=== PATIENT | female | born 1970 | race Caucasian/White ===

== ENCOUNTER 2018-08-20 13:10 | Observation (INO) | payer BC, SELFPAY ==
[2018-08-13 13:22] VITALS: BMI 30.1
[2018-08-20] VITALS (13 sets, daily range): BP systolic 126–161; BP diastolic 79–104; PULSE 58–80; RESP 13–18; TEMP 36.4–36.7; O2SAT 94–100; BMI 30.3; BMI 30.4
--- NOTE | 2018-08-20 13:39 | EKG12_ITS ---
Test Reason : CP Blood Pressure : / mmHG Vent. Rate : 065 BPM Atrial Rate : 065 BPM P-R Int : 172 ms QRS Dur : 088 ms QT Int : 408 ms P-R-T Axes : 017 -43 047 degrees QTc Int : 424 ms Normal sinus rhythm Left axis deviation Moderate voltage criteria for LVH, may be normal variant Abnormal ECG Confirmed by LAVONNE PERSAUD, CLAUDIA ([id number]), supervising editor trailer JENNIFER VALENZUELA ([id number]) on 08/24/2018 9:00:58 AM Referred By: [facility] Confirmed By:CLAUDIA BANERJEE MD
--- NOTE | 2018-08-20 13:39 | RAD_ITS ---
STUDY: X-RAY CHEST REASON FOR EXAM: Female, 48 years old. Chest pain. TECHNIQUE: Single AP portable view of the chest. COMPARISON: Comparison is made with prior study dated November 22, 2014. FINDINGS: EKG electrodes are seen. Stable mild elevation of the right hemidiaphragm. There is no demonstrated pleural abnormality. Normal size heart. Normal mediastinum and valente. Normal visualized pulmonary arteries. Normal visualized aortic arch and descending thoracic aorta. Normal visualized thoracic spine. Normal visualized ribs, clavicles, and shoulders. There is no demonstrated abnormality of the visualized soft tissue structures of the upper abdomen. RAD/Chest 1 View (Portable) IMPRESSION: No acute abnormality is present. Electronically Signed: Da Guzman MD at 14:15 EST , Service support ,
[2018-08-20 13:50] LABS: Absolute Lymphocyte Count 1.79 X10^3/ul (0.83-4.51); Absolute Neutrophil Count 2.1 X10^3/uL (2.0-7.7); Basophil# 0.02 X10^3/uL; Basophil% 0.5 % (0-1); Eosinophil# 0.05 X10^3/uL; Eosinophils% 1.1 % (0-5); Hematocrit 45.7 % (37-47); Hemoglobin 15.3 g/dl (12.0-15.0); Lymphocyte # 1.79 X10^3/ul (4.0); Lymphocyte % 40.7 % (19-41); Mean Corp Hgb Conc 33.5 g/gl (32-36); Mean Corpuscular Volume 86.6 fL (81-99); Mean Platelet Vol. 11.8 fl (6.2-12.0); Monocyte# 0.47 X10^3/uL; Monocyte% 10.7 % (0-10); Neutrophil # 2.07 X10^3/uL (2.7-7.7); Platelet Count 127 K/mm3 (150-450); RBC Distribution Width CV 13.1 % (11.6-14.6); RBC Distribution Width SD 40.9 fl (35.1-43.9); Red Blood Count 5.28 M/mm3 (4.2-5.4); White Blood Count 4.4 K/mm3 (4.4-11.0)
[2018-08-20 13:51] LABS: POSITIVE COUNT NO; POSITIVE DIFFERENTIAL NO; POSITIVE MORPHOLOGY NO
[2018-08-20 14:02] LABS: Anion Gap 11 (5-15); BUN 9 mg/dL (7-18); BUN/Creat Ratio 11.7 RATIO (10-20); Calcium,Total 9.2 mg/dL (8.5-10.1); Chloride 106 mmol/L (98-107); Creatinine, Serum 0.77 mg/dL (0.55-1.02); EST Glomerular Filtration Rate 85 mL/min (>60); Est Glom Filt Rate - Afr Amer 103 mL/min (>60); Estimated Creatinine Clearance 84.55 ml/min; Glucose 83 mg/dL (74-106); Potassium 3.6 mmol/L (3.5-5.1); Sodium Level 143 mmol/L (136-145)
[2018-08-20] MEDS: Aspirin 81 MG TAB.CHEW 324 MG PO (14:35)
--- NOTE | 2018-08-20 15:10 | ED.VISSUMM ---
- ER Visit Summary Date of Service: 08/20/18 Chief Complaint: Chest pain History of Present Illness: The patient is a 48 F who presents with chest pain that has been getting worse over the past several days. Patient describes her pain as a tightness and squeezing. Patient states it is over the upper substernal area. Patient states nothing makes it better or worse. Patient admits to some diaphoresis and shortness of breath with the pain. Patient also admits to some palpitations over the past few days. Patient has a history of hypertension. Patient denies any other cardiac or PE risk factors. Physical Examination: Vital signs are stable. Patient is afebrile. Patient is in no acute distress. Oral mucosa is pink and moist. Neck is supple. Trachea is midline. There is no JVD noted. Heart was regular rate and rhythm. Lungs are clear and equal bilateral. Abdomen is soft. Bowel sounds are normal. There is no tenderness. There is no guarding noted. Skin is warm dry. Cranial nerves II through XII are intact. There are no focal motor or sensory deficits noted. The remaining physical exam is within normal limits. Test Results: EKG showed a normal sinus rhythm with a rate of [address] acute [address] or T wave changes. This was unchanged compared to previous EKG dated 02/09/2013. Chest x-ray does not show any acute cardiopulmonary process. CBC was normal with the exception of a mild thrombocytopenia of 127. Basic metabolic profile was normal. Troponin was indeterminate at 0.07. Emergency Department Course and Treatment: She was given aspirin and sublingual nitroglycerin. Nitroglycerin did not change her pain. Case was discussed with the hospitalist. He will admit the patient to the PCU for observation. Patient understood and was agreeable with the plan. All questions were answered. Disposition: Admit for observation Impression: Chest pain This note was generated with [employer] dictation software. It may contain incorrect words, spelling, and punctuation that were not noted in review of the chart prior to signing ED Disposition - Plan for ED Patient: Disposition: Acute Care [facility] Diagnosis: Chest pain Referrals: Tomasa Khan DO [Primary Care Provider] -
--- NOTE | 2018-08-20 15:15 | ED.DCSUM_ITS ---
- ER Visit Summary Date of Service: 08/20/18 Chief Complaint: Chest pain History of Present Illness: The patient is a 48 F who presents with chest pain that has been getting worse over the past several days. Patient describes her pain as a tightness and squeezing. Patient states it is over the upper subst ernal area. Patient states nothing makes it better or worse. Patient admits to some diaphoresis and shortness of breath with the pain. Patient also admits to some palpitations over the past few days. Patient has a history of hypertension. Patient denies any other cardiac or PE risk factors. Physical Examination: Vital signs are stable. Patient is afebrile. Patient is in no acute distress. Oral mucosa is pink and moist. Neck is supple. Trachea is midline. There is no JVD noted. Heart was regular rate and rhythm. Lungs are clear and equal bilateral. Abdomen is soft. Bowel sounds are normal. There is no tenderness. There is no guarding noted. Skin is warm dry. Cranial nerves II through XII are intact. There are no focal motor or sensory deficits noted. The remaining physical exam is within normal limits. Test Results: EKG showed a normal sinus rhythm with a rate of [address] acute [address] or T wave changes. This was unchanged compared to previous EKG dated 02/09/2013. Chest x-ray does not show any acute cardiopulmonary process. CBC was normal with the exception of a mild thrombocytopenia of 127. Basic metabolic profile was normal. Troponin was indeterminate at 0.07. Emergency Department Course and Treatment: She was given aspirin and sublingual nitroglycerin. Nitroglycerin did not change her pain. Case was discussed with the hospitalist. He will admit the patient to the PCU for observation. Patient understood and was agreeable with the plan. All questions were answered. Disposition: Admit for observation Impression: Chest pain This note was generated with [employer] dictation software. It may contain incorrect words, spelling, and punctuation that were not noted in review of the chart prior to signing ED Disposition - Plan for ED Patient: Disposition: Acute Care [facility] Diagnosis: Chest pain Referrals: Toamsa Khan DO [Primary Care Provider] -
--- NOTE | 2018-08-20 15:32 | PCM.HP.STD ---
Problem List (1) Hypertension Status: Chronic (2) Chest pain Status: Acute History of Present Illness Date of Admission: 08/20/18 Chief Complaint: Chest pain. The patient is a 48 year old F with past medical history as mentioned above presented to the emergency room because of chest pain. Her symptoms started around mid June with intermittent mid central chest pain, pressure type pain, 5 out of 10 in severity, not radiating, associated with mild shortness of breath and without aggravating or relieving factors. This pain has been intermittent for the last couple of months, comes on without any specific triggering factors and over the last several days, it has been more constant and prolonged and started to radiate to her left arm from her left shoulder down to the left hand. She denied dizziness, lightheadedness, sweating, nausea or vomiting. She denied epigastric pain, heartburn. She is supposed to get stress test scheduled by PCP on September 10, 2018 but because of the pain got worse today, she decided to come to the emergency room. In the emergency department, initial blood pressure was slightly elevated and then improved, other vital signs were stable. Her routine blood work was unremarkable. Chest x-ray showed no acute findings. EKG revealed normal sinus rhythm, normal [place] interval, normal QRS, no acute ischemic changes. Troponin is 0.07, indeterminate. She is being admitted for chest pain for evaluation. 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 Hypertension I10 Allergies ibuprofen [From Motrin] Adverse Reaction (Verified 08/20/18 15:29) stomach pain Home Medications: Ambulatory Orders Medication Instructions Recorded Lisinopril [Zestril] 40 mg PO DAILY 11/22/14 Atenolol [Tenormin (beta ángel)] 25 mg PO DAILY 08/20/18 [facility] Basil [place] 1 cap PO DAILY 08/20/18 Lorazepam [Ativan] 0.25 mg PO BID PRN 08/20/18 Angelita [Angelita Root] 5 gm MC DAILY 08/20/18 Magnesium Oxide [Mag-Oxide] 200 mg PO DAILY 08/20/18 Shape Reclaimed 1 drop PO TID 08/20/18 Surgical History: Surgical History (Last Reviewed 08/13/18 @ 13:19 by Arlen Gamino) History of tonsillectomy Z90.89 Surgical History: tonsillectomy, - - Arthroscopic knee surgery. 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 Review of Systems Constitutional: Denies: Anorexia, Chills, Fever, Weakness Eyes: Denies: Blurred vision, Double vision, Drainage, Vision Change HEENT: Denies: Difficulty Hearing, Ear Pain, Eye Pain, Nasal Congestion, Sore Throat Cardiovascular: Reports: Chest Pain, Chest Pressure. Denies: Edema, Heaviness, Light Headedness, Orthopnea, Palpitations, Paroxysmal Noc. Dyspnea, Syncope Respiratory: Reports: Shortness of Breath. Denies: Cough, Hemoptysis, Pleuritic Pain, Sputum production, Wheezing Gastrointestinal: Denies: Abdominal Pain, Constipation, Diarrhea, Nausea, Vomiting Genitourinary: Denies: Dysuria, Frequency, Hematuria Musculoskeletal: Denies: Arm Pain, Back Pain, Foot Pain Skin: Denies: Dryness, Rash Neurological: Denies: Balance problems, Double vision, Change in Speech, Slurred speech, Confusion, Headaches, Incoordination, Numbness Psychiatric: Denies: Anxiety, Depression Endocrine: Denies: Change in Body Habitus, Polydipsia VTE Information - Inpt Only VTE Present on Admission: No VTE Mechan Device Prophylaxis: None VTE Pharm Prophylaxis ordered?: No Patient Problems: Active and Suspected Problems (Last Reviewed 08/13/18 @ 13:19 by Arlen Gamino) Chest pain (Acute) - Physical Exam General: Alert, Oriented x3, Cooperative, No apparent distress HEENT: Atraumatic, PERRLA, EOMI, Normocephalic Oral: Moist Mucosa, No Gingival or Mucosal Lesions/ Ulcerations Neck: Supple, No JVD, Negative Carotid Bruits, Trachea Midline, Thyroid Normal Size and Texture Lungs: Clear to auscultation, Normal air movement, No rhonchi, No wheeze, No rales Cardiovascular: Regular rate, Regular Rhythm, Normal S1, Normal S2, No murmurs Abdomen: Bowel Sounds Present, Soft, Non Tender, Non-Distended, No Hepato-splenomegaly Extremities: No clubbing, No cyanosis, No edema Skin: No rashes, No breakdown Lymphatic: No Cervical, Supraclavicular, or Inguinal Adenopathy Neurological: Cranial nerves II-XII grossly intact, Motor Exam 5/5 strength throughout Psych/Mental Status: Normal Affect, Appropriate, Alert and oriented to time, place, person, mood and affect Vital Signs Temp Pulse Resp BP Pulse Ox 97.5 F L 68 18 131/93 H 97 08/20/18 13:11 08/20/18 15:00 08/20/18 15:00 08/20/18 15:00 08/20/18 15:00 Oxygen Flow Rate (L/min) 2 Oxygen Delivery Method Nasal Cannula Weight: 188 lb Body Mass Index (BMI) 30.3 Laboratory Tests Past 24 Hrs 08/20/18 08/20/18 13:20 13:20 WBC 4.4 RBC 5.28 Hgb 15.3 H Hct 45.7 MCV 86.6 MCH 29.0 MCHC 33.5 RDW 13.1 RDW Differential 40.9 Plt Count 127 L MPV 11.8 Immature Gran % (Auto) 0.000 Neut % (Auto) 47.0 Lymph % (Auto) 40.7 Collier % (Auto) 10.7 H Eos % (Auto) 1.1 Baso % (Auto) 0.5 Absolute Neuts (auto) 2.1 Absolute Lymphs (auto) 1.79 Total Counted Not Reportable Sodium 143 Potassium 3.6 Chloride 106 Carbon Dioxide 26.0 Anion Gap 11 BUN 9 Creatinine 0.77 Estim Creat Clear Calc 84.55 Est GFR (MDRD) Af Amer 103 Est GFR (MDRD) Non-Af 85 BUN/Creatinine Ratio 11.7 Glucose 83 Calcium 9.2 Troponin I 0.070 H Clinical Impression(s) from Imaging Studies Chest X-Ray 08/20/18 13:39 IMPRESSION: No acute abnormality is present. Electronically Signed: Da Guzman MD at 14:15 EST , Service support , Assessment/Plan All Active Problems (Last Reviewed 08/13/18 @ 13:19 by Arlen Gamino) Chest pain (Acute) This is a 48 years old female patient presented to the emergency room because of chest pain, found to have indeterminate troponin and she is being admitted for evaluation. #1 chest pain/indeterminate troponin: Risk factors are hypertension. No family history of premature CAD. Patient is non-smoker. EKG revealed normal sinus rhythm without evidence of acute ischemic changes. Troponin is 0.07. Patient's description of her pain is typical for ACS. Chest x-ray showed no acute findings. Vital signs are stable. Plan: Admit to PCU, cardiac monitoring, serial cardiac enzymes, repeat EKG tomorrow morning, IV morphine as needed for pain, 90% as needed, IV fluids, Tylenol as needed, nuclear stress test tomorrow morning if cardiac enzymes are negative, fasting lipid profile, start baby aspirin. #2 hypertension: Initially, blood pressure was elevated but improved. Plan to continue lisinopril, hold atenolol because she is going for stress test tomorrow morning. #3 DVT prophylaxis: Low-risk patient, no prophylaxis indicated. This note was generated with [employer] dictation software. It may contain incorrect words, spelling, and punctuation that were not noted in checking the note before signing. Code Visit OBSV E&M: 31363 Initial observation care L3
--- NOTE | 2018-08-20 15:36 | HP.PCM_ITS ---
Problem List (1) Hypertension Status: Chronic (2) Chest pain Status: Acute History of Present Illness Date of Admission: 08/20/18 Chief Complaint: Chest pain. The patient is a 48 year old F with past medical history as mentioned above presented to the emergency room because of chest pain. Her symptoms started around mid June with intermittent mid central chest pain, pressure type pain, 5 out of 10 in severity, not radiating, associated with mild shortness of breath and without aggravating or relieving factors. This pain has been intermittent for the last couple of months, comes on without any specific triggering factors and over the last several days, it has been more constant and prolonged and started to radiate to her left arm from her left shoulder down to the left hand. She denied dizziness, lightheadedness, sweating, nausea or vomiting. She denied epigastric pain, heartburn. She is supposed to get stress test scheduled by PCP on September 10, 2018 but because of the pain got worse today, she decided to come to the emergency room. In the emergency department, initial blood pressure was slightly elevated and then improved, other vital signs were stable. Her routine blood work was unremarkable. Chest x-ray showed no acute findings. EKG revealed normal sinus rhythm, normal CT interval, normal QRS, no acute ischemic changes. Troponin is 0.07, indeterminate. She is being admitted for chest pain for evaluation. 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 Hypertension I10 Allergies ibuprofen [From Motrin] Adverse Reaction (Verified 08/20/18 15:29) stomach pain Home Medications: Ambulatory Orders Medication Instructions Recorded Lisinopril [Zestril] 40 mg PO DAILY 11/22/14 Atenolol [Tenormin (beta ángel)] 25 mg PO DAILY 08/20/18 [facility] [place] 1 cap PO DAILY 08/20/18 Lorazepam [Ativan] 0.25 mg PO BID PRN 08/20/18 Angelita [Angelita Root] 5 gm MC DAILY 08/20/18 Magnesium Oxide [Mag-Oxide] 200 mg PO DAILY 08/20/18 Shape Reclaimed 1 drop PO TID 08/20/18 Surgical History: Surgical History (Last Reviewed 08/13/18 @ 13:19 by Arlen Gamino) History of tonsillectomy Z90.89 Surgical History: tonsillectomy, - - Arthroscopic knee surgery. 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 Review of Systems Constitutional: Denies: Anorexia, Chills, Fever, Weakness Eyes: Denies: Blurred vision, Double vision, Drainage, Vision Change HEENT: Denies: Difficulty Hearing, Ear Pain, Eye Pain, Nasal Congestion, Sore Throat Cardiovascular: Reports: Chest Pain, Chest Pressure. Denies: Edema, Heaviness, Light Headedness, Orthopnea, Palpitations, Paroxysmal Noc. Dyspnea, Syncope Respiratory: Reports: Shortness of Breath. Denies: Cough, Hemoptysis, Pleuritic Pain, Sputum production, Wheezing Gastrointestinal: Denies: Abdominal Pain, Constipation, Diarrhea, Nausea, Vomiting Genitourinary: Denies: Dysuria, Frequency, Hematuria Musculoskeletal: Denies: Arm Pain, Back Pain, Foot Pain Skin: Denies: Dryness, Rash Neurological: Denies: Balance problems, Double vision, Change in Speech, Slurred speech, Confusion, Headaches, Incoordination, Numbness Psychiatric: Denies: Anxiety, Depression Endocrine: Denies: Change in Body Habitus, Polydipsia VTE Information - Inpt Only VTE Present on Admission: No VTE Mechan Device Prophylaxis: None VTE Pharm Prophylaxis ordered?: No Patient Problems: Active and Suspected Problems (Last Reviewed 08/13/18 @ 13:19 by Arlen Gamino) Chest pain (Acute) - Physical Exam General: Alert, Oriented x3, Cooperative, No apparent distress HEENT: Atraumatic, PERRLA, EOMI, Normocephalic Oral: Moist Mucosa, No Gingival or Mucosal Lesions/ Ulcerations Neck: Supple, No JVD, Negative Carotid Bruits, Trachea Midline, Thyroid Normal Size and Texture Lungs: Clear to auscultation, Normal air movement, No rhonchi, No wheeze, No rales Cardiovascular: Regular rate, Regular Rhythm, Normal S1, Normal S2, No murmurs Abdomen: Bowel Sounds Present, Soft, Non Tender, Non-Distended, No Hepato- splenomegaly Extremities: No clubbing, No cyanosis, No edema Skin: No rashes, No breakdown Lymphatic: No Cervical, Supraclavicular, or Inguinal Adenopathy Neurological: Cranial nerves II-XII grossly intact, Motor Exam 5/5 strength throughout Psych/Mental Status: Normal Affect, Appropriate, Alert and oriented to time, place, person, mood and affect Vital Signs Temp Pulse Resp BP Pulse Ox 97.5 F L 68 18 131/93 H 97 08/20/18 13:11 08/20/18 15:00 08/20/18 15:00 08/20/18 15:00 08/20/18 15:00 Oxygen Flow Rate (L/min) 2 Oxygen Delivery Method Nasal Cannula Weight: 188 lb Body Mass Index (BMI) 30.3 Laboratory Tests Past 24 Hrs 08/20/18 08/20/18 13:20 13:20 WBC 4.4 RBC 5.28 Hgb 15.3 H Hct 45.7 MCV 86.6 MCH 29.0 MCHC 33.5 RDW 13.1 RDW Differential 40.9 Plt Count 127 L MPV 11.8 Immature Gran % (Auto) 0.000 Neut % (Auto) 47.0 Lymph % (Auto) 40.7 [place]cdowell % (Auto) 10.7 H Eos % (Auto) 1.1 Baso % (Auto) 0.5 Absolute Neuts (auto) 2.1 Absolute Lymphs (auto) 1.79 Total Counted Not Reportable Sodium 143 Potassium 3.6 Chloride 106 Carbon Dioxide 26.0 Anion Gap 11 BUN 9 Creatinine 0.77 Estim Creat Clear Calc 84.55 Est GFR (MDRD) Af Amer 103 Est GFR (MDRD) Non-Af 85 BUN/Creatinine Ratio 11.7 Glucose 83 Calcium 9.2 Troponin I 0.070 H Clinical Impression(s) from Imaging Studies Chest X-Ray 08/20/18 13:39 IMPRESSION: No acute abnormality is present. Electronically Signed: Da Guzman MD at 14:15 EST , Service support , Assessment/Plan All Active Problems (Last Reviewed 08/13/18 @ 13:19 by Arlen Gamino) Chest pain (Acute) This is a 48 years old female patient presented to the emergency room because of chest pain, found to have indeterminate troponin and she is being admitted for evaluation. #1 chest pain/indeterminate troponin: Risk factors are hypertension. No family history of premature CAD. Patient is non-smoker. EKG revealed normal sinus rhythm without evidence of acute ischemic changes. Troponin is 0.07. Patient's description of her pain is typical for ACS. Chest x-ray showed no acute findings. Vital signs are stable. Plan: Admit to PCU, cardiac monitoring, serial cardiac enzymes, repeat EKG tomorrow morning, IV morphine as needed for pain, 90% as needed, IV fluids, Tylenol as needed, nuclear stress test tomorrow morning if cardiac enzymes are negative, fasting lipid profile, start baby aspirin. #2 hypertension: Initially, blood pressure was elevated but improved. Plan to continue lisinopril, hold atenolol because she is going for stress test tomorrow morning. #3 DVT prophylaxis: Low-risk patient, no prophylaxis indicated. This note was generated with [employer] dictation software. It may contain incorrect words, spelling, and punctuation that were not noted in checking the note before signing. Code Visit OBSV E&M: 80556 Initial observation care L3
--- NOTE | 2018-08-20 15:54 | EKG12_ITS ---
Test Reason : CP Blood Pressure : / mmHG Vent. Rate : 054 BPM Atrial Rate : 054 BPM P-R Int : 204 ms QRS Dur : 094 ms QT Int : 446 ms P-R-T Axes : 027 -41 064 degrees QTc Int : 422 ms Sinus bradycardia Left axis deviation Minimal voltage criteria for LVH, may be normal variant Abnormal ECG When compared with ECG of 09-FEB-2013 05:45, No significant change was found Confirmed by LAVONNE PERSAUD, CLAUDIA ([id number]), international editorial producer JENNIFER VALENZUELA ([id number]) on 08/24/2018 9:27:19 AM Referred By: [facility] Confirmed By:CLAUDIA BANERJEE MD
--- NOTE | 2018-08-20 21:33 | NURSING ---
Nursing rounds late due to RN being in code blue.
[2018-08-21] VITALS (15 sets, daily range): BP systolic 113–145; BP diastolic 69–93; PULSE 38–75; RESP 16–18; TEMP 36.6–36.9; O2SAT 96–100
[2018-08-21] MEDS: 0.9% NaCl Peripheral Flush Adult/Peds IV ×2 (03:12→09:31)
[2018-08-21 05:05] LABS: Absolute Lymphocyte Count 1.88 X10^3/ul (0.83-4.51); Basophil# 0.02 X10^3/uL; Basophil% 0.4 % (0-1); Eosinophil# 0.11 X10^3/uL; Eosinophils% 2.5 % (0-5); Hematocrit 44.3 % (37-47); Hemoglobin 14.8 g/dl (12.0-15.0); Lymphocyte # 1.88 X10^3/ul (4.0); Mean Corp Hgb Conc 33.4 g/gl (32-36); Mean Corpuscular Hgb 29.4 pg (27.0-32.0); Mean Corpuscular Volume 87.9 fL (81-99); Monocyte# 0.44 X10^3/uL; Monocyte% 9.8 % (0-10); Neutrophil # 2.03 X10^3/uL (2.7-7.7); Neutrophil % 45.3 % (47-70); POSITIVE COUNT NO; POSITIVE DIFFERENTIAL NO; POSITIVE MORPHOLOGY NO; Platelet Count 131 K/mm3 (150-450); RBC Distribution Width CV 13.3 % (11.6-14.6); RBC Distribution Width SD 42.1 fl (35.1-43.9); Red Blood Count 5.04 M/mm3 (4.2-5.4); White Blood Count 4.5 K/mm3 (4.4-11.0)
[2018-08-21 05:12] LABS: Partial Thromboplast Time 33.7 Seconds (24.1-36.2); Prothrombin Time (Protime)PT. 13.3 SECONDS (11.7-14.9)
[2018-08-21 05:20] LABS: Anion Gap 9 (5-15); BUN 14 mg/dL (7-18); BUN/Creat Ratio 20.1 RATIO (10-20); Calcium,Total 8.9 mg/dL (8.5-10.1); Chloride 110 mmol/L (98-107); Cholesterol 128 mg/dL (200); EST Glomerular Filtration Rate 95 mL/min (>60); Est Glom Filt Rate - Afr Amer 115 mL/min (>60); Estimated Creatinine Clearance 93.01 ml/min; Glucose 84 mg/dL (74-106); High Density Lipoprotein 31 mg/dL; Potassium 3.8 mmol/L (3.5-5.1); Sodium Level 145 mmol/L (136-145); Triglycerides 97 mg/dL; Very Low Density Lipoprotein 19 mg/dL (5-40)
--- NOTE | 2018-08-21 05:55 | EKG12_ITS ---
Test Reason : AM EKG Blood Pressure : / mmHG Vent. Rate : 054 BPM Atrial Rate : 054 BPM P-R Int : 200 ms QRS Dur : 084 ms QT Int : 474 ms P-R-T Axes : 025 -37 046 degrees QTc Int : 449 ms Sinus bradycardia Left axis deviation Abnormal ECG When compared with ECG of 20-AUG-2018 15:53, MANUAL COMPARISON REQUIRED, DATA IS UNCONFIRMED Confirmed by LAVONNE PERSAUD, CLAUDIA ([id number]), editor in chief newspaper JENNIFER VALENZUELA ([id number]) on 08/24/2018 9:23:56 AM Referred By: [facility] Confirmed By:CLAUDIA BANERJEE MD
[2018-08-21] MEDS: Aspirin 81 MG TAB.CHEW PO (06:06)
[2018-08-21] MEDS: Lisinopril 40 MG Tablet PO (06:06)
--- NOTE | 2018-08-21 07:44 | NURSING ---
Called report to Ronnie LINDQUIST in cardiovascular lab director
[2018-08-21 07:54] LABS: Pregnancy, Serum, hCG Quali. NEGATIVE Negative (0-9 Nonpreg)
--- NOTE | 2018-08-21 08:25 | PCM.CONS.C ---
Reason for Consult Date of Consultation: 08/21/18 Reason for Consultation: Chest pain History of Present Illness: The patient is a 48 year old F with past medical history significant for hypertension who presented to the emergency room because of chest pain. Her symptoms started around mid June with intermittent mid central chest pain, pressure type pain, 5 out of 10 in severity, not radiating, associated with mild shortness of breath and without aggravating or relieving factors. This pain has been intermittent for the last couple of months, comes on without any specific triggering factors and over the last several days, it has been more constant and prolonged and started to radiate to her left arm from her left shoulder down to the left hand. She denied dizziness, lightheadedness, sweating, nausea or vomiting. She denied epigastric pain, heartburn. She is supposed to get stress test scheduled by PCP on September 10, 2018 but because of the pain got worse today, she decided to come to the emergency room. In the emergency department, initial blood pressure was slightly elevated and then improved, other vital signs were stable. Her routine blood work was unremarkable. Chest x-ray showed no acute findings. EKG revealed normal sinus rhythm, normal AL interval, normal QRS, no acute ischemic changes. Troponin is 0.07, indeterminate. She is being admitted for chest pain for evaluation. The hospitalist discussed this with me in the morning yesterday and we decided to proceed with stress testing. However, she has continued to have chest discomfort. She had the resting portion of the stress test which was mildly abnormal and she continued to have chest discomfort and therefore it was decided to abort the exercise portion of the stress test and proceed directly to a cardiac catheterization. This was discussed with the patient was agreeable. Past Medical History Allergies/Adverse Reactions: Allergies ibuprofen [From Motrin] Adverse Reaction (Verified 08/20/18 15:29) stomach pain Home Medications: Ambulatory Orders Medication Instructions Recorded Lisinopril [Zestril] 40 mg PO DAILY 11/22/14 Atenolol [Tenormin (beta ángel)] 25 mg PO DAILY 08/20/18 [facility] [place] 1 cap PO DAILY 08/20/18 Lorazepam [Ativan] 0.25 mg PO BID PRN 08/20/18 Angelita [Angelita Root] 5 gm MC DAILY 08/20/18 Magnesium Oxide [Mag-Oxide] 200 mg PO DAILY 08/20/18 Shape Reclaimed 1 drop PO TID 08/20/18 Past Medical History (Chronic Problems): Chronic Problems (Last Reviewed 08/13/18 @ 13:19 by Arlen Gamino) Hypertension (Chronic) Surgical History: tonsillectomy, - - Arthroscopic knee surgery. Psychiatric History: No pertinent psych hx TOP ICER History: No pertinent TOP ICER history - *Family History Maternal Family History: Family History (Last Reviewed 08/13/18 @ 13:19 by Arlen Gamino) Other Arthritis Cancer Hypertension History Items: Hypertension Paternal Family History: Family History (Last Reviewed 08/13/18 @ 13:19 by Arlen Gamino) Other Arthritis Cancer Hypertension History Items: No pertinent history, - - No family history of premature CAD. Lives: Spouse/ Significant Other Smoking Status: Never smoker Alcohol: Rare Drugs: None Review of Systems - Review of Systems General: Denies: Fever, Night Sweats, Fatigue Cardiovascular: Reports: Chest Discomfort, Chest Discomfort at Rest. Denies: Shortness of Breath, Orthopnea, PND, Peripheral Edema, Palpitations, Lightheadedness, Dizziness, Near Syncope, Syncope Respiratory: Denies: Cough, Sputum Production, Hemoptysis Gastrointestinal: Denies: Hematemesis, Hematochezia, Melena Genitourinary: Denies: Dysuria, Hematuria Muscoloskeletal: Denies: Myalgias Skin: Denies: Rash Neurological: Denies: Dizziness Psychiatric: Denies: Anxiety Endocrine: Denies: Unexplained Weight Loss Hematologic/ Lymphatic: Denies: Anemia Subjectve: Pleasant lady in no distress Objective: Vital Signs Temp Pulse Resp BP Pulse Ox 98.2 F 71 18 131/86 H 96 08/21/18 06:02 08/21/18 06:28 08/21/18 06:02 08/21/18 06:02 08/21/18 06:02 Oxygen Flow Rate (L/min) 2 Oxygen Delivery Method Room Air Weight: 188 lb 11.451 oz Body Mass Index (BMI) 30.4 Intake and Output for Last 24 Hours 08/19/18 08/20/18 08/21/18 23:59 23:59 23:59 Intake Total 240 / 240 600 / 600 Balance 240 / 240 600 / 600 General: Awake, Alert, Oriented x 3 HEENT: PERRL, EOMI, Sclera Non Icteric Neck: Supple, Good ROM, No Lymph Node Enlargement Lungs: Clear to auscultation Cardiovascular: Regular Rhythm, Normal S1, Normal S2, No Murmurs, No Rubs, No Gallops Vascular: No Carotid Bruits, Normal Femoral Pulses, Normal Radial Pulses, Normal Dorsalis Pedal Pulse, Normal Posterior Tibial Pulses Abdomen: Bowel Sounds Present, Soft, Non Tender, No HSM, No Organomegaly Extremities: No Cyanosis, No Clubbing, No edema Neurological: No Focal Motor or Sensory Deficit Psych/Mental Status: Appropriate 08/20/18 13:20: WBC 4.4, RBC 5.28, Hgb 15.3 H, Hct 45.7, MCV 86.6, MCH 29.0, MCHC 33.5, RDW 13.1, RDW Differential 40.9, Plt Count 127 L, MPV 11.8, Immature Gran % (Auto) 0.000, Neut % (Auto) 47.0, Lymph % (Auto) 40.7, [place] % (Auto) 10.7 H, Eos % (Auto) 1.1, Baso % (Auto) 0.5, Absolute Neuts (auto) 2.1, Total Counted Not Reportable 08/20/18 13:20: Sodium 143, Potassium 3.6, Chloride 106, Carbon Dioxide 26.0, Anion Gap 11, BUN 9, Creatinine 0.77, Est GFR (MDRD) Af Amer 103, Est GFR (MDRD) Non-Af 85, BUN/Creatinine Ratio 11.7, Glucose 83, Calcium 9.2, Troponin I 0.070 H 08/20/18 16:15: Troponin I 0.066 H 08/20/18 19:26: Troponin I 0.057 H 08/21/18 04:48: WBC 4.5, RBC 5.04, Hgb 14.8, Hct 44.3, MCV 87.9, MCH 29.4, MCHC 33.4, RDW 13.3, RDW Differential 42.1, Plt Count 131 L, MPV 12.0, Immature Gran % (Auto) 0.000, Neut % (Auto) 45.3 L, Lymph % (Auto) 42.0 H, [place] % (Auto) 9.8, Eos % (Auto) 2.5, Baso % (Auto) 0.4, Absolute Neuts (auto) 2.0, Total Counted Not Reportable 08/21/18 04:48: PT 13.3, INR 1.0, APTT 33.7 08/21/18 04:48: Sodium 145, Potassium 3.8, Chloride 110 H, Carbon Dioxide 26.0, Anion Gap 9, BUN 14, Creatinine 0.70, Est GFR (MDRD) Af Amer 115, Est GFR (MDRD) Non-Af 95, BUN/Creatinine Ratio 20.1 H, Glucose 84, Calcium 8.9, Triglycerides 97, Cholesterol 128, LDL Cholesterol 78, VLDL Cholesterol 19, HDL Cholesterol 31 L Rhythm: EKG: Normal sinus rhythm with no acute changes Assessment/Plan 1. Chest pain There are some features of her chest pain which are atypical. However due to the minimally abnormal cardiac enzymes as well as the resting stress testing images we will proceed with a cardiac catheterization. Depending on the results further recommendations will be made. Patient underwent cardiac catheterization which demonstrated the following: Normal left main coronary artery. Left anterior descending artery with no significant disease Left circumflex artery with no high-grade stenosis. Ramus intermedius with no high-grade stenosis. Right coronary artery with no high-grade stenosis. Mild left ventricular systolic dysfunction estimated EF 40-45%. Based on the above angiographic findings it does not appear that obstructive coronary disease is responsible for any of her symptomatology. 2. Hypertension Patient is noted to be markedly hypertensive which may be responsible for her symptomatology. Recommendation will be to continue with the ELO inhibitor Add amlodipine 10 mg a day Patient can be discharged for outpatient follow-up.
--- NOTE | 2018-08-21 08:28 | CON.PCM_ITS ---
Reason for Consult Date of Consultation: 08/21/18 Reason for Consultation: Chest pain History of Present Illness: The patient is a 48 year old F with past medical history significant for hypertension who presented to the emergency room because of chest pain. Her symptoms started around mid June with intermittent mid central chest pain, pressure type pain, 5 out of 10 in severity, not radiating, associated with mild shortness of breath and without aggravating or relieving factors. This pain has been intermittent for the last couple of months, comes on without any specific triggering factors and over the last several days, it has been more constant and prolonged and started to radiate to her left arm from her left shoulder down to the left hand. She denied dizziness, lightheadedness, sweating, nausea or vomiting. She denied epigastric pain, heartburn. She is supposed to get stress test scheduled by PCP on September 10, 2018 but because of the pain got worse today, she decided to come to the emergency room. In the emergency department, initial blood pressure was slightly elevated and then improved, other vital signs were stable. Her routine blood work was unremarkable. Chest x-ray showed no acute findings. EKG revealed normal sinus rhythm, normal OK interval, normal QRS, no acute ischemic changes. Troponin is 0.07, indeterminate. She is being admitted for chest pain for evaluation. The hospitalist discussed this with me in the morning yesterday and we decided to proceed with stress testing. However, she has continued to have chest discomfort. She had the resting portion of the stress test which was mildly abnormal and she continued to have chest discomfort and therefore it was decided to abort the exercise portion of the stress test and proceed directly to a cardiac catheterization. This was discussed with the patient was agreeable. Past Medical History Allergies/Adverse Reactions: Allergies ibuprofen [From Motrin] Adverse Reaction (Verified 08/20/18 15:29) stomach pain Home Medications: Ambulatory Orders Medication Instructions Recorded Lisinopril [Zestril] 40 mg PO DAILY 11/22/14 Atenolol [Tenormin (beta ángel)] 25 mg PO DAILY 08/20/18 [facility] [place] 1 cap PO DAILY 08/20/18 Lorazepam [Ativan] 0.25 mg PO BID PRN 08/20/18 Angelita [Angelita Root] 5 gm MC DAILY 08/20/18 Magnesium Oxide [Mag-Oxide] 200 mg PO DAILY 08/20/18 Shape Reclaimed 1 drop PO TID 08/20/18 Past Medical History (Chronic Problems): Chronic Problems (Last Reviewed 08/13/18 @ 13:19 by Arlen Gamino) Hypertension (Chronic) Surgical History: tonsillectomy, - - Arthroscopic knee surgery. Psychiatric History: No pertinent psych hx DIGITAL EDITOR History: No pertinent DIGITAL EDITOR history - *Family History Maternal Family History: Family History (Last Reviewed 08/13/18 @ 13:19 by Arlen Gamino) Other Arthritis Cancer Hypertension History Items: Hypertension Paternal Family History: Family History (Last Reviewed 08/13/18 @ 13:19 by Arlen Gamino) Other Arthritis Cancer Hypertension History Items: No pertinent history, - - No family history of premature CAD. Lives: Spouse/ Significant Other Smoking Status: Never smoker Alcohol: Rare Drugs: None Review of Systems - Review of Systems General: Denies: Fever, Night Sweats, Fatigue Cardiovascular: Reports: Chest Discomfort, Chest Discomfort at Rest. Denies: Shortness of Breath, Orthopnea, PND, Peripheral Edema, Palpitations, Lightheadedness, Dizziness, Near Syncope, Syncope Respiratory: Denies: Cough, Sputum Production, Hemoptysis Gastrointestinal: Denies: Hematemesis, Hematochezia, Melena Genitourinary: Denies: Dysuria, Hematuria Muscoloskeletal: Denies: Myalgias Skin: Denies: Rash Neurological: Denies: Dizziness Psychiatric: Denies: Anxiety Endocrine: Denies: Unexplained Weight Loss Hematologic/ Lymphatic: Denies: Anemia Subjectve: Pleasant lady in no distress Objective: Vital Signs Temp Pulse Resp BP Pulse Ox 98.2 F 71 18 131/86 H 96 08/21/18 06:02 08/21/18 06:28 08/21/18 06:02 08/21/18 06:02 08/21/18 06:02 Oxygen Flow Rate (L/min) 2 Oxygen Delivery Method Room Air Weight: 188 lb 11.451 oz Body Mass Index (BMI) 30.4 Intake and Output for Last 24 Hours 08/19/18 08/20/18 08/21/18 23:59 23:59 23:59 Intake Total 240 / 240 600 / 600 Balance 240 / 240 600 / 600 General: Awake, Alert, Oriented x 3 HEENT: PERRL, EOMI, Sclera Non Icteric Neck: Supple, Good ROM, No Lymph Node Enlargement Lungs: Clear to auscultation Cardiovascular: Regular Rhythm, Normal S1, Normal S2, No Murmurs, No Rubs, No Gallops Vascular: No Carotid Bruits, Normal Femoral Pulses, Normal Radial Pulses, Normal Dorsalis Pedal Pulse, Normal Posterior Tibial Pulses Abdomen: Bowel Sounds Present, Soft, Non Tender, No HSM, No Organomegaly Extremities: No Cyanosis, No Clubbing, No edema Neurological: No Focal Motor or Sensory Deficit Psych/Mental Status: Appropriate 08/20/18 13:20: WBC 4.4, RBC 5.28, Hgb 15.3 H, Hct 45.7, MCV 86.6, MCH 29.0, MCHC 33.5, RDW 13.1, RDW Differential 40.9, Plt Count 127 L, MPV 11.8, Immature Gran % (Auto) 0.000, Neut % (Auto) 47.0, Lymph % (Auto) 40.7, [place] % (Auto) 10.7 H, Eos % (Auto) 1.1, Baso % (Auto) 0.5, Absolute Neuts (auto) 2.1, Total Counted Not Reportable 08/20/18 13:20: Sodium 143, Potassium 3.6, Chloride 106, Carbon Dioxide 26.0, Anion Gap 11, BUN 9, Creatinine 0.77, Est GFR (MDRD) Af Amer 103, Est GFR (MDRD) Non-Af 85, BUN/Creatinine Ratio 11.7, Glucose 83, Calcium 9.2, Troponin I 0.070 H 08/20/18 16:15: Troponin I 0.066 H 08/20/18 19:26: Troponin I 0.057 H 08/21/18 04:48: WBC 4.5, RBC 5.04, Hgb 14.8, Hct 44.3, MCV 87.9, MCH 29.4, MCHC 33.4, RDW 13.3, RDW Differential 42.1, Plt Count 131 L, MPV 12.0, Immature Gran % (Auto) 0.000, Neut % (Auto) 45.3 L, Lymph % (Auto) 42.0 H, [place] % (Auto) 9.8, Eos % (Auto) 2.5, Baso % (Auto) 0.4, Absolute Neuts (auto) 2.0, Total Counted Not Reportable 08/21/18 04:48: PT 13.3, INR 1.0, APTT 33.7 08/21/18 04:48: Sodium 145, Potassium 3.8, Chloride 110 H, Carbon Dioxide 26.0, Anion Gap 9, BUN 14, Creatinine 0.70, Est GFR (MDRD) Af Amer 115, Est GFR (MDRD) Non-Af 95, BUN/Creatinine Ratio 20.1 H, Glucose 84, Calcium 8.9, Triglycerides 97, Cholesterol 128, LDL Cholesterol 78, VLDL Cholesterol 19, HDL Cholesterol 31 L Rhythm: EKG: Normal sinus rhythm with no acute changes Assessment/Plan 1. Chest pain * There are some features of her chest pain which are atypical. However due to the minimally abnormal cardiac enzymes as well as the resting stress testing images we will proceed with a cardiac catheterization. Depending on the results further recommendations will be made. Patient underwent cardiac catheterization which demonstrated the following: Normal left main coronary artery. Left anterior descending artery with no significant disease Left circumflex artery with no high-grade stenosis. Ramus intermedius with no high-grade stenosis. Right coronary artery with no high-grade stenosis. Mild left ventricular systolic dysfunction estimated EF 40-45%. Based on the above angiographic findings it does not appear that obstructive coronary disease is responsible for any of her symptomatology. 2. Hypertension * Patient is noted to be markedly hypertensive which may be responsible for her symptomatology. * Recommendation will be to continue with the ELO inhibitor * Add amlodipine 10 mg a day * * Patient can be discharged for outpatient follow-up.
--- NOTE | 2018-08-21 09:04 | CL.D_ITS ---
Patient Name: JANET ORTIZ Study Date: 08/21/2018 Performing: Elier Hernandez MD Ht: 66 inches 168 cm : 1970 Wt: 189.8 lbs 86 kg Age: 48 Gender: female BSA: 1.96 PROCEDURE(S) PERFORMED SF83-STU/COR/LV CLINICAL PROFILE AND INDICATIONS Indications: Suspected CAD Heart Failure: None Stress/Imaging Stress/Image Study Performed: No CAD Presentations: Unstable angina. CONCLUSIONS Normal coronary arteries Global LV systolic dysfunction- Mild RECOMMENDATIONS Medical therapy DESCRIPTION OF PROCEDURE The patient arrived to the procedure lab. The risks and benefits of the procedure as well as a full d escription of our services here and current unavailability of surgical backup were fully explained to the patient and/or their significant other prior to the catheterization. The Timeout was completed, verifying the correct patient and procedure. The patient's procedural site was prepped and draped in the usual fashion. Local anesthetic was given subcutaneously to right groin region with Lidocaine 2%. Using a modified Seldinger technique, arterial access was obtained via the right femoral artery, a 5 Fr sheath was inserted. Left Coronary Artery selective angiography was performed in multiple views u sing a 5 Fr. JL4 catheter. Right Coronary Artery selective angiography was then performed in multiple views using a 5 Fr. 3DRC (Jefry) catheter. Left Ventriculography was performed in CURIEL projection using a 5 Fr. Pigtail catheter. LV to AO pullback pressures were then recorded.Contrast was injected through the sheath and the Right Iliac and Femoral artery were assessed for possible riddhi sure device.The arterial sheath was pulled and a Mynx closure device was deployed for hemostasis CORONARY ANGIOGRAPHY DOMINANCE: Right Dominant LEFT HEART ASSESSMENT Left Ventricular Ejection Fraction: by LV Gram 40 % Global Hypokinesis - Mild Depressed Left Ventricular systolic function LEFT MAIN: Angiographically normal LEFT ANTERIOR DECENDING ARTERY: Angiographically normal CIRCUMFLEX ARTERY: Angiographically normal RAMUS: Non-obstructive RIGHT CORONARY ARTERY: Angiographically normal COMPLICATIONS No Complications PROCEDURE MEDICATIONS Versed 1 mg IV Versed 1 mg IV Oxygen: 2 L/min via nasal cannula Brilinta 180 mg PO @ 08/21/2018 08:25:26 SUMMARY OF HEMODYNAMIC DATA Time AIR REST ECG 07:56:17 AO 158/89 (116) SA 08:33:14 LV 161/5, 7 08:40:38 LV 163/2, 4 08:40:44 LV 160/-7, 9 08:41:31 LV 161/-8, 9 08:41:38 LVp 160/-11, 9 08:41:41 AOp 164/74 (115) 08:41:46 Signed By Elier Hernandez MD On 08/21/2018 09:03:11 Elier Hernandez MD
[2018-08-21] MEDS: amLODIPine 10 MG Tablet PO (09:31)
[2018-08-21] MEDS: Morphine 2 MG/ML Syringe 1 MG IV (09:31)
--- NOTE | 2018-08-21 09:36 | PCM.DC ---
- Discharge Diagnoses Current Active Problems: Current Active and Chronic Problems (Last Reviewed 08/13/18 @ 13:19 by Arlen Gamino) Hypertension (Chronic) Chest pain (Acute) You will use the following diet at home:: Cardiac - <2 grams of sodium daily Your food should be the consistency of: Regular Your liquids should be the consistency of: Regular/Thin Discharge Activity: Return to Normal Activity Allergies/Adverse Reactions: Allergies ibuprofen [From Motrin] Adverse Reaction (Verified 08/20/18 15:29) stomach pain Medications to take at Discharge Lisinopril [Zestril] 40 mg PO DAILY 11/22/14 [facility] [place] 1 cap PO DAILY 08/20/18 Lorazepam [Ativan] 0.25 mg PO BID PRN 08/20/18 Angelita [Angelita Root] 5 gm MC DAILY 08/20/18 Magnesium Oxide [Mag-Oxide] 200 mg PO DAILY 08/20/18 Shape Reclaimed 1 drop PO TID 08/20/18 Amlodipine [Norvasc] 10 mg PO DAILY #30 tab 08/21/18 Atenolol [Tenormin (beta ángel)] 12.5 mg PO DAILY #0 08/21/18 The following prescriptions were given: Amlodipine [Norvasc] 10 mg PO DAILY #30 tab Primary Care Physician: Tomasa Khan DO [Primary Care Provider] - Please follow up with your Primary Care Physician in: 1-2 weeks Test Results: Test results from this visit will be discussed in further detail at your follow-up appointment, if applicable. Please Follow Up With: Elier Hernandez MD When: As directed Proposed Discharge Date: 08/21/18
--- NOTE | 2018-08-21 10:45 | STRESSREP ---
Stress Test Report Pharmacologic myocardial perfusion stress test. 48-year-old lady with a history of recurrent chest discomfort. 11.7 mCi of technetium 99m sestamibi was injected at rest. Resting images were obtained. Prior to the patient getting ready for the stress testing she started complaining of chest discomfort. The stress test was therefore canceled. The patient was transferred to undergo a cardiac catheterization. The resting images on the stress test demonstrate uniform uptake of tracer noted in all areas of myocardium except for small portion of the distal anterior apical wall with reduced perfusion. No resting images were noted to compare the above to. Conclusion: Mildly abnormal resting stress images.
--- NOTE | 2018-08-21 12:15 | NURSING ---
Bedrest complete, walked patient in hallway, tolerated well, dressing c/d/i, heart cath teaching completed
--- NOTE | 2018-08-21 15:07 | PCM.DC.SUM ---
Discharge Date and Diagnosis Date of Admission: 08/20/18 Date of Discharge: 08/21/18 - Primary Discharge Diagnosis Chest pain - musculoskeletal HTN - Secondary Discharge Diagnosis Chronic Problems (Last Updated 08/21/18 @ 11:33 by Cielo London) Essential (primary) hypertension (Chronic) Hospital Course and Treatment Imaging Results: RAD/Chest 1 View (Portable) IMPRESSION: No acute abnormality is present. Stress test: Conclusion: Mildly abnormal resting stress images. Heart cath: Angiographically normal. EF 40% Consults: Mary - cardiology Operations: None Procedures: Cardiac catheterization, Stress test Summary of Care Provided: Hospital course: The patient is a 48 year old F with pmhx of HTN who presented to the ER with c/o chest pain described as 5/10 intermittent, central, pressure that has been going on for months. Troponin was indeterminate at presentation. EKG was negative. CXR was negative. She was admitted for chest pain workup on tele to the PCU. The following morning she had a stress test which was mildly abnormal. She then underwent a heart cath that had normal angiographically. She was started on amlodipine for her blood presure. Atenolol was halved for nocturnal bradycardia into the 30s. She was discharged home in stable condition. She will need to follow up with her PCP in 1-2 weeks and with cardiology as directed. This patient was seen by Bharathi Leung PA-C under the supervision of Doctor Grossman. [] - Physical Exam General: Alert, Oriented x3, Cooperative HEENT: Atraumatic, PERRLA, EOMI, Normocephalic Neck: Supple, No JVD, Negative Carotid Bruits Lungs: Clear to auscultation, Normal air movement Cardiovascular: Regular rate, No murmurs Abdomen: Bowel Sounds Present, Soft, Non Tender Extremities: No edema, Capillary Refill Less than 3 Seconds Skin: No rashes, No breakdown Musculoskeletal: No Tenderness to Palpation of Joints or Extremities Neurological: Cranial nerves II-XII grossly intact Psych/Mental Status: Normal Affect, Appropriate Vital Signs Temp Pulse Resp BP Pulse Ox 98.4 F 75 16 113/69 98 08/21/18 10:10 08/21/18 12:10 08/21/18 12:10 08/21/18 12:10 08/21/18 12:10 Oxygen Flow Rate (L/min) 2 Oxygen Delivery Method Room Air Weight: 188 lb 11.451 oz Body Mass Index (BMI) 30.4 Intake and Output for Last 24 Hours 08/19/18 08/20/18 08/21/18 23:59 23:59 23:59 Intake Total 240 / 240 1220 / 1220 Balance 240 / 240 1220 / 1220 Laboratory Tests Past 24 Hrs 08/20/18 08/20/18 08/21/18 16:15 19:26 04:48 WBC 4.5 RBC 5.04 Hgb 14.8 Hct 44.3 MCV 87.9 MCH 29.4 MCHC 33.4 RDW 13.3 RDW Differential 42.1 Plt Count 131 L MPV 12.0 Immature Gran % (Auto) 0.000 Neut % (Auto) 45.3 L Lymph % (Auto) 42.0 H Cedar % (Auto) 9.8 Eos % (Auto) 2.5 Baso % (Auto) 0.4 Absolute Neuts (auto) 2.0 Absolute Lymphs (auto) 1.88 Total Counted Not Reportable PT INR APTT Sodium Potassium Chloride Carbon Dioxide Anion Gap BUN Creatinine Estim Creat Clear Calc Est GFR (MDRD) Af Amer Est GFR (MDRD) Non-Af BUN/Creatinine Ratio Glucose Calcium Troponin I 0.066 H 0.057 H Triglycerides Cholesterol LDL Cholesterol VLDL Cholesterol HDL Cholesterol Serum , Qual 08/21/18 08/21/18 08/21/18 04:48 04:48 04:48 WBC RBC Hgb Hct MCV MCH MCHC RDW RDW Differential Plt Count MPV Immature Gran % (Auto) Neut % (Auto) Lymph % (Auto) Cedar % (Auto) Eos % (Auto) Baso % (Auto) Absolute Neuts (auto) Absolute Lymphs (auto) Total Counted PT 13.3 INR 1.0 APTT 33.7 Sodium 145 Potassium 3.8 Chloride 110 H Carbon Dioxide 26.0 Anion Gap 9 BUN 14 Creatinine 0.70 Estim Creat Clear Calc 93.01 Est GFR (MDRD) Af Amer 115 Est GFR (MDRD) Non-Af 95 BUN/Creatinine Ratio 20.1 H Glucose 84 Calcium 8.9 Troponin I Triglycerides 97 Cholesterol 128 LDL Cholesterol 78 VLDL Cholesterol 19 HDL Cholesterol 31 L Serum , Qual NEGATIVE Discharge Diet: Low fat/ Low Cholesterol, 2000 mg Sodium Diet Discharge Activity: Return to Normal Activity Home Medications: Medications to take at Discharge Lisinopril [Zestril] 40 mg PO DAILY 11/22/14 [facility] [place] 1 cap PO DAILY 08/20/18 Lorazepam [Ativan] 0.25 mg PO BID PRN 08/20/18 Angelita [Angelita Root] 5 gm MC DAILY 08/20/18 Magnesium Oxide [Mag-Oxide] 200 mg PO DAILY 08/20/18 Shape Reclaimed 1 drop PO TID 08/20/18 Amlodipine [Norvasc] 10 mg PO DAILY #30 tab 08/21/18 Atenolol [Tenormin (beta ángel)] 12.5 mg PO DAILY #0 08/21/18 Following Prescrptions Were Given to Patient: Amlodipine [Norvasc] 10 mg PO DAILY #30 tab Primary Care Physician: Tomasa Khan DO [Primary Care Provider] - Please follow up with your Primary Care Physician in: 1-2 weeks Please Follow Up With: Elier Hernandez MD When: As directed Disposition: Home Minutes spent on discharge:: 35 Patient Condition:: Stable Medical Necessity - Tobacco Use Smoking Status: Never smoker Meaningful Use Info Meaningful Use Diagnoses (Choose all that apply): None applicable
== END 2018-08-21 12:30 | disposition home or self-care (01) ==
LOC: ED 15:12 → PCU 15:27
PROVIDERS: Internal Medicine Cardiovascular Disease; Admitting Provider Hospitalist; Emergency Provider Emergency Medicine; Family Provider Family Medicine; PCP Family Medicine; Referring Provider Hospitalist; Visit Provider Internal Medicine
DX: R07.89 Other chest pain (principal); R06.02 Shortness of breath; I10 Essential (primary) hypertension; D69.6 Thrombocytopenia, unspecified; Z79.899 Other long term (current) drug therapy; M19.90 Unspecified osteoarthritis, unspecified site; R00.1 Bradycardia, unspecified
CPT/HCPCS: 36415; 71045; 78452; 80048; 80061; 84484; 84703; 85025; 85610; 85730; 93005; 93017; 93458; 96374; 99152; 99153; 99218; 99283; A9500; C1760; J7040; Q9967; A4216; C1769; G0378

== ENCOUNTER → 2018-09-13 14:45 | Outpatient (CLI) | payer BC, SELFPAY ==
[2018-08-20 15:55] VITALS: BMI 30.4
== END ==
LOC: SL 14:45
PROVIDERS: Family Provider Family Medicine; PCP Family Medicine; Referring Provider Family Medicine; Visit Provider Family Medicine
DX: G47.33 Obstructive sleep apnea (adult) (pediatric) (principal)
CPT/HCPCS: 98960; G0463

== ENCOUNTER → 2018-10-09 13:00 | Outpatient (CLI) | payer BC, SELFPAY ==
[2018-08-20 15:55] VITALS: BMI 30.4
== END ==
PROVIDERS: Family Provider Family Medicine; PCP Family Medicine; Referring Provider Family Medicine; Visit Provider Family Medicine
DX: Z46.89 Encounter for fitting and adjustment of other specified devices (principal)

== ENCOUNTER → 2018-10-15 | Outpatient (CLI) | payer BC, SELFPAY ==
[2018-08-20 15:55] VITALS: BMI 30.4
== END | disposition home or self-care (01) ==
LOC: SL 12:33
PROVIDERS: Family Provider Family Medicine; PCP Family Medicine; Referring Provider Family Medicine; Visit Provider Family Medicine
DX: Z09 Encounter for follow-up examination after completed treatment for conditions other than malignant neoplasm (principal)

== ENCOUNTER 2018-12-01 20:26 | Emergency (ER) | payer BC, SELFPAY ==
[2018-08-20 15:55] VITALS: BMI 30.4
[2018-12-01 20:26] VITALS: BP 137/85; PULSE 75; RESP 15; TEMP 36.6; BMI 32.3
--- NOTE | 2018-12-01 20:30 | RAD_ITS ---
STUDY: X-RAY - RIGHT ANKLE REASON FOR EXAM: Female, 48 years old. Right ankle pain after fall. TECHNIQUE: 3 view(s) of the ankle. COMPARISON: None. FINDINGS: Normal visualized distal tibia and fibula. Normal medial and lateral malleoli. Normal tibiotalar articulation and ankle mortise. Normal visualized talus and calcaneus. The visualized subtalar, talonavicular, calcaneocuboid and tarsal articulations are normal. There is soft tissue swelling over the lateral malleolus. RAD/Ankle min 3 Views IMPRESSION: Lateral malleolar soft tissue swelling with no acute osseous abnormality. Electronically Signed: Everett Whyte MD at 20:47 EDT , Service support ,
--- NOTE | 2018-12-01 20:58 | ED.DCSUM_ITS ---
History of Present Illness Chief Complaint: Lower Extremity Injury Informant: Patient Occurred: Today Mechanism/Context: Injury Current Severity: Mild Maximum Severity: Severe Worsened by: Movement and weightbearing Relieved by: Better with rest Associated Symptoms: Loss of Funtion. Negative for: Parasthesia, Weakness Narrative: Patient is a 48-year-old woman who had a plantar inversion mechanism injury to the right ankle. She complains of pain laterally. She denies knee pain or hip pain. She denies pain in her toes. She denies paresthesia, anesthesia or motor weakness. Prior similar symptoms: No Recent Illness/Hospitalization: No - Past Medical History (1) Nonischemic cardiomyopathy Status: Acute (2) Essential (primary) hypertension Status: Chronic Past Medical History - Allergies and Home Meds Allergies/Adverse Reactions: Allergies hydrocodone Adverse Reaction (Mild, Verified 12/01/18 21:08) Itching can take w/benedryl ibuprofen [From Motrin] Adverse Reaction (Verified 12/01/18 20:29) stomach pain Primary Care Physician: Tomasa Khan DO [Primary Care Provider] - Prior records reviewed: Yes Surgical History: tonsillectomy, - - Arthroscopic knee surgery. Smoking Status: Never smoker - Family History Maternal Family History: Family History (Last Reviewed 08/13/18 @ 13:19 by Arlen Gamino) Other Arthritis Cancer Hypertension Family History: Reports: Hypertension Paternal Family History: Family History (Last Reviewed 08/13/18 @ 13:19 by Arlen Gamino) Other Arthritis Cancer Hypertension Family History: Reports: No pertinent history, - - No family history of premature CAD. Review of Systems Musculoskeletal: Reports: Back pain, Swelling, Extremity Pain - Lateral aspect of right ankle. Denies: Myalgias, Arthralgias, Neck pain Neurological: Denies: Weakness, Parasthesia, Numbness Hematologic: Denies: Easy bruising, Easy bleeding Allergy: Denies: Uticaria Physical Exam Vital Signs/Narrative: Vital Signs Temp Pulse Resp BP 12/01/18 20:26 97.8 F 75 15 137/85 H - Extremity Exam Right Knee: Negative for: Abrasion, Contusion, Deformity, Edema, Hematoma, Limited ROM, - Right Tib fib: Negative for: Abrasion, Contusion, Deformity, Edema, Hematoma, Limited ROM, - Right Ankle: Hematoma, Limited ROM, - - Pain to palpation distal 4 to 3 cm of the lateral malleolus posteriorly. There is no pain the patient over the medial malleolus. There is no laxity with drawer testing.. Negative for: Abrasion, Contusion, Deformity, Edema Right Foot: Hematoma - Hematoma in the proximity of the insertion site anterior talofibular ligament. There is no pain to palpation the base of the fifth metatarsal. Negative for: Abrasion, Contusion, Deformity, Edema, Limited ROM Right Toe: Negative for: Abrasion, Contusion, Deformity, Edema, Hematoma, Limited ROM, - General: Well nourished, Well developed Head: Normocephalic Eyes: Perrl, EOMI. Negative for: Pale conjunctiva, Scleral icterus, - ENT: No Trauma, Moist Mucous Membranes Cardiovascular: Regular rate, Regular rhythm, No murmurs Respiratory: No distress Skin: Normal color, No rash, Trauma. Negative for: Cyanosis, Jaundice Neurological: Alert, Oriented x3, Cranial nerves II-XII grossly intact, Normal Strength, Normal Sensation. Negative for: Normal Gait Psychological: Normal affect Diagnostic/Tx/Re-eval Chest X-Ray - ED: Read by ED Physician, - - 2 view x-ray of the right ankle was obtained. There is no fracture, subluxation or dislocation. There is swelling noted over the lateral malleolus consistent with sprain. - Medical Decision Making Based on the auto ankle rules imaging is indicated. Three-view x-ray of the ankle was obtained to evaluate for fracture versus sprain. Patient also received 1 500 mg tablet of Naprosyn and one [place] tablet. Treatment Aircast, oral analgesia and follow-up with PCP as needed. ED Disposition - Plan for ED Patient: Disposition: Home or Assisted Living Diagnosis: Sprain of anterior talofibular ligament of right ankle Instructions: ED Sprain Ankle W X Ray Prescriptions: Hydrocodone Bitart/Apap 5-325 [[place] 5MG-325MG] 1 tab PO Q6H PRN PRN 3 Days #10 tab PRN Reason: Pain Naproxen [Naprosyn] 500 mg PO BID #14 tab Referrals: Tomasa Khan DO [Primary Care Provider] - 1 Week if not improving Additional Instructions: Remove Aircast 6-8 times a day to draw the alphabet with your right ankle. Elevate your right ankle for the next 2 to 3 days. Apply ice 20 to 30 minutes per application 6-8 times a day.
[2018-12-01] MEDS: HYDROcodone Bitartrate/Apap 5/325 Tablet PO (21:10)
[2018-12-01] MEDS: DiphenhydrAMINE 25 MG Capsule PO (21:10)
[2018-12-01] MEDS: Naproxen 500 MG Tablet PO (21:10)
--- NOTE | 2018-12-01 21:11 | ED.RN ---
DR CARTER AWARE PT NEEDS BENADRYL W/NORCO. VERBAL ORDER GIVEN.
[2018-12-01 21:45] VITALS: RESP 18
== END 2018-12-01 21:46 | disposition home or self-care (01) ==
PROVIDERS: Emergency Provider Emergency Medicine; Family Provider Family Medicine; PCP Family Medicine
DX: S93.491A Sprain of other ligament of right ankle, initial encounter (principal); X50.1XXA Overexertion from prolonged static or awkward postures, initial encounter; Y93.89 Activity, other specified; Y92.89 Other specified places as the place of occurrence of the external cause; Y99.9 Unspecified external cause status; I10 Essential (primary) hypertension; Z88.6 Allergy status to analgesic agent; Z88.5 Allergy status to narcotic agent
CPT/HCPCS: 73610; 99284

== ENCOUNTER 2019-04-04 21:17 | Emergency (ER) | payer BC, SELFPAY ==
[2019-02-26 11:33] VITALS: BMI 32.3
[2019-04-04 21:19] VITALS: BP 142/91; PULSE 90; RESP 18; TEMP 36.7; O2SAT 99; BMI 32.3
[2019-04-04] MEDS: DiphenhydrAMINE 25 MG Capsule PO (22:01)
[2019-04-04] MEDS: Famotidine 20 MG Tablet 40 MG PO (22:01)
[2019-04-04] MEDS: predniSONE 20 MG Tablet 60 MG PO (22:01)
--- NOTE | 2019-04-04 23:04 | ED.VISSUMM ---
- ER Visit Summary Date of Service: 04/04/19 Chief Complaint: [Allergic reaction] History of Present Illness: The patient is a 49 F [presents to the emergency department with an allergic reaction to pistachios.] Patient states that she had a lot of pistachios today and around 7 PM she started feeling itchy and developed hives. Patient feels like she has a lot of secretions in her throat. Denies any shortness of breath. Has any chest pain or lightheadedness. Denies any new soaps or detergents or other allergens. She denies any new medications. No recent illness. Physical Examination: [HEENT-PERRLA, EOMI. Cranial nerves II through XII grossly intact. TMs clear. Mucous membranes moist. No adenopathy. No angioedema noted of the lips, tongue, or oropharynx. No stridor on exam. Cardiovascular-regular rate and rhythm without murmur or ectopy Lungs-clear to auscultation, chest wall stable without crepitus or subcu emphysema Abdomen-normoactive bowel sounds, soft, nontender, no rebound or rigidity, no peritoneal signs. Skin exam-patient has urticarial-like rash on both flanks as well as her back and extremities. Extremities-intact ?4, normal range of motion, normal pulses, atraumatic] Test Results: [None indicated] Emergency Department Course and Treatment: [Patient was medicated with prednisone 60 mg p.o. as well as Benadryl 25 mg p.o. and Pepcid 40 mg p.o. Patient was observed in the emergency department for 2 hours and she had no worsening of her symptoms.] Treatment Plan: [Will be given a prescription for prednisone for 3 days. Patient advised to avoid pistachios in the future.] Disposition: [Discharged in stable condition. Impression: [Allergic reaction to pistachios.] This note was generated with [employer] dictation software. It may contain incorrect words, spelling, and punctuation that were not noted in review of the chart prior to signing ED Disposition - Plan for ED Patient: Referrals: Tomasa Khan DO [Primary Care Provider] -
--- NOTE | 2019-04-04 23:08 | ED.DEP ---
ED Disposition - Plan for ED Patient: Instructions: ALLERGIC REACTION, Other (General) Prescriptions: Prednisone [Deltasone] 20 mg PO BID #6 tab Prescription Printed Referrals: Tomasa Khan DO [Primary Care Provider] - As Needed
[2019-04-04 23:26] VITALS: BP 136/80; PULSE 84; RESP 18; O2SAT 99
[2019-04-04 23:28] VITALS: BP 136/80; PULSE 84; RESP 18; O2SAT 97
== END 2019-04-04 23:29 | disposition home or self-care (01) ==
LOC: ED 21:58
PROVIDERS: Emergency Provider Emergency Medicine; Family Provider Family Medicine; PCP Family Medicine
DX: T78.1XXA Other adverse food reactions, not elsewhere classified, initial encounter (principal); X58.XXXA Exposure to other specified factors, initial encounter; I10 Essential (primary) hypertension
CPT/HCPCS: 96372; 99284; A4216

== ENCOUNTER 2019-04-07 17:17 | Emergency (ER) | payer BC, SELFPAY ==
[2019-04-07 17:18] VITALS: BP 173/102; PULSE 71; RESP 16; TEMP 36.6; O2SAT 98; BMI 33.8
--- NOTE | 2019-04-07 17:46 | EKG12_ITS ---
Test Reason : Blood Pressure : / mmHG Vent. Rate : 065 BPM Atrial Rate : 065 BPM P-R Int : 166 ms QRS Dur : 086 ms QT Int : 402 ms P-R-T Axes : 012 -37 028 degrees QTc Int : 418 ms Normal sinus rhythm Left axis deviation Moderate voltage criteria for LVH, may be normal variant Poor R-wave Progression Abnormal ECG Confirmed by MÓNICA PERSAUD, DAYNA ([id number]), editor managing newspaper SUDHEER ANGUIANO ([id number]) on 04/10/2019 12:18:47 PM Referred By: Confirmed By:DAYNA SALES MD
--- NOTE | 2019-04-07 17:49 | ED.DCSUM_ITS ---
- ER Visit Summary Date of Service: 04/07/19 Chief Complaint: Eyes and chest fullness History of Present Illness: The patient is a 49 F post right ankle surgery by Dr. Washburn at [facility] orth[facility]ics in [place] just around 2 weeks ago. Patient states she is developed allergic reaction to something she stopped taking her pain medication and she has had highs. She also feels bloated in her epigastric region and has epigastric lower chest discomfort. She denies fever or chills. She is never had a DVT or PE. She denies any calf pain. No hemoptysis. No cardiac history. Physical Examination: Middle-aged female no acute distress vital signs stable afebrile pulse ox 90% on room air no signs of hypoxia. HEENT exam unremarkable lungs clear to auscultation bilaterally. Heart regular rhythm no murmur. Left leg pain chest were nontender. Abdomen soft nontender nondistended no jugular masses. Normal bowel sounds no peritoneal signs. Reviewed extremities moves all 4.. Right ankle. There is a well-healed surgical incision which is dry and clean. Josemanuel in place. Right foot neurovascular intact. Able to move her toes. Normal DP pulse. Achilles tendon intact. Calf nontender no edema without cords. Neurologically she is awake alert with no focal motor deficits. Skin she has had hives on her legs with Zaroxolyn. Test Results: Patient's CBC is unremarkable with a white count of 17. Chemistries normal potassium 3.3 normal creatinine gap troponin normal. EKG sinus rhythm rate of 65 no acute signs of ID or ischemia. D-dimer was elevated 1.09. Chest x-ray portable one view showed no acute abnormality read by myself the radiologist. Due to elevated d-dimer a CTA of the chest was obtained which shows no PE or dissection as read by the radiologist. Emergency Department Course and Treatment: Her chest pain is very atypical. I do not think it is cardiac pain is extremely unlikely that the PE. She will undergo cardiac work-up. She will receive IV Solu-Medrol for the hives in the allergic reaction. Multiple repeat exams patient is doing well. At 2024 she is doing well and comfortable being discharged home. We went over all test results. Treatment Plan: Prescription for prednisone for hives if they continue. Follow- up with your doctor. Return if worse. Disposition: Discharge Impression: Acute atypical chest pain uncertain etiology Secondary to allergic reaction Status post right ankle surgery This note was generated with [employer] dictation software. It may contain incorrect words, spelling, and punctuation that were not noted in review of the chart prior to signing ED Disposition - Plan for ED Patient: Referrals: Tomasa Khan DO [Primary Care Provider] -
[2019-04-07] MEDS: MethylPREDNISolone 125 MG/2 ML Vial IV (17:52)
--- NOTE | 2019-04-07 18:00 | RAD_ITS ---
STUDY: X-RAY CHEST REASON FOR EXAM: Female, 49 years old. Follow-up appointment for foot tendon surgery. Rash all over. TECHNIQUE: Single frontal view of the chest. COMPARISON: August 20, 2018 FINDINGS: There is no new focal consolidation. Normal size heart. Normal mediastinum and valente. Normal visualized pulmonary arteries. Normal visualized aortic arch and descending thoracic aorta. Normal visualized thoracic spine. Normal visualized ribs, clavicles, and shoulders. There is no demonstrated abnormality of the visualized soft tissue structures of the upper abdomen. RAD/Chest 1 View (Portable) IMPRESSION: No acute cardiopulmonary process. Electronically Signed: Cindy Hamilton MD at 18:28 EDT Tel , Service support ,
[2019-04-07 18:05] LABS: Absolute Lymphocyte Count 4.43 X10^3/uL (0.83-4.51); Absolute Neutrophil Count 12.2 X10^3/uL (2.0-7.7); Basophil% 0.6 % (0-1); Eosinophil# 0.06 X10^3/uL; Eosinophils% 0.3 % (0-5); Hematocrit 47.5 % (37-47); Hemoglobin 15.7 g/dL (12.0-15.0); Lymphocyte # 4.43 X10^3/ul (4.0); Lymphocyte % 24.7 % (19-41); Mean Corp Hgb Conc 33.1 g/dL (32-36); Mean Corpuscular Hgb 29.1 pg (27.0-32.0); Mean Platelet Vol. 10.9 fl (6.2-12.0); Monocyte# 0.98 X10^3/uL; Monocyte% 5.5 % (0-10); NRBC Flagged by Analyzer 0 % (0-5); Neutrophil # 12.16 X10^3/uL (2.7-7.7); Neutrophil % 67.8 % (47-70); Platelet Count 223 K/mm3 (150-450); RBC Distribution Width CV 13.2 % (11.6-14.6); RBC Distribution Width SD 42.3 fl (35.1-43.9); White Blood Count 17.9 K/mm3 (4.4-11.0)
[2019-04-07 18:18] LABS: Anion Gap 5 (5-15); BUN 12 mg/dL (7-18); BUN/Creat Ratio 15.1 RATIO (10-20); Calcium,Total 9.2 mg/dL (8.5-10.1); Chloride 103 mmol/L (98-107); EST Glomerular Filtration Rate 82 mL/min (>60); Est Glom Filt Rate - Afr Amer 99 mL/min (>60); Estimated Creatinine Clearance 80.51 ml/min; Glucose 114 mg/dL (74-106); Potassium 3.3 mmol/L (3.5-5.1); Sodium Level 137 mmol/L (136-145)
[2019-04-07 18:41] LABS: D-Dimer Quantitative (DVT/PE) 1.09 FEU/ug/m (0.27-0.49)
--- NOTE | 2019-04-07 18:43 | CT_ITS ---
STUDY: CTA CHEST REASON FOR EXAM: Female, 49 years old. Elevated d-dimer. Midsternal chest pain. RADIATION DOSAGE (If Supplied By Facility): CTDIvol = ( 9.97 ) mGy, DLP = ( 499.07 ) mGycm TECHNIQUE: The examination was performed with the intravenous administration of IV 100mL Isovue-370 100ML. Post-processing of the angiographic images was performed, with multiplanar reformation and 3D reconstruction. Individualized dose optimization techniques were used for this CT. COMPARISON: None. FINDINGS: Normal enhancement of the main pulmonary artery and right and left pulmonary arteries. Normal enhancement of the bilateral peripheral pulmonary arteries. There is no demonstrated pulmonary embolism. Normal thoracic aorta and visualized great vessels. There is no demonstrated aortic dissection. Normal heart and pericardium. Normal mediastinum. Normal hilar regions. Normal visualized trachea and bronchi. The lungs are well expanded. Normal pulmonary parenchyma. Normal pleura. Normal chest wall structures. Normal osseous structures. Normal visualized upper abdomen. CT/CTA Chest W/WO Contrast IMPRESSION: Within normal limits CTA chest examination, without a demonstrated pulmonary embolism or arterial dissection. Electronically Signed: Cindy Hamilton MD at 19:45 EDT Tel , Service support ,
[2019-04-07 19:18] VITALS: BP 154/83; PULSE 56; RESP 16; O2SAT 98
--- NOTE | 2019-04-07 20:30 | ED.DEP ---
ED Disposition - Plan for ED Patient: Disposition: Home or Assisted Living Instructions: Hives Prescriptions: Prednisone [Deltasone] 40 mg PO DAILY 5 Days tab Prescription Printed Referrals: Tomasa Khan DO [Primary Care Provider] - As Needed Additional Instructions: Fill prednisone prescription for 40 mg a day for 5 more days if the rash continues. Follow-up with your doctor if not improving.
[2019-04-07 20:33] VITALS: BP 135/93; PULSE 61; RESP 16; O2SAT 96
== END 2019-04-07 20:41 | disposition home or self-care (01) ==
PROVIDERS: Emergency Provider Emergency Medicine; Family Provider Family Medicine; PCP Family Medicine
DX: T78.40XA Allergy, unspecified, initial encounter (principal); I10 Essential (primary) hypertension
CPT/HCPCS: 71045; 71275; 80048; 84484; 85025; 85379; 93005; 96374; 99285; Q9967; A4216

== ENCOUNTER → 2019-05-17 20:00 | Outpatient (CLI) | payer BC, SELFPAY | PROVIDERS: Family Provider Family Medicine; PCP Family Medicine; Referring Provider Family Medicine; Visit Provider Family Medicine | DX: G47.33 Obstructive sleep apnea (adult) (pediatric) (principal) | CPT/HCPCS: 95811 ==

== ENCOUNTER → 2019-06-18 14:45 | Outpatient (CLI) | payer BC, SELFPAY | PROVIDERS: Family Provider Family Medicine; PCP Family Medicine; Referring Provider Family Medicine; Visit Provider Family Medicine | DX: Z46.9 Encounter for fitting and adjustment of unspecified device (principal) ==

== ENCOUNTER → 2019-06-24 12:24 | Outpatient (CLI) | payer BC, SELFPAY ==
[2019-06-11 14:48] VITALS: BMI 33.8
== END ==
PROVIDERS: Family Provider Family Medicine; PCP Family Medicine; Referring Provider Family Medicine; Visit Provider Family Medicine
DX: D75.1 Secondary polycythemia (principal); R79.89 Other specified abnormal findings of blood chemistry; Z83.49 Family history of other endocrine, nutritional and metabolic diseases
CPT/HCPCS: 36415

== ENCOUNTER → 2019-11-05 12:21 | Outpatient (CLI) | payer BC, SELFPAY ==
[2019-06-11 14:48] VITALS: BMI 33.8
[2019-11-05 15:25] LABS: AST(SGOT) 380 U/L (15-37); Alanine Aminotransfer ALT/SGPT 554 U/L (13-56); Albumin, Serum 3.9 g/dL (3.2-5.0); Alkaline Phosphatase 107 U/L (45-117); Bilirubin, Direct 0.27 mg/dL (0.00-0.30); Globulin 4.1 g/dL (2.2-4.2); Glucose 264 mg/dL (74-106)
[2019-11-05 15:32] LABS: Hemoglobin A1c 11.8 % (4.2-6.3)
== END ==
PROVIDERS: PCP Family Medicine; Referring Provider Family Medicine; Visit Provider Family Medicine
DX: R73.9 Hyperglycemia, unspecified (principal); R74.8 Abnormal levels of other serum enzymes
CPT/HCPCS: 36415; 80076; 82947; 83036

== ENCOUNTER 2021-08-02 17:30 | Outpatient (CLI) | payer BC, SELFPAY ==
[2021-08-02 17:42] VITALS: BP 145/98; PULSE 105; RESP 20; TEMP 36.8; O2SAT 99; BMI 31.4
[2021-08-02] MEDS: 0.9% Saline Lock 10 ML Syringe IV (17:46)
[2021-08-02 18:44] VITALS: BP 122/83; PULSE 85; RESP 16; TEMP 37.1; O2SAT 97
[2021-08-02 19:40] VITALS: BP 126/90; PULSE 88; RESP 16; TEMP 37.2; O2SAT 99
== END 2021-08-02 23:59 | disposition home or self-care (01) ==
LOC: MS3OUT 17:31 → MS3 17:31
PROVIDERS: PCP Family Medicine; Referring Provider Nurse Practitioner Adult Health; Visit Provider Nurse Practitioner Adult Health
DX: Z23 Encounter for immunization (principal); U07.1 COVID-19
CPT/HCPCS: J7050; M0245; Q0245; A4216

== ENCOUNTER 2022-02-08 11:08 | Emergency (ER) | payer BC, SELFPAY ==
[2022-02-08 11:09] VITALS: BP 146/107; PULSE 74; RESP 16; TEMP 35.9; O2SAT 100; BMI 32.3
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
[2022-02-08] MEDS: Ondansetron ODT 4 MG Tablet 8 MG PO (11:50)
[2022-02-08] MEDS: Ketorolac 30 MG/ML Syringe IM (11:52)
[2022-02-08] MEDS: Morphine 4 MG/ML Syringe IM (11:53)
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
[2022-02-08] MEDS: Orphenadrine 60 MG/2 ML Ampul IM (13:07)
[2022-02-08] MEDS: oxyCODONE 5 MG Tablet PO (13:07)
== END 2022-02-08 13:33 | disposition home or self-care (01) ==
PROVIDERS: Emergency Provider Emergency Medicine; PCP Family Medicine; Visit Provider Emergency Medicine
DX: M54.50 Low back pain, unspecified (principal); S29.019A Strain of muscle and tendon of unspecified wall of thorax, initial encounter; M54.12 Radiculopathy, cervical region; S16.1XXA Strain of muscle, fascia and tendon at neck level, initial encounter; G89.29 Other chronic pain; V89.2XXA Person injured in unspecified motor-vehicle accident, traffic, initial encounter
CPT/HCPCS: 72040; 72072; 96372; 99283

== ENCOUNTER 2022-04-13 09:41 | Emergency (ER) | payer BC, SELFPAY ==
[2022-04-13 09:44] VITALS: BP 148/95; PULSE 82; RESP 17; TEMP 37; O2SAT 97; BMI 32.2
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
[2022-04-13 11:22] VITALS: O2SAT 97
== END 2022-04-13 11:25 | disposition home or self-care (01) ==
PROVIDERS: Emergency Provider Student in an Organized Health Care Education/Training Program; PCP Family Medicine; Visit Provider Student in an Organized Health Care Education/Training Program
DX: S09.90XA Unspecified injury of head, initial encounter (principal); I42.8 Other cardiomyopathies; S60.312A Abrasion of left thumb, initial encounter; G89.29 Other chronic pain; S16.1XXA Strain of muscle, fascia and tendon at neck level, initial encounter; I10 Essential (primary) hypertension; V49.49XA Driver injured in collision with other motor vehicles in traffic accident, initial encounter
CPT/HCPCS: 70450; 72125; 99284

== ENCOUNTER → 2022-07-20 | Outpatient (CLI) | payer BC, SELFPAY ==
[2022-07-25 13:07] LABS: Clam <0.10 kU/L (Class 0); Codfish <0.10 kU/L (Class 0); Corn <0.10 kU/L (Class 0); Egg, White <0.10 kU/L (Class 0); Gluten <0.10 kU/L (Class 0); Milk (Cow) <0.10 kU/L (Class 0); Peanut <0.10 kU/L (Class 0); SCALLOP <0.10 kU/L (Class 0); SESAME SEED <0.10 kU/L (Class 0); Shrimp <0.10 kU/L (Class 0); Soybean <0.10 kU/L (Class 0); Walnut, (Food) <0.10 kU/L (Class 0); Wheat <0.10 kU/L (Class 0)
[2022-07-25 22:11] LABS: Apple <0.10 kU/L (Class 0)
== END | disposition home or self-care (01) ==
PROVIDERS: PCP Family Medicine; Visit Provider Otolaryngology
DX: T28.4 Burns of other and unspecified internal organs (principal)
CPT/HCPCS: 36415; 86003

== ENCOUNTER → 2023-05-09 | Outpatient (CLI) | payer BC, SELFPAY ==
--- NOTE | 2023-05-09 11:10 | RAD_ITS ---
STUDY: X-RAY - LUMBAR SPINE REASON FOR EXAM: Female, 53 years old. LUMBAR PAIN TECHNIQUE: 5 view(s) of the lumbar spine were obtained. COMPARISON: None FINDINGS: Normal lumbar lordosis. There is no substantial scoliosis. There is a normal alignment of the vertebrae. Normal vertebral bodies and endplates. Focal disc space narrowing at L5/S1 consistent with degenerative disc disease. Facet hypertrophy in the lower lumbar spine. The soft tissue structures are unremarkable. RAD/L/S Spine Min 4 Views IMPRESSION: Degenerative changes of the spine, as detailed above. MRI may be useful. Electronically Signed: Froilan Ireland MD at 21:03 EDT ,
== END | disposition home or self-care (01) ==
PROVIDERS: PCP Family Medicine
DX: M51.36 Other intervertebral disc degeneration, lumbar region (principal)
CPT/HCPCS: 72110

== ENCOUNTER 2023-05-30 10:26 | Emergency (ER) | payer BC, SELFPAY ==
[2023-05-30 10:27] VITALS: BP 117/84; PULSE 134; RESP 22; TEMP 35.7; O2SAT 99; BMI 32.5
--- NOTE | 2023-05-30 10:37 | EDS_ITS ---
HPI HPI - GI History of Present Illness Chief Complaint: Abd Pain Detail of Chief Complaint: Abdominal pain with nausea, vomiting and diarrhea and bitemporal headache Informant: patient Abdominal Pain/Flank Pain Onset: Yesterday Context: Sudden Onset Timing: Continuous and Waxes and wanes Quality: Cramping Location: Diffuse Current Severity: Mild Maximum Severity: Moderate Worsened by: - (Vomiting and diarrhea); Not Worsened By Car ride, Food or Movement Relieved by: Nothing; Not Relieved By Antacids, Food or Remaining Still Nausea/Vomiting/Emesis GI Symptom: Positive for Nausea and Vomiting (Approximately 8 times since onset) Diarrhea/Melena/Hematochezia GI Symptom: Positive for Diarrhea (Approximately 10 times); Negative for Melena or Hematochezia Onset: Yesterday Stool Quality: Positive for Loose and Watery Associated Symptoms Associated Symptoms: Positive for - (Decreased urine output); Negative for Dysuria, Frequency, Hematuria or Urgency Narrative Narrative: Patient is a 53-year-old woman with history of hypertension, type 2 diabetes, nonischemic cardiomyopathy, segmental and somatic disc function of the lumbar region with lower extremity exam numbness who is scheduled for injection June 16 presents because of abdominal pain with nausea, vomit diarrhea that started last evening. She has vomited 8 times and had 10 loose stools. She was on cephalexin after breast reduction surgery approximate 2 months ago. She did get an infection. She was on the antibiotic for approximate 1 week. She presents now with fever chills prior to the onset of the nausea, vomiting diarrhea. She had no ill contacts. She complained of subjective fever. She does report bitemporal head pain. She denies rhinorrhea, congestion and sore throat. She denies auditory symptoms. She denies neck pain or stiffness. She denies cardiac or respiratory symptoms. She does endorse thirst, dry mouth and orthostatic symptoms. She states her heart feels like it is pounding fast. Patient did not look at her stool because she states she had the lights out and unable to tell me what color it was if there was blood or mucus. Prior similar symptoms: Yes Recent Illness/Hospitalization: No [facility] Medical History (Updated 05/30/23 @ 14:[address] Manjinder Cleary MD) Arthritis Bilateral headaches Essential (primary) hypertension History of uterine anomaly Nonischemic cardiomyopathy Sjogren's disease Home Medications lisinopril 40 mg tablet 40 mg PO DAILY blood pressure 11/22/14 [History Last Taken 05/29/23] dillon (bulk) 5 gm MC DAILY 08/20/18 [History Last Taken 08/19/18] magnesium oxide 200 mg PO DAILY 08/20/18 [History Last Taken 05/29/23] metoprolol succinate 50 mg capsule sprinkle, ext. release 24 hr 50 mg PO DAILY 04/04/19 [History Last Taken 05/29/23] hydroxychloroquine 200 mg tablet 200 mg PO BID 04/13/22 [History Last Taken 05/29/23] dicyclomine 10 mg capsule 20 mg (2 x 10 mg) PO TIDAC #20 CAPSULES 05/30/23 [Rx Last Taken Unknown] estradiol 0.05 mg/24 hr semiweekly transdermal patch 1 patch transdermal .TWICE A WEEK 05/30/23 [History Last Taken 05/28/23] ondansetron 4 mg disintegrating tablet 4 mg PO Q8H PRN PRN Nausea #10 tabs 05/30/23 [Rx Last Taken Unknown] progesterone micronized 100 mg capsule 100 mg PO QHS 05/30/23 [History Last Taken 05/29/23] tirzepatide 2.5 mg/0.5 mL subcutaneous pen injector (Mounjaro) 2.5 mg subcut .WEEKLY 05/30/23 [History Last Taken 05/24/23] Allergy/AdvReac Type Severity Reaction Status Date / Time pistachio nut Allergy Hives Verified 05/30/23 10:27 hydrocodone AdvReac Mild Itching Verified 05/30/23 10:27 ibuprofen [From Motrin] AdvReac stomach Verified 05/30/23 10:27 pain Family History Other Arthritis Cancer Hypertension Surgical History (Updated 05/30/23 @ 10:56 by Nancie Castillo) History of left heart catheterization (08/21/18) History of tonsillectomy Hx of breast reduction, elective Social History Smoking Status: Never smoker alcohol intake: current alcohol intake frequency: a few times a month Alcohol type: wine substance use type: does not use what type of physical activity do you participate in: walking frequency: 1-2 times per week ROS ROS ED Constitutional Constitutional ED: Reports chills, fever(s), subjective and sweats; Denies weight loss ENT ENT ED: Denies ear pain or rhinorrhea Cardiovascular Cardiovascular: Reports palpitations and racing heartbeat; Denies chest pain Respiratory/Chest Respiratory/Chest: Denies cough, dyspnea or dyspnea on exertion Gastrointestinal Gastrointestinal: Reports abdominal pain, diarrhea, nausea and vomiting; Denies constipation or melena Genitourinary Genitourinary ED: Reports other Details: She reports decreased urine output. ; Denies dysuria, hematuria or urinary frequency Musculoskeletal Musculoskeletal: Denies arthralgias or myalgias Integumentary Denies rash Neurologic Neurologic: Reports headache(s) and weakness; Denies paresthesias Psychiatric Psychiatric: Denies anxiety Endocrine Endocrinology: Denies polydipsia or polyuria Hematologic/Lymphatic Hematologic/Lymphatic: Denies easy bleeding, easy bruising or lymphadenopathy EXAM Physical Exam Const Vital Signs: 05/30/23 10:27 05/30/23 11:28 Temperature 96.3 F L 100.5 F H Temperature Source Temporal Oral Pulse Rate 134 H 116 H Respiratory Rate 22 H 18 Blood Pressure 117/84 H 105/63 Blood Pressure Mean 95 77 Pulse Ox 99 97 Oxygen Delivery Method Room Air Room Air Positive well nourished, well developed and obese Constitutional Narrative: Appears ill. Vital signs remarkable for tachycardia and tachypnea. She is not febrile or hypoxic. General Appearance ED: well developed and pallor; Negative for NAD Nutritional Appearance: obese HEENT Reports TM's clear and dry mucous membranes normocephalic and atraumatic Tympanic Membrane ED: Yes TM's clear Mouth ED: Yes dry mucous membranes Mouth: dry mucous membranes Eyes PERRL and EOMs intact bilaterally General Eye ED: Negative for pale conjunctiva or scleral icterus Neck no lymphadenopathy, supple and no JVD Resp normal respiratory effort and clear to auscultation bilaterally Cardio regular rate, regular rhythm, S1 normal heart sound, S2 normal heart sound and no murmurs Rate: tachycardic GI non-distended and no masses; Negative for non-tender Inspection: Negative for abdominal distention Palpation: soft and tender other (Diffuse); Negative for guarding or rigid Back/Spine no CVA tenderness Thoracic Spine / Upper Back: Negative for thoracic spinal tenderness Lumbar Spine / Lower Back: Negative for lumbar spinal tenderness Extremity full ROM General Extremety ED: Negative for edema or tenderness General Extremity: Negative for edema Neuro CN's II-XII intact bilaterally and moves all extremities Sensorium / Orientation: alert Psych mental status grossly normal and thought process normal Skin no wounds General Skin Exam: pallor; Negative for jaundice Lesions: no lesions Rashes: no rashes MDM MDM MDM Narrative Medical decision making narrative: Frontal diagnosis would include viral gastroenteritis, pseudomembranous enterocolitis, bacterial infection. Suspect the former. Patient was treated dicyclomine for cramping pain and Zofran for nausea and vomiting. Clinically she is dehydrated. Will administer 1 L of normal saline to start with. BMP was obtained to assess glucose since she has not checked it recently as well as anion gap and electrolytes and specifically to evaluate for hypokalemia. Also to evaluate renal function i.e. BUN and creatinine. CBC to assess white count differential and if there is significant eosinophilia need to consider parasitic infection. History & Record Review Additional record(s) reviewed:: Prior outpatient record (To begin for COVID evaluation and chiropractors for cervical issues.), Prior ED visit and Prior labs Lab Data Attestation: I reviewed the patient's lab results. Lab results narrative: Count is normal with slight shift. There is no bandemia. H&H is slightly elevated from baseline at 16.1 and 48.4. Basic metabolic panel reveals slight elevation of creatinine from baseline of 0.8-1.07 with an estimated GFR of 57 compared to prior 95. BUN to creatinine ratio is normal. Glucose is elevated 183 with a normal CO2 anion gap. Lactate is elevated 3.3. Labs: Laboratory Results - last 24 hr 05/30/23 10:50 WBC 8.2 RBC 5.60 H Hgb 16.1 H Hct 48.4 H MCV 86.4 MCH 28.8 MCHC 33.3 RDW Std Deviation 41.1 RDW Coeff of Raudel 13.1 Plt Count 157 MPV 11.1 Immature Gran % (Auto) 0.100 Neut % (Auto) 86.2 H Lymph % (Auto) 6.8 L [place] % (Auto) 6.7 Eos % (Auto) 0.0 Baso % (Auto) 0.2 Absolute Neuts (auto) 7.1 Absolute Lymphs (auto) 0.56 L Nucleated RBC % 0 Differential Comment COMMENT Sodium 140 Potassium 3.5 Chloride 108 H Carbon Dioxide 25.0 Anion Gap 7 BUN 18 Creatinine 1.07 H Estim Creat Clear Calc 57.58 Est GFR (MDRD) Af Amer 69 Est GFR (MDRD) Non-Af 57 L BUN/Creatinine Ratio 16.8 Glucose 183 H Lactic Acid 3.3 H* Calcium 8.6 Treatment and Re-Evaluation :: Patient has improved with IV fluids. Patient is now noted to have a fever of 100.5. Reassessed at 1440. She has had no nausea, vomit or diarrhea since arrival. Plan is to discharge with prescription for Zofran and Imodium. Patient was given opportunity ask questions and none were asked. Since patient's had no diarrhea here there is presently no concern for CDF. Discharge Plan Triage Chief Complaint: Abd Pain ED Provider: Manjinder Cleary Dx/Rx/DC Orders Clinical Impression: Nausea vomiting and diarrhea, Nonischemic cardiomyopathy, Essential (primary) hypertension, Diabetes, Acute generalized abdominal pain, Moderate dehydration, Fever in adult, Sinus tachycardia seen on bus driver/monitor Instructions: ED Fever Control (Adult), ED Vomiting and Diarrhea ... Prescriptions: New ondansetron [ondansetron] 4 mg tablet,disintegrating 4 mg PO Q8H PRN PRN (Reason: Nausea) Qty: 10 0RF dicyclomine 10 mg capsule 20 mg PO TIDAC Qty: 20 0RF No Action lisinopril 40 MG tablet 40 mg PO DAILY dillon (bulk) 5 GM powder 5 gm MC DAILY Hold Instructions: Pt is ill magnesium oxide 200 MG tablet 200 mg PO DAILY metoprolol succinate 50 MG capsule,sprinkle,ER 24hr 50 mg PO DAILY hydroxychloroquine 200 mg tablet 200 mg PO BID Patient Comments: TAKE 1 TABLET BY MOUTH TWICE A DAY Mounjaro 2.5 mg/0.5 mL pen injector 2.5 mg SUBCUT .WEEKLY Patient Comments: INJECT 2.5 MG UNDER THE SKIN ONCE A WEEK ON MONDAY ON MONDAY DOSE CHANGES TO 5 MG ONCE A WEEK estradiol 0.05 mg/24 hr patch semiweekly 1 patch transdermal .TWICE A WEEK Patient Comments: APPLY 1 PATCH TO SKIN 2 TIMES EVERY WEEK DIRECTED PT TAKES ON SUNDAYS AND MONDAY progesterone micronized 100 mg capsule 100 mg PO QHS Patient Comments: TAKE 1 CAPSULE BY MOUTH EVERYDAY AT BEDTIME Primary Care Provider: Tomasa Khan Referrals: Tomasa Khan, [Primary Care Provider] - 1-2 Days if not improving Activity Restrictions/Additional Instructions: 1. Increase fluid intake 2. Take Imodium for diarrhea as instructed on box or viral. Disposition Disposition: Home, Self Care
[2023-05-30 10:59] LABS: Absolute Lymphocyte Count 0.56 X10^3/uL (0.83-4.51); Absolute Neutrophil Count 7.1 X10^3/uL (2.0-7.7); Basophil# 0.02 X10^3/uL; Basophil% 0.2 % (0-1); Hematocrit 48.4 % (37-47); Hemoglobin 16.1 g/dL (12.0-15.0); Lymphocyte # 0.56 X10^3/ul (0.83-4.51); Lymphocyte % 6.8 % (19-41); Mean Corp Hgb Conc 33.3 g/dL (32-36); Mean Corpuscular Hgb 28.8 pg (27.0-32.0); Mean Corpuscular Volume 86.4 fL (81-99); Mean Platelet Vol. 11.1 fl (6.2-12.0); Monocyte# 0.55 X10^3/uL; Monocyte% 6.7 % (0-10); NRBC Flagged by Analyzer 0 % (0-5); Neutrophil # 7.07 X10^3/uL (2.7-7.7); Neutrophil % 86.2 % (47-70); POSITIVE DIFFERENTIAL YES; Platelet Count 157 K/mm3 (150-450); RBC Distribution Width CV 13.1 % (11.6-14.6); RBC Distribution Width SD 41.1 fl (35.1-43.9); White Blood Count 8.2 K/mm3 (4.4-11.0)
[2023-05-30 11:00] LABS: Differential Indicated SCAN CRITERIA MET
[2023-05-30] MEDS: Dicyclomine 10 MG Capsule 20 MG PO (11:10)
[2023-05-30] MEDS: 0.9% Normal Saline (1000mL) 1,000 ML 1000 ML IV ×2 (11:10→12:20)
[2023-05-30] MEDS: Ondansetron 4 MG/2 ML Vial IV (11:10)
[2023-05-30 11:14] LABS: Anion Gap 7 (5-15); BUN 18 mg/dL (7-18); BUN/Creat Ratio 16.8 RATIO (10-20); Calcium,Total 8.6 mg/dL (8.5-10.1); Chloride 108 mmol/L (98-107); Creatinine, Serum 1.07 mg/dL (0.55-1.02); EST Glomerular Filtration Rate 57 mL/min (>60); Est Glom Filt Rate - Afr Amer 69 mL/min (>60); Estimated Creatinine Clearance 57.58 ml/min; Glucose 183 mg/dL (74-106); Potassium 3.5 mmol/L (3.5-5.1); Sodium Level 140 mmol/L (136-145)
[2023-05-30 11:27] LABS: Lactic Acid 3.3 mmol/L (0.4-1.9)
[2023-05-30 11:28] VITALS: BP 105/63; PULSE 116; RESP 18; TEMP 38.1; O2SAT 97
[2023-05-30 14:55] LABS: Reflex Lactate? Y
== END 2023-05-30 15:33 | disposition home or self-care (01) ==
PROVIDERS: Emergency Provider Emergency Medicine; PCP Family Medicine; Visit Provider Emergency Medicine
DX: R10.84 Generalized abdominal pain (principal); I42.8 Other cardiomyopathies; E11.9 Type 2 diabetes mellitus without complications; E86.0 Dehydration; R11.2 Nausea with vomiting, unspecified; I10 Essential (primary) hypertension; R19.7 Diarrhea, unspecified; R50.9 Fever, unspecified; R00.0 Tachycardia, unspecified; Z79.899 Other long term (current) drug therapy; Z79.85 Long-term (current) use of injectable non-insulin antidiabetic drugs
CPT/HCPCS: 80048; 83605; 85025; 96361; 96374; 99283; J2405

== ENCOUNTER → 2023-10-16 | Outpatient (CLI) | payer BC, SELFPAY ==
[2023-10-16 17:35] LABS: Absolute Lymphocyte Count 2.41 X10^3/uL (0.83-4.51); Absolute Neutrophil Count 5.5 X10^3/uL (2.0-7.7); Basophil# 0.08 X10^3/uL; Basophil% 0.9 % (0-1); Eosinophil# 0.22 X10^3/uL; Eosinophils% 2.5 % (0-5); Hematocrit 46.2 % (37-47); Hemoglobin 14.8 g/dL (12.0-15.0); Lymphocyte # 2.41 X10^3/ul (0.83-4.51); Mean Corpuscular Hgb 28.2 pg (27.0-32.0); Monocyte# 0.67 X10^3/uL; Monocyte% 7.5 % (0-10); NRBC Flagged by Analyzer 0 % (0-5); Neutrophil # 5.51 X10^3/uL (2.7-7.7); Neutrophil % 61.5 % (47-70); Platelet Count 186 K/mm3 (150-450); RBC Distribution Width CV 13.4 % (11.6-14.6); RBC Distribution Width SD 43.4 fl (35.1-43.9); Red Blood Count 5.25 M/mm3 (4.2-5.4); White Blood Count 8.9 K/mm3 (4.4-11.0)
[2023-10-16 17:51] LABS: Progesterone Level 6.61 ng/mL (See Comment)
[2023-10-16 17:52] LABS: Erythrocyte Sedimentation Rate 2 mm/hr (0-30)
[2023-10-16 19:31] LABS: AST(SGOT) 27 U/L (15-37); Alanine Aminotransfer ALT/SGPT 28 U/L (13-56); Albumin, Serum 3.9 g/dL (3.2-5.0); Alkaline Phosphatase 47 U/L (45-117); Anion Gap 5 (5-15); BUN 12 mg/dL (7-18); BUN/Creat Ratio 13.7 RATIO (10-20); CRP < 2.90 mg/L (0.0-3.0); Calcium,Total 9.6 mg/dL (8.5-10.1); Chloride 106 mmol/L (98-107); Creatinine, Serum 0.88 mg/dL (0.55-1.02); EST Glomerular Filtration Rate 72 mL/min (>60); Est Glom Filt Rate - Afr Amer 87 mL/min (>60); Estradiol 36.1 pg/mL; Free T3 2.6 pg/mL (2.18-3.98); Globulin 3.8 g/dL (2.2-4.2); Glucose 80 mg/dL (74-106); Potassium 3.8 mmol/L (3.5-5.1); Prolactin 4.9 ng/mL; Protein, Total 7.7 g/dL (6.4-8.2); Sodium Level 140 mmol/L (136-145); T4 Free Direct 1.13 ng/dL (0.76-1.46); Thyroid Stim Hormone (TSH) 0.91 uIU/mL (0.358-3.74)
[2023-10-21 15:07] LABS: DHEA Sulfate 20.8 ug/dL (41.2-243.7); Testosterone, Free 0.15 ng/dL (0.10-0.85); Testosterone, Total 7 ng/dL (4-50); Thyroglobulin Antibody < 1.0 IU/mL (0.0-0.9); Thyroid Peroxidase AB < 9 IU/mL (0-34)
== END | disposition home or self-care (01) ==
LOC: BFHLAB 15:55
PROVIDERS: PCP Family Medicine; Visit Provider Family Medicine
DX: E03.9 Hypothyroidism, unspecified (principal); Z51.81 Encounter for therapeutic drug level monitoring; N93.8 Other specified abnormal uterine and vaginal bleeding; R53.83 Other fatigue; M79.10 Myalgia, unspecified site; M25.50 Pain in unspecified joint; R42 Dizziness and giddiness
CPT/HCPCS: 36415; 80053; 82627; 82670; 84144; 84146; 84402; 84403; 84439; 84443; 84481; 85025; 85652; 86140; 86376; 86800; 82626

== ENCOUNTER 2023-12-06 23:17 | Emergency (ER) | payer BC, SELFPAY ==
[2023-12-06 23:18] VITALS: BP 149/91; PULSE 59; RESP 14; TEMP 36.4; O2SAT 98; BMI 14.1
--- NOTE | 2023-12-06 23:24 | EKG12_ITS ---
Test Reason : CP Blood Pressure : / mmHG Vent. Rate : 056 BPM Atrial Rate : 056 BPM P-R Int : 186 ms QRS Dur : 092 ms QT Int : 454 ms P-R-T Axes : 012 -39 046 degrees QTc Int : 438 ms Sinus bradycardia Left axis deviation Minimal voltage criteria for LVH, may be normal variant ( R in aVL ) Abnormal ECG Confirmed by Yaakov Lee ([id number]), photo editor BERKLEY KUO ([id number]) on 12/11/2023 1:28:37 PM Referred By: NAVEED Confirmed By:Yaakov Lee
--- NOTE | 2023-12-07 00:02 | RAD_ITS ---
INDICATION: chest pain EXAMINATION/TECHNIQUE: X-RAY - XR Chest 2 Views COMPARISON: None. FINDINGS: LINES/DEVICES: None. LUNGS: No consolidation. No pneumothorax. MEDIASTINUM: Unremarkable. CARDIAC SILHOUETTE: Not enlarged. BONES AND SOFT TISSUES: No acute abnormalities. RAD/Chest PA and Lateral IMPRESSION: No evidence of active intrathoracic disease. Electronically Signed: Tati Chin MD at 0:38 EDT ,
[2023-12-07 00:11] LABS: Absolute Lymphocyte Count 2.16 X10^3/uL (0.83-4.51); Absolute Neutrophil Count 3.9 X10^3/uL (2.0-7.7); Basophil# 0.03 X10^3/uL; Basophil% 0.4 % (0-1); Eosinophil# 0.16 X10^3/uL; Eosinophils% 2.4 % (0-5); Hematocrit 46.8 % (37-47); Hemoglobin 15.2 g/dL (12.0-15.0); Lymphocyte # 2.16 X10^3/ul (0.83-4.51); Lymphocyte % 31.9 % (19-41); Mean Corp Hgb Conc 32.5 g/dL (32-36); Mean Corpuscular Hgb 28.6 pg (27.0-32.0); Mean Platelet Vol. 11.8 fl (6.2-12.0); Monocyte# 0.55 X10^3/uL; Monocyte% 8.1 % (0-10); NRBC Flagged by Analyzer 0 % (0-5); Neutrophil # 3.87 X10^3/uL (2.7-7.7); Neutrophil % 57.1 % (47-70); Platelet Count 152 K/mm3 (150-450); RBC Distribution Width CV 12.7 % (11.6-14.6); RBC Distribution Width SD 41.1 fl (35.1-43.9); Red Blood Count 5.32 M/mm3 (4.2-5.4); White Blood Count 6.8 K/mm3 (4.4-11.0)
[2023-12-07 00:18] VITALS: BP 122/84; PULSE 75; RESP 16; O2SAT 95
[2023-12-07 00:38] LABS: AST(SGOT) 27 U/L (15-37); Alanine Aminotransfer ALT/SGPT 34 U/L (13-56); Alkaline Phosphatase 55 U/L (45-117); Anion Gap 6 (5-15); BUN 14 mg/dL (7-18); BUN/Creat Ratio 15.7 RATIO (10-20); Bilirubin, Direct 0.15 mg/dL (0.00-0.30); Calcium,Total 9.4 mg/dL (8.5-10.1); Chloride 108 mmol/L (98-107); Creatinine, Serum 0.89 mg/dL (0.55-1.02); EST Glomerular Filtration Rate 71 mL/min (>60); Est Glom Filt Rate - Afr Amer 85 mL/min (>60); Estimated Creatinine Clearance 46.43 ml/min; Globulin 3.9 g/dL (2.2-4.2); Glucose 94 mg/dL (74-106); Magnesium 2.1 mg/dL (1.6-2.6); Potassium 3.3 mmol/L (3.5-5.1); Protein, Total 7.9 g/dL (6.4-8.2); Sodium Level 139 mmol/L (136-145); Thyroid Stim Hormone (TSH) 2.05 uIU/mL (0.358-3.74); Troponin-I HS 64 pg/mL (3.0-54.0)
[2023-12-07 02:00] VITALS: BP 120/90; PULSE 73; RESP 16; O2SAT 96
[2023-12-07 02:38] LABS: Troponin-I HS 63 pg/mL (3.0-54.0)
--- NOTE | 2023-12-07 03:00 | EX.ED.DYSGE1 ---
HPI History of Present Illness Chief Complaint: Chest Pain Informant: patient and spouse/S.O. Narrative Narrative: Patient is a 53-year-old female with past medical history of hypertension diabetes and nonischemic cardiomyopathy. She states that she has been having vague intermittent chest pain for the past 1 to 2 weeks which only last a few seconds and resolves. Secondary to the short nature of the pain and the fact she had a normal heart catheterization in 2018 and 2020 she has not been concerned. She states however this morning she had extreme fatigue and then this evening developed some midsternal chest discomfort described as a pressure. She states that the symptoms were not resolving at home as they have in the past and therefore she presents for evaluation. Of note patient states upon arrival to the ER that the symptoms of chest discomfort have spontaneously resolved. She denies any recent surgery travel or history of DVT/PE [facility] Medical History (Updated 12/07/23 @ 04:[address] Pelon Patterson, DO) Sjogren's disease Essential (primary) hypertension Nonischemic cardiomyopathy History of uterine anomaly Bilateral headaches Arthritis Home Medications ?Medication ?Instructions ?Recorded ?Last Taken ?Type lisinopril 40 mg tablet 40 mg PO DAILY blood pressure 11/22/14 05/29/23 History magnesium oxide 200 mg PO DAILY 08/20/18 05/29/23 History metoprolol succinate 50 mg capsule 50 mg PO DAILY 04/04/19 05/29/23 History sprinkle, ext. release 24 hr hydroxychloroquine 200 mg tablet 200 mg PO BID 04/13/22 05/29/23 History estradiol 0.05 mg/24 hr semiweekly 1 patch transdermal .TWICE A WEEK 05/30/23 05/28/23 History transdermal patch ondansetron 4 mg disintegrating 4 mg PO Q8H PRN PRN Nausea #10 tabs 05/30/23 Unknown Rx tablet progesterone micronized 100 mg 100 mg PO QHS 05/30/23 05/29/23 History capsule tirzepatide 2.5 mg/0.5 mL 2.5 mg subcut .WEEKLY 05/30/23 05/24/23 History subcutaneous pen injector (Mounjaro) Allergy/AdvReac Type Severity Reaction Status Date / Time pistachio nut Allergy Hives Verified 12/06/23 23:21 hydrocodone AdvReac Mild Itching Verified 12/06/23 23:21 ibuprofen (From Motrin) AdvReac stomach Verified 12/06/23 23:21 pain Family History Other Arthritis Cancer Hypertension Surgical History Hx of breast reduction, elective History of left heart catheterization (08/21/18) History of tonsillectomy Social History (Updated 12/06/23 @ 23:23 by Yaneth Cobb) housing: house Smoking Status: Never smoker alcohol intake: current alcohol intake frequency: a few times a month Alcohol type: wine substance use type: does not use what type of physical activity do you participate in: walking frequency: 1-2 times per week ROS ROS ED Constitutional Constitutional ED: Denies chills or fever(s) Eyes Eyes: Denies change in vision ENT ENT ED: Denies sore throat Cardiovascular Cardiovascular: Reports chest pain; Denies palpitations or racing heartbeat Respiratory/Chest Respiratory/Chest: Denies cough or dyspnea Gastrointestinal Gastrointestinal: Reports nausea; Denies abdominal pain, diarrhea or vomiting Genitourinary Genitourinary ED: Denies dysuria Musculoskeletal Musculoskeletal: Reports neck pain; Denies myalgias Integumentary Denies rash Neurologic Neurologic: Denies headache(s) Hematologic/Lymphatic Hematologic/Lymphatic: Denies easy bleeding or easy bruising EXAM Physical Exam Const Vital Signs: 12/06/23 23:18 12/07/23 00:18 12/07/23 02:00 Temperature 97.6 F L Temperature Source Oral Pulse Rate 59 L 75 73 Respiratory Rate 14 16 16 Blood Pressure 149/91 H 122/84 H 120/90 H Blood Pressure Mean 110 96 100 Pulse Ox 98 95 96 Oxygen Delivery Method Room Air Room Air Room Air 12/07/23 03:17 Temperature 98.1 F Temperature Source Pulse Rate 83 Respiratory Rate 18 Blood Pressure 123/86 H Blood Pressure Mean 98 Pulse Ox 95 Oxygen Delivery Method Positive well nourished, well developed and obese General Appearance ED: well developed; Negative for pallor Nutritional Appearance: obese HEENT HEENT Narrative: Normocephalic atraumatic Eyes PERRL and EOMs intact bilaterally General Eye ED: Negative for pale conjunctiva or scleral icterus Neck supple and no JVD Neck Narrative: No nuchal rigidity or meningeal signs noted No carotid bruit present Chest Wall palpation of chest normal Chest Narrative: No bony deformity or crepitance Resp normal respiratory effort and clear to auscultation bilaterally Resp Narrative: No nasal flaring retractions tachypnea or accessory muscle use Cardio regular rate and regular rhythm Rate: other Other Details: Radial and carotid pulses are equal and symmetric GI normal to inspection, nondistended, normoactive bowel sounds, non-tender and non-distended GI Narrative: No pulsatile mass or fluid wave Auscultation: normoactive bowel sounds Palpation: soft Extremity normal to inspection Extremity Narrative: No asymmetric edema no pitting edema negative Homans' sign bilaterally Neuro oriented x3, CN's II-XII intact bilaterally and no sensory deficits noted Sensorium / Orientation: alert Motor Exam: strength 5/5 throughout Psych mental status grossly normal Skin no rashes or lesions noted General Skin Exam: Negative for jaundice or pallor MDM MDM MDM Narrative Medical decision making narrative: Patient arrived to the ER hypertensive but otherwise with stable vitals. She has a history of diabetes hypertension and nonischemic cardiomyopathy and therefore with concern this could be potentially acute coronary syndrome patient blood work was obtained. As differential also includes pneumonia versus pneumothorax or pleural effusion a chest x-ray was ordered as well. Chest x-ray reviewed no acute lung pathology. Blood work revealed an initial troponin of 64 and the 2-hour delta remained flat at a value of 63. I discussed the patient the potential for observation admission for further cardiac workup. However the patient states she had similar symptoms when she had a normal heart catheterization in 2018 and 2020. Also she is pain-free without any type of treatment in the ER and her EKG shows no signs of ischemia. She states that as her presentation this evening is similar nature to her presentation in 2019 and 2020 that did not reveal any signs of damage on her heart cath and the recommendation has been purely medical management she would prefer to follow-up with cardiology on an outpatient basis. At this time as vitals are stable EKG is normal as well not showing ischemic changes and the patient's symptoms have spontaneously resolved and her troponin is not elevating I will comply with this request and patient will be discharged at this time. She understands to return to the hospital for repeat evaluation if symptoms worsen or she has any further concerns but as she is pain-free with normal EKG and a flat troponin level she will be discharged and can follow-up on an outpatient basis History & Record Review Discussion w/independent historian: Patient and Family Lab Data Attestation: I reviewed the patient's lab results. Labs: Laboratory Results - last 24 hr 12/06/23 12/07/23 23:30 01:57 WBC 6.8 RBC 5.32 Hgb 15.2 H Hct 46.8 MCV 88.0 MCH 28.6 MCHC 32.5 RDW Std Deviation 41.1 RDW Coeff of Raudel 12.7 Plt Count 152 MPV 11.8 Immature Gran % (Auto) 0.100 Neut % (Auto) 57.1 Lymph % (Auto) 31.9 [place] % (Auto) 8.1 Eos % (Auto) 2.4 Baso % (Auto) 0.4 Absolute Neuts (auto) 3.9 Absolute Lymphs (auto) 2.16 Nucleated RBC % 0 Sodium 139 Potassium 3.3 L Chloride 108 H Carbon Dioxide 25.0 Anion Gap 6 BUN 14 Creatinine 0.89 Estim Creat Clear Calc 46.43 Est GFR (MDRD) Af Amer 85 Est GFR (MDRD) Non-Af 71 BUN/Creatinine Ratio 15.7 Glucose 94 Calcium 9.4 Magnesium 2.1 Total Bilirubin 0.60 Direct Bilirubin 0.15 AST 27 ALT 34 Alkaline Phosphatase 55 Troponin I High Sens 64 H 63 H Total Protein 7.9 Albumin 4.0 Globulin 3.9 TSH 2.05 Radiography Diagnostic Testing: Clinical Impression(s) from Imaging Studies Chest X-Ray 12/07/23 00:02 IMPRESSION: No evidence of active intrathoracic disease. Electronically Signed: Tati Chin MD at 0:38 EDT , Chest x-ray as interpreted by the emergency medicine physician reveals no acute infiltrate pneumothorax or pleural effusion or widening of the mediastinum Discharge Plan Triage Chief Complaint: Chest Pain ED Provider: Pelon Patterson Dx/Rx/DC Orders Clinical Impression: Nonischemic cardiomyopathy, Diabetes, Hypertension, Segmental and somatic dysfunction of cervical region Instructions: Cardiomyopathy Dc, ED Chest Pain, Uncertain Cause Prescriptions: No Action lisinopril 40 MG tablet 40 mg PO DAILY magnesium oxide 200 MG tablet 200 mg PO DAILY metoprolol succinate 50 MG capsule,sprinkle,ER 24hr 50 mg PO DAILY hydroxychloroquine 200 mg tablet 200 mg PO BID Patient Comments: TAKE 1 TABLET BY MOUTH TWICE A DAY Mounjaro 2.5 mg/0.5 mL pen injector 2.5 mg SUBCUT .WEEKLY Patient Comments: INJECT 2.5 MG UNDER THE SKIN ONCE A WEEK ON MONDAY ON MONDAY DOSE CHANGES TO 5 MG ONCE A WEEK estradiol 0.05 mg/24 hr patch semiweekly 1 patch transdermal .TWICE A WEEK Patient Comments: APPLY 1 PATCH TO SKIN 2 TIMES EVERY WEEK DIRECTED PT TAKES ON SUNDAYS AND MONDAY progesterone micronized 100 mg capsule 100 mg PO QHS Patient Comments: TAKE 1 CAPSULE BY MOUTH EVERYDAY AT BEDTIME ondansetron [ondansetron] 4 mg tablet,disintegrating 4 mg PO Q8H PRN PRN (Reason: Nausea) Qty: 10 0RF Primary Care Provider: Tomasa Khan Referrals: Tomasa Khan DO [Primary Care Provider] - Yaakov Lee MD [Med Staff - Active Staff] - Activity Restrictions/Additional Instructions: Please continue your home medications as directed by your doctor. Follow-up with cardiology for repeat evaluation and to discuss outpatient testing such as stress test or echo. At this time as you have had normal heart catheterizations in 2019 and 2020 with similar symptoms and your troponins have remained flat today I do feel you are safe to follow-up as an outpatient. If you have worsening symptoms or any further concerns please return to the ER for repeat evaluation Print Language: Croatian Disposition Disposition: Home, Self Care Discharge Date/Time: 12/07/23 03:18
[2023-12-07 03:17] VITALS: BP 123/86; PULSE 83; RESP 18; TEMP 36.7; O2SAT 95
== END 2023-12-07 03:18 | disposition home or self-care (01) ==
PROVIDERS: Emergency Provider Emergency Medicine; PCP Family Medicine; Visit Provider Emergency Medicine
DX: I42.8 Other cardiomyopathies (principal); E11.9 Type 2 diabetes mellitus without complications; I10 Essential (primary) hypertension; M99.01 Segmental and somatic dysfunction of cervical region; Z79.899 Other long term (current) drug therapy
CPT/HCPCS: 36415; 71046; 80048; 80076; 83735; 84443; 84484; 85025; 93005; 99283; A4216

== ENCOUNTER → 2024-01-19 | Outpatient (CLI) | payer BC, SELFPAY ==
--- NOTE | 2024-01-19 13:04 | CT_ITS ---
STUDY: CT CHEST WITH CONTRAST REASON FOR EXAM: Female, 54 years old. PALPITATIONS RADIATION DOSAGE (If Supplied By Facility): CTDIvol = ( 25.12 ) mGy, DLP = ( 1213.88 ) mGycm TECHNIQUE: Transaxial imaging was performed following intravenous administration of 57 ML ISOVUE 370. Individualized dose optimization techniques were used for this CT. COMPARISON: No relevant priors. FINDINGS: CHEST The lungs are normal. There is no demonstrated pleural abnormality. Minimal coronary artery calcification. Small mediastinal lymph nodes. Normal hilar regions. Normal unenhanced pulmonary arteries. Normal aorta arch and descending thoracic aorta. Normal osseous structures. There is no demonstrated abnormality of the visualized upper abdomen. IMPRESSION: Minimal degree of coronary artery calcification. Electronically Signed: Da Guzman MD at 14:47 EDT , STUDY: CT CHEST WITHOUT CONTRAST REASON FOR EXAM: Female, 54 years old. PALPITATIONS RADIATION DOSAGE (If Supplied By Facility): CTDIvol = ( 25.12 ) mGy, DLP = ( 1213.88 ) mGycm TECHNIQUE: Transaxial imaging was performed without the administration of intravenous contrast material. Individualized dose optimization techniques were used for this CT. COMPARISON: No relevant priors. FINDINGS: CHEST The lungs are normal. There is no demonstrated pleural abnormality. Minimal degree of coronary artery calcification. Normal mediastinum. Normal hilar regions. Normal unenhanced pulmonary arteries. Normal aorta arch and descending thoracic aorta. Normal osseous structures. Small hiatal hernia. CT/Limited Chest CT Cardiac Only IMPRESSION: Minimal degree of coronary artery calcification. Electronically Signed: Da Guzman MD at 14:48 EDT ,
[2024-01-19 13:24] VITALS: BP 137/88; PULSE 68; RESP 16; O2SAT 97; BMI 29.8
[2024-01-19 13:41] VITALS: PULSE 60
[2024-01-19] MEDS: Nitroglycerin SL (ED/IMG/CATH) 0.4 MG TABLET SL (13:41)
[2024-01-19 13:46] VITALS: BP 134/90; PULSE 74; RESP 14; O2SAT 95
[2024-01-19 13:52] LABS: CREATININE FINGERSTICK 1.1 mg/dL (0.55-1.02)
--- NOTE | 2024-01-23 16:58 | CCTA.WCONT ---
CCTA w/Cont Coronary Arteries Date of Study:: 01/19/24 Coronary Calcium Scoring: High-resolution Computed Tomographic imaging of the chest was performed on [01/19/2024], with particular attention paid to the coronary arteries. Intravenous contrast agent was administered per protocol and images reconstructed and displayed. LEFT MAIN CORONARY ARTERY: Arises from the left coronary cusp with no significant stenosis noted. Bifurcates to left anterior descending artery and circumflex artery. Coronary calcium score 0 [] LEFT ANTERIOR DESCENDING CORONARY ARTERY: This arises from the left main coronary artery with the proximal portion being much bigger than the mid to distal portion. No significant stenosis noted in this vessel. Mild eccentric calcification is noted focally with a coronary calcium score 35.4. [] LEFT CIRCUMFLEX CORONARY ARTERY: Nondominant vessel with the first obtuse marginal branch. Vessel continues with no significant atherosclerotic plaquing or luminal stenosis noted [] RIGHT CORONARY ARTERY: Dominant vessel arising from the right coronary cusp with no high-grade stenosis noted. Luminal irregularities are noted with focal calcific hide area with a coronary calcium score 5.9. [] THORACIC AORTA: Normal size [] PULMONARY ARTERY: [] LEFT ATRIUM/APPENDAGE: [] MITRAL VALVE: [] AORTIC VALVE: [] LEFT VENTRICLE: Normal [] CORONARY CALCIUM SCORE: 41.3 placing her in the 75th to the 90th percentile. Coronary CT angio with no obstructive luminal plaques noted []
== END | disposition home or self-care (01) ==
LOC: CT 13:01
PROVIDERS: PCP Family Medicine; Referring Provider Internal Medicine Cardiovascular Disease; Visit Provider Internal Medicine Cardiovascular Disease
DX: Z01.812 Encounter for preprocedural laboratory examination (principal); I50.22 Chronic systolic (congestive) heart failure; I11.0 Hypertensive heart disease with heart failure; I42.8 Other cardiomyopathies; R00.2 Palpitations; R53.83 Other fatigue; R07.9 Chest pain, unspecified
CPT/HCPCS: 75571; 75574; 76380; Q9967

== ENCOUNTER → 2024-01-23 | Outpatient (CLI) | payer BC, SELFPAY ==
--- NOTE | 2024-01-23 12:59 | ECHOD_ITS ---
Reason For Study: Chronic CHF Procedure This was a 2D Doppler, Color Flow transthoracic echocardiogram. Myocardial strain analysis was performed in this exam to aid in the assessment of cardiac function. Exam performed in department. Left Ventricle Normal LV size. Mild concentric left ventricular hypertrophy. The global longitudinal strain = -17.1 % (normal). Estimated LVEF 40%. Severe posterior, lateral and anterior septal hypokinesis. Normal diastology for age. Right Ventricle Normal right ventricle. Atria The left and right atria are normal. Mitral Valve Trivial mitral valve insufficiency. Tricuspid Valve Trivial tricuspid valve insufficiency. Normal pulmonary artery pressure. Aortic Valve Trisinus/trileaflet aortic valve. Pulmonic Valve The pulmonic valve is not well visualized. Great Vessels Moderately dilated aortic root. Pericardium/Pleural No pericardial effusion. MMode/2D Measurements & Calculations LVIDd: 4.3 cm IVSd: 1.2 cm Ao root diam: 4.2 cm LVIDs: 3.1 cm LVPWd: 0.99 cm LA dimension: 3.8 cm RVDd: 3.2 cm FS: 28.0 % LAV(MOD-bp): 36.2 ml LVAd ap4: 24.6 cm2 SV(MOD-sp4): 35.0 ml LAV(MOD-bp) Indexed: 18.7 ml/m2 LVLd ap4: 7.9 cm LAV(MOD-sp2): 49.3 ml EDV(MOD-sp4): 64.1 ml LAV(MOD-sp4): 24.0 ml EDV(sp4-el): 64.9 ml LVAs ap4: 15.3 cm2 LVLs ap4: 7.1 cm ESV(MOD-sp4): 29.1 ml ESV(sp4-el): 28.1 ml EF(MOD-sp4): 54.6 % EF(sp4-el): 56.7 % SV(sp4-el): 36.8 ml LA A4 area: 11.7 cm2 RA A4 area: 10.2 cm2 TAPSE: 1.9 cm Time Measurements MV dec time: 0.21 sec Doppler Measurements & Calculations MV E max dre: 62.3 cm/sec Lat Peak E' Dre: 10.7 cm/sec Med Peak E' Dre: 6.0 cm/sec MV A max dre: 82.1 cm/sec E/E' lat: 5.8 E/E' med: 10.3 MV E/A: 0.76 MV V2 max: 87.2 cm/sec MV P1/2t max dre: 60.4 cm/sec Ao V2 max: 120.4 cm/sec MV max P.0 mmHg MV P1/2t: 67.0 msec Ao max P.8 mmHg MV V2 mean: 45.5 cm/sec MV dec slope: 264.2 cm/sec2 Ao V2 mean: 85.4 cm/sec MV mean P.99 mmHg Ao mean P.3 mmHg MV V2 VTI: 22.1 cm MVA(P1/2t): 3.3 cm2 Ao V2 VTI: 26.0 cm AV (velocity ratio): 0.69 LV V1 max: 79.3 cm/sec PA V2 max: 77.9 cm/sec TR max dre: 225.5 cm/sec LV V1 max P.5 mmHg PA max PG (full): 1.2 mmHg TR max P.3 mmHg LV V1 mean P.3 mmHg PA V2 mean: 54.9 cm/sec LV V1 mean: 52.2 cm/sec PA mean PG (full): 0.74 mmHg LV V1 VTI: 17.9 cm ECHO/Echo Complete Interpretation Summary Mild concentric left ventricular hypertrophy. Estimated LVEF 40%. Consider MUGA scan for further evaluation of LVEF. Moderately dilated aortic root. Ordering Physician: Vonda Paulson Referring Physician: Tomasa Khan Performed By: Jose Kirk MD
== END | disposition home or self-care (01) ==
LOC: CVS 12:58
PROVIDERS: PCP Family Medicine; Referring Provider Internal Medicine Cardiovascular Disease; Visit Provider Internal Medicine Cardiovascular Disease
DX: I11.0 Hypertensive heart disease with heart failure (principal); I50.22 Chronic systolic (congestive) heart failure; I42.8 Other cardiomyopathies; R53.83 Other fatigue; R07.9 Chest pain, unspecified
CPT/HCPCS: 93306

== ENCOUNTER → 2025-01-29 | Outpatient (CLI) | payer BC, SELFPAY ==
[2025-01-31 11:08] LABS: H. PYLORI STOOL AG Negative (Negative)
[2025-02-04 15:08] LABS: Calprotectin, Stool 7 ug/g (0-120)
== END | disposition home or self-care (01) ==
LOC: LABSPEC 16:18
PROVIDERS: PCP Family Medicine; Referring Provider Nurse Practitioner Acute Care; Visit Provider Nurse Practitioner Acute Care
DX: R19.7 Diarrhea, unspecified (principal); Z83.79 Family history of other diseases of the digestive system; R10.13 Epigastric pain; R11.0 Nausea
CPT/HCPCS: 83993; 87338

== ENCOUNTER → 2025-02-22 | Outpatient (CLI) | payer BC, SELFPAY ==
--- NOTE | 2025-02-22 08:02 | ECHOD_ITS ---
Reason For Study Reason For Study: CHEST PAIN Procedure This was a 2D Doppler, Color Flow transthoracic echocardiogram. Myocardial strain analysis was performed in this exam to aid in the assessment of cardiac function. Exam performed in department. Left Ventricle Normal LV size. The left ventricular ejection fraction is 50 %. Stage 1 diastolic dysfunction. No regional wall motion abnormalities noted. Right Ventricle Normal RV size. Normal systolic function. Atria Normal left atrium. Normal right atrium. Mitral Valve Normal mitral valve. Tricuspid Valve Normal tricuspid valve. Aortic Valve Trisinus/trileaflet aortic valve. Great Vessels Normal aortic root. Pericardium/Pleural No pericardial effusion. MMode/2D Measurements & Calculations LVIDd: 4.4 cm IVSd: 0.85 cm Ao root diam: 4.0 cm LVIDs: 3.3 cm LVPWd: 0.85 cm RVDd: 2.3 cm FS: 25.7 % LAV(MOD-sp2): 48.0 ml LVAd ap4: 24.3 cm2 LVAd ap2: 21.2 cm2 LVLd ap4: 7.9 cm LVLd ap2: 7.6 cm EDV(MOD-sp4): 62.3 ml EDV(MOD-sp2): 48.4 ml EDV(sp4-el): 63.8 ml EDV(sp2-el): 49.8 ml LVAs ap4: 15.0 cm2 LVAs ap2: 12.3 cm2 LVLs ap4: 6.6 cm LVLs ap2: 6.2 cm ESV(MOD-sp4): 30.2 ml ESV(MOD-sp2): 22.3 ml ESV(sp4-el): 28.9 ml ESV(sp2-el): 20.6 ml EF(MOD-sp4): 51.6 % EF(MOD-sp2): 54.0 % EF(sp4-el): 54.6 % SV(MOD-sp4): 32.1 ml SV(MOD-sp2): 26.1 ml SV(sp4-el): 34.8 ml SI(MOD-sp4): 16.9 ml/m2 SI(MOD-sp2): 13.8 ml/m2 LA dimension(2D): 3.2 cm TAPSE: 1.7 cm Time Measurements MV dec time: 0.20 sec Doppler Measurements & Calculations MV E max dre: 63.8 cm/sec Lat Peak E' Dre: 10.6 cm/sec Med Peak E' Dre: 6.3 cm/sec MV A max dre: 78.2 cm/sec E/E' lat: 6.0 E/E' med: 10.1 MV E/A: 0.82 MV V2 max: 76.0 cm/sec MV P1/2t max dre: 54.4 cm/sec Ao V2 max: 98.1 cm/sec MV max P.3 mmHg MV P1/2t: 76.3 msec Ao max P.8 mmHg MV V2 mean: 44.9 cm/sec MV dec slope: 208.7 cm/sec2 Ao V2 mean: 66.2 cm/sec MV mean P.90 mmHg Ao mean P.0 mmHg MV V2 VTI: 22.1 cm MVA(P1/2t): 2.9 cm2 Ao V2 VTI: 21.5 cm AV (velocity ratio): 0.84 LV V1 max: 80.2 cm/sec PA V2 max: 77.1 cm/sec TR max dre: 219.4 cm/sec LV V1 max P.6 mmHg PA V2 mean: 53.6 cm/sec TR max P.3 mmHg LV V1 mean P.4 mmHg LV V1 mean: 55.0 cm/sec LV V1 VTI: 18.0 cm ECHO/Echo Complete Interpretation Summary The left ventricular ejection fraction is 50 %. Stage 1 diastolic dysfunction. Normal LV size. Ordering Physician: Vonda Paulson Referring Physician: Tomasa Khan Performed By: Nissa Bahena, NAIN, RVT
--- OUTSIDE RECORDS SUMMARY | 2025-02-22 08:03 | XMS RPT_ITS | CCD ---
Author Organization [facility] Care Team Providers Care [employer] Developer Name Role Phone Kavitha PERSAUD, Becca Aguila Unavailable Miladys CRANE, Clarissa Patel Unavailable Becca Plummer MD Unavailable DR TOMASA KHAN DO Primary Care Physician Tino Emery E Unavailable Unavailable Malys DO, Tomasa A Primary Care Provider Malys DO, Tomasa A Unavailable Tino Emery E Unavailable Unavailable Gentryys DO, Tomasa A Primary Care Provider [phone] Gentryys DO, Tomasa A Unavailable Yuly Tino E Unavailable Unavailable Malys DO Tomasa A Primary Care Provider Malys DO, Tomasa A Unavailable UNKNOWN, PCP Primary Care Unavailable Andrew, Ms. Matthew Hooker Referring Ms. Matthew Coleman Attending Alcira bonilla Unknown, Referring Provider Unavailable Unav ailable Unavailable Unavailable Unavailable Unavailable Unavailable Primary Care Provider Unavailabl e Tomasa Khan DO A Primary Care Provider Malys DO, Tomasa A Unavailable Erin DO Tomasa A Primary Care Provider [phone] MATTHEW MORALES Attending Unavailable MALYS, TOMASA A Primary Care Unavailable KUPIEC, JAMES Referring Unavailable MALYS, TOMASA A Primary Care Unavailable KUPIEC, JAMES Attending Unavailable MALYS, TOMASA A Primary Care Unavailable KUPIEC, JAMES Referring Unavailable KUPIEC, JAMES Attending Unavailable MALYS, TOMASA A Primary Care Unavailable MALYS, TOMASA A Primary Care Unavailable KUPIEC, JAMES Referring Unavailable MALYS, TOMASA A Primary Care Unavailable KUPIEC, JAMES Referring Unavailable Malys , Dr. Randolph Primary Care Provider [phone] Tomasa ROSE Referring Provider Stephon DRAWER IN [place] Attending Provider Khurram PERSAUD, Dr. Ferrari Attending Provider [phone] Stephon DRAWER [place] Referring Provider Malys, Tomasa Primary Care Unavailable Khurram, Vonda Attending Unavailable Khurram, Vonda Referring Unavailable StephonStefanieTamika Referring Unavailable Malys, Tomasa Primary Care Unavailable StephonTamika Attending Unavailable Malys, Tomasa Primary Care Unavailable Friend, Raji Attending Unavailable Malys, Tomasa Primary Care Unavailable Malys, Tomasa Referring Unavailable Khurram, Vonda Attending Unavailable Malys, Tomasa Primary Care Unavailable Malys, Tomasa Referring Unavailable Stephon Tamika Attending Unavailable Allergies Allergy Classification Reported Allergen(s) Allergy Type Date of Onset Reaction(s) Facility Calcium Channel Blockers (2 sources) dilTIAZem Drug Allergy 4 Other: See Comments [facility] Work Phone: NSAIDs (2 sources) Ibuprofen Drug Allergy 1 GI Upset [facility] Work Phone: Opioid Agonists (2 sources) HYDROcodone Drug Allergy 9 Itching [facility] Work Phone: pistachio nut allergenic extract (2 sources) pistachio nut allergenic extract Drug Allergy 0 Hives [facility] (4 sources) ibuprofen drug allergy 7 Upset [facility] (20 sources) Ibuprofen; Translations: [ibuprofen] Drug Allergy 1 GI Upset [facility] (20 sources) dilTIAZem; Translations: [DILTIAZEM] Drug Allergy 4 Other: See Comments [facility] Work Phone: (20 sources) HYDROcodone; Translations: [HYDROCODONE] Drug Allergy 9 Itching [facility] Work Phone: Comment on above: can take w/benedryl (20 sources) pistachio nut allergenic extract; Translations: [PISTACHIO NUT] Drug Allergy 0 Hives [facility] (1 source) HYDROcodone Drug Allergy 5 [facility] (1 source) Ibuprofen Drug Allergy 5 [facility] (1 source) pistachio nut allergenic extract Drug Allergy 5 [facility] Medications Current Medications Medication Drug Class(es) Dates Sig (Normalized) Sig (Original) acetaminophen 325 mg / oxyCODONE hydrochloride 5 mg oral tablet (1 source) Opioid Agonist Start: 02-08-2022 take 1 tablet by mouth every six hours as needed Oxycodone-Acetami nophen Active 1 TABLET PO EVERY 6 HOURS NEEDED 12 February 08, 2022 Start: 02-08-2022 take 1 tablet by jaciel th every six hours as needed Oxycodone-Acetaminophen Active 1 TABLET PO EVERY 6 HOURS NEEDED 12 February 08, 2022 aspirin 81 mg delayed release oral tablet (1 source) Platelet Aggregation Inhibitor, Nonsteroidal Anti-inflammatory Drug Start: 01-28-2025 Aspirin (Adult Lo w Dose Aspirin) 81 mg tablet,delayed release (DR/EC) Active 81 mg PO daily 90 January 28, 2025 12:00am clobetasol propionate 0.0005 mg/mg topical ointment (20 sources) Corticosteroid Start: 03-30-2021 clobetasol (TE MOVATE) 0.05 % ointment Indications: Lichen sclerosus et atrophicus APPLY 1 APPLICATION TO AFFECTED AREA TWO TIMES A WEEK. TO AFFECTED AREA. 45 g 2 11/03/2021 Active Start: 02-09-2017 CLOBETASOL PRO PIONATE 0.05 % OINT use nightly x 6-12 weeks then 1-3x weekly for maintenance CLOBETASOL PROPIONATE [id number] Becca Plummer MD Start: 02-09-2017 CLOBETASOL PRO PIONATE 0.05 % OINT use nightly x 6-12 weeks then 1-3x weekly for maintenance CLOBETASOL PROPIONATE [id number] Becca Plummer MD Comment on above: Apply 1 application to affected area two times a week. TO AFFECTED AREA. cyclobenzaprine hydrochloride 10 mg oral tablet (1 source) Muscle Relaxant Start: 02-09-20 take 10 mg by mouth three times daily Cyclobenzaprine Active 10 MG PO THREE TIMES A DAY February 08, 2022 12:00am 84 hr estradiol 0.94755 mg/hr transdermal system (15 sources) Estrogen Start: 01-29-20 Estradiol 0.05 mg/24 hr patch semiweekly Active 1 NMA TD .once weekly January 28, 2025 10:36am Start: 05-30-2023 End: 01-28-2025 Estradiol 0.05 mg/24 hr patc h semiweekly Discontinued 1 NMA TD .TWICE A WEEK May 30, 2023 1:00am January 28, 2025 10:37am Start: 05-30-2023 apply 1 dose transde rmal route two times weekly Estradiol Active 1 PATCH TD .TWICE A WEEK May 30, 2023 1:00am Start: 02-17-2023 apply 1 dose transde rmal route two times weekly Estradiol 0.05 MG/24HR Transdermal Patch Twice Weekly APPLY 1 PATCH TO SKIN 2 TIMES EVERY WEEK DIRECTED Quantity: 24 Refills: 4 Ordered: 17-Feb-2023 Matthew Novak Start : 17-Feb-2023 Active Start: 02-03-2023 Estradiol 0.1 MG/GM Vaginal Cream Do not use the applicator, instead apply a pea sized amount with your fingertip around the vaginal opening and just inside the vagina every night for 2 weeks, then 3 times/week Quantity: 1 Refills: 1 Ordered: 03-Feb-2023 Matthew Novak Start : 03-Feb-2023 Active Start: 01-27-2023 apply 1 dose transde rmal route two times weekly Estradiol 0.05 MG/24HR Transdermal Patch Twice Weekly APPLY 1 PATCH TWICE WEEKLY DIRECTED Quantity: 1 Refills: 11 Ordered: 27-Jan-2023 Andrew OLIVARESMEGMatthew Start : 27-Jan-2023 Active estradiol (Clima ra) 0.05 mg/[address] 1 patch on the skin 2 times a week. 0 Active End: 05-08-2023 estradiol (Estrace) 0.01 % ( 0.1 mg/gram) vaginal cream Insert 0.5 Applicatorfuls (2 g) into the vagina once daily. USE A PEA SIZED AMOUNT ON FINGERTIP, APPLY AROUND VAGINAL OPENING AND JUST INSIDE THE VAGINA EVERY NIGHT FOR 2 WEEKS THEN 3 TIMES A WEEK 0 05/08/2023 Discontinued (Therapy completed) Famotidine (20 sources) Histamine-2 Receptor Antagonist take 1 tablet by mouth once daily famotidine (PEPCID ORAL) Take 1 tablet by mouth once daily. Active take 1 tablet by mouth once [place] famotidine (PEPCID ORAL) Take 1 tablet by mouth once daily. 0 Active Comment on above: Take 1 tablet by jaciel th once daily. hydroxychloroquine sulfate 200 mg oral tablet (20 sources) Antimalarial, Antirheumatic Agent Start: 01-28-20 Hydroxychloroquine Sulfate 100 MG Oral Tablet Quantity: 0 Refills: 0 Ordered: 27-Jan-2023 DO Start : 27-Jan-2023 Active Start: 11-02-2021 End: 12-01-2024 take 1 tablet by mouth twice daily Hydroxychloroquine 200 mg tablet Active 200 mg PO TWICE A DAY April 13, 2022 12:00am hydrOXYchloroQUI NE 100 mg tablet Comment on above: Take 1 tablet by jaciel th twice daily. TAKE 1 TABLET BY JACIEL TH TWICE A DAY Take 1 tablet by jaciel th two times a day. Lactobacillus acidophilus (20 sources) End: take 1 tablet by mouth once daily Lactobacillus acidophilus (PROBIOTIC ORAL) Take 1 tablet by mouth once daily. 03/15/2024 Discontinued take 1 tablet by mouth once [place] Lactobacillus acidophilus (PROBIOTIC ORAL) Take 1 tablet by mouth once daily. Active Lactobacillus ac idophilus (PROBIOTIC ORAL) take 1 tablet by mouth once [place] Lactobacillus acidophilus (PROBIOTIC ORAL) Take 1 tablet by mouth once daily. 0 Active Comment on above: Take 1 tablet by jaciel th once daily. LORazepam 0.5 mg oral tablet (1 source) Benzodiazepine Start: 08-20-2018 take 0.25 mg by mouth twice daily Lorazepam Active 0.25 MG PO TWICE A DAY August 20, 2018 1:00am Dillon (Bulk) (6 sources) Start: 08-20-2018 Dillon (Bulk) Active 5 GM MC DAILY August 20, 2018 12:00am Start: 08-20-2018 Dillon (Bulk) Ac tive 5 GM MC DAILY August 20, 2018 1:00am magnesium oxide 200 mg oral tablet (20 sources) Start: 08-20-2018 take 1 tablet by mouth once daily Magnesium Oxide 200 MG tablet Active 200 mg PO DAILY August 20, 2018 1:00am magnesium oxide (Mag-Ox) 400 mg tablet Comment on above: Take 1 tablet by jaciel th once daily. Sodium,Potassium,Mag Sulfates (2 sources) Start: 2024 Sodium,Potassium,Mag Sulfates (Suprep Bowel Prep Kit) 17.5-3.13-1.6 gram recon soln Active 0 PO .COMPLEX 354 0 January 22, 2025 12:00am DILUTE; take as directed for split dose bowel prep meloxicam 15 mg oral tablet (1 source) Nonsteroidal Anti-inflammatory Drug Start: 2021 take 15 mg by mouth once daily Meloxicam Active 15 MG PO DAILY February 08, 2022 12:00am methylPREDNISolone (1 source) Corticosteroid Start: 2023 End: 2023 methylPREDNISolone (MEDROL, NYASIA,) 4 mg Dose-Pack Indications: Rash Follow dosing instructions, take with food. 21 tablet 0 10/10/2023 10/16/2023 Active Comment on above: Follow dosing instru ctions, take with food. 24 hr metoprolol succinate 100 mg extended release oral tablet (20 sources) beta-Adrenergic Brenda Start: 2024 take 1 tablet by mouth once daily Metoprolol Succinate 100 mg tablet extended release 24 hr Active 100 mg PO daily 90 January 28, 2025 12:00am Start: 01-26-2024 End: 01-28-2025 take 2 tablets by mouth once daily Metoprolol Succinate 50 mg tablet extended release 24 hr Discontinued 25 mg PO DAILY January 26, 2024 3:02pm January 28, 2025 10:59am Start: 01-27-2023 Metoprolol Tar trate 25 MG Oral Tablet Quantity: 0 Refills: 0 Ordered: 27-Jan-2023 DO Start : 27-Jan-2023 Active Start: 05-05-2022 End: 01-26-2024 take 1 tablet by mouth once daily Metoprolol Succinate 50 mg tablet extended release 24 hr Discontinued 50 mg PO DAILY December 18, 2023 12:00am January 26, 2024 3:03pm Start: 04-21-2021 metoprolol suc cinate 25 mg oral TABLET extended release Dose : 25 mg = 1 tab(s), Oral, qDay, Do not crush or chew (controlled release), # 30 tab(s), 0 Refill(s) Start Date: 04/21/21 Status: Ordered Start: 11-12-2020 End: 07-27-2022 take 1 tablet by mouth once daily metoprolol succinate ER (TOPROL XL) 25 mg 24 hr tablet Take 1 tablet by mouth once daily. 0 11/12/2020 07/27/2022 Discontinued (Course of therapy completed) Start: 04-04-2019 End: 12-18-2023 take 1 capsule by mouth once daily Metoprolol Succinate 50 MG capsule,sprinkle,ER 24hr Discontinued 50 mg PO DAILY April 04, 2019 12:00am December 18, 2023 1:59pm Start: 02-09-2017 take 1 tablet by jaciel th once daily METOPROLOL TARTRATE 50 MG TABS One tablet by mouth daily METOPROLOL TARTRATE [id number] Becca Plummer MD Comment on above: Take 1 tablet by jaciel th once daily. Take 50 mg by mouth once daily. pantoprazole 40 mg delayed release oral tablet (3 sources) Proton Pump Inhibitor Start: 01-15-20 take 1 tablet by mouth once daily 30 minutes before breakfast Pantoprazole 40 mg tablet,delayed release (DR/EC) Active 40 mg PO daily January 14, 2025 12:00am take once daily 30 minutes before breakfast progesterone 100 mg oral capsule (9 sources) Progesterone Start: 05-30-20 take 1 capsule by mouth at bedtime Progesterone Micronized 100 mg capsule Active 100 mg PO AT BEDTIME May 30, 2023 1:00am Start: 01-27-2023 take 1 capsule by mo uth once daily at bedtime Progesterone 100 MG Oral Capsule TAKE 1 CAPSULE BY MOUTH EVERYDAY AT BEDTIME Quantity: 30 Refills: 11 Ordered: 20-Feb-2023 Matthew Novak Start : 27-Jan-2023 Active tirzepatide (MOUNJARO) 10 mg/0.5 mL pen injector (1 source) Start: 12-05-2024 inject 10 mg by subcutaneous injection every week tirzepatide (MOUNJARO) 10 mg/0.5 mL pen injector Indications: Type 2 diabetes mellitus without complication, without long-term current use of insulin (HCC) Inject 10 mg subcutaneously one time a week. 2 mL 11 12/05/2024 Active Tirzepatide (Mounjaro) 7.5 mg/0.5 mL pen injector (3 sources) Start: 12-18-2023 Tirzepatide (M ounjaro) 7.5 mg/0.5 mL pen injector Active 7.5 mg SC EVERY WEEK December 18, 2023 12:00am Zinc (20 sources) take 1 tablet by mouth once daily ZINC ORAL Take 1 tablet by mouth once daily. Active take 1 tablet by mouth once [place] ZINC ORAL Take 1 tablet by mouth once daily. 0 Active Comment on above: Take 1 tablet by jaciel th once daily. Completed/Discontinued Medications Medication Drug Class(es) Dates Sig (Normalized) Sig (Original) acetaminophen 325 mg / HYDROcodone bitartrate 5 mg oral tablet (9 sources) Opioid Agonist Start: 12-01-2018 End: 12-04-2018 Hydrocodone-Acetami nophen 1 TABLET tablet Discontinued 1 {tbl} PO EVERY 6 HOURS NEEDED as needed for Pain 10 3 0 December 01, 2018 12:00am December 03, 2018 12:00am December 04, 2018 12:07am Sprain of anterior talofibular ligament of right ankle Sprain of other ligament of right ankle, initial encounter Start: 12-01-2018 End: 12-04-2018 take 1 tablet by mouth every six hours as needed Hydrocodone-Acetaminophen Discontinued 1 TABLET PO EVERY 6 HOURS NEEDED 10 3 December 01, 2018 12:00am December 04, 2018 12:07am amLODIPine 5 mg oral tablet (12 sources) Dihydropyridine Calcium Channel Brenda Start: 12-28-2023 End: 01-26-2024 take 1 tablet by mouth once daily Amlodipine 5 mg tablet Discontinued 5 mg PO DAILY 3 December 28, 2023 12:00am January 26, 2024 3:03pm Start: 11-22-2014 End: 02-05-2018 take 1 tablet by mouth once daily Amlodipine 10 MG tablet Discontinued 10 mg PO DAILY November 22, 2014 12:00am February 05, 2018 3:33pm ascorbic acid 500 mg oral capsule (4 sources) Vitamin C Start: 01-27-2023 Vitamin C 500 MG Oral Capsule Quantity: 0 Refills: 0 Ordered: 27-Jan-2023 DO Start : 27-Jan-2023 Active take 1 capsule by mouth once dionisio ly ascorbic acid (Vitamin C) 500 mg ER capsule Take 1 capsule (500 mg) by mouth once daily. 0 Active atenolol 25 mg oral tablet (9 sources) beta-Adrenergic Brenda Start: 08-20-2018 End: 08-21-2018 take 1 tablet by mouth once daily Atenolol 25 tablet Discontinued 25 mg PO DAILY August 20, 2018 1:00am August 21, 2018 10:36am blood pressure bifidobacterium animalis [id number] unt / lactobacillus acidophilus [id number] unt oral capsule (3 sources) Start: 01-27-2023 take 1 capsule by mouth once daily Probiotic Daily Oral Capsule Quantity: 0 Refills: 0 Ordered: 27-Jan-2023 DO Start : 27-Jan-2023 Active cholecalciferol 0.25 mg oral capsule (4 sources) Vitamin D Start: 01-27-2023 Vitamin D3 250 MCG (21117 UT) Oral Capsule Quantity: 0 Refills: 0 Ordered: 27-Jan-2023 DO Start : 27-Jan-2023 Active dicyclomine hydrochloride 10 mg oral capsule (5 sources) Anticholinergic Start: 05-30-2023 End: 12-06-2023 take 2 capsules by mouth three times daily before mealtime Dicyclomine 10 mg capsule Discontinued 20 mg PO THREE TIMES DAILY BEFORE MEALS May 30, 2023 1:00am December 06, 2023 11:21pm Start: 05-30-2023 take 20 mg by mouth three times daily before mealtime Dicyclomine Active 20 MG PO THREE TIMES DAILY BEFORE MEALS May 30, 2023 1:00am escitalopram 20 mg oral tablet (1 source) Serotonin Reuptake Inhibitor Start: 07-15-2021 End: 11-02-2021 take 1 tablet by mouth once daily escitalopram oxalate (LEXAPRO) 20 mg tablet Indications: Hot flashes due to menopause TAKE 1 TABLET BY MOUTH EVERY DAY 30 tablet 1 07/15/2021 11/02/2021 Discontinued Comment on above: TAKE 1 TABLET BY JACIEL TH EVERY DAY hydrOXYzine hydrochloride 25 mg oral tablet (1 source) Antihistamine Start: 10-11-2021 End: 11-02-2021 take 1 tablet by mouth every six hours as needed hydrOXYzine HCl (ATARAX) 25 mg tablet Take 25 mg by mouth every 6 hours as needed. 0 10/11/2021 11/02/2021 Discontinued Comment on above: Take 25 mg by mouth every 6 hours as needed. lisinopril 40 mg oral tablet (20 sources) Angiotensin Converting Enzyme Inhibitor Start: 01-27-2023 Lisinopril 40 MG Oral Tablet Quantity: 0 Refills: 0 Ordered: 27-Jan-2023 DO Start : 27-Jan-2023 Active Start: 11-22-2014 take 1 tablet by jaciel th once daily Lisinopril 40 MG tablet Active 40 mg PO DAILY November 22, 2014 12:00am blood pressure Comment on above: Take 1 tablet by jaciel th once daily. Dillon (Bulk) 5 GM powder (3 sources) Start: 9 End: 4 Dillon (Bulk) 5 GM powder Discontinued 5 g MC DAILY August 20, 2018 1:00am December 06, 2023 11:22pm On Hold: Pt is ill Magnesium (3 sources) Start: 3 Magnesium 400 MG Oral Tablet Quantity: 0 Refills: 0 Ordered: 27-Jan-2023 DO Start : 27-Jan-2023 Active montelukast 10 mg oral tablet (4 sources) Leukotriene Receptor Antagonist Start: 4 End: 4 take 1 tablet by mouth at bedtime Montelukast 10 mg tablet Discontinued 10 mg PO AT BEDTIME December 18, 2023 12:00am December 28, 2023 11:21am Start: 10-11-2021 End: 11-02-2021 montelukast (SINGULAIR) 10 m g tablet 10 mg daily at bedtime. 0 10/11/2021 11/02/2021 Discontinued Comment on above: 10 mg daily at bedti me. NYSTATIN (4 sources) Polyene Antifungal Start: 02-09-2017 NYSTOP 651332 UNIT/GM POWD use as needed NYSTATIN [id number] Becca Plummer MD Start: 02-09-2017 NYSTOP 388012 UNIT/GM POWD use as needed NYSTATIN [id number] Becca Plummer MD ondansetron 4 mg disintegrating oral tablet (5 sources) Serotonin-3 Receptor Antagonist Start: 05-30-2023 End: 12-18-2023 take 1 tablet by mouth every eight hours as needed for nausea Ondansetron 4 mg tablet,disintegrating Discontinued 4 mg PO EVERY 8 HOURS NEEDED as needed for Nausea 10 0 May 30, 2023 1:00am December 18, 2023 1:56pm Peg 3350-Sod Sulf,Akws-Twx-Pss (Suflave) 178.7-7.3-0.5 gram recon soln (3 sources) Start: 01-14-2025 End: 01-22-2025 Peg 3350-Sod Sulf,Waww-Kze-Zpn (Suflave) 178.7-7.3-0.5 gram recon soln Discontinued 0 PO .COMPLEX 2 0 January 14, 2025 12:00am January 22, 2025 3:49pm as directed for split dose bowel prep Start: 01-14-2025 Peg 3350-Sod S ulf,Aihv-Goa-Dln (Suflave) 178.7-7.3-0.5 gram recon soln Active 0 PO .COMPLEX 2 0 January 14, 2025 12:00am as directed for split dose bowel prep predniSONE 20 mg oral tablet (9 sources) Start: 04-07-2019 End: 04-17-2019 take 2 tablets by mouth once daily at mealtime Prednisone 20 MG tablet Discontinued 40 mg PO DAILY April 07, 2019 12:00am April 11, 2019 12:00am April 17, 2019 12:08am With food Start: 04-07-2019 End: 04-17-2019 take 40 mg by mouth once daily at mealtime Prednisone Discontinued 40 MG PO DAILY April 07, 2019 12:00am April 17, 2019 12:08am With food promethazine hydrochloride 25 mg oral tablet (9 sources) Phenothiazine Start: 11-23-2014 End: 02-05-2018 take 1 tablet by mouth every six hours as needed for nausea Promethazine 25 MG tablet Discontinued 25 mg PO EVERY 6 HOURS NEEDED as needed for Nausea 10 November 23, 2014 12:00am February 05, 2018 3:34pm 0.25 mg, 0.5 mg dose 1.5 ml semaglutide 1.34 mg/ml pen injector (18 sources) Start: 01-12-2022 End: 01-26-2022 semaglutide (OZEMPIC) 0.25 mg or 0.5 mg(2 mg/1.5 mL) pen injector Indications: Type 2 diabetes mellitus without complication, without long-term current use of insulin (HCC) Inject subcutaneously 0.5 mg once weekly 1.5 mL 01/26/2022 Active Start: 08-02-2021 End: 05-30-2023 Semaglutide (Ozempic) 0.25 m g or 0.5 mg(2 mg/1.5 mL) Pen Injector Discontinued 0.5 mg SC ARROYO August 02, 2021 1:00am May 30, 2023 11:58am Start: 04-21-2021 inject 0.5 mg by sub cutaneous injection every week Ozempic 2 mg/1.5 mL (0.25 mg or 0.5 mg dose) subcutaneous solution 0.5 mg, Subcutaneous, qWeek, rotate injection sites, # 1 EA, 0 Refill(s) Start Date: 04/21/21 Status: Ordered Start: 03-17-2021 End: 01-11-2022 inject 0.25 mg by subcutaneous injection every week, then inject 0.5 mg by subcutaneous injection every week semaglutide (OZEMPIC) 0.25 mg or 0.5 mg(2 mg/1.5 mL) pnij Inject subcutaneously 0.25 mg once weekly x 4 wks and then increase to 0.5 mg weekly 1.5 mL 03/17/2021 01/11/2022 Discontinued Comment on above: Inject subcutaneousl y 0.25 mg once weekly x 4 wks and then increase to 0.5 mg weekly Inject subcutaneousl y 0.5 mg once weekly semaglutide (OZEMPIC) 1 mg/dose (4 mg/3 mL) pen (6 sources) Start: End: inject 1 mg by subcutaneous injection every week semaglutide (OZEMPIC) 1 mg/dose (4 mg/3 mL) pen Indications: Type 2 diabetes mellitus without complication, without long-term current use of insulin (HCC) Inject 1 mg subcutaneously one time a week. 3 mL 11 08/11/2022 04/17/2023 Discontinued Start: 08-11-2022 inject 1 mg by subcu taneous injection every week semaglutide (OZEMPIC) 1 mg/dose (4 mg/3 mL) pen Indications: Type 2 diabetes mellitus without complication, without long-term current use of insulin (HCC) Inject 1 mg subcutaneously one time a week. 3 mL 11 08/11/2022 Active Start: 03-15-2022 End: 08-11-2022 inject 1 mg by subcutaneous injection every week semaglutide (OZEMPIC) 1 mg/dose (4 mg/3 mL) pen Inject 1 mg subcutaneously one time a week. 3 mL 5 03/15/2022 08/11/2022 Discontinued Start: 03-15-2022 inject 1 mg by subcu taneous injection every week semaglutide (OZEMPIC) 1 mg/dose (4 mg/3 mL) pen Inject 1 mg subcutaneously one time a week. 3 mL 5 03/15/2022 Active Comment on above: Inject 1 mg subcutan eously one time a week. tirzepatide (MOUNJARO) 2.5 mg/0.5 mL pen injector (2 sources) Start: End: inject 2.5 mg by subcutaneous injection every week tirzepatide (MOUNJARO) 2.5 mg/0.5 mL pen injector Indications: Type 2 diabetes mellitus without complication, without long-term current use of insulin (HCC) Inject 2.5 mg subcutaneously one time a week. 2 mL 0 04/17/2023 05/22/2023 Discontinued Start: 04-17-2023 inject 2.5 mg by sub cutaneous injection every week tirzepatide (MOUNJARO) 2.5 mg/0.5 mL pen injector Indications: Type 2 diabetes mellitus without complication, without long-term current use of insulin (HCC) Inject 2.5 mg subcutaneously one time a week. 2 mL 0 04/17/2023 Active Comment on above: Inject 2.5 mg subcut aneously one time a week. tirzepatide (MOUNJARO) 5 mg/0.5 mL pen injector (3 sources) Start: End: inject 5 mg by subcutaneous injection every week tirzepatide (MOUNJARO) 5 mg/0.5 mL pen injector Inject 5 mg subcutaneously one time a week. 2 mL 5 05/22/2023 09/11/2023 Discontinued Start: 05-22-2023 inject 5 mg by subcu taneous injection every week tirzepatide (MOUNJARO) 5 mg/0.5 mL pen injector Inject 5 mg subcutaneously one time a week. 2 mL 5 05/22/2023 Active Comment on above: Inject 5 mg subcutan eously one time a week. tirzepatide (MOUNJARO) 7.5 mg/0.5 mL pen injector (12 sources) Start: End: inject 7.5 mg by subcutaneous injection every week tirzepatide (MOUNJARO) 7.5 mg/0.5 mL pen injector Indications: Type 2 diabetes mellitus without complication, without long-term current use of insulin (HCC) Inject 7.5 mg subcutaneously one time a week. 2 mL 09/12/2023 05/31/2024 Discontinued Start: 09-12-2023 inject 7.5 mg by sub cutaneous injection every week tirzepatide (MOUNJARO) 7.5 mg/0.5 mL pen injector Indications: Type 2 diabetes mellitus without complication, without long-term current use of insulin (HCC) Inject 7.5 mg subcutaneously one time a week. 2 mL 09/12/2023 Active Start: 09-11-2023 End: 09-12-2023 inject 7.5 mg by subcutaneous injection every week tirzepatide (MOUNJARO) 7.5 mg/0.5 mL pen injector Indications: Type 2 diabetes mellitus without complication, without long-term current use of insulin (HCC) Inject 7.5 mg subcutaneously one time a week. 2 mL 5 09/11/2023 09/12/2023 Discontinued Start: 09-11-2023 inject 7.5 mg by sub cutaneous injection every week tirzepatide (MOUNJARO) 7.5 mg/0.5 mL pen injector Indications: Type 2 diabetes mellitus without complication, without long-term current use of insulin (HCC) Inject 7.5 mg subcutaneously one time a week. 2 mL 5 09/11/2023 Active Comment on above: Inject 7.5 mg subcut aneously one time a week. tirzepatide (MOUNJARO) 7.5 mg/0.5 mL pen injector (3 sources) Start: End: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 4323-8 #### [facility] CLIA [id number] [address] [place] [address] [place] ALT [Catalytic activity/Vol] 20 U/L Normal 7-38 [facility] Comment on above: Order Comment: Speci men Type: BLOOD SPECIMEN Ordering Facility: [facility] Address: [address] [place] [address] Performed By: #### 2 4323-8 #### [facility] CLIA [id number] [address] [place] [address] [place] Anion gap [Moles/Vol] 8 mmol/L Normal 8-15 [facility] Comment on above: Order Comment: Speci men Type: BLOOD SPECIMEN Ordering Facility: [facility] Address: [address] [place] [address] Performed By: #### 2 4323-8 #### [facility] CLIA [id number] [address] [place] [address] [place] AST [Catalytic activity/Vol] 23 U/L Normal 13-35 [facility] Comment on above: Order Comment: Speci men Type: BLOOD SPECIMEN Ordering Facility: [facility] Address: [address] [place] [address] Performed By: #### 2 4323-8 #### [facility] CLIA [id number] [address] [place] [address] [place] Bilirubin [Mass/Vol] 0.6 mg/dL Normal 0.2-1.3 [facility] Comment on above: Order Comment: Speci men Type: BLOOD SPECIMEN Ordering Facility: [facility] Address: [address] [place] [address] Performed By: #### 2 4323-8 #### [facility] CLIA [id number] [address] [place] [address] [place] Calcium [Mass/Vol] 9.4 mg/dL Normal 8.5-10.2 [facility] Comment on above: Order Comment: Speci men Type: BLOOD SPECIMEN Ordering Facility: [facility] Address: [address] [place] [address] Performed By: #### 2 4323-8 #### [facility] CLIA [id number] [address] [place] [address] [place] Chloride [Moles/Vol] 106 mmol/L Normal 98-107 [facility] Comment on above: Order Comment: Speci men Type: BLOOD SPECIMEN Ordering Facility: [facility] Address: [address] [place] [address] Performed By: #### 2 4323-8 #### [facility] CLIA [id number] [address] [place] [address] [place] CO2 [Moles/Vol] 26 mmol/L Normal 22-30 [facility] Comment on above: Order Comment: Speci men Type: BLOOD SPECIMEN Ordering Facility: [facility] Address: [address] [place] [address] Performed By: #### 2 4323-8 #### [facility] CLIA [id number] [address] [place] [address] [place] Creatinine [Mass/Vol] 0.85 mg/dL Normal 0.58-0.96 [facility] Comment on above: Order Comment: Speci men Type: BLOOD SPECIMEN Ordering Facility: [facility] Address: [address] [place] [address] Performed By: #### 2 4323-8 #### [facility] CLIA [id number] [address] [place] [address] [facility] [place] Creatinine and Glomerular filtration rate.predicted panel (S/P/Bld) 82 mL/min/1.73m??? Normal >=60 [facility] Comment on above: Order Comment: Speci men Type: BLOOD SPECIMEN Ordering Facility: [facility] Address: [address] [place] [address] Result Comment: Christie mated Glomerular Filtration Rate (eGFR) is calculated using the 2020 CKD-EPI creatinine equation. This equation utilizes serum creatinine, sex, and age as parameters. The creatinine assay has traceable calibration to isotope dilution-mass spectrometry. Refer to KDIGO guidelines for clinical interpretation. In patients with unstable renal function, e.g. those with acute kidney injury, the eGFR may not accurately reflect actual GFR. Performed By: #### 2 4323-8 #### [facility] [id number] [address] [place] [address] [place] Glucose [Mass/Vol] 94 mg/dL Normal 74-99 [facility] Comment on above: Order Comment: Sinan duong Type: BLOOD SPECIMEN Ordering Facility: [facility] Address: [address] [place] [address] Result Comment: The [place] Diabetes Association (ADA) provides guidance for cutoff values for fasting glucose and random glucose. The ADA defines fasting as no caloric intake for at least 8 hours. Fasting plasma glucose results between 100 to 125 mg/dL indicate increased risk for diabetes (prediabetes). Fasting plasma glucose results greater than or equal to 126 mg/dL meet the criteria for diagnosis of diabetes. In the absence of unequivocal hyperglycemia, results should be confirmed by repeat testing. In a patient with classic symptoms of hyperglycemia or hyperglycemic crisis, random plasma glucose results greater than or equal to 200 mg/dL meet the criteria for diagnosis of diabetes. Reference: Standards of Medical Care in Diabetes 2016, [place] Diabetes Association. Diabetes Care. 2016.39(Suppl 1). Performed By: #### 2 4323-8 #### [facility] [id number] [address] [place] [address] [place] Potassium [Moles/Vol] 4.3 mmol/L Normal 3.7-5.1 [facility] Comment on above: Order Comment: Sinan duong Type: BLOOD SPECIMEN Ordering Facility: [facility] Address: [address] [place] [address] Performed By: #### 2 4323-8 #### [facility] [id number] [address] [place] [address] [place] Protein [Mass/Vol] 7.4 g/dL Normal 6.3-8.0 [facility] Comment on above: Order Comment: Sinan duong Type: BLOOD SPECIMEN Ordering Facility: [facility] Address: [address] [place] [address] Performed By: #### 2 4323-8 #### [facility] CLIA [id number] [address] [place] [address] [place] Sodium [Moles/Vol] 140 mmol/L Normal 136-144 [facility] Comment on above: Order Comment: Speci men Type: BLOOD SPECIMEN Ordering Facility: [facility] Address: [address] [place] [address] Performed By: #### 2 4323-8 #### [facility] CLIA [id number] [address] [place] [address] [place] Urea nitrogen [Mass/Vol] 11 mg/dL Normal 7-21 [facility] Comment on above: Order Comment: Speci men Type: BLOOD SPECIMEN Ordering Facility: [facility] Address: [address] [place] [address] Performed By: #### 2 4323-8 #### [facility] CLIA [id number] [address] [place] [address] [place] HbA1c (Bld)on 09-10-2024 Average glucose Estimated from glycated hemoglobin (Bld) [Mass/Vol] 100 mg/dL Normal [facility] Comment on above: Order Comment: Speci men Type: BLOOD SPECIMEN Ordering Facility: [facility] Address: [address] [place] [address] Result Comment: eAG: (Estimated average glucose) is a calculated value from HgbA1c and is inventory representative of the average blood glucose level in the last 2-3 month period. Performed By: #### 5 5454-3 #### [facility] CLIA [id number] [address] [place] [address] [place] HbA1c (Bld) [Mass fraction] 5.1 % Normal 4.3-5.6 [facility] Comment on above: Order Comment: Nikai men Type: BLOOD SPECIMEN Ordering Facility: [facility] Address: [address] [place] [address] Result Comment: [place] Diabetes Association guidelines indicate that patients with HgbA1c in the range 5.7-6.4% are at increased risk for development of diabetes, and intervention by lifestyle modification may be beneficial. HgbA1c greater or equal to 6.5% is considered diagnostic of diabetes. Performed By: #### 5 5454-3 #### [facility] CLIA [id number] [address] [facility] [address] OF [facility] Lipid 1996 panelon 5 Cholesterol [Mass/Vol] 171 mg/dL Normal <200 [facility] Comment on above: Order Comment: Sinan duong Type: BLOOD SPECIMEN Ordering Facility: [facility] Address: [address] [place] [address] Result Comment: <200 mg/dL, Desirable 200-239 mg/dL, Borderline high >239 mg/dL, High Performed By: #### 2 4331-1 #### [facility] CLIA [id number] [address] CLIA [id number] [address] [place] [address] Cholesterol in HDL [Mass/Vol] 36 mg/dL Low >39 [facility] Comment on above: Order Comment: Sinan duong Type: BLOOD SPECIMEN Ordering Facility: [facility] Address: [address] [place] [address] Result Comment: 40-5 9 mg/dL, Acceptable >59 mg/dL, High: Negative risk factor for coronary heart disease <40 mg/dL, Low: Positive risk factor for coronary heart disease Performed By: #### 2 4331-1 #### [facility] CLIA [id number] [address] CLIA [id number] [address] [place] [address] Cholesterol in LDL [Mass/Vol] 101 mg/dL High <100 [facility] Comment on above: Order Comment: Sinan men Type: BLOOD SPECIMEN Ordering Facility: [facility] Address: [address] [place] [address] Result Comment: <100 mg/dL, Optimal 100-129 mg/dL, Near optimal/above optimal 130-159 mg/dL, Borderline high 160-189 mg/dL, High >189 mg/dL, Very high Secondary prevention optimal LDL Cholesterol levels are recommended to be < 70 mg/dL Performed By: #### 2 4331-1 #### [facility] CLIA [id number] [address] CLIA [id number] [address] [place] [address] Cholesterol in LDL/Cholesterol in HDL [Mass ratio] 2.81 {ratio} High <2.54 [facility] Comment on above: Order Comment: Speci men Type: BLOOD SPECIMEN Ordering Facility: [facility] Address: [address] [place] [address] Result Comment: Refe rence: 1. National Cholesterol Education Program ATP III Guideline At-A-Glance Quick Desk Reference: National Heart, Lung, and Blood [place]. National Institutes of Health. 2001: NIH Publication No. 01-3305. 2. An International Atherosclerosis Society position paper: global recommendations for the management of dyslipidemia: executive summary, Atherosclerosis. 2014: 232(2):410-413. Performed By: #### 2 4331-1 #### [facility] CLIA [id number] [address] CLIA [id number] [address] [place] [address] Cholesterol in VLDL [Mass/Vol] 34 mg/dL High <30 [facility] Comment on above: Order Comment: Speci men Type: BLOOD SPECIMEN Ordering Facility: [facility] Address: [address] [place] [address] Performed By: #### 2 4331-1 #### [facility] CLIA [id number] [address] CLIA [id number] [address] [place] [address] [place] Cholesterol non HDL [Mass/Vol] 135 mg/dL High <130 [facility] Comment on above: Order Comment: Speci men Type: BLOOD SPECIMEN Ordering Facility: [facility] Address: [address] [place] [address] Result Comment: <130 mg/dL, Optimal 130-159 mg/dL, Near optimal/above optimal 160-189 mg/dL, Borderline high 190-219 mg/dL, High >219 mg/dL, Very high Secondary prevention optimal non HDL Cholesterol levels are recommended to be <100 mg/dL Performed By: #### 2 4331-1 #### [facility] CLIA [id number] [id number] [place] [address] [facility] Cholesterol.total/Cho lesterol in HDL [Mass ratio] 4.75 {ratio} Normal <5.10 [facility] Comment on above: Order Comment: Speci men Type: BLOOD SPECIMEN Ordering Facility: [facility] Address: [address] [place] [address] Performed By: #### 2 4331-1 #### [facility] CLIA [id number] 1 [place] [address] [place] [facility] CLIA [id number] [address] [place] [address] OF [facility] FASTING TIME 12 hrs Normal [facility] Comment on above: Order Comment: Speci men Type: BLOOD SPECIMEN Ordering Facility: [facility] Address: [address] [place] [address] Performed By: #### 2 4331-1 #### [facility] CLIA [id number] 1 [place] [address] [place] [facility] CLIA [id number] [address] [place] [address] [place] Triglyceride [Mass/Vol] 172 mg/dL High <150 [facility] Comment on above: Order Comment: Speci men Type: BLOOD SPECIMEN Ordering Facility: [facility] Address: [address] [place], [place] [address] Result Comment: <150 mg/dL, Normal 150-199 mg/dL, Borderline high 200-499 mg/dL, High >499 mg/dL, Very high Performed By: #### 2 4331-1 #### [facility] CLIA [id number] [address] STATES OF [facility] CLIA [id number] [address] [place] [address] [place] POTASSIUMon 04-01-2024 Potassium [Moles/Vol] 4.2 mmol/L Normal 3.7-5.1 [facility] Comment on above: Order Comment: Speci men Type: BLOOD SPECIMEN Ordering Facility: [facility] Address: [address] [place] [address] Performed By: #### K 1 #### [facility] CLIA [id number] [address] [place] [address] [place] Comprehensive metabolic 2000 panelon 03-19-2024 Albumin [Mass/Vol] 4.3 g/dL Normal 3.9-4.9 [facility] Comment on above: Order Comment: Speci men Type: BLOOD SPECIMEN Ordering Facility: [facility] Address: [address] [place] [address] Performed By: #### 2 4323-8 #### [facility] CLIA [id number] [address] [place] [address] [place] ALP [Catalytic activity/Vol] 49 U/L Normal 34-123 [facility] Comment on above: Order Comment: Speci men Type: BLOOD SPECIMEN Ordering Facility: [facility] Address: [address] [place] [address] Performed By: #### 2 4323-8 #### [facility] CLIA [id number] [address] [place] [address] [place] ALT [Catalytic activity/Vol] 14 U/L Normal 7-38 [facility] Comment on above: Order Comment: Speci men Type: BLOOD SPECIMEN Ordering Facility: [facility] Address: [address] [place] [address] Performed By: #### 2 4323-8 #### [facility] CLIA [id number] [address] [place] [address] [place] Anion gap [Moles/Vol] 9 mmol/L Normal 8-15 [facility] Comment on above: Order Comment: Speci men Type: BLOOD SPECIMEN Ordering Facility: [facility] Address: [address] [place] [address] Performed By: #### 2 4323-8 #### [facility] CLIA [id number] [address] [place] [address] [place] AST [Catalytic activity/Vol] 20 U/L Normal 13-35 [facility] Comment on above: Order Comment: Speci men Type: BLOOD SPECIMEN Ordering Facility: [facility] Address: [address] [place] [address] Performed By: #### 2 4323-8 #### [facility] CLIA [id number] [address] [place] [address] [place] Bilirubin [Mass/Vol] 0.4 mg/dL Normal 0.2-1.3 [facility] Comment on above: Order Comment: Speci men Type: BLOOD SPECIMEN Ordering Facility: [facility] Address: [address] [place] [address] Performed By: #### 2 4323-8 #### [facility] CLIA [id number] [address] [place] [address] [place] Calcium [Mass/Vol] 9.9 mg/dL Normal 8.5-10.2 [facility] Comment on above: Order Comment: Speci men Type: BLOOD SPECIMEN Ordering Facility: [facility] Address: [address] [place] [address] Performed By: #### 2 4323-8 #### [facility] CLIA [id number] [address] [place] [address] [place] Chloride [Moles/Vol] 106 mmol/L Normal 98-107 [facility] Comment on above: Order Comment: Speci men Type: BLOOD SPECIMEN Ordering Facility: [facility] Address: [address] [place] [address] Performed By: #### 2 4323-8 #### [facility] CLIA [id number] [address] [place] [address] [place] CO2 [Moles/Vol] 25 mmol/L Normal 22-30 [facility] Comment on above: Order Comment: Speci men Type: BLOOD SPECIMEN Ordering Facility: [facility] Address: [address] [place] [address] Performed By: #### 2 4323-8 #### [facility] CLIA [id number] [address] [place] [address] [place] Creatinine [Mass/Vol] 1.01 mg/dL High 0.58-0.96 [facility] Comment on above: Order Comment: Speci men Type: BLOOD SPECIMEN Ordering Facility: [facility] Address: [address] [place] [address] Performed By: #### 2 4323-8 #### [facility] [id number] [address] [place] [address] [facility] Creatinine and Glomerular filtration rate.predicted panel (S/P/Bld) 67 mL/min/1.73m??? Normal >=60 [facility] Comment on above: Order Comment: Speci men Type: BLOOD SPECIMEN Ordering Facility: [facility] Address: [address] [place] [address] Result Comment: Christie mated Glomerular Filtration Rate (eGFR) is calculated using the 2020 CKD-EPI creatinine equation. This equation utilizes serum creatinine, sex, and age as parameters. The creatinine assay has traceable calibration to isotope dilution-mass spectrometry. Refer to KDIGO guidelines for clinical interpretation. In patients with unstable renal function, e.g. those with acute kidney injury, the eGFR may not accurately reflect actual GFR. Performed By: #### 2 4323-8 #### [facility] [id number] [address] [place] [address] [place] Glucose [Mass/Vol] 90 mg/dL Normal 74-99 [facility] Comment on above: Order Comment: Speci men Type: BLOOD SPECIMEN Ordering Facility: [facility] Address: [address] [place], [place] [address] Result Comment: The [place] Diabetes Association (ADA) provides guidance for cutoff values for fasting glucose and random glucose. The ADA defines fasting as no caloric intake for at least 8 hours. Fasting plasma glucose results between 100 to 125 mg/dL indicate increased risk for diabetes (prediabetes). Fasting plasma glucose results greater than or equal to 126 mg/dL meet the criteria for diagnosis of diabetes. In the absence of unequivocal hyperglycemia, results should be confirmed by repeat testing. In a patient with classic symptoms of hyperglycemia or hyperglycemic crisis, random plasma glucose results greater than or equal to 200 mg/dL meet the criteria for diagnosis of diabetes. Reference: Standards of Medical Care in Diabetes 2016, [place] Diabetes Association. Diabetes Care. 2016.39(Suppl 1). Performed By: #### 2 4323-8 #### [facility] [id number] [address] [place] [address] [place] Potassium [Moles/Vol] 3.5 mmol/L Low 3.7-5.1 [facility] Comment on above: Order Comment: Speci men Type: BLOOD SPECIMEN Ordering Facility: [facility] Address: [address] [place] [address] Performed By: #### 2 4323-8 #### [facility] [id number] [address] [place] [address] [place] Protein [Mass/Vol] 7.1 g/dL Normal 6.3-8.0 [facility] Comment on above: Order Comment: Speci men Type: BLOOD SPECIMEN Ordering Facility: [facility] Address: [address] [place] [address] Performed By: #### 2 4323-8 #### [facility] CLIA [id number] [address] [place] [address] [place] Sodium [Moles/Vol] 140 mmol/L Normal 136-144 [facility] Comment on above: Order Comment: Speci men Type: BLOOD SPECIMEN Ordering Facility: [facility] Address: [address] [place] [address] Performed By: #### 2 4323-8 #### [facility] CLIA [id number] [address] [place] [address] [place] Urea nitrogen [Mass/Vol] 12 mg/dL Normal 7-21 [facility] Comment on above: Order Comment: Speci men Type: BLOOD SPECIMEN Ordering Facility: [facility] Address: [address] [place] [address] Performed By: #### 2 4323-8 #### [facility] CLIA [id number] [address] [place] [address] [place] ALBUMIN/CREATININE RATIO, UR INEon 03-14-2024 Albumin DL <= 20 mg/L (U) [Mass/Vol] 232.3 mg/L Normal [facility] Comment on above: Order Comment: Speci men Type: BLOOD SPECIMEN Ordering Facility: [facility] Address: [address] [place] [address] Performed By: #### 5 5454-3 #### [facility] CLIA [id number] [address] [place], [place] [id number] [address] [place] Albumin/Creatinine (U) [Mass ratio] 75 mg/g High <30 [facility] Comment on above: Order Comment: Speci men Type: BLOOD SPECIMEN Ordering Facility: [facility] Address: [address] [place] [address] Result Comment: Adul t Male and Female Nephrotic Criteria: <30 mg/g is considered normal to mildly increased 30-300 mg/g is considered moderately increased >300 mg/g is considered severely increased KDIGO. (2013). KDIGO 2012 Clinical Practice Guideline for the Evaluation and Management of Chronic Kidney Disease. Official Journal of the International Society of Nephrology, 3(1), 1-150. Performed By: #### 5 5454-3 #### [facility] [facility] CLIA [id number] [address] [place] [address] [place] Creatinine (U) [Mass/Vol] 311.8 mg/dL High 20.0-300.0 [facility] Comment on above: Order Comment: Speci men Type: BLOOD SPECIMEN Ordering Facility: [facility] Address: [address] [place] [address] Performed By: #### 5 5454-3 #### [facility] CLIA [id number] [address] [place] [address] [place] Comprehensive metabolic 2000 panelon 03-14-2024 Albumin [Mass/Vol] 4.2 g/dL Normal 3.9-4.9 [facility] Comment on above: Order Comment: Speci men Type: BLOOD SPECIMEN Ordering Facility: [facility] Address: [address] [place] [address] Performed By: #### 2 4323-8 #### [facility] [id number] [address] [place] [address] [place] ALP [Catalytic activity/Vol] 46 U/L Normal 34-123 [facility] Comment on above: Order Comment: Speci men Type: BLOOD SPECIMEN Ordering Facility: [facility] Address: [address] [place] [address] Performed By: #### 2 4323-8 #### [facility] [id number] [address] [place] [address] [place] ALT [Catalytic activity/Vol] 14 U/L Normal 7-38 [facility] Comment on above: Order Comment: Speci men Type: BLOOD SPECIMEN Ordering Facility: [facility] Address: [address] [place] [address] Performed By: #### 2 4323-8 #### [facility] CLIA [id number] [address] [place] [address] [place] Anion gap [Moles/Vol] 12 mmol/L Normal 8-15 [facility] Comment on above: Order Comment: Speci men Type: BLOOD SPECIMEN Ordering Facility: [facility] Address: [address] [place] [address] Performed By: #### 2 4323-8 #### [facility] CLIA [id number] [address] [place] [address] [place] AST [Catalytic activity/Vol] 22 U/L Normal 13-35 [facility] Comment on above: Order Comment: Speci men Type: BLOOD SPECIMEN Ordering Facility: [facility] Address: [address] [place] [id number] Performed By: #### 2 4323-8 #### [facility] CLIA [id number] [address] [place] [address] [place] Bilirubin [Mass/Vol] 0.9 mg/dL Normal 0.2-1.3 [facility] Comment on above: Order Comment: Speci men Type: BLOOD SPECIMEN Ordering Facility: [facility] Address: [address] [place] [address] Performed By: #### 2 4323-8 #### [facility] CLIA [id number] [address] [place] [address] [place] Calcium [Mass/Vol] 13.5 mg/dL High 8.5-10.2 [facility] Comment on above: Order Comment: Speci men Type: BLOOD SPECIMEN Ordering Facility: [facility] Address: [address] [place] [address] Performed By: #### 2 4323-8 #### [facility] CLIA [id number] [address] [place] [address] [place] Chloride [Moles/Vol] 101 mmol/L Normal 98-107 [facility] Comment on above: Order Comment: Speci ad Type: BLOOD SPECIMEN Ordering Facility: [facility] Address: [address] [place] [address] Performed By: #### 2 4323-8 #### [facility] CLIA [id number] [address] [place] [address] [place] CO2 [Moles/Vol] 26 mmol/L Normal 22-30 [facility] Comment on above: Order Comment: Speci men Type: BLOOD SPECIMEN Ordering Facility: [facility] Address: [address] [place] [address] Performed By: #### 2 4323-8 #### [facility] CLIA [id number] [address] [place] [address] [place] Creatinine [Mass/Vol] 1.62 mg/dL High 0.58-0.96 [facility] Comment on above: Order Comment: Speci men Type: BLOOD SPECIMEN Ordering Facility: [facility] Address: [address] [place] [address] Performed By: #### 2 4323-8 #### [facility] CLIA [id number] [address] [place] [address] [facility] [place] Creatinine and Glomerular filtration rate.predicted panel (S/P/Bld) 38 mL/min/1.73m??? Low >=60 [facility] Comment on above: Order Comment: Speci men Type: BLOOD SPECIMEN Ordering Facility: [facility] Address: [address] [place] [address] Result Comment: Christie mated Glomerular Filtration Rate (eGFR) is calculated using the 2020 CKD-EPI creatinine equation. This equation utilizes serum creatinine, sex, and age as parameters. The creatinine assay has traceable calibration to isotope dilution-mass spectrometry. Refer to KDIGO guidelines for clinical interpretation. In patients with unstable renal function, e.g. those with acute kidney injury, the eGFR may not accurately reflect actual GFR. Performed By: #### 2 4323-8 #### [facility] [id number] [address] [place] [address] [place] Glucose [Mass/Vol] 121 mg/dL High 74-99 [facility] Comment on above: Order Comment: Sinan duong Type: BLOOD SPECIMEN Ordering Facility: [facility] Address: [address] [place] [address] Result Comment: The [place] Diabetes Association (ADA) provides guidance for cutoff values for fasting glucose and random glucose. The ADA defines fasting as no caloric intake for at least 8 hours. Fasting plasma glucose results between 100 to 125 mg/dL indicate increased risk for diabetes (prediabetes). Fasting plasma glucose results greater than or equal to 126 mg/dL meet the criteria for diagnosis of diabetes. In the absence of unequivocal hyperglycemia, results should be confirmed by repeat testing. In a patient with classic symptoms of hyperglycemia or hyperglycemic crisis, random plasma glucose results greater than or equal to 200 mg/dL meet the criteria for diagnosis of diabetes. Reference: Standards of Medical Care in Diabetes 2016, [place] Diabetes Association. Diabetes Care. 2016.39(Suppl 1). Performed By: #### 2 4323-8 #### [facility] [id number] [address] [place] [address] [place] Potassium [Moles/Vol] 4.1 mmol/L Normal 3.7-5.1 [facility] Comment on above: Order Comment: Sinan duong Type: BLOOD SPECIMEN Ordering Facility: [facility] Address: [address] [place] [address] Performed By: #### 2 4323-8 #### [facility] [id number] [address] [place] [address] [place] Protein [Mass/Vol] 7.4 g/dL Normal 6.3-8.0 [facility] Comment on above: Order Comment: Sinan duong Type: BLOOD SPECIMEN Ordering Facility: [facility] Address: [address] [place] [address] Performed By: #### 2 4323-8 #### [facility] CLIA [id number] [address] [place] [address] [place] Sodium [Moles/Vol] 139 mmol/L Normal 136-144 [facility] Comment on above: Order Comment: Speci men Type: BLOOD SPECIMEN Ordering Facility: [facility] Address: [address] [place] [address] Performed By: #### 2 4323-8 #### [facility] CLIA [id number] [address] [place] [address] [place] Urea nitrogen [Mass/Vol] 22 mg/dL High 7-21 [facility] Comment on above: Order Comment: Nikai men Type: BLOOD SPECIMEN Ordering Facility: [facility] Address: [address] [place] [address] Performed By: #### 2 4323-8 #### [facility] CLIA [id number] [address] [place] [address] [place] HbA1c (Bld)on 03-14-2024 Average glucose Estimated from glycated hemoglobin (Bld) [Mass/Vol] 111 mg/dL Normal [facility] Comment on above: Order Comment: Nikai men Type: BLOOD SPECIMEN Ordering Facility: [facility] Address: [address] [place] [address] Result Comment: eAG: (Estimated average glucose) is a calculated value from HgbA1c and is inventory representative of the average blood glucose level in the last 2-3 month period. Performed By: #### 5 5454-3 #### [facility] CLIA [id number] [address] [place] [address] [place] HbA1c (Bld) [Mass fraction] 5.5 % Normal 4.3-5.6 [facility] Comment on above: Order Comment: Nikai men Type: BLOOD SPECIMEN Ordering Facility: [facility] Address: [address] [place] [address] Result Comment: [place] Diabetes Association guidelines indicate that patients with HgbA1c in the range 5.7-6.4% are at increased risk for development of diabetes, and intervention by lifestyle modification may be beneficial. HgbA1c greater or equal to 6.5% is considered diagnostic of diabetes. Performed By: #### 5 5454-3 #### [facility] CLIA [id number] [address] [place] [address] [place] Lipid 1996 panelon 4 Cholesterol [Mass/Vol] 156 mg/dL Normal <200 [facility] Comment on above: Order Comment: Sinan duong Type: BLOOD SPECIMEN Ordering Facility: [facility] Address: [address] [place] [address] Result Comment: <200 mg/dL, Desirable 200-239 mg/dL, Borderline high >239 mg/dL, High Performed By: #### 2 4331-1 #### [facility] CLIA [id number] [address] [place] [address] STATES [place] [facility] CLIA [id number] [address] [place] [address] Cholesterol in HDL [Mass/Vol] 37 mg/dL Low >39 [facility] Comment on above: Order Comment: Sinan duong Type: BLOOD SPECIMEN Ordering Facility: [facility] Address: [address] [place] [address] Result Comment: 40-5 9 mg/dL, Acceptable >59 mg/dL, High: Negative risk factor for coronary heart disease <40 mg/dL, Low: Positive risk factor for coronary heart disease Performed By: #### 2 4331-1 #### [facility] CLIA [id number] [address] [place] [address] OF [facility] CLIA [id number] [address] [place] [address] Cholesterol in LDL [Mass/Vol] 97 mg/dL Normal <100 [facility] Comment on above: Order Comment: Sinan duong Type: BLOOD SPECIMEN Ordering Facility: [facility] Address: [address] [place] [address] Result Comment: <100 mg/dL, Optimal 100-129 mg/dL, Near optimal/above optimal 130-159 mg/dL, Borderline high 160-189 mg/dL, High >189 mg/dL, Very high Secondary prevention optimal LDL Cholesterol levels are recommended to be < 70 mg/dL Performed By: #### 2 4331-1 #### [facility] CLIA [id number] [address] [place], [place] [address] [place] [address] [place] [facility] CLIA [id number] [address] [place] [address] [place] Cholesterol in LDL/Cholesterol in HDL [Mass ratio] 2.62 {ratio} High <2.54 [facility] Comment on above: Order Comment: Speci men Type: BLOOD SPECIMEN Ordering Facility: [facility] Address: [address] [place] [address] Result Comment: Refe sofia: 1. National Cholesterol Education Program ATP III Guideline At-A-Glance Quick Desk Reference: National Heart, Lung, and Blood [place]. National Institutes of Health. 2001: NIH Publication No. 01-3305. 2. An International Atherosclerosis Society position paper: global recommendations for the management of dyslipidemia: executive summary, Atherosclerosis. 2014: 232(2):410-413. Performed By: #### 2 4331-1 #### [facility] CLIA [id number] [address] [place], [place] [address] [place] [address] [place] [facility] CLIA [id number] [address] [place] [address] [place] Cholesterol in VLDL [Mass/Vol] 22 mg/dL Normal <30 [facility] Comment on above: Order Comment: Speci men Type: BLOOD SPECIMEN Ordering Facility: [facility] Address: [address] [place] [address] Performed By: #### 2 4331-1 #### [facility] CLIA [id number] [address] [place], [place] [address] [place] [address] [place] [facility] CLIA [id number] [address] [place] [address] OF [facility] Cholesterol non HDL [Mass/Vol] 119 mg/dL Normal <130 [facility] Comment on above: Order Comment: Speci men Type: BLOOD SPECIMEN Ordering Facility: [facility] Address: [address] [place] [address] Result Comment: <130 mg/dL, Optimal 130-159 mg/dL, Near optimal/above optimal 160-189 mg/dL, Borderline high 190-219 mg/dL, High >219 mg/dL, Very high Secondary prevention optimal non HDL Cholesterol levels are recommended to be <100 mg/dL Performed By: #### 2 4331-1 #### [facility] CLIA [id number] [address] [place] [address] [place] [facility] [id number] [address] [place] [address] [facility] Cholesterol.total/Cho lesterol in HDL [Mass ratio] 4.22 {ratio} Normal <5.10 [facility] Comment on above: Order Comment: Speci men Type: BLOOD SPECIMEN Ordering Facility: [facility] Address: [address] [place] [address] Performed By: #### 2 4331-1 #### [facility] CLIA [id number] [address] [place] [address] [place] [facility] CLIA [id number] [address] [place] [address] [place] FASTING TIME 12 hrs Normal [facility] Comment on above: Order Comment: Speci men Type: BLOOD SPECIMEN Ordering Facility: [facility] Address: [address] [place] [address] Performed By: #### 2 4331-1 #### [facility] CLIA [id number] [address] [place] [address] [place] [facility] [id number] [address] [place] [address] [place] Triglyceride [Mass/Vol] 111 mg/dL Normal <150 [facility] Comment on above: Order Comment: Speci men Type: BLOOD SPECIMEN Ordering Facility: [facility] Address: [address] [place] [address] Result Comment: <150 mg/dL, Normal 150-199 mg/dL, Borderline high 200-499 mg/dL, High >499 mg/dL, Very high Performed By: #### 2 4331-1 #### [facility] CLIA [id number] [address] [place] [address] [id number] STATES OF [facility] CLIA [id number] [address] [place] [address] Ruby 02-23-2024 MEGN Telephone (ENDMED) TAMIKA ROCHA ([id number]) 1970 F Date Time Provider Department 02/23/24 JAMES YANES During your visit today, we recorded the following information about you: Vidhi Toledo MA 02/23/2024 10:13 AM Signed Received a letter and office notes from Dahlia Ahmadi (Nurse Practitioner) asking for your input. Documents placed on your inbox for review. James Yanes APRN.MEG 02/23/2024 2:37 PM Signed Please fax letter back to ROYCE Ahmadi. Thank you Vidhi Toledo MA 02/26/2024 7:59 AM Signed Documents faxed back to [phone] Confirmation fax received. Transmission successful. Allergies As of Date: 02/23/2024 Noted Allergy Reaction DILTIAZEM 01/06/2014 14 - Other: See Comments Comments: headache MOTRIN (IBUPROFEN) 04/25/2011 8 - GI Upset PISTACHIO NUT 07/16/2019 4 - Hives HYDROCODONE 04/04/2019 9 - Itching Date Reviewed: 09/11/2023 Reviewed by: James Yanes APRN.RAIL SIGNAL DESIGNER - Fully Assessed Reason for Visit: Received letter and office notes [Other] Cmt: Dahlia Ahmadi (Nurse Practitioner) Prescriptions as of 02/26/2024 - hydrOXYchloroQUINE (PLAQUENIL) 200 mg tablet Take 1 tablet by mouth two times a day. - tirzepatide (MOUNJARO) 7.5 mg/0.5 mL pen injector Inject 7.5 mg subcutaneously one time a week. - metoprolol succinate ER (TOPROL XL) 50 mg 24 hr tablet Take 50 mg by mouth once daily. - clobetasol (TEMOVATE) 0.05 % ointment APPLY 1 APPLICATION TO AFFECTED AREA TWO TIMES A WEEK. TO AFFECTED AREA. - ZINC ORAL Take 1 tablet by mouth once daily. - famotidine (PEPCID ORAL) Take 1 tablet by mouth once daily. - Lactobacillus acidophilus (PROBIOTIC ORAL) Take 1 tablet by mouth once daily. - magnesium oxide 200 mg magnesium tab Take 1 tablet by mouth once daily. - lisinopril (ZESTRIL, PRINIVIL) 40 mg tablet Take 1 tablet by mouth once daily. Problem List As Of Date 02/23/2024 Noted Resolved DYSMETABOLIC SYNDROME X [E88.810] 04/18/2006 HYPERTENSION NOS [I10] 04/18/2006 SUPERVIS OTHER NORMAL PREG [Z34.80] 11/05/2005 04/18/2006 MULTIPLE WITH LOSS [DEU2158] 12/09/2005 04/18/2006 POSTCOITAL BLEEDING [N93.0] 02/22/2006 04/18/2006 Esophageal reflux [K21.9] 08/14/2007 Essential hypertension [I10] 08/28/2007 IBS (IRRITABLE BOWEL SYNDROME) [K58.9] 09/10/2008 Menorrhagia [N92.0] 04/25/2011 SHAWN (obstructive sleep apnea) [G47.33] 07/18/2012 Degeneration of lumbar or lumbosacral intervert*02/08/2013 Lumbago [M54.50] 02/08/2013 Radicular syndrome of right leg [M54.10] 04/08/2014 Left foot pain [M79.672] 04/08/2014 Routine gynecological examination [Z01.419] 07/17/2014 09/03/2015 Myocardial infarction (HCC) [I21.9] 11/01/2018 Chronic systolic congestive heart failure (HCC)*11/01/2018 NICM (nonischemic cardiomyopathy) (HCC) [I42.8] 11/01/2018 Sprain of anterior talofibular ligament of righ*01/04/2019 Instability of ankle joint, right [M25.371] 01/04/2019 Chest pain [R07.9] 04/18/2019 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/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 Erythrocytosis [D75.1] 11/04/2019 Abnormal LFTs [R79.89] 11/04/2019 Elevated serum protein level [R77.9] 11/04/2019 Type 2 diabetes mellitus without complication, *12/12/2019 Superior glenoid labrum lesion of left shoulder*05/11/2020 Sjogren's syndrome with keratoconjunctivitis si*11/02/2021 Primary osteoarthritis involving multiple joint*11/02/2021 Overweight with body mass index (BMI) of 29 to *09/11/2023 Letter Text Encounter Status:Closed by VIDHI TOLEDO on 02/26/24 Normal [facility] Absolute lymphocyte countOrd ered By: Tomasa Khan on 10-16-2023 Lymphocytes Auto (Unsp spec) [#/Vol] 2.41 10*3/uL 0.83-4.51 [facility] Automated lymphocyte count a s percentage of total leukocytesOrdered By: Tomasa Khan on 10-16-2023 Lymphocytes/100 WBC Auto (Unsp spec) 27.0 % 19-41 [facility] Basophil percentageOrdered B y: Tomasa Khan on 10-16-2023 Basophils/100 WBC (Bld) 0.9 % 0-1 [facility] Bilirubin [Mass/Vol] 0.90 mg/dL 0.20-1.00 [facility] Comment on above: For patients on eltr ombopag therapy, use of Dimension [place] TBIL is not recommended. Chloride [Moles/Vol] 106 mmol/L 98-107 [facility] Eosinophils/100 WBC (Bld) 2.5 % 0-5 [facility] Glucose [Mass/Vol] 80 mg/dL 74-106 [facility] Hemoglobin (Bld) [Mass/Vol] 14.8 g/dL 12.0-15.0 [facility] Monocytes/100 WBC (Bld) 7.5 % 0-10 [facility] Neutrophils (Bld) [#/Vol] 5.5 10*3/uL 2.0-7.7 [facility] Neutrophils/100 WBC (Bld) 61.5 % 47-70 [facility] Potassium [Moles/Vol] 3.8 mmol/L 3.5-5.1 [facility] Protein [Mass/Vol] 7.7 g/dL 6.4-8.2 [facility] Sodium [Moles/Vol] 140 mmol/L 136-145 [facility] WBC (Bld) [#/Vol] 8.9 10*3/uL 4.4-11.0 [facility] Determination of erythrocyte mean corpuscular volume (MCV)Ordered By: Tomasa Khan on 10-16-2023 MCV (RBC) [Entitic vol] 88.0 fL 81-99 [facility] Erythrocyte distribution wid th ratioOrdered By: Tomasa Khan on 10-16-2023 Erythrocyte distribution width (RBC) [Ratio] 13.4 % 11.6-14.6 [facility] Erythrocyte distribution wid th standard deviationOrdered By: Tomasa Khan on 10-16-2023 Erythrocyte distribution width (RBC) [Entitic vol] 43.4 fL 35.1-43.9 [facility] Erythrocyte sedimentation ra teOrdered By: Tomasa Khan on 10-16-2023 ESR (Bld) [Velocity] 2 mm/h 0-30 [facility] Hematocrit Auto (Bld) [Volum e fraction]Ordered By: Tomasa Khan on 10-16-2023 Hematocrit (Bld) [Volume fraction] 46.2 % 37-47 [facility] Immature granulocytes/100 WB C Auto (Bld)Ordered By: Tomasa Khan on 10-16-2023 Immature granulocytes/100 WBC (Bld) 0.600 % 0.0-0.9 [facility] Comment on above: IG% - Immature Granu locytes (promyelocytes, myelocytes and metamyelocytes) > 1% indicates that a LEFT SHIFT is Present. Laboratory - Chemistry and C hemistry - challengeOrdered By: Tomasa Khan on 10-16-2023 Albumin/Globulin [Mass ratio] 1.0 {ratio} 0.9-2.4 [facility] ALP [Catalytic activity/Vol] 47 U/L 45-117 [facility] ALT [Catalytic activity/Vol] 28 U/L 13-56 [facility] CO2 [Moles/Vol] 29.0 mmol/L 21.0-32.0 [facility] Globulin (S) [Mass/Vol] 3.8 g/dL 2.2-4.2 [facility] Urea nitrogen/Creatinine [Mass ratio] 13.7 mg/mg 10-20 [facility] Laboratory - Hematology and Cell countsOrdered By: Tomasa Khan on 10-16-2023 MCH (RBC) [Entitic mass] 28.2 pg 27.0-32.0 [facility] MCHC (RBC) [Mass/Vol] 32.0 g/dL 32-36 [facility] Nucleated RBC/100 WBC (Bld) [Ratio] 0 % 0-5 [facility] Platelet mean volume (Bld) [Entitic vol] 12.0 fL 6.2-12.0 [facility] Platelets (Bld) [#/Vol] 186 10*3/uL 150-450 [facility] No Panel InformationOrdered By: Tomasa Khan on 10-16-2023 C-Reactive Protein Extended Range < 2.90 mg/L 0.0-3.0 [facility] Comment on above: C-Reactive Protein ( CRP) provides useful information for thediagnosis, therapy and monitoring of inflammatory processesand associated diseases. For the evaluation of Relative Riskfor Cardiovascular Disease, a High Sensitivity CRP (HSCRP)should be ordered. Estimated GFR (MDRD) Amer 87 mL/min >60 [facility] Comment on above: GFR Calc Estimated GFR (MDRD) Non-Af Amer 72 mL/min >60 [facility] Comment on above: Non- GFR Calc Estradiol (E2) Level 36.1 pg/mL [facility] Comment on above: NORMAL REFERENCE RAN GES FEMALE FOLLICULAR 21.4 - 164.8 pg/mL MID-CYCLE PEAK 49.9 - 367.2 pg/mL LUTEAL 40.2 - 259.0 pg/mL POST-MENOPAUSAL ON MHT <11.0 - 462.1 pg/mL NOT ON MHT <11.0 - 58.3 pg/mL MALE <11.0 - 52.5 pg/mL NOTE:[employer] HAS CONFIRMED THE DRUG FULVETRANT (FASLODEX) MAY CAUSE FALSELY ELEVATED ESTRADIOL RESULTS WHEN USING THIS TEST METHOD. IF PATIENT IS TAKING FULVESTRANT AN ALTERNATIVE METHOD SHOULD BE USED TO DETERMINE ESTRADIOL CONCENTRATION. Free Triiodothyronine (T3) pg/dL 2.6 pg/mL 2.18-3.98 [facility] Prolactin 4.9 ng/mL [facility] Comment on above: NORMAL REFERENCE RAN GES FEMALE NON- 2.2 - 30.3 ng/mL 8.1 - 347.6 ng/mL POST-MENOPAUSAL 0.7 - 31.5 ng/mL MALE 2.5 - 17.4 ng/mL RBC Auto (Bld) [#/Vol]Ordere d By: Tomasa Khan on 10-16-2023 RBC (Bld) [#/Vol] 5.25 10*6/uL 4.2-5.4 [facility] Serum or plasma calcium toan urement (mass/volume)Ordered By: Tomasa Khan on 10-16-2023 Calcium [Mass/Vol] 9.6 mg/dL 8.5-10.1 [facility] Serum or plasma creatinine m easurement (mass/volume)Ordered By: Tomasa Khan on 10-16-2023 Creatinine [Mass/Vol] 0.88 mg/dL 0.55-1.02 [facility] Comment on above: The validity of the calculated GFR & GFRAA in patients over 70 years has not been determined. Clinical correlation is essential. Serum or plasma progesterone measurement (mass/volume)Ordered By: Tomasa Khan on 10-16-2023 Progesterone [Mass/Vol] 6.61 ng/mL See Comment [facility] Comment on above: Progesterone Referen ce Table: UNITS Female: Follicular 0.15 - 1.40 ng/mL Luteal 3.34 - 25.56 ng/mL Mid-luteal 4.44 - 28.03 ng/mL Postmenopausal 0.0 - 0.73 ng/mL : 1st Trimester 11.22 - 90.00 ng/mL 2nd Trimester 25.55 - 89.40 ng/mL 3rd Trimester 48.40 -422.50 ng/mL Serum or plasma thyroid stim ulating hormone (TSH) measurement (units/volume)Ordered By: Tomasa Khan on 10-16-2023 TSH Qn 0.91 uIU/mL 0.358-3.74 [facility] Serum or plasma urea nitroge n measurement (mass/volume)Ordered By: Tomasa Khan on 10-16-2023 Urea nitrogen [Mass/Vol] 12 mg/dL 7-18 [facility] Thin prep Papanicolaou smear with manual screeningOrdered By: Tomasa Khan on 10-16-2023 Thin prep Papanicolaou smear with manual screening 3.9 g/dL 3.2-5.0 [facility] Thin prep Papanicolaou smear with manual screening 27 U/L 15-37 [facility] Thin prep Papanicolaou smear with manual screening 5 5-15 [facility] Thin prep Papanicolaou smear with manual screening 1.13 ng/dL 0.76-1.46 [facility] Absolute lymphocyte countOrd ered By: Manjinder Cleary on 05-30-2023 Lymphocytes Auto (Unsp spec) [#/Vol] 0.56 10*3/uL 0.83-4.51 [facility] Basophil percentageOrdered B y: Manjinder Cleary on 05-30-2023 Basophils/100 WBC (Bld) 0.2 % 0-1 [facility] Chloride [Moles/Vol] 108 mmol/L 98-107 [facility] Eosinophils/100 WBC (Bld) 0.0 % 0-5 [facility] Glucose [Mass/Vol] 183 mg/dL 74-106 [facility] Comment on above: Fasting Glucose resu lt greater than or equal to 126 mg/dL suggests DIABETES MELLITUS per A.D.A. criteria. Lactate [Moles/Vol] 3.3 mmol/L 0.4-2.0 [facility] Comment on above: Critical Result(s) C alled at: 11:25:58 05/30/2023 by: Antonella Dubois. Results read back by same. Neutrophils (Bld) [#/Vol] 7.1 10*3/uL 2.0-7.7 [facility] Neutrophils/100 WBC (Bld) 86.2 % 47-70 [facility] Potassium [Moles/Vol] 3.5 mmol/L 3.5-5.1 [facility] Sodium [Moles/Vol] 140 mmol/L 136-145 [facility] WBC (Bld) [#/Vol] 8.2 10*3/uL 4.4-11.0 [facility] Blood erythrocytes count (nu mber/volume)Ordered By: Manjindernuno Cleary on 05-30-2023 RBC (Bld) [#/Vol] 5.60 10*6/uL 4.2-5.4 [facility] Blood hemoglobin measurement (mass/volume)Ordered By: Manjindernuno Cleary on 05-30-2023 Hemoglobin (Bld) [Mass/Vol] 16.1 g/dL 12.0-15.0 [facility] Blood lymphocytes/100 leukoc ytesOrdered By: Manjindernuno Cleary on 05-30-2023 Lymphocytes/100 WBC (Bld) 6.8 % 19-41 [facility] Blood manual differential co mment interpretation (narrative result)Ordered By: Manjindernuno Cleary on 05-30-2023 Manual differential comment Nicola (Bld) [Interp] COMMENT [facility] Comment on above: LYMPHOPENIA. Blood monocytes/100 leukocyt esOrdered By: Manjindernuno Cleary on 05-30-2023 Monocytes/100 WBC (Bld) 6.7 % 0-10 [facility] Blood platelet mean volumeOr dered By: Manjindernuno Cleary on 05-30-2023 Platelet mean volume (Bld) [Entitic vol] 11.1 fL 6.2-12.0 [facility] Determination of erythrocyte mean corpuscular volume (MCV)Ordered By: Manjinder Cleary on 05-30-2023 MCV (RBC) [Entitic vol] 86.4 fL 81-99 [facility] Hematocrit Auto (Bld) [Volum e fraction]Ordered By: Manjinder Cleary on 05-30-2023 Hematocrit (Bld) [Volume fraction] 48.4 % 37-47 [facility] Laboratory - Chemistry and C hemistry - challengeOrdered By: Manjinder Cleary on 05-30-2023 CO2 [Moles/Vol] 25.0 mmol/L 21.0-32.0 [facility] Urea nitrogen/Creatinine [Mass ratio] 16.8 mg/mg 10-20 [facility] Laboratory - Hematology and Cell countsOrdered By: Manjinder Cleary on 05-30-2023 Erythrocyte distribution width (RBC) [Entitic vol] 41.1 fL 35.1-43.9 [facility] Erythrocyte distribution width (RBC) [Ratio] 13.1 % 11.6-14.6 [facility] Immature granulocytes/100 WBC (Bld) 0.100 % 0.0-0.9 [facility] Comment on above: IG% - Immature Granu locytes (promyelocytes, myelocytes and metamyelocytes) > 1% indicates that a LEFT SHIFT is Present. MCH (RBC) [Entitic mass] 28.8 pg 27.0-32.0 [facility] Nucleated RBC/100 WBC (Bld) [Ratio] 0 % 0-5 [facility] MCHC Auto (RBC) [Mass/Vol]Or dered By: Manjinder Cleray on 05-30-2023 MCHC (RBC) [Mass/Vol] 33.3 g/dL 32-36 [facility] No Panel InformationOrdered By: Manjinder Cleary on 05-30-2023 Estimated Creatinine Clearance Calc 57.58 ml/min [facility] Estimated GFR (MDRD) Amer 69 mL/min >60 [facility] Comment on above: GFR Calc Estimated GFR (MDRD) Non-Af Amer 57 mL/min >60 [facility] Comment on above: Non- GFR Calc Platelets bldOrdered By: Manjinder Cleary on 05-30-2023 Platelets (Bld) [#/Vol] 157 10*3/uL 150-450 [facility] Serum or plasma calcium toan urement (mass/volume)Ordered By: Manjinder Cleary on 05-30-2023 Calcium [Mass/Vol] 8.6 mg/dL 8.5-10.1 [facility] Serum or plasma creatinine m easurement (mass/volume)Ordered By: Manjinder Cleary on 05-30-2023 Creatinine [Mass/Vol] 1.07 mg/dL 0.55-1.02 [facility] Comment on above: The validity of the calculated GFR & GFRAA in patients over 70 years has not been determined. Clinical correlation is essential. Serum or plasma urea nitroge n measurement (mass/volume)Ordered By: Manjinder Cleary on 05-30-2023 Urea nitrogen [Mass/Vol] 18 mg/dL 01-24 [facility] Thin prep Papanicolaou smear with manual screeningOrdered By: Manjinder Cleary on 05-30-2023 Thin prep Papanicolaou smear with manual screening 01 11- [facility] Tobacco Screening.on 023 Adult depression screening assessment No [facility]GYN-[place] [address] Work Phone: Fall risk assessment a) No falls within the last year HA-VTOOT-[place] [address] Work Phone: Last menstrual period start date Ablation PY-ABMBN-Epxp [place] [address] Work Phone: Tobacco use status CPHS b) No GI-NOHDA-[place]wn [place] [address] Work Phone: ISIDRO SCREENING W Jasmin 01-11 [facility] HEMOGLOBIN A1C (POC)on 08-11 HbA1c (Bld) [Mass fraction] 5.6 % 4.2 - 5.6 % [facility] Laboratory - Miscellaneous t estsOrdered By: Dr. Corea on 07-20-2022 [facility] [Interp] Comment . [facility] Comment on above: Levels of Specific I gE Class Description of Class ----- < 0.10 0 Negative 0.10 - 0.31 0/I Equivocal/Low 0.32 - 0.55 I Low 0.56 - 1.40 II Moderate 1.41 - 3.90 III High 3.91 - 19.00 IV Very High 19.01 - 100.00 V Very High >100.00 Very High No Panel InformationOrdered By: Dr. Corea on 07-20-2022 Scallop Allergen <0.10 kU/L Class 0 [facility] Sesame Seed Allergen IgE Antibody <0.10 kU/L Class 0 [facility] Shrimp Allergen <0.10 kU/L Class 0 [facility] Serum apple IgE antibody ass ay (units/volume)Ordered By: Dr. Corea on 07-20-2022 Apple IgE Qn (S) <0.10 kU/L Class 0 [facility] Comment on above: Performed at: [address] [id number] Director: Areli Soriano MD, Phone: [phone] Serum black walnut IgE antib minerva assay (units/volume)Ordered By: Dr. Corea on 07-20-2022 Black [place] IgE Qn (S) <0.10 kU/L Class 0 [facility] Serum clam IgE antibody assa y (units/volume)Ordered By: Dr. Corea on 07-20-2022 Clam IgE Qn (S) <0.10 kU/L Class 0 [facility] Serum codfish IgE antibody a ssay (units/volume)Ordered By: Dr. Corea on 07-20-2022 Codfish IgE Qn (S) <0.10 kU/L Class 0 [facility] Serum corn IgE antibody assa y (units/volume)Ordered By: Dr. Corea on 07-20-2022 [place] IgE Qn (S) <0.10 kU/L Class 0 [facility] Serum cow milk IgE antibody assay (units/volume)Ordered By: Dr. Corea on 07-20-2022 Cow milk IgE Qn (S) <0.10 kU/L Class 0 [facility] Serum egg white IgE antibody assay (units/volume)Ordered By: Dr. Corea on 07-20-2022 Egg white IgE Qn (S) <0.10 kU/L Class 0 [facility] Serum gluten IgE antibody as say (units/volume)Ordered By: Dr. Corea on 07-20-2022 Gluten IgE Qn (S) <0.10 kU/L Class 0 [facility] Serum peanut IgE antibody as say (units/volume)Ordered By: Dr. Corea on 07-20-2022 Peanut IgE Qn (S) <0.10 kU/L Class 0 [facility] Serum soybean IgE antibody a ssay (units/volume)Ordered By: Dr. Corea on 07-20-2022 Soybean IgE Qn (S) <0.10 kU/L Class 0 [facility] Serum wheat IgE antibody ass ay (units/volume)Ordered By: Dr. Corea on 07-20-2022 Wheat IgE Qn (S) <0.10 kU/L Class 0 [facility] .Auto Diffon 04-21-2021 Basophil, Absolute 0.00 10 3/mcL Normal 0.00-0.27 [facility] ([place]) Comment on above: Performed By: #### T WILMA #### [address] [address] Basophils/100 WBC (Bld) 0.5 % Normal 0.0-2.5 [facility] ([place]) Comment on above: Performed By: #### T WILMA #### [address] [address] Eosinophil, Absolute 0.10 10 3/mcL Normal 0.00-0.65 [facility] ([place]) Comment on above: Performed By: #### T WILMA #### [address] [address] Eosinophils/100 WBC (Bld) 2.2 % Normal 0.0-6.0 [facility] ([place]) Comment on above: Performed By: #### T WILMA #### [address] [address] Lymphocyte, Absolute 2.10 10 3/mcL Normal 0.90-4.32 [facility] ([place]) Comment on above: Performed By: #### T WILMA #### [address] [address] Lymphocytes/100 WBC (Bld) 41.5 % High 20.0-40.0 [facility] ([place]) Comment on above: Performed By: #### T WILMA #### [facility] [address] [place] [address] Monocyte, Absolute 0.50 10 3/mcL Normal 0.09-1.40 [facility] ([place]) Comment on above: Performed By: #### T WILMA #### [facility] [address] [place] [address] Monocytes/100 WBC (Bld) 9.1 % Normal 2.0-13.0 [facility] ([place]) Comment on above: Performed By: #### T WILMA #### [address] [address] Neutrophils/100 WBC (Bld) 46.7 % Low 50.0-75.0 [facility] ([place]) Comment on above: Performed By: #### T WILMA #### [address] [address] .GFRon 04-21-2021 GFR >60 [facility] [place] Comment on above: Result Comment: GFR Population mean for , Non- Americans Ages 20-29 = 116 mL/min/1.73 sq.m. Ages 30-39 = 107 mL/min/1.73 sq.m. Ages 40-49 = 99 mL/min/1.73 sq.m. Ages 50-59 = 93 mL/min/1.73 sq.m. Ages 60-69 = 85 mL/min/1.73 sq.m. Ages 70+ = 75 mL/min/1.73 sq.m. Chronic Kidney Disease: Less than 60 mL/min/1.73 square meters End Stage Renal Disease: Less than 15 mL/min/1.73 square meters Performed By: #### T WILMA #### [address] [address] GFR Non- >60 Normal [facility] ([place]) Comment on above: Result Comment: GFR Population mean for , Non- Americans Ages 20-29 = 116 mL/min/1.73 sq.m. Ages 30-39 = 107 mL/min/1.73 sq.m. Ages 40-49 = 99 mL/min/1.73 sq.m. Ages 50-59 = 93 mL/min/1.73 sq.m. Ages 60-69 = 85 mL/min/1.73 sq.m. Ages 70+ = 75 mL/min/1.73 sq.m. Chronic Kidney Disease: Less than 60 mL/min/1.73 square meters End Stage Renal Disease: Less than 15 mL/min/1.73 square meters Performed By: #### T WILMA #### [place] [id number] .NEUABSon 04-21-2021 Neutrophil, Absolute 2.40 10 3/mcL Normal 2.25-8.10 [facility] ([place]) Comment on above: Performed By: #### T WILMA #### [place] [id number] A1Con 04-21-2021 HbA1c (Bld) [Mass fraction] 6.0 % Normal 4.0-6.0 [facility] ([place]) Comment on above: Performed By: #### T LUIS #### [place] [id number] APTTon 04-21-2021 aPTT Coag (Bld) [Time] 73.8 s High 25.0-35.0 [facility] ([place]) Comment on above: Result Comment: For Heparin anticoagulation therapy, the recommended therapeutic range is: 54-77 seconds (APTT Correlation with Anti-Xa therapeutic range of 0.3-0.7 units/ml). PLEASE REFERENCE THE PHARMACY PROTOCOL FOR DOSING. Performed By: #### A PTT #### [place] [id number] Heparin dose (APTT) Heparin IV Normal [facility] ([place]) Comment on above: Performed By: #### A PTT #### [place] [id number] aPTT Coag (Bld) [Time] s Critically abnormal 25.0-35.0 [facility] ([place]) Comment on above: Result Comment: For Heparin anticoagulation therapy, the recommended therapeutic range is: 54-77 seconds (APTT Correlation with Anti-Xa therapeutic range of 0.3-0.7 units/ml). PLEASE REFERENCE THE PHARMACY PROTOCOL FOR DOSING. Performed By: #### T WILMA #### [place] [address] Heparin dose (APTT) Heparin IV Normal [facility] ([place]) Comment on above: Performed By: #### T WILMA #### [place] [id number] CBCon 04-21-2021 Erythrocyte distribution width (RBC) [Ratio] 13.5 % Normal 11.5-15.5 [facility] ([place]) Comment on above: Performed By: #### T WILMA #### [place] [id number] Hematocrit (Bld) [Volume fraction] 43.6 % Normal 34.0-46.0 [facility] ([place]) Comment on above: Performed By: #### T WILMA #### [place] [address] Hgb 14.6 G/dL Normal 12.0-16.0 [facility] ([place] Comment on above: Performed By: #### T WILMA #### [place] [id number] MCH (RBC) [Entitic mass] 29.2 pg Normal 27.0-33.0 [facility] ([place]) Comment on above: Performed By: #### T WILMA #### [place] [address] MCHC 33.4 G/dL Normal 32.0-36.0 [facility] ([place] Comment on above: Performed By: #### T WILMA #### [place] [id number] MCV (RBC) [Entitic vol] 87.2 fL Normal 80.0-99.0 [facility] ([place] Comment on above: Performed By: #### T WILMA #### [place] [id number] Platelet 121 10 3/mcL Low 150-450 [facility] ([place]) Comment on above: Performed By: #### T WILMA #### [place] [id number] Platelet mean volume (Bld) [Entitic vol] 10.1 fL Normal 6.6-10.5 [facility] ([place]) Comment on above: Performed By: #### T WILMA #### [place] [id number] RBC 5.00 10 6/mcL Normal 4.10-5.30 [facility] ([place] Comment on above: Performed By: #### T WILMA #### [place] [address] WBC 5.20 10 3/mcL Normal 4.50-10.80 [facility] ([place] Comment on above: Performed By: #### T WILMA #### [place] [address] CMPon 04-21-2021 Albumin Level 3.9 G/dL Normal 3.2-4.8 [facility] ([place] Comment on above: Performed By: #### T WILMA #### [place] [address] Albumin/Globulin [Mass ratio] 1.1 {ratio} Normal 0.9-1.6 [facility] ([place]) Comment on above: Performed By: #### T WILMA #### [place] [address] ALP [Catalytic activity/Vol] 77 U/L Normal 38-126 [facility] ([place]) Comment on above: Performed By: #### T WILMA #### [place] [id number] ALT [Catalytic activity/Vol] 108 U/L High 10-49 [facility] ([place] Comment on above: Performed By: #### T WILMA #### [place] [id number] AST [Catalytic activity/Vol] 58 U/L High 8-34 [facility] ([place] Comment on above: Performed By: #### T WILMA #### [place] [id number] Bili Total 0.6 mg/dL Normal 0.2-1.2 [facility] ([place]) Comment on above: Result Comment: Use of this assay is not recommended for patients undergoing treatment with eltrombopag due to the potential for falsely elevated results. Performed By: #### T WILMA #### [place] [id number] BUN/Creatinine Ratio 16.2 ratio Normal 10.0-22.0 [facility] [place] Comment on above: Performed By: #### T WILMA #### [place] [id number] Calcium [Mass/Vol] 9.2 mg/dL Normal 8.4-10.1 [facility] ([place]) Comment on above: Result Comment: No te - New Reference Range in effect 20 Performed By: #### T WILMA #### [place] [id number] Chloride [Moles/Vol] 109 mmol/L Normal 98-110 [facility] [place] Comment on above: Performed By: #### T WILMA #### [place] [id number] CO2 [Moles/Vol] 30 mmol/L Normal 22-32 [facility] ([place]) Comment on above: Performed By: #### T WILMA #### [place] [id number] Creatinine [Mass/Vol] 0.74 mg/dL Normal 0.50-1.20 [facility] ([place]) Comment on above: Performed By: #### T WILMA #### [place] [address] Electrolyte Balance 3.0 mEq/L Low 4.0-15.0 [facility] ([place]) Comment on above: Performed By: #### T WILMA #### [place] [id number] Globulin 3.7 G/dL Normal 1.5-3.8 [facility] ([place] Comment on above: Performed By: #### T WILMA #### [place] [id number] Glucose [Mass/Vol] 101 mg/dL Normal 70-110 [facility] ([place]) Comment on above: Performed By: #### T WILMA #### [place] [address] Potassium [Moles/Vol] 3.7 mmol/L Normal 3.5-5.0 [facility] ([place]) Comment on above: Performed By: #### T WILMA #### [place] [address] Sodium [Moles/Vol] 142 mmol/L Normal 136-145 [facility] ([place]) Comment on above: Performed By: #### T WILMA #### [place] [address] Total Protein 7.6 G/dL Normal 6.0-8.5 [facility] ([place]) Comment on above: Result Comment: No te - New Reference Range in effect 20 Performed By: #### T WILMA #### [place] [address] Urea nitrogen [Mass/Vol] 12.0 mg/dL Normal 8.0-22.0 [facility] ([place]) Comment on above: Performed By: #### T WILMA #### [place] [address] [id number] 04-21-2021 Date of Onset [id number] Invalid Interpretation Code [facility] ([place] Comment on above: Performed By: #### A PTT #### [place] [address] Employed in Healthcare No [facility] ([place] Comment on above: Performed By: #### A PTT #### [place] [address] First Test No [facility] ([place] Comment on above: Performed By: #### A PTT #### [place] [address] Hospitalized No [facility] ([place] Comment on above: Performed By: #### A PTT #### [place] [address] ICU No [facility] ([place] Comment on above: Performed By: #### A PTT #### [place] [id number] Not Normal [facility] ([place]) Comment on above: Performed By: #### A PTT #### [facility] [address] [place] [address] Resides in Congregate Care Setting No Normal [facility] ([place] Comment on above: Performed By: #### A PTT #### [place] [address] SARS-CoV-2 (COVID-19) RNA NATALYA+probe Ql (Unsp spec) Negative Normal Negative [facility] ([place]) Comment on above: Performed By: #### A PTT #### [place] [address] SARS-CoV-2 (COVID-19) RNA NATALYA+probe Ql (Unsp spec) Normal [facility] ([place]) Comment on above: Result Comment: Nega tive results do not preclude SARS-CoV-2 infection and should not be used as the sole basis for patient management decisions. Negative results must be combined with clinical observations, patient history, and epidemiological information. There is a risk of false negative values resulting from improperly collected, transported, or handled specimens. There is a risk of false negative values due to the presence of sequence variants in the pathogen targets of the assay, procedural errors, amplification inhibitors in specimens, or inadequate numbers of organisms for amplification. CRISTOFER SARS-CoV-2 Assay is a Real-Time reverse-transcriptase polymerase chain reaction (RT-PCR) based qualitative in vitro diagnostic test intended for the qualitative detection of nucleic acid from the SARS-CoV-2 in nasopharyngeal swab specimens collected from individuals suspected of COVID-19 by their healthcare provider. Testing is limited to laboratories certified under the Clinical Laboratory Improvement Amendments of 1988 (CLIA), 42 U.S.C. ?263a, to perform moderate and high complexity tests. COVID-19 Int Performed By: #### A PTT #### [address] [address] Symptomatic as Defined by [facility] No Normal [facility] ([place] Comment on above: Performed By: #### A PTT #### [place] [address] CT HEAD OR BRAIN W/O CONTRAS Ton 04-21-2021 CT HEAD OR BRAIN W/O CONTRAST ORIGINAL EXAMINATION: CT OF THE HEAD WITHOUT CONTRAST 04/20/2021 10:38 pm TECHNIQUE: CT of the head was performed without the administration of intravenous contrast. Dose modulation, iterative reconstruction, and/or weight based adjustment of the mA/kV was utilized to reduce the radiation dose to as low as reasonably achievable. COMPARISON: None. HISTORY: ORDERING SYSTEM PROVIDED HISTORY: Reason for Exam: pain/headache FINDINGS: No hemorrhage or mass is identified. Ventricles, sulci and adair-white junctions are preserved. Posterior fossa is unremarkable. IMPRESSION: No acute intracranial abnormality. Interpreted by: Yaakov Schofield MD Preliminary Report By: Yaakov Schofield MD Electronically signed By Yaakov Schofield MD Dictated Date: 04/20/2021 10:46:41 PM Prelim Date: 04/20/2021 10:47:36 PM Sign Date: 04/20/2021 10:47:36 PM Ordering Provider: IRLANDA VALENZUELA [facility] ([place]) LABORATORYOrdered By: Karen Baltazar on 04-21-2021 Blood Glucose Testing Reason Routine (04/21/21 11:15 AM) [facility] Glucose [Mass/Vol] 101 mg/dL Invalid Interpretation Code 70 - 110 mg/dL [facility] Blood Glucose Testing Reason Routine (04/21/21 7:30 AM) [facility] Glucose [Mass/Vol] 91 mg/dL Invalid Interpretation Code 70 - 110 mg/dL [facility] LABORATORYOrdered By: Cristian Do on 04-21-2021 aPTT Coag (PPP) [Time] 73.8 s Invalid Interpretation Code 25.0 - 35.0 seconds AH Auto Coag SS Heparin dose (APTT) Heparin IV (04/21/21 10:54 AM) Invalid Interpretation Code AH Auto Coag SS LABORATORYOrdered By: SYSTEM SYSTEM on 04-21-2021 Troponin I.cardiac DL <= 0.01 ng/mL [Mass/Vol] 29.77 ng/L Invalid Interpretation Code 0.00 - 34.00 ng/L AH ADM SS Troponin I.cardiac DL <= 0.01 ng/mL [Mass/Vol] 29.13 ng/L Invalid Interpretation Code 0.00 - 34.00 ng/L AH ADM SS Albumin [Mass/Vol] 3.9 G/dL Invalid Interpretation Code 3.2 - 4.8 G/dL AH ADM SS Albumin/Globulin [Mass ratio] 1.1 {ratio} Invalid Interpretation Code 0.9 - 1.6 ratio ADM SS ALP [Catalytic activity/Vol] 77 U/L Invalid Interpretation Code 38 - 126 U/L AH ADM SS ALT [Catalytic activity/Vol] 108 U/L Invalid Interpretation Code 10 - 49 U/L AH ADM SS AST [Catalytic activity/Vol] 58 U/L Invalid Interpretation Code 8 - 34 U/L AH ADM SS Base excess Calc (BldMV) [Moles/Vol] 3.0 mEq/L Invalid Interpretation Code 4.0 - 15.0 mEq/L AH ADM SS Basophils (Bld) [#/Vol] 0.00 103/mcL Invalid Interpretation Code 0.00 - 0.27 10^3/mcL AH Remisol SS Basophils/100 WBC (Bld) 0.5 % Invalid Interpretation Code 0.0 - 2.5 % AH Remisol SS Bilirubin [Mass/Vol] 0.6 mg/dL Invalid Interpretation Code 0.2 - 1.2 mg/dL AH ADM SS Calcium [Mass/Vol] 9.2 mg/dL Invalid Interpretation Code 8.4 - 10.1 mg/dL ADM SS Chloride [Moles/Vol] 109 mmol/L Invalid Interpretation Code 98 - 110 mEq/L ADM SS CO2 [Moles/Vol] 30 mmol/L Invalid Interpretation Code 22 - 32 mEq/L AH ADM SS Creatinine [Mass/Vol] 0.74 mg/dL Invalid Interpretation Code 0.50 - 1.20 mg/dL AH ADM SS Eosinophils (Bld) [#/Vol] 0.10 103/mcL Invalid Interpretation Code 0.00 - 0.65 10^3/mcL AH Remisol SS Eosinophils/100 WBC (Bld) 2.2 % Invalid Interpretation Code 0.0 - 6.0 % AH Remisol SS Erythrocyte distribution width (RBC) [Ratio] 13.5 % Invalid Interpretation Code 11.5 - 15.5 % AH Remisol SS GFR/1.73 sq M.predicted among blacks MDRD (S/P/Bld) [Vol rate/Area] ml/min/1.73sqm Invalid Interpretation Code AH ADM SS GFR/1.73 sq M.predicted among non-blacks MDRD (S/P/Bld) [Vol rate/Area] ml/min/1.73sqm Invalid Interpretation Code AH ADM SS Globulin (S) [Mass/Vol] 3.7 G/dL Invalid Interpretation Code 1.5 - 3.8 G/dL AH ADM SS Glucose [Mass/Vol] 101 mg/dL Invalid Interpretation Code 70 - 110 mg/dL AH ADM SS HbA1c (Bld) [Mass fraction] 6.0 % Invalid Interpretation Code 4.0 - 6.0 % Auto Chem SS Hematocrit (Bld) [Volume fraction] 43.6 % Invalid Interpretation Code 34.0 - 46.0 % AH Remisol SS Hemoglobin (Bld) [Mass/Vol] 14.6 G/dL Invalid Interpretation Code 12.0 - 16.0 G/dL AH Remisol SS Lymphocytes (Bld) [#/Vol] 2.10 103/mcL Invalid Interpretation Code 0.90 - 4.32 10^3/mcL AH Remisol SS Lymphocytes/100 WBC (Bld) 41.5 % Invalid Interpretation Code 20.0 - 40.0 % AH Remisol SS MCH (RBC) [Entitic mass] 29.2 pg Invalid Interpretation Code 27.0 - 33.0 pg AH Remisol SS MCHC (RBC) [Mass/Vol] 33.4 G/dL Invalid Interpretation Code 32.0 - 36.0 G/dL AH Remisol SS MCV (RBC) [Entitic vol] 87.2 fL Invalid Interpretation Code 80.0 - 99.0 fL AH Remisol SS Monocytes (Bld) [#/Vol] 0.50 103/mcL Invalid Interpretation Code 0.09 - 1.40 10^3/mcL AH Remisol SS Monocytes/100 WBC (Bld) 9.1 % Invalid Interpretation Code 2.0 - 13.0 % AH Remisol SS Neutrophils (Bld) [#/Vol] 2.40 103/mcL Invalid Interpretation Code 2.25 - 8.10 10^3/mcL AH Remisol SS Neutrophils/100 WBC (Bld) 46.7 % Invalid Interpretation Code 50.0 - 75.0 % AH Remisol SS Platelet mean volume (Bld) [Entitic vol] 10.1 fL Invalid Interpretation Code 6.6 - 10.5 fL AH Remisol SS Platelets (Bld) [#/Vol] 121 103/mcL Invalid Interpretation Code 150 - 450 10^3/mcL AH Remisol SS Potassium [Moles/Vol] 3.7 mmol/L Invalid Interpretation Code 3.5 - 5.0 mEq/L AH ADM SS Protein [Mass/Vol] 7.6 G/dL Invalid Interpretation Code 6.0 - 8.5 G/dL AH ADM SS RBC (Bld) [#/Vol] 5.00 106/mcL Invalid Interpretation Code 4.10 - 5.30 10^6/mcL AH Remisol SS Sodium [Moles/Vol] 142 mmol/L Invalid Interpretation Code 136 - 145 mEq/L AH ADM SS Troponin I.cardiac DL <= 0.01 ng/mL [Mass/Vol] 29.20 ng/L Invalid Interpretation Code 0.00 - 34.00 ng/L ADM SS TSH Qn 1.123 mIU/mL Invalid Interpretation Code 0.550 - 4.780 mIU/mL AH ADM SS Urea nitrogen [Mass/Vol] 12.0 mg/dL Invalid Interpretation Code 8.0 - 22.0 mg/dL AH ADM SS Urea nitrogen/Creatinine [Mass ratio] 16.2 ratio Invalid Interpretation Code 10.0 - 22.0 ratio AH ADM SS WBC (Bld) [#/Vol] 5.20 103/mcL Invalid Interpretation Code 4.50 - 10.80 10^3/mcL Remisol SS LABORATORYOrdered By: Tiff Wright on 04-21-2021 aPTT Coag (PPP) [Time] seconds 1 Invalid Interpretation Code 25.0 - 35.0 seconds AH Auto Coag SS Heparin dose (APTT) Heparin IV (04/21/21 5:02 AM) Invalid Interpretation Code AH Auto Coag SS INR Coag (PPP) [Relative time] 1.1 {INR} Invalid Interpretation Code AH Auto Coag SS PT Coag (PPP) [Time] 13.2 s Invalid Interpretation Code 9.0 - 14.8 seconds AH Auto Coag SS PROon 04-21-2021 INR Coag (PPP) [Relative time] 1.1 {INR} Normal [facility] ([place]) Comment on above: Result Comment: The [employer] (CHEST, 1992, 102:312S-25S) recommended therapeutic range for oral anticoagulant therapy is: LOW RISK: Prophylaxis of venous thrombosis INR: 2.0-3.0 Treatment of pulmonary embolism 2.0-3.0 Prevention of systemic embolism 2.0-3.0 HIGH RISK: Mechanical prosthetic valves 2.5-3.5 Performed By: #### T WILMA #### [place] [address] PT Coag (PPP) [Time] 13.2 s Normal 9.0-14.8 [facility] ([place] Comment on above: Result Comment: Effe ctive 01/22/08, Protime results may be affected by some antibiotics (i.e. Ciprofloxacin, Azithromycin, Bactrim) which may potentiate the action of oral anticoagulants, with further increase in Protime/INR. Performed By: #### T WILMA #### [place] [address] TROPHSon 04-21-2021 Troponin I High Sensitivity 29.77 ng/L Normal 0.00-34.00 [facility] ([place]) Comment on above: Performed By: #### A PTT #### [place] [address] Troponin I High Sensitivity 29.13 ng/L Normal 0.00-34.00 [facility] ([place]) Comment on above: Performed By: #### T WILMA #### [place] [address] Troponin I High Sensitivity 29.20 ng/L Normal 0.00-34.00 [facility] ([place]) Comment on above: Performed By: #### T WILMA #### [place] [address] TSHon 04-21-2021 TSH 1.123 mIU/mL Normal 0.550-4.780 [facility] ([place]) Comment on above: Result Comment: No te - New Reference Range in effect 20 Performed By: #### T ROPHS #### [place] [id number] [place] [id number] .Auto Diffon 04-20-2021 Basophil, Absolute 0.00 10 3/mcL Normal 0.00-0.19 [facility] ([place]) Comment on above: Performed By: #### P BNP, ADIFF, GFR, ANEU, TROPHS, CBC, BMP #### [address] [address] Basophils/100 WBC (Bld) 0.2 % Normal 0.0-2.5 [facility] ([place]) Comment on above: Performed By: #### P BNP, ADIFF, GFR, ANEU, TROPHS, CBC, BMP #### [address] [address] Eosinophil, Absolute 0.10 10 3/mcL Normal 0.00-0.40 [facility] ([place]) Comment on above: Performed By: #### P BNP, ADIFF, GFR, ANEU, TROPHS, CBC, BMP #### [address] [address] Eosinophils/100 WBC (Bld) 1.5 % Normal 0.0-7.0 [facility] ([place]) Comment on above: Performed By: #### P BNP, ADIFF, GFR, ANEU, TROPHS, CBC, BMP #### [address] [address] Lymphocyte, Absolute 2.40 10 3/mcL Normal 0.77-3.85 [facility] ([place]) Comment on above: Performed By: #### P BNP, ADIFF, GFR, ANEU, TROPHS, CBC, BMP #### [address] [address] Lymphocytes/100 WBC (Bld) 37.9 % Normal 10.0-50.0 [facility] ([place]) Comment on above: Performed By: #### P BNP, ADIFF, GFR, ANEU, TROPHS, CBC, BMP #### [address] [address] Monocyte, Absolute 0.60 10 3/mcL Normal 0.15-1.00 [facility] ([place]) Comment on above: Performed By: #### P BNP, ADIFF, GFR, ANEU, TROPHS, CBC, BMP #### [address] [address] Monocytes/100 WBC (Bld) 9.0 % Normal 1.7-13.0 [facility] ([place]) Comment on above: Performed By: #### P BNP, ADIFF, GFR, ANEU, TROPHS, CBC, BMP #### [address] [address] Neutrophils/100 WBC (Bld) 51.4 % Normal 37.0-80.0 [facility] ([place]) Comment on above: Performed By: #### P BNP, ADIFF, GFR, ANEU, TROPHS, CBC, BMP #### [address] [address] .GFRon 04-20-2021 GFR 89 ml/min/1.73sqm Normal [facility] ([place]) Comment on above: Result Comment: GFR Population mean for , Non- Americans Ages 20-29 = 116 mL/min/1.73 sq.m. Ages 30-39 = 107 mL/min/1.73 sq.m. Ages 40-49 = 99 mL/min/1.73 sq.m. Ages 50-59 = 93 mL/min/1.73 sq.m. Ages 60-69 = 85 mL/min/1.73 sq.m. Ages 70+ = 75 mL/min/1.73 sq.m. Chronic Kidney Disease: Less than 60 mL/min/1.73 square meters End Stage Renal Disease: Less than 15 mL/min/1.73 square meters Performed By: #### P BNP, ADIFF, GFR, ANEU, TROPHS, CBC, BMP #### [address] [address] GFR Non- 74 ml/min/1.73sqm Normal [facility] ([place]) Comment on above: Result Comment: GFR Population mean for , Non- Americans Ages 20-29 = 116 mL/min/1.73 sq.m. Ages 30-39 = 107 mL/min/1.73 sq.m. Ages 40-49 = 99 mL/min/1.73 sq.m. Ages 50-59 = 93 mL/min/1.73 sq.m. Ages 60-69 = 85 mL/min/1.73 sq.m. Ages 70+ = 75 mL/min/1.73 sq.m. Chronic Kidney Disease: Less than 60 mL/min/1.73 square meters End Stage Renal Disease: Less than 15 mL/min/1.73 square meters Performed By: #### P BNP, ADIFF, GFR, ANEU, TROPHS, CBC, BMP #### [address] [address] .NEUABSon 04-20-2021 Neutrophil, Absolute 3.30 10 3/mcL Normal 2.85-6.16 [facility] ([place]) Comment on above: Performed By: #### P BNP, ADIFF, GFR, ANEU, TROPHS, CBC, BMP #### [address] [address] BMPon 04-20-2021 BUN/Creatinine Ratio 18 ratio Normal 7-27 [facility] [place] Comment on above: Performed By: #### P BNP, ADIFF, GFR, ANEU, TROPHS, CBC, BMP #### [address] [address] Calcium [Mass/Vol] 9.5 mg/dL Normal 8.4-10.2 [facility] ([place]) Comment on above: Performed By: #### P BNP, ADIFF, GFR, ANEU, TROPHS, CBC, BMP #### [address] [address] Chloride [Moles/Vol] 104 mmol/L Normal 98-107 [facility] [place] Comment on above: Performed By: #### P BNP, ADIFF, GFR, ANEU, TROPHS, CBC, BMP #### [address] [address] CO2 [Moles/Vol] 28 mmol/L Normal 22-29 [facility] ([place]) Comment on above: Performed By: #### P BNP, ADIFF, GFR, ANEU, TROPHS, CBC, BMP #### [address] [address] Creatinine [Mass/Vol] 0.82 mg/dL Normal 0.55-1.02 [facility] ([place]) Comment on above: Performed By: #### P BNP, ADIFF, GFR, ANEU, TROPHS, CBC, BMP #### [address] [address] Electrolyte Balance 9.0 mEq/L Normal [facility] ([place]) Comment on above: Performed By: #### P BNP, ADIFF, GFR, ANEU, TROPHS, CBC, BMP #### [address] [address] Glucose [Mass/Vol] 101 mg/dL Normal 70-105 [facility] ([place]) Comment on above: Performed By: #### P BNP, ADIFF, GFR, ANEU, TROPHS, CBC, BMP #### [address] [address] Potassium [Moles/Vol] 4.1 mmol/L Normal 3.5-5.1 [facility] ([place]) Comment on above: Performed By: #### P BNP, ADIFF, GFR, ANEU, TROPHS, CBC, BMP #### [address] [address] Sodium [Moles/Vol] 141 mmol/L Normal 136-145 [facility] ([place]) Comment on above: Performed By: #### P BNP, ADIFF, GFR, ANEU, TROPHS, CBC, BMP #### [address] [address] Urea nitrogen [Mass/Vol] 15 mg/dL Normal 7-18 [facility] ([place]) Comment on above: Performed By: #### P BNP, ADIFF, GFR, ANEU, TROPHS, CBC, BMP #### [address] [address] CBCon 04-20-2021 Erythrocyte distribution width (RBC) [Ratio] 13.5 % Normal 11.5-14.5 [facility] ([place]) Comment on above: Performed By: #### P BNP, ADIFF, GFR, ANEU, TROPHS, CBC, BMP #### [address] [address] Hematocrit (Bld) [Volume fraction] 45.8 % Normal 37.0-47.0 [facility] ([place] Comment on above: Performed By: #### P BNP, ADIFF, GFR, ANEU, TROPHS, CBC, BMP #### [place] [id number] Hgb 15.3 G/dL Normal 12.0-16.0 [facility] ([place]) Comment on above: Performed By: #### P BNP, ADIFF, GFR, ANEU, TROPHS, CBC, BMP #### [place] [id number] MCH (RBC) [Entitic mass] 29.2 pg Normal 27.0-31.2 [facility] ([place] Comment on above: Performed By: #### P BNP, ADIFF, GFR, ANEU, TROPHS, CBC, BMP #### [place] [address] MCHC 33.4 G/dL Normal 33.0-37.0 [facility] ([place]) Comment on above: Performed By: #### P BNP, ADIFF, GFR, ANEU, TROPHS, CBC, BMP #### [place] [id number] MCV (RBC) [Entitic vol] 87.5 fL Normal 80.0-94.0 [facility] ([place] Comment on above: Performed By: #### P BNP, ADIFF, GFR, ANEU, TROPHS, CBC, BMP #### [place] [id number] Platelet 161 10 3/mcL Normal 130-400 [facility] ([place]) Comment on above: Performed By: #### P BNP, ADIFF, GFR, ANEU, TROPHS, CBC, BMP #### [place] [id number] Platelet mean volume (Bld) [Entitic vol] 9.8 fL Normal 7.4-10.4 [facility] ([place]) Comment on above: Performed By: #### P BNP, ADIFF, GFR, ANEU, TROPHS, CBC, BMP #### [address] [address] RBC 5.23 10 6/mcL Normal 4.20-5.40 [facility] ([place]) Comment on above: Performed By: #### P BNP, ADIFF, GFR, ANEU, TROPHS, CBC, BMP #### [address] [address] WBC 6.40 10 3/mcL Normal 4.60-10.80 [facility] ([place]) Comment on above: Performed By: #### P BNP, ADIFF, GFR, ANEU, TROPHS, CBC, BMP #### [address] [address] LABORATORYOrdered By: Cayla Mathew on 04-20-2021 ADMITTED TO INTENSIVE CARE UNIT FOR CONDITION OF INTEREST:FIND:PT:^PAT IENT:ORD: No (04/20/21 11:19 PM) Invalid Interpretation Code AO Auto Urine SS EMPLOYED IN A HEALTHCARE SETTING:FIND:PT:^DAKSHA ENT:ORD: No (04/20/21 11:19 PM) Invalid Interpretation Code AO Auto Urine SS FIRST TEST FOR CONDITION OF INTEREST:FIND:PT:^PAT IENT:ORD: No (04/20/21 11:19 PM) Invalid Interpretation Code AO Auto Urine SS HAS SYMPTOMS RELATED TO CONDITION OF INTEREST:FIND:PT:^PAT IENT:ORD: No (04/20/21 11:19 PM) Invalid Interpretation Code AO Auto Urine SS Illness or injury onset date and time [id number] Invalid Interpretation Code AO Auto Urine SS Patient was hospitalized because of this condition No (04/20/21 11:19 PM) Invalid Interpretation Code AO Auto Urine SS status Not (04/20/21 11:19 PM) Invalid Interpretation Code AO Auto Urine SS RESIDES IN A CONGREGATE CARE SETTING:FIND:PT:^DAKSHA ENT:ORD: No (04/20/21 11:19 PM) Invalid Interpretation Code AO Auto Urine SS SARS-CoV-2 (COVID-19) RNA NATALYA+probe Ql (Resp) Negative (04/20/21 11:19 PM) Invalid Interpretation Code Negative AO Auto Urine SS SARS-CoV-2 (COVID-19) RNA NATALYA+probe Ql (Unsp spec) Negative results do not preclude SARS-CoV-2 infection and should not be used as the sole basis for patient management decisions. Negative results must be combined with clinical observations, patient history, and epidemiological information.There is a risk of false negative values resulting from improperly collected, transported, or handled specimens.There is a risk of false negative values due to the presence of sequence variants in the pathogen targets of the assay, procedural errors, amplification inhibitors in specimens, or inadequate numbers of organisms for amplification.CRISTOFER SARS-CoV-2 Assay is a Real-Time reverse-transcriptase polymerase chain reaction (RT-PCR) based qualitative in vitro diagnostic test intended for the qualitative detection of nucleic acid from the SARS-CoV-2 in nasopharyngeal swab specimens collected from individuals suspected of COVID-19 by their healthcare provider. Testing is limited to laboratories certified under the Clinical Laboratory Improvement Amendments of 1988 (CLIA), 42 U.S.C. 263a, to perform moderate and high complexity tests. Invalid Interpretation Code AO Auto Urine SS Basophil, Absolute 0.00 103/mcL Invalid Interpretation Code 0.00 - 0.19 10^3/mcL AO Auto Heme SS Basophils/100 WBC (Bld) 0.2 % Invalid Interpretation Code 0.0 - 2.5 % AO Auto Heme SS Eosinophil, Absolute 0.10 103/mcL Invalid Interpretation Code 0.00 - 0.40 10^3/mcL AO Auto Heme SS Eosinophils/100 WBC (Bld) 1.5 % Invalid Interpretation Code 0.0 - 7.0 % AO Auto Heme SS Erythrocyte distribution width (RBC) [Ratio] 13.5 % Invalid Interpretation Code 11.5 - 14.5 % AO Auto Heme SS Hematocrit (Bld) [Volume fraction] 45.8 % Invalid Interpretation Code 37.0 - 47.0 % AO Auto Heme SS Hemoglobin (Bld) [Mass/Vol] 15.3 G/dL Invalid Interpretation Code 12.0 - 16.0 G/dL AO Auto Heme SS Lymphocyte, Absolute 2.40 103/mcL Invalid Interpretation Code 0.77 - 3.85 10^3/mcL AO Auto Heme SS Lymphocytes/100 WBC (Bld) 37.9 % Invalid Interpretation Code 10.0 - 50.0 % AO Auto Heme SS MCH (RBC) [Entitic mass] 29.2 pg Invalid Interpretation Code 27.0 - 31.2 pg AO Auto Heme SS MCHC (RBC) [Mass/Vol] 33.4 G/dL Invalid Interpretation Code 33.0 - 37.0 G/dL AO Auto Heme SS MCV (RBC) [Entitic vol] 87.5 fL Invalid Interpretation Code 80.0 - 94.0 fL AO Auto Heme SS Monocyte, Absolute 0.60 103/mcL Invalid Interpretation Code 0.15 - 1.00 10^3/mcL AO Auto Heme SS Monocytes/100 WBC (Bld) 9.0 % Invalid Interpretation Code 1.7 - 13.0 % AO Auto Heme SS Neutrophil, Absolute 3.30 103/mcL Invalid Interpretation Code 2.85 - 6.16 10^3/mcL AO Auto Heme SS Neutrophils/100 WBC (Bld) 51.4 % Invalid Interpretation Code 37.0 - 80.0 % AO Auto Heme SS Platelet mean volume (Bld) [Entitic vol] 9.8 fL Invalid Interpretation Code 7.4 - 10.4 fL AO Auto Heme SS Platelets (Bld) [#/Vol] 161 103/mcL Invalid Interpretation Code 130 - 400 10^3/mcL AO Auto Heme SS RBC (Bld) [#/Vol] 5.23 106/mcL Invalid Interpretation Code 4.20 - 5.40 10^6/mcL AO Auto Heme SS WBC (Bld) [#/Vol] 6.40 103/mcL Invalid Interpretation Code 4.60 - 10.80 10^3/mcL AO Auto Heme SS LABORATORYOrdered By: Poonam Valenzuela on 04-20-2021 Calcium [Mass/Vol] 9.5 mg/dL Invalid Interpretation Code 8.4 - 10.2 mg/dL AO ADM SS Chloride [Moles/Vol] 104 mmol/L Invalid Interpretation Code 98 - 107 mmol/L AO ADM SS CO2 [Moles/Vol] 28 mmol/L Invalid Interpretation Code 22 - 29 mmol/L AO ADM SS Creatinine [Mass/Vol] 0.82 mg/dL Invalid Interpretation Code 0.55 - 1.02 mg/dL AO ADM SS Electrolyte Balance 9.0 mEq/L Invalid Interpretation Code AO ADM SS Glucose [Mass/Vol] 101 mg/dL Invalid Interpretation Code 70 - 105 mg/dL AO ADM SS Natriuretic peptide.B prohormone N-Terminal [Mass/Vol] 34 pg/mL Invalid Interpretation Code 0 - 125 pg/mL AO ADM SS Potassium [Moles/Vol] 4.1 mmol/L Invalid Interpretation Code 3.5 - 5.1 mmol/L AO ADM SS Sodium [Moles/Vol] 141 mmol/L Invalid Interpretation Code 136 - 145 mmol/L AO ADM SS Troponin I.cardiac DL <= 0.01 ng/mL [Mass/Vol] 100.8 ng/L Invalid Interpretation Code 0.0 - 51.4 ng/L AO ADM SS Urea nitrogen [Mass/Vol] 15 mg/dL Invalid Interpretation Code 7 - 18 mg/dL AO ADM SS Urea nitrogen/Creatinine [Mass ratio] 18 ratio Invalid Interpretation Code 7 - 27 ratio AO ADM SS LABORATORYOrdered By: SYSTEM SYSTEM on 04-20-2021 GFR 89 ml/min/1.73sqm Invalid Interpretation Code AO Chemistry S GFR Non- 74 ml/min/1.73sqm Invalid Interpretation Code AO Chemistry S PBNPon 04-20-2021 Natriuretic peptide B (Bld) [Mass/Vol] 34 pg/mL Normal 0-125 [facility] ([place]) Comment on above: Result Comment: NT-p roBNP results of less than 300 pg/mL effectively rules out acute congestive heart failure with 99% negative predictive value. Performed By: #### P BNP, ADIFF, GFR, ANEU, TROPHS, CBC, BMP #### [address] [address] TROPHSon 04-20-2021 Troponin I High Sensitivity 100.8 ng/L High 0.0-51.4 [facility] ([place]) Comment on above: Performed By: #### P BNP, ADIFF, GFR, ANEU, TROPHS, CBC, BMP #### [address] [address] XR CHEST 1 VIEWon 04-20-2021 XR CHEST 1 VIEW ORIGINAL EXAMINATION: ONE XRAY VIEW OF THE CHEST04/20/2021 9:07 pm CHEST ONE VIEW AP/PA COMPARISON: None available time of interpretation. HISTORY: ORDERING SYSTEM PROVIDED HISTORY: Reason for Exam: chest pain FINDINGS: Heart size and vascularity are within normal limits. The lungs are clear of focal consolidation. No effusion, pneumothorax, or acute osseous abnormality. IMPRESSION: No radiographic evidence of acute cardiopulmonary process. Interpreted by: Yaakov Fry MD Preliminary Report By: Yaakov Fry MD Electronically signed By Yaakov Fry MD Dictated Date: 04/20/2021 9:13:33 PM Prelim Date: 04/20/2021 9:13:53 PM Sign Date: 04/20/2021 9:13:53 PM Ordering Provider: IRLANDA Concepcion [facility] ([place]) Lab Report: PAP I-G HPV Hi R iskon 02-14-2017 GE use only - for [employer] import when terms are not otherwise specified Negative Invalid Interpretation Code Negative [facility] Office Visit: est annualon 0 02-09-2017 Documentation of current medications (procedure) Done Invalid Interpretation Code [facility] Fall risk assessment No Invalid Interpretation Code [facility] Hemoglobin.gastrointe stinal Ql (St) not done Invalid Interpretation Code [facility] Protein mass conc Done [facility] Tobacco smoking status NHIS Never Invalid Interpretation Code [facility] Tobacco smoking status NHIS Never smoker [facility] Tobacco use CPHS Never smoker Invalid Interpretation Code [facility] Office Visit: est annualon 0 07-10-2014 MG Breast screening Normal Bilateral Invalid Interpretation Code [facility] General categories Cyto stain Interp (Cervical or vaginal smear or scraping) Normal Invalid Interpretation Code [facility] Vital Signs Date Time Vital Sign Value Performing Clinician Facility 01-28-2025 10:33-0400 Body height 167.[address] Tomasa Khan DO Work Phone: [facility] 01-28-2025 10:33-0400 Body mass index (BMI) [Ratio] 28.5 kg/m2 Dr. Tomasa Khan DO Work Phone: [facility] 01-28-2025 10:33-0400 Body weight 80.[address] Tomasa Khan DO Work Phone: [facility] 01-28-2025 10:33-0400 Diastolic blood pressure 82 mm[Hg] Dr. Tomasa Khan DO Work Phone: [facility] 01-28-2025 10:33-0400 Heart rate 70 /min Dr. Tomasa Khan DO Work Phone: [facility] 01-28-2025 10:33-0400 Respiratory rate 18 /min Dr. Tomasa Khan DO Work Phone: [facility] 01-28-2025 10:33-0400 SaO2% (BldA) [Mass fraction] 99 % Dr. Tomasa Khan DO Work Phone: [facility] 01-28-2025 10:33-0400 Systolic blood pressure 117 mm[Hg] Dr. Tomasa Khan DO Work Phone: [facility] 01-14-2025 08:49-0400 Body height 167.[address] Tomasa Khan DO Work Phone: [facility] 01-14-2025 08:49-0400 Body mass index (BMI) [Ratio] 28.8 kg/m2 Dr. Tomasa Khan DO Work Phone: [facility] 01-14-2025 08:49-0400 Body temperature 97.8 [degF] Dr. Tomasa Khan DO Work Phone: [facility] 01-14-2025 08:49-0400 Body weight 80.[address] Tomasa Khan DO Work Phone: [facility] 01-14-2025 08:49-0400 Diastolic blood pressure 84 mm[Hg] Dr. Tomasa Khan DO Work Phone: [facility] 01-14-2025 08:49-0400 Heart rate 75 /min Dr. Tomasa Khan DO Work Phone: [facility] 01-14-2025 08:49-0400 Respiratory rate 16 /min Dr. Tomasa Khan DO Work Phone: [facility] 01-14-2025 08:49-0400 SaO2% (BldA) [Mass fraction] 98 % Dr. Tomasa Khan DO Work Phone: [facility] 01-14-2025 08:49-0400 Systolic blood pressure 116 mm[Hg] Dr. Tomasa Khan DO Work Phone: [facility] 12-05-2024 16:13-0400 Body mass index (BMI) [Ratio] 28.11 kg/m2 [facility] Work Phone: [facility] 12-05-2024 16:13-0400 Body weight 80.29 [facility] FINISHING MA[facility].RA[employer] SIGNAL DES[employer]ER Work Phone: [facility] 03-15-2024 07:36-0400 Body mass index (BMI) [Ratio] 28.62 kg/m2 [facility] FINISHING MANAGER.RAIL SIGNAL DESIGNER Work Phone: [facility] 03-15-2024 07:36-0400 Body [facility] 81.[facility].RAIL SIGNAL DESIGNER Work Phone: [facility] 10-10-2023 08:28-0400 Body temperature 97.11 [degF] Tessa Praisler-Wood FINISHING MANAGER.RAIL SIGNAL DESIGNER Work Phone: [facility] 10-10-2023 08:28-0400 Body weight 86.9 kg Tessa Praisler-Wood FINISHING MANAGER.RAIL SIGNAL DESIGNER Work Phone: [facility] 10-10-2023 08:28-0400 Diastolic blood pressure 82 mm[Hg] Tessa Praisler-Wood FINISHING MANAGER.RAIL SIGNAL DESIGNER Work Phone: [facility] 10-10-2023 08:28-0400 Heart rate 67 /min Tessa Praisler-Wood FINISHING MANAGER.RAIL SIGNAL DESIGNER Work Phone: [facility] 10-10-2023 08:28-0400 Respiratory rate 18 /min Tessa Praisler-Wood FINISHING MANAGER.RAIL SIGNAL DESIGNER Work Phone: [facility] 10-10-2023 08:28-0400 SaO2% (BldA) [Mass fraction] 97 % Tessa Praisler-Wood FINISHING MANAGER.RAIL SIGNAL DESIGNER Work Phone: [facility] 10-10-2023 08:28-0400 Systolic blood pressure 122 mm[Hg] Tessa Matamoros FINISHING MANAGER.RAIL SIGNAL DESIGNER Work Phone: [facility] 09-11-2023 14:57-0500 Body weight 84.82 kg James Yanes FINISHING MANAGER.RAIL SIGNAL DESIGNER Work Phone: [facility] 05-30-2023 11:28-0500 Body temperature 100.5 [degF] [facility] [facility] 05-30-2023 11:28-0500 Diastolic blood pressure 63 mm[Hg] [facility] 05-30-2023 11:28-0500 Heart rate 116 /min [facility] 05-30-2023 11:28-0500 Respiratory rate 18 /min [facility] 05-30-2023 11:28-0500 SaO2% (BldA) [Mass fraction] 97 % [facility] 05-30-2023 11:28-0500 Systolic blood pressure 105 mm[Hg] [facility] 05-30-2023 10:27-0500 Body height 167.64 cm [facility] 05-30-2023 10:27-0500 Body mass index (BMI) [Ratio] 32.5 kg/m2 [facility] 05-30-2023 10:27-0500 Body weight 91.3 kg [facility] 01-27-2023 09:35-0400 Body weight 93.44 kg Referring Provider Unknown [id number]-Uxiqusejbk k 300 Work Phone: 01-27-2023 09:35-0400 Diastolic blood pressure 70 mm[Hg] Referring Provider Unknown YM-RHCCQ-Uhrdkrzkns k 300 Work Phone: 01-27-2023 09:35-0400 Systolic blood pressure 118 mm[Hg] Referring Provider Unknown [id number]-Feladxhbia k 300 Work Phone: 01-27-2023 09:35-0400 0 1 Referring Provider Unknown WH-ELCPT-Lpdwawkqtm k 300 Work Phone: Comment on above: [employer] 08-11-2022 09:57-0500 Body height 169 cm [facility] FINISHING MANAGER.RAIL SIGNAL DESIGNER Work Phone: [facility] 08-11-2022 09:57-0500 Body weight 89.81 kg [facility] FINISHING MANAGER.[facility] Work Phone: [facility] 08-11-2022 09:57-0500 Diastolic blood pressure 84 mm[Hg] [facility] FINISHING MANAGER.RAIL SIGNAL DESIGNER Work Phone: [facility] 08-11-2022 09:57-0500 Heart rate 73 /min [facility] FINISHING MANAGER.[facility] Work Phone: [facility] 08-11-2022 09:57-0500 Respiratory rate 17 /min [facility] FINISHING MANAGER.[facility] Work Phone: [facility] 08-11-2022 09:57-0500 SaO2% (BldA) [Mass fraction] 98 % [facility] FINISHING MANAGER.RAIL SIGNAL DESIGNER Work Phone: [facility] 08-11-2022 09:57-0500 Systolic blood pressure 126 mm[Hg] [facility] FINISHING MANAGER.RAIL SIGNAL DESIGNER Work Phone: [facility] 07-27-2022 09:06-0500 Body height 170.2 cm Christian Herr MD Work Phone: [facility] 07-27-2022 09:06-0500 Body temperature 97.39 [degF] Christian Herr MD Work Phone: [facility] 07-27-2022 09:06-0500 Body weight 90.99 kg Christian Herr MD Work Phone: [facility] 07-27-2022 09:06-0500 Diastolic blood pressure 92 mm[Hg] Christian Herr MD Work Phone: [facility] 07-27-2022 09:06-0500 Heart rate 76 /min Christian Herr MD Work Phone: [facility] 07-27-2022 09:06-0500 Systolic blood pressure 132 mm[Hg] Chritsian Herr MD Work Phone: [facility] 04-13-2022 11:22-0400 SaO2% (BldA) [Mass fraction] 97 % [facility] 04-13-2022 09:44-0400 Body height 167.64 cm [facility] 04-13-2022 09:44-0400 Body mass index (BMI) [Ratio] 32.2 kg/m2 [facility] 04-13-2022 09:44-0400 Body temperature 98.6 [degF] [facility] 04-13-2022 09:44-0400 Body weight 90.5 kg [facility] 04-13-2022 09:44-0400 Diastolic blood pressure 95 mm[Hg] [facility] 04-13-2022 09:44-0400 Heart rate 82 /min [facility] 04-13-2022 09:44-0400 Respiratory rate 17 /min [facility] 04-13-2022 09:44-0400 Systolic blood pressure 148 mm[Hg] [facility] 02-08-2022 11:09-0400 Body height 167.64 cm [facility] Work Phone: 02-08-2022 11:09-0400 Body mass index (BMI) [Ratio] 32.3 kg/m2 [facility] Work Phone: 02-08-2022 11:09-0400 Body temperature 96.7 [degF] [facility] Work Phone: 02-08-2022 11:09-0400 Body weight 90.71 kg [facility] Work Phone: 02-08-2022 11:09-0400 Diastolic blood pressure 107 mm[Hg] [facility] Work Phone: 02-08-2022 11:09-0400 Heart rate 74 /min [facility] Work Phone: 02-08-2022 11:09-0400 Respiratory rate 16 /min [facility] Work Phone: 02-08-2022 11:09-0400 SaO2% (BldA) [Mass fraction] 100 % [facility] Work Phone: 02-08-2022 11:09-0400 Systolic blood pressure 146 mm[Hg] [facility] Work Phone: 11-02-2021 14:01-0400 Body height 170.2 cm Christian Herr MD Work Phone: [facility] 11-02-2021 14:01-0400 Body temperature 96.01 [degF] Christian Herr MD Work Phone: [facility] 11-02-2021 14:01-0400 Body weight 92.22 kg Christian Herr MD Work Phone: [facility] 11-02-2021 14:01-0400 Diastolic blood pressure 95 mm[Hg] Christian Herr MD Work Phone: [facility] 11-02-2021 14:01-0400 Heart rate 84 /min Christian Herr MD Work Phone: [facility] 11-02-2021 14:01-0400 Systolic blood pressure 134 mm[Hg] Christian Herr MD Work Phone: [facility] 04-21-2021 19:20-0400 Diastolic Blood Pressure NBP [address] DAHLIA REDDING MD [facility] 04-21-2021 19:20-0400 Heart rate 72 /min DR DAHLIA REDDING MD [facility] 04-21-2021 19:20-0400 Mean blood pressure 93 mm[Hg] DR DAHLIA REDDING MD [facility] 04-21-2021 19:20-0400 Reason For Taking VItal Signs DR DAHLIA REDDING MD [facility] 04-21-2021 19:20-0400 Systolic Blood Pressure NBP [address] DAHLIA REDDING MD [facility] 04-21-2021 18:20-0400 Diastolic Blood Pressure NBP [address] DAHLIA REDDING MD [facility] 04-21-2021 18:20-0400 Heart rate 65 /min DR DAHLIA REDDING MD [facility] 04-21-2021 18:20-0400 Mean blood pressure 99 mm[Hg] DR DAHLIA REDDING MD [facility] 04-21-2021 18:20-0400 Reason For Taking VItal Signs DR DAHLIA REDDING MD [facility] 04-21-2021 18:20-0400 Systolic Blood Pressure NBP [address] DAHLIA REDDING MD [facility] 04-21-2021 17:50-0400 Diastolic Blood Pressure NBP [address] DAHLIA REDDING MD [facility] 04-21-2021 17:50-0400 Heart rate 64 /min DR DAHLIA REDDING MD [facility] 04-21-2021 17:50-0400 Mean blood pressure 83 mm[Hg] DR DAHLIA REDDING MD [facility] 04-21-2021 17:50-0400 Reason For Taking VItal Signs DR DAHLIA REDDING MD [facility] 04-21-2021 17:50-0400 Systolic Blood Pressure NBP [address] DAHLIA REDDING MD [facility] 04-21-2021 15:50-0400 Respiratory rate 18 /min DR DAHLIA REDDING MD [facility] 04-21-2021 14:45-0400 Body temperature 98.24 [degF] DR DAHLIA REDDING MD [facility] 04-21-2021 14:45-0400 Diastolic blood pressure 82 mm[Hg] DR DAHLIA REDDING MD [facility] 04-21-2021 14:45-0400 Mean blood pressure 95 mm[Hg] DR DAHLIA REDDING MD [facility] 04-21-2021 14:45-0400 Respiratory rate 16 /min DR DAHLIA REDDING MD [facility] 04-21-2021 14:45-0400 Systolic blood pressure 122 mm[Hg] DR DAHLIA REDDING MD [facility] 04-21-2021 12:15-0400 Heart rate 85 /min DR DAHLIA REDDING MD [facility] 04-21-2021 11:15-0400 Body temperature 98.6 [degF] DR DAHLIA REDDING MD [facility] 04-21-2021 11:15-0400 Diastolic blood pressure 78 mm[Hg] DR DAHLIA REDDING MD [facility] 04-21-2021 11:15-0400 Mean blood pressure 94 mm[Hg] DR DAHLIA REDDING MD [facility] 04-21-2021 11:15-0400 Respiratory rate 16 /min DR DAHLIA REDDING MD [facility] 04-21-2021 11:15-0400 Systolic blood pressure 126 mm[Hg] DR DAHLIA REDDING MD [facility] 04-21-2021 09:31-0400 Body height 167.[address] DAHLIA REDDING MD [facility] 04-21-2021 09:31-0400 Body weight 86.[address] DAHLIA REDDING MD [facility] 04-21-2021 09:31-0400 Body weight 30.87 kg/m2 DR DAHLIA REDDING MD [facility] 04-21-2021 07:30-0400 Body temperature 98.06 [degF] DR DAHLIA REDDING MD [facility] 04-21-2021 07:30-0400 Diastolic blood pressure 70 mm[Hg] DR DAHLIA REDDING MD [facility] 04-21-2021 07:30-0400 Mean blood pressure 87 mm[Hg] DR DAHLIA REDDING MD [facility] 04-21-2021 07:30-0400 Systolic blood pressure 122 mm[Hg] DR DAHLIA REDDING MD [facility] 04-21-2021 03:03-0400 Body height 167.[address] DAHLIA REDDING MD [facility] 04-21-2021 03:03-0400 Body weight 86.[address] DAHLIA REDDING MD [facility] 04-21-2021 03:03-0400 Body weight 30.87 kg/m2 DR DAHLIA REDDING MD [facility] 04-21-2021 01:39-0400 Diastolic blood pressure 80 mm[Hg] IRLANDA VALENZUELA DO [facility] 04-21-2021 01:39-0400 Heart rate 75 /min IRLANDA VALENZUELA DO [facility] 04-21-2021 01:39-0400 Respiratory rate 18 /min IRLANDA VALENZUELA DO [facility] 04-21-2021 01:39-0400 Systolic blood pressure 139 mm[Hg] IRLANDA VALENZUELA DO [facility] 04-21-2021 01:00-0400 Diastolic blood pressure 96 mm[Hg] IRLANDA VALENUZELA DO [facility] 04-21-2021 01:00-0400 Heart rate 63 /min IRLANDA VALENZUELA DO [facility] 04-21-2021 01:00-0400 Respiratory rate 16 /min IRLANDA VALENZUELA DO [facility] 04-21-2021 01:00-0400 Systolic blood pressure 141 mm[Hg] IRLANDA VALENZUELA DO [facility] 04-20-2021 23:01-0400 Diastolic blood pressure 84 mm[Hg] IRLANDA VALENZUELA DO [facility] 04-20-2021 23:01-0400 Heart rate 75 /min IRLANDA VALENZUELA DO [facility] 04-20-2021 23:01-0400 Reason For Taking VItal Signs IRLANDA VALENZUELA DO [facility] 04-20-2021 23:01-0400 Respiratory rate 18 /min ILRANDA VALENZUELA DO [facility] 04-20-2021 23:01-0400 Systolic blood pressure 117 mm[Hg] IRLANDA VALENZUELA DO [facility] 04-20-2021 21:56-0400 Reason For Taking VItal Signs IRLANDA VALENZUELA DO [facility] 04-20-2021 20:01-0400 Body temperature 98.24 [degF] IRLANDA VALENZUELA DO [facility] 04-20-2021 20:01-0400 Body weight 87.8 kg IRLANDA VALENZUELA DO [facility] 04-20-2021 20:01-0400 Heart rate 78 /min IRLANDA VALENZUELA DO [facility] 02-09-2017 13:43-0400 BMI (Body Mass Index) 31.12 kg/m2 Becca Plummer MD [facility] 02-09-2017 13:43-0400 Body Temperature 97.8 [degF] Becca Plummer MD [facility] 02-09-2017 13:43-0400 BP Diastolic 93 mm[Hg] Becca Plummer MD [facility] 02-09-2017 13:43-0400 BP Systolic 136 mm[Hg] Becca Plummer MD [facility] 02-09-2017 13:43-0400 Height 167.64 cm Becca Plummer MD [facility] 02-09-2017 13:43-0400 Pulse (Heart Rate) 73 /min Becca Plummer MD [facility] 02-09-2017 13:43-0400 Respiratory Rate 16 /min Becca Plummer MD [facility] 02-09-2017 13:43-0400 Weight 87.45 kg Becca Plummer MD [facility] Encounters Encounter Date Encounter Type Care Provider Facility Start: 03-13-2025 ambulatory Tomasa Khan Facility:[facility] Start: 02-22-2025 ambulatory Tomasa Khan Facility:[facility] Start: 01-29-2025 End: 01-29-[address] Tomasa Khan DO Work Phone: -Laboratory Specimen Start: 01-29-2025 End: 01-29-2025 Patient encounter procedure Tamika HARPER -Laboratory Specimen Work Phone: Start: 01-28-2025 End: 01-28-[address] Vonda Paulson MD -[facility] Work Phone: Start: 01-28-2025 End: 01-29-[address] Tomasa Khan DO Work Phone: -[facility] Start: 01-14-2025 End: 01-14-2025 Patient encounter procedure Tamika HARPER -[facility] Work Phone: Start: 01-14-2025 End: 01-14-[address] Tomasa Khan DO Work Phone: -[facility] Start: 12-05-2024 End: 12-05-2024 Telemedicine consultation with patient James Yanes APRN.CNP Work Phone: Endocrinology Start: 12-05-2024 End: 12-05-2024 ambulatory James Yanes APRN.RAIL SIGNAL DESIGNER Work Phone: Endocrinology Comment on above: Type 2 diabetes fidel itus without complication, without long- term current use of insulin (HCC) (Primary Dx); Essential hypertension; Overweight with body mass index (BMI) of 28 to 28.9 in adult Start: 09-11-2024 End: 11-11-2024 Follow-up encounter James Yanes APRN.CNP Work Phone: Endocrinology Start: 09-10-2024 End: 09-10-2024 ambulatory TOMASA A MALYS Facility:[facility] Start: 05-31-2024 End: 05-31-2024 Refill James Yanes APRN.RAIL SIGNAL DESIGNER Work Phone: Endocrinology Comment on above: Refill Request Start: 04-01-2024 End: 04-01-2024 ambulatory TOMASA A MALYS Facility:[facility] Start: 03-19-2024 End: 03-19-2024 Orders Only James Yanes APRN.RAIL SIGNAL DESIGNER Work Phone: Endocrinology Comment on above: Hypokalemia (Primary Dx) Start: 03-15-2024 End: 03-15-2024 ambulatory James Yanes FINISHING MANAGER.RAIL SIGNAL DESIGNER Work Phone: Endocrinology Comment on above: Type 2 diabetes fidel itus without complication, without long- term current use of insulin (HCC) (Primary Dx); Essential hypertension; Hypercalcemia; Overweight with body mass index (BMI) of 28 to 28.9 in adult Start: 03-15-2024 End: 03-15-2024 Telemedicine consultation with patient James Yanes FINISHING MANAGER.RAIL SIGNAL DESIGNER Work Phone: Endocrinology Start: 03-14-2024 End: 03-14-2024 ambulatory TOMASA Julieta JOELYS Facility:[facility] Start: 02-23-2024 End: 02-26-2024 Telephone encounter James Yanes FINISHING MANAGER.RAIL SIGNAL DESIGNER Work Phone: Endocrinology Comment on above: Received letter and office notes (Dahlia Ahmadi (Nurse Practitioner)) Start: 12-07-2023 Refill Christian abad MD Work Phone: Rheumatology Start: 12-06-2023 ambulatory James flores FINISHING MANAGER.RAIL SIGNAL DESIGNER Work Phone: Endocrinology Comment on above: Monjaro/insurance Start: 11-30-2023 Telephone encounter James landers FINISHING MANAGER.RAIL SIGNAL DESIGNER Work Phone: Endocrinology Comment on above: PA--Mounjaro 7.5mg/0 .5ml Start: 10-16-2023 End: 10-16-2023 ambulatory [facility] Work Phone: Start: 10-16-2023 End: 10-16-2023 Patient encounter procedure [facility], Shon Bernstein [facility] Start: 10-10-2023 End: 10-10-2023 Patient encounter procedure Tessa Matamoros FINISHING MANAGER.RAIL SIGNAL DESIGNER Work Phone: [facility] Comment on above: Rash (Primary Dx) Start: 09-12-2023 Orders Only James flores FINISHING MANAGER.RAIL SIGNAL DESIGNER Work Phone: Endocrinology Comment on above: Type 2 diabetes fidel itus without complication, without long- term current use of insulin (HCC) Start: 09-11-2023 End: 09-11-2023 ambulatory James Yanes APRN.RAIL SIGNAL DESIGNER Work Phone: Endocrinology Comment on above: Type 2 diabetes fidel itus without complication, without long- term current use of insulin (HCC) (Primary Dx); Essential hypertension; Overweight with body mass index (BMI) of 29 to 29.9 in adult Start: 09-11-2023 End: 09-11-2023 Telemedicine consultation with patient James Miramontesaga RAMEY.RAIL SIGNAL DESIGNER Work Phone: [facility] Start: 06-14-2023 Telephone encounter James landers FINISHING MANAGER.RAIL SIGNAL DESIGNER Work Phone: Endocrinology Comment on above: Diabetic Eye Exam ([facility] 06/14/23) Start: 05-30-2023 End: 05-30-2023 Emergency department patient visit [facility]-Emergency Department Work Phone: Start: 05-22-2023 ambulatory James flores FINISHING MANAGER.RAIL SIGNAL DESIGNER Work Phone: Endocrinology Comment on above: Monjaro dosage Start: 05-10-2023 Refill Denny Santana DO Work Phone: Rheumatology Comment on above: Refill Request Start: 05-09-2023 End: 05-09-2023 ambulatory [facility] Work Phone: Start: 05-09-2023 End: 05-09-2023 Patient encounter procedure [facility]iology, [place] Work Phone: Start: 05-08-2023 End: 05-08-2023 ambulatory [facility] Ambulatory Start: 05-08-2023 End: 05-08-2023 Phys/qhp telephone evaluation 5-10 min Matthew Morales APRN-RAIL SIGNAL DESIGNER Work Phone: [facility] Comment on above: 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 (Primary Dx) Start: 02-20-2023 Rx Renewal Referring Prov ider Unknown AE-IWLAK-Myikrztjrcz 300 Work Phone: Start: 02-17-2023 Rx Change Referring Prov ider Unknown HJ-TUZKR-Hkhnxtoloqq 300 Work Phone: Start: 02-03-2023 AUDIT Referring Prov ider Unknown JT-AIHTM-Oyuynmjfmva 300 Work Phone: Start: 01-27-2023 ambulatory PCP UNKNOWN Facility:[id number] Start: 01-11-2023 Documentation procedure Mammog anabella Coordinator [facility] Start: 01-11-2023 Letter encounter Mammography Coordinator [facility] Department Start: 01-11-2023 End: 01-11-2023 Subsequent hospital visit by physician Screen Mammo [facility] Start: 08-11-2022 End: 08-11-2022 Patient encounter procedure James Yanes APRN.CNP Work Phone: Endocrinology Comment on above: Type 2 diabetes fidel itus without complication, without long- term current use of insulin (HCC) (Primary Dx); Essential hypertension; Obesity, Class I, BMI 30-34.9 Start: 07-27-2022 End: 07-27-2022 Patient encounter procedure Christian Herr MD Work Phone: Rheumatology Comment on above: Sjogren's syndrome w ith keratoconjunctivitis sicca (HCC) (Primary Dx); Primary osteoarthritis involving multiple joints Start: 07-20-2022 End: 07-20-2022 ambulatory [facility] Work Phone: Start: 07-20-2022 End: 07-20-2022 Patient encounter procedure [facility]-Laboratory Start: 05-05-2022 Refill Christian abad MD Work Phone: Rheumatology Comment on above: Refill Request Start: 04-13-2022 End: 04-13-2022 Emergency department patient visit [facility]-Emergency Department Start: 02-08-2022 End: 02-08-2022 Emergency department patient visit [facility]-Emergency Department Start: 02-07-2022 End: 02-07-2022 ambulatory Christian Herr MD Work Phone: Rheumatology Comment on above: Sjogren's syndrome w ith keratoconjunctivitis sicca (HCC) (Primary Dx); Primary osteoarthritis involving multiple joints Start: 02-07-2022 End: 02-07-2022 Telemedicine consultation with patient Christian Herr MD Work Phone: [facility] Start: 01-27-2022 Telephone encounter Ailyn Jolley ([facility]) [facility] Comment on above: Appointment Start: 01-26-2022 End: 01-26-2022 ambulatory James Yanes FINISHING MANAGER.RAIL SIGNAL DESIGNER Work Phone: Endocrinology Comment on above: Type 2 diabetes fidel itus without complication, without long- term current use of insulin (HCC) (Primary Dx); HYPERTENSION BENIGN; Elevated LFTs Start: 01-26-2022 End: 01-26-2022 Telemedicine consultation with patient James Yanes FINISHING MANAGER.RAIL SIGNAL DESIGNER Work Phone: [facility] Start: 01-11-2022 Refill James flores FINISHING MANAGER.RAIL SIGNAL DESIGNER Work Phone: Endocrinology Comment on above: Refill Request Start: 11-02-2021 End: 11-02-2021 Patient encounter procedure Christian Herr MD Work Phone: Rheumatology Comment on above: Sjogren's syndrome w ith keratoconjunctivitis sicca (HCC) (Primary Dx); Primary osteoarthritis involving multiple joints Start: 04-21-2021 End: 04-21-[address] DAHLIA REDDING MD [facility] Start: 04-20-2021 End: 04-21-2021 Emergency department patient visit IRLANDA VALENZUELA DO [facility] Start: 07-17-2014 End: 09-03-2015 Patient encounter status James Yanes FINISHING MANAGER.RAIL SIGNAL DESIGNER Work Phone: [facility] Procedures Date Procedure Procedure Detail Performing Clinician Start: 05-09-2023 X-ray of lumbosacral spine Start: 01-11-2023 End: 01-11-2023 Mammography [facility] Provider Start: 08-11-2022 Hemoglobin A1c/Hemoglobin.total in Blood James Yanes APRN.CNP Work Phone: Start: 04-13-2022 CT cervical spine without contrast Start: 04-13-2022 CT of head without contrast Start: 02-08-2022 X-ray of cervical spine Start: 02-08-2022 Radiography of thoracic spine Start: 10-26-2021 Adult depression screening assessment Christian Herr MD Work Phone: Start: 03-31-2021 Mammography Christian Herr MD Work Phone: Start: 12-10-2018 Left heart cath by transeptal puncture IRLANDA VALENZUELA DO Start: 02-09-2017 Gynecologic examination Encounter for gynecological examination (general) (routine) with abnormal findings Becca Plummer MD Start: 02-09-2017 Screening for malignant neoplasm of cervix Screening for cervical cancer Becca Plummer MD Start: 02-09-2017 Screening mammography Screening mammogram for breast cancer Becca Plummer MD Start: 07-08-2013 Colonoscopy Christian Herr MD Work Phone: Cardiovascular stres s test abnormal (finding) IRLANDA VALENZUELA DO Catheterization of l eft heart IRLANDA VALENZUELA DO Operation on gallbladder Ref erring Provider Unknown Operative procedure on ankle Referring Provider Unknown Tonsillectomy Referring Prov ider Unknown Plan of Treatment Date Care Activity Detail Author Start: 03-30-2026 HPV TESTING HPV TESTING [facility] Start: 03-30-2026 PAP TESTING PAP TESTING [facility] Start: 03-30-2026 Screening for malignant neoplasm of cervix [facility] Start: 09-10-2025 Hepatitis B screening Urine Albumin:Creatinine Ratio [facility] Start: 09-10-2025 Hepatitis B surface antibody level LDL Cholesterol [facility] Start: 06-07-2025 End: 09-06-2025 Comprehensive metabolic 2000 panel - Serum or Plasma COMPREHENSIVE METABOLIC PANEL Lab Routine Type 2 diabetes mellitus without complication, without long-term current use of insulin (HCC) Expected: 06/07/2025 (Approximate), Expires: 09/06/2025 [facility] Work Phone: Comment on above: Expected: 06/07/2025 (Approximate), Expi res: 09/06/2025 Start: 06-07-2025 End: 09-06-2025 Hemoglobin A1c in Blood HEMOGLOBIN A1C Lab Routine Type 2 diabetes mellitus without complication, without long-term current use of insulin (HCC) Expected: 06/07/2025 (Approximate), Expires: 09/06/2025 [facility] Comment on above: Expected: 06/07/2025 (Approximate), Expi res: 09/06/2025 Start: 06-07-2025 End: 09-06-2025 Lipid 1996 panel - Serum or Plasma LIPID PANEL, FASTING Lab Routine Type 2 diabetes mellitus without complication, without long-term current use of insulin (HCC) Expected: 06/07/2025 (Approximate), Expires: 09/06/2025 [facility] Comment on above: Expected: 06/07/2025 (Approximate), Expi res: 09/06/2025 Start: 05-05-2025 End: 05-05-2025 Patient encounter procedure 05/05/2025 2:00 PM EDT Office Visit [facility] [address] [id number] Luz España MD [address] [place] [address] NEW MENOPAUSE CONSULT - HRT [facility] Comment on above: NEW MENOPAUSE CONSULT - HRT Start: 04-18-2025 End: 04-18-2025 Patient encounter procedure 04/18/2025 2:20 PM EDT Office Visit [facility] [address] [address] Luz España MD [address] [place] [address] NEW MENOPAUSE CONSULT - HRT [facility] Comment on above: NEW MENOPAUSE CONSULT - HRT Start: 03-14-2025 Hepatitis B screening Urine Albumin:Creatinine Ratio [facility] Start: 03-14-2025 Hepatitis B surface antibody level LDL Cholesterol [facility] Start: 03-13-2025 Hemoglobin A1c measurement HbA1C [facility] olivia Start: 03-10-2025 Influenza vaccination Influenza Vaccine (Season Ended) [facility] Start: 01-29-2025 Protein measurement [facility] Start: 01-28-2025 Evaluation of diagnostic study results [facility] Start: 09-12-2024 End: 12-12-2024 Comprehensive metabolic 2000 panel - Serum or Plasma COMPREHENSIVE METABOLIC PANEL Lab Routine Type 2 diabetes mellitus without complication, without long-term current use of insulin (HCC) Expected: 09/12/2024 (Approximate), Expires: 12/12/2024 [facility] Comment on above: Expected: 09/12/2024 (Approximate), Expi res: 12/12/2024 Start: 09-12-2024 End: 12-12-2024 Hemoglobin A1c in Blood HEMOGLOBIN A1C Lab Routine Type 2 diabetes mellitus without complication, without long-term current use of insulin (HCC) Expected: 09/12/2024 (Approximate), Expires: 12/12/2024 [facility] Comment on above: Expected: 09/12/2024 (Approximate), Expi res: 12/12/2024 Start: 09-12-2024 End: 12-12-2024 Lipid 1996 panel - Serum or Plasma LIPID PANEL BASIC Lab Routine Type 2 diabetes mellitus without complication, without long-term current use of insulin (HCC) Expected: 09/12/2024 (Approximate), Expires: 12/12/2024 [facility] Comment on above: Expected: 09/12/2024 (Approximate), Expi res: 12/12/2024 Start: 09-12-2024 End: 12-12-2024 Microalbumin/Creatinine [Mass Ratio] in Urine ALBUMIN/CREATININE RATIO, URINE Lab Routine Type 2 diabetes mellitus without complication, without long-term current use of insulin (HCC) Expected: 09/12/2024 (Approximate), Expires: 12/12/2024 [facility] Comment on above: Expected: 09/12/2024 (Approximate), Expi res: 12/12/2024 Start: 09-11-2024 Hemoglobin A1c measurement HbA1C [facility] olivia Start: 07-06-2024 Hepatitis B surface antibody level LDL Cholesterol [facility] Start: 06-14-2024 Glaucoma screening Dilated Retinal Exam [facility] Start: 06-14-2024 Hepatitis C antibody, confirmatory test Dilated Retinal Exam [facility] Start: 03-19-2024 End: 06-18-2024 Potassium [Moles/volume] in Serum or Plasma POTASSIUM Lab Routine Hypokalemia Expected: 03/19/2024, Expires: 06/18/2024 [facility] Work Phone: Comment on above: Expected: 03/19/2024, Expires: Start: 03-15-2024 End: 06-14-2024 Comprehensive metabolic 2000 panel - Serum or Plasma COMPREHENSIVE METABOLIC PANEL Lab Routine Type 2 diabetes mellitus without complication, without long-term current use of insulin (HCC) Hypercalcemia Expected: 03/15/2024 (Approximate), Expires: 06/14/2024 [facility] Work Phone: Comment on above: Expected: 03/15/2024 (Approximate), Expi res: 06/14/2024 Start: 03-15-2024 End: 03-15-2024 ambulatory 03/15/2024 7:30 AM EDT [facility] [address] [address] HerbertJames, FINISHING MANAGER.RAIL SIGNAL DESIGNER [address] [address] [facility] Comment on above: Diabetes Start: 03-13-2024 End: 06-12-2024 ALBUMIN/CREAT RATIO RND UR ALBUMIN/CREAT RATIO RND UR Lab Routine Type 2 diabetes mellitus without complication, without long-term current use of insulin (HCC) Expected: 03/13/2024 (Approximate), Expires: 06/12/2024 [facility] Work Phone: Comment on above: Expected: 03/13/2024 (Approximate), Expi res: 06/12/2024 Start: 03-13-2024 End: 06-12-2024 Comprehensive metabolic 2000 panel - Serum or Plasma COMP METABOLIC PANEL Lab Routine Type 2 diabetes mellitus without complication, without long-term current use of insulin (HCC) Expected: 03/13/2024 (Approximate), Expires: 06/12/2024 [facility] Work Phone: Comment on above: Expected: 03/13/2024 (Approximate), Expi res: 06/12/2024 Start: 03-13-2024 End: 06-12-2024 Hemoglobin A1c in Blood HGB A1C Lab Routine Type 2 diabetes mellitus without complication, without long-term current use of insulin (HCC) Expected: 03/13/2024 (Approximate), Expires: 06/12/2024 [facility] Work Phone: Comment on above: Expected: 03/13/2024 (Approximate), Expi res: 06/12/2024 Start: 03-13-2024 End: 06-12-2024 Lipid 1996 panel - Serum or Plasma LIPID PANEL BASIC Lab Routine Type 2 diabetes mellitus without complication, without long-term current use of insulin (HCC) Expected: 03/13/2024 (Approximate), Expires: 06/12/2024 [facility] Work Phone: Comment on above: Expected: 03/13/2024 (Approximate), Expi res: 06/12/2024 Start: 03-13-2024 End: 03-13-2024 ambulatory 03/13/2024 9:30 AM EDT Results Only [facility] [address] [place] [address] [facility] Start: 03-10-2024 Covid-19 Vaccine ( season) Covid-19 Vaccine ( season) [facility] Start: 03-10-2024 Covid-19 Vaccine () Covid-19 Vaccine ( season) [facility] Start: 03-10-2024 Influenza vaccination [facility] Start: 02-03-2024 Diabetes mellitus screening Diabetes Screening [facility] Start: 02-03-2024 Hepatitis B screening Urine Albumin:Creatinine Ratio [facility] Start: 02-03-2024 Hepatitis B surface antibody level LDL Cholesterol [facility] Start: 01-12-2024 Mammography [facility] Start: 01-12-2024 Screening for malignant neoplasm of breast [facility] Start: 01-05-2024 Hemoglobin A1c measurement HbA1C [facility] olivia Start: 10-16-2023 [facility] Start: 08-11-2023 3 comp foot exam completed DIABETIC FOOT EXAM [facility] Start: 08-11-2023 Diabetic foot examination Diabetic Foot Exam [facility] Start: 08-05-2023 Hemoglobin A1c/Hemoglobin.total in Blood HbA1C [facility] Start: 07-10-2023 Behavioral Health Screening Behavioral Health Screening [facility] Start: 07-10-2023 Depression Assessment Depression Assessment [facility] Start: 07-08-2023 Colonoscopy COLONOSCOPY [facility] Start: 07-08-2023 COLORECTAL CANCER SCREENING COLORECTAL CANCER SCREENING [facility] Start: 07-08-2023 Screening for malignant neoplasm of colon [facility] Start: 05-30-2023 Enteric precautions [facility] Start: 03-17-2023 DARRIN, Provider: Matthew Morales, Status: Pen, Time: 10:00 AM DARRIN, Provider: Matthew Morales, Status: Pen, Time: 10:00 AM [id number] Work Phone: Start: 03-11-2023 Hepatitis B screening URINE ALBUMIN:CREATININE RATIO [facility] Start: 03-11-2023 Hepatitis B surface antibody level LDL CHOLESTEROL [facility] Start: 03-10-2023 Covid-19 Vaccine ( season) Covid-19 Vaccine ( season) [facility] Start: 03-10-2023 Influenza vaccination [facility] Start: 02-08-2023 End: 04-10-2023 ALBUMIN/CREAT RATIO RND UR ALBUMIN/CREAT RATIO RND UR Lab Routine Type 2 diabetes mellitus without complication, without long-term current use of insulin (HCC) Expected: 02/08/2023 (Approximate), Expires: 04/10/2023 [facility] Work Phone: Comment on above: Expected: 02/08/2023 (Approximate), Expi res: 04/10/2023 Start: 02-08-2023 End: 04-10-2023 Comprehensive metabolic 2000 panel - Serum or Plasma COMP METABOLIC PANEL Lab Routine Type 2 diabetes mellitus without complication, without long-term current use of insulin (HCC) Expected: 02/08/2023 (Approximate), Expires: 04/10/2023 [facility] Work Phone: Comment on above: Expected: 02/08/2023 (Approximate), Expi res: 04/10/2023 Start: 02-08-2023 End: 04-10-2023 Hemoglobin A1c in Blood HGB A1C Lab Routine Type 2 diabetes mellitus without complication, without long-term current use of insulin (HCC) Expected: 02/08/2023 (Approximate), Expires: 04/10/2023 [facility] Work Phone: Comment on above: Expected: 02/08/2023 (Approximate), Expi res: 04/10/2023 Start: 02-08-2023 Hemoglobin A1c/Hemoglobin.total in Blood HBA1C [facility] Start: 02-08-2023 End: 04-10-2023 Lipid 1996 panel - Serum or Plasma LIPID PANEL BASIC Lab Routine Type 2 diabetes mellitus without complication, without long-term current use of insulin (HCC) Expected: 02/08/2023 (Approximate), Expires: 04/10/2023 [facility] Work Phone: Comment on above: Expected: 02/08/2023 (Approximate), Expi res: 04/10/2023 Start: 10-26-2022 Adult depression screening assessment DEPRESSION SCREENING [facility] Start: 09-08-2022 Hemoglobin A1c/Hemoglobin.total in Blood HBA1C [facility] Start: 07-20-2022 Procedure [facility] Start: 07-10-2022 DEPRESSION ASSESSMENT DEPRESSION ASSESSMENT [facility] Start: 05-05-2022 Hepatitis C antibody, confirmatory test DILATED RETINAL EXAM [facility] Start: 03-31-2022 Mammography MAMMOGRAM [facility] Start: 03-17-2022 Hepatitis B screening URINE ALBUMIN:CREATININE RATIO [facility] Start: 03-10-2022 Influenza vaccination [facility] Start: 02-09-2022 End: 04-11-2022 ALBUMIN/CREAT RATIO RND UR ALBUMIN/CREAT RATIO RND UR Lab Routine Type 2 diabetes mellitus without complication, without long-term current use of insulin (HCC) Expected: 02/09/2022 (Approximate), Expires: 04/11/2022 [facility] Work Phone: Comment on above: Expected: 02/09/2022 (Approximate), Expi res: 04/11/2022 Start: 02-09-2022 End: 04-11-2022 Hemoglobin A1c in Blood HGB A1C Lab Routine Type 2 diabetes mellitus without complication, without long-term current use of insulin (HCC) Expected: 02/09/2022 (Approximate), Expires: 04/11/2022 [facility] Work Phone: Comment on above: Expected: 02/09/2022 (Approximate), Expi res: 04/11/2022 Start: 02-09-2022 End: 04-11-2022 Lipid 1996 panel - Serum or Plasma LIPID PANEL BASIC Lab Routine Type 2 diabetes mellitus without complication, without long-term current use of insulin (HCC) Expected: 02/09/2022 (Approximate), Expires: 04/11/2022 [facility] Work Phone: Comment on above: Expected: 02/09/2022 (Approximate), Expi res: 04/11/2022 Start: 09-14-2021 Hemoglobin A1c/Hemoglobin.total in Blood HBA1C [facility] Start: 08-14-2021 Hepatitis B surface antibody level LDL CHOLESTEROL [facility] Start: 07-10-2021 DEPRESSION ASSESSMENT DEPRESSION ASSESSMENT [facility] Start: 2021 SHINGRIX VACCINE (1 of 2) SHINGRIX VACCINE (1 of 2) [facility] Start: 2021 Zoster Vaccines (1 of 2) Zoster Vaccines (1 of 2) [facility] Start: 12-11-2020 3 comp foot exam completed DIABETIC FOOT EXAM [facility] Start: 03-21-2017 End: 03-21-2017 Appointment Appointment [facility] Start: 02-09-2017 End: 02-09-2017 Appointment Appointment [facility] Start: 02-09-2017 End: 02-09-2017 Mammogram, screening Mammogram, Screening, both breasts [facility] Start: 01-14-2016 COLOGUARD (FIT-DNA) COLOGUARD (FIT-DNA) [facility] Start: 01-14-[address] COLONOGRAPHY [facility] Start: 01-14-2016 FECAL OCCULT BLOOD FECAL OCCULT BLOOD [facility] Start: 01-14-2016 Screening for malignant neoplasm of colon [facility] Start: 01-14-2016 SIGMOIDOSCOPY SIGMOIDOSCOPY [facility] Start: 1993 DTaP/Tdap/Td Vaccines (1 - Tdap) DTaP/Tdap/Td Vaccines (1 - Tdap) [facility] Start: 01-14-1992 Screening for malignant neoplasm of cervix [facility] Start: 1990 HEPATITIS B (1 of 3 - Risk 3-dose series) HEPATITIS B (1 of 3 - Risk 3-dose series) [facility] Start: 1990 Hepatitis B Vaccine (1 of 3 - 19+ 3-dose series) Hepatitis B Vaccine (1 of 3 - 19+ 3-dose series) [facility] Start: 1990 Pneumococcal Vaccine: 50+ (1 of 2 - PCV) Pneumococcal Vaccine: 50+ (1 of 2 - PCV) [facility] Start: 1990 SHINGRIX VACCINE (1 of 2) SHINGRIX VACCINE (1 of 2) [facility] Start: 1990 Urine microalbumin profile [facility] Start: 1989 ANNUAL PCP TEAM CHRONIC DISEASE VISIT ANNUAL PCP TEAM CHRONIC DISEASE VISIT [facility] Start: 1989 Anxiety Screening Anxiety Screening [facility] Start: 1989 BP CONTROLLED (<130/80) BP CONTROLLED (<130/80) [facility] Start: 1989 Depression Screening Depression Screening [facility] Start: 1989 Hepatitis C screening Hepatitis C Screening [facility] Start: 1989 HIV SCREENING HIV SCREENING [facility] Start: 1989 HIV screening HIV Screening [facility] Start: 1987 ONE PNEUMOVAX PRIOR TO AGE 65 ONE PNEUMOVAX PRIOR TO AGE 65 [facility] Start: 1983 COVID-19 VACCINE (1) COVID-19 VACCINE (1) [facility] Start: 1977 PNEUMOCOCCAL (1 - PCV) PNEUMOCOCCAL (1 - PCV) [facility] Start: 1977 Pneumococcal vaccination [facility] Start: 01-14-1976 COVID-19 VACCINE (#1) COVID-19 VACCINE (#1) [facility] Start: 01-14-1972 MMR Vaccines (1 of 1 - Standard series) MMR Vaccines (1 of 1 - Standard series) [facility] Start: 1971 COVID-19 VACCINE (#1) COVID-19 VACCINE (#1) [facility] Start: 1971 HEPATITIS B (1 of 3 - 3-dose series) HEPATITIS B (1 of 3 - 3-dose series) [facility] Start: 1971 Hepatitis B Vaccine (1 of 3 - 3-dose series) Hepatitis B Vaccine (1 of 3 - 3-dose series) [facility] Start: 1971 Hepatitis B Vaccines (1 of 3 - 3-dose series) Hepatitis B Vaccines (1 of 3 - 3-dose series) [facility] Start: 1971 HIV screening HIV Screening [facility] Start: 1971 Lipid panel Lipid Panel [facility] Start: 1971 Screening for malignant neoplasm of colon [facility] Start: 1971 Yearly Adult Physical Yearly Adult Physical [facility] Dehydroepiandrostero ne sulfate (DHEA-S) [Mass/volume] in Serum or Plasma [facility] Helicobacter pylori Ag [Presence] in Stool by Immunoassay [facility] Lactic acid measurement [facility] Patient Education [facility] Work Phone: Patient referral [facility] Work Phone: Protein measurement [facility] Serum testosterone measurement [facility] Testosterone measurement [facility] Thyroglobulin antibo dy measurement [facility] Thyroperoxidase Ab [Units/volume] in Serum or Plasma [facility] Immunizations Immunization Date Immunization Notes Care Provider Fa lexy 06-07-2016 influenza virus vacc ine, unspecified formulation Denny Esther DO Work Phone: [facility] Payers Date Payer Category Payer Self-pay [id number] 2024 [employer] BLUE ACCE SS PPO [id number] 2016 Unknown JAH HOOVER ACCE SS PPO [id number] 2016-Present [phone] [place] [address] [id number] 2016 Unknown [id number] 2016 Unknown [id number] 1970 Unknown [id number] 1971 Unknown [id number] Unknown [id number] Unknown [id number] Unknown [id number] Unknown [id number] Unknown [id number] Social History Date Type Detail Facility Start: 04-20-2021 End: 01-14-2025 Never smoked tobacco (finding) [facility] Assigned At [facility] Start: 11-02-2021 End: 10-10-2023 Alcohol intake Ex-drinker (finding) [facility] Start: 03-30-2021 History SDOH Alcohol Comment rare [facility] Start: 1970 Sex Assigned At Female [facility] Start: 01-10-2022 End: 05-08-2023 Exposure to SARS-CoV-2 (event) Not sure [facility] Start: 02-08-2022 End: 05-30-2023 Tobacco smoking status NHIS Unknown if ever smoked [facility] Start: 08-21-2018 Rare [facility] Start: 08-21-2018 None [facility] Start: 08-21-2018 Spouse/ Significant Other [facility] Start: 01-04-2011 End: 07-27-2022 Tobacco use and exposure Smokeless tobacco non-user [facility] Work Phone: Start: 08-11-2022 End: 04-17-2023 No tobacco/smoke exposure No tobacco/smoke exposure [facility] Start: 1970 Sex Assigned At Not on file [facility] Work Phone: Start: 08-11-2022 End: 04-17-2023 Gender identity Not on file [facility] Adult Depression Screening Assessment 2 [facility] Start: 08-31-2021 Gender identity Identifies as female gender (finding) [facility] Start: 08-31-2021 Sexual orientation Heterosexual (finding) [facility] Medical Equipment Procedure Code Equipment Code Equipment Origin al Text Equipment Identifier Dates twice daily. Use as instructed End: 11-02-2021 Comment on above: twice daily. Use as instructed Goals Date Patient Goal Desired Activity /State Functional Status Date Assessment Result Facility 02-10-2015 Are you deaf, or do you have serious difficulty hearing No 02/10/2015 10:20 AM Amber King LPN No [facility] 02-10-2015 Are you blind, or do you have serious difficulty seeing, even when wearing glasses No 02/10/2015 10:20 AM Amber King LPN No [facility] 02-10-2015 Do you have serious difficulty walking or climbing stairs No 02/10/2015 10:20 AM Amber King LPN No [facility] 02-10-2015 Do you have difficul ty dressing or bathing No 02/10/2015 10:20 AM Amber King LPN No [facility] 02-10-2015 Because of a physica l, mental, or emotional condition, do you have difficulty doing errands alone such as visiting a physician's office or shopping No 02/10/2015 10:20 AM Amber King LPN No [facility] Mental Status Date Assessment Result Facility 02-10-2015 Because of a physica l, mental, or emotional condition, do you have serious difficulty concentrating, remembering, or making decisions No 02/10/2015 10:20 AM Amber King LPN No [facility] Clinical Notes 07-17-2014 to 01-28-2025 Note Date & Type Note Facility 01-28-2025 Progress note [facility] 01-28-2025 Progress note Note Date/Time January 28, 2025 11:00am [facility] [address] [place] [address] OFFICE VISIT Date of Service: 01/28/25 MR#: [id number] Acct: [id number] Name: TAMIKA ROCHA Rep #: [id number] : 1970 Provider: Dr. Curtis Paulson MD Age/Sex: 55/F Location: [facility] Status: Signed HPI HPI History of Present Illness Details: This lady with history of nonischemic cardiomyopathy, minimal nonobstructive CAD, hypertension and diabetes mellitus is here for follow-up visit. She continues to complain of anterior chest discomfort. According to her, it is there most of the time. Not related to exertion. Denies orthopnea. No PND. No ankle edema. Intake Vital Signs 01/14/25 08:49 01/28/25 10:33 Height 5 ft 6 in 5 ft 6 in Weight: 178 lb 4 oz 177 lb BMI 28.8 28.5 BP 116/84 H 117/82 H Blood Pressure Location Lt brachial Position Sitting Respiration 16 18 Pulse 75 70 Pulse Source Monitor Temp 97.8 F Pulse Oximetry (%) 98 99 Oxygen Delivery Method room air room air Intake Visit Reasons: 6 M FU Registered Land Surveyor Required: No Accompanied by: Self Is patient in pain?: No Allergies pistachio nut Allergy (Verified 01/28/25 10:34) Hives hydrocodone Adverse Reaction (Mild, Verified 01/28/25 10:34) Itching ibuprofen (From Motrin) Adverse Reaction (Verified 01/28/25 10:34) stomach pain Medications ?Medication ?Instructions ?Recorded ?Confirmed ?Type lisinopril 40 mg tablet 40 mg PO DAILY blood pressur e 11/22/14 01/28/25 History magnesium oxide 200 mg PO DAILY 08/20/18 History hydroxychloroquine 200 mg tablet 200 mg PO BID 2 01/28/25 History progesterone micronized 100 mg 100 mg PO QHS 05/30/23 01/28/25 History capsule tirzepatide 7.5 mg/0.5 mL 7.5 mg subcut QWEEK 12/18/23 01/28/25 History subcutaneous pen injector (Ralf) metoprolol succinate 50 mg 25 mg PO DAILY 01/26/24 History tablet,extended release 24 hr pantoprazole 40 mg tablet,delayed 40 mg PO QDAY #90 ta bs 01/14/25 01/14/25 Rx release sodium,potassium,mag sulfates 17.5 See Rx Instructions PO .COMPLEX 01/22/25 Rx gram-3.13 gram-1.6 gram oral soln #354 mL (Suprep Bowel Prep Kit) estradiol 0.05 mg/24 hr semiweekly 1 patch transdermal .once weekly 01/28/25 01/28/25 History transdermal patch Have you fallen in the past year?: No PFSH Medical History IBS (irritable bowel syndrome) Anxiety Chronic systolic congestive heart failure SHAWN (obstructive sleep apnea) Abnormal LFTs Arthralgia Fatigue Diabetes Hypertension Segmental and somatic dysfunction of pelvic region Segmental and somatic dysfunction of cervical region Segmental and somatic dysfunction of lumbar region Segmental and somatic dysfunction of thoracic region Chest pain COVID-19 Sjogren's disease Essential (primary) hypertension Nonischemic cardiomyopathy History of uterine anomaly Bilateral headaches Arthritis Surgical History Hx of bilateral cataract extraction Hx of shoulder surgery History of ankle surgery (~03/27/19) Hx laparoscopic cholecystectomy (~07/26/02) Hx of dilation and curettage Hx of breast reduction, elective History of left heart catheterization (08/21/18) History of tonsillectomy Family History Mother Hypertension Cancer skin Diabetes Father Hypertension Grandmother Hypertension Grandfather Colon cancer Grandmother Hypertension CHF (congestive heart failure) Grandfather Diabetes Heart disease Hypertension Sister Hypertension Other Arthritis Social History housing: house Smoking Status: Never smoker alcohol intake: current alcohol intake frequency: a few times a month Alcohol type: wine substance use type: does not use caffeine: Yes (1 per day) what type of physical activity do you participate in: walking frequency: 1-2 times per week ROS Const Const: Positive for fatigue; Negative for weakness ENT ENT: Negative for dizziness or balance problems Cardio Chest Pain: Yes Palpitations: No Edema: Bilateral Muscle aches with walking: None Resp Respiratory: Positive for SOB with activity and SOB at rest; Negative for SOB orthopnea\SOB lying down GI GI: Positive for nausea, vomiting and heartburn Musc Musc: Negative for muscle weakness or balance problems Neuro Neuro: Negative for dizziness, lightheadedness, near syncope, syncope or weakness Endo Endo: Positive for fatigue Cardiology Exam Const Appearance: comfortable and no acute distress Nutritional Appearance: well nourished Neck Neck: no JVD Carotids: Negative bruit Chest Auscultation: Bilateral: Clear to Auscultation Cardio Rate: regular rate Rhythm: regular rhythm Heart sounds: S1 normal and S2 normal Neuro General: patient alert, patient awake and patient oriented x3 Extremities Lower Extremity Edema: None: Bilateral Supplemental Info Supplemental Information Labs: No Data to Display Diagnostics: Electrocardiogram Echocardiogram Chest X-Ray Coronary Angiography CT Pulmonary: No Data to Display Past Visits: Cardiology Visit 01/28/25 Assessment and Plan Assessment and Plan (1) Chest pain: Status: Chronic Plan: Atypical. Previous coronary angiography negative for CAD. Recent coronary CT angio showed only minimal disease. Patient counseled. Reassured. (2) Mild coronary artery disease: Status: Chronic Plan: Mild coronary calcification noted on coronary CT angio. Start enteric-coated aspirin 81 mg daily. For risk factor modification. Her last LDL cholesterol was 102 mg/dL. I recommended that we start her on a statin. However she declines that for now. (3) Nonischemic cardiomyopathy: Status: Chronic Plan: Repeat echocardiogram. Continue lisinopril. Increase metoprolol ER from 50 to 100 mg daily. I recommended that the patient be started on SGLT2 inhibitors. However she declines that. (4) Hypertension: Status: Chronic Plan: Beta-blockers and ACEI. (5) Diabetes: Status: Chronic Plan: As per PCP. Orders: Orders 12 Lead EKG performed by [facility] Today R00.2 - Palpitations, R07.9 - Chest pain, unspecified Plan Details Goals & Barriers: Goals Decrease pain Decrease inflammation Decrease spasm Follow Up: 6 Months Coding Level of Care Code Off vis,est,level 4 Diagnoses Chest pain R07.9 Mild coronary artery disease I25.10 Nonischemic cardiomyopathy I42.8 Hypertension I10 Diabetes E11.9 Coding Level of Care Code Off vis,est,level 4 Diagnoses Chest pain R07.9 Mild coronary artery disease I25.10 Nonischemic cardiomyopathy I42.8 Hypertension I10 Diabetes E11.9 Clinical Quality Measures Falls Risk Screening/Assistive Devices Have you fallen in the past year?: No 01/28/25 1100 <Electronically signed by Vonda Paulson MD> Date _ Vonda Paulson MD Cosigner Signature: Date (if applicable) CC: Dr. Tomasa Khan DO ~ [facility] Work Phone: 1(845) 302-124407-08-2025 Evaluation note* Diagnosis Onset Date Resolution Status Admit Date Constipation acute January 14 8:31am Diarrhea acute January 14, 2025 8:31am Epigastric pain acute January 14, 2025 8:31am Family history of ulcerative colitis acute January 14, 2025 8 :31am Nausea acute January 14, 2025 8:31am Chest pain chronic January 28 10:30am Diabetes chronic January 28 10:30am Hypertension chronic January 28, 025 10:30am Mild coronary artery disease chronic January 28, 2025 10:30am Nonischemic cardiomyopathy chronic January 28, 2025 10:30am [facility] Work Phone: 1(148) 949-331407-08-2025 Evaluation note* Diagnosis Onset Date Resolution Status Admit Date Diarrhea acute January 14, 2025 8:31am Epigastric pain acute January 14, 2025 8:31am Family history of ulcerative colitis acute January 14, 2025 8 :31am Nausea acute January 14, 2025 8:31am [facility] Work Phone: 1(292) 625-664305-29-2025 History of Present illness Narrative* James Yanes, KAROLINE.RAIL SIGNAL DESIGNER - 12/05/2024 4:15 PM EDT Reason for Consultation: DM Type 2 Referring Physician: Tomasa Khan DO [address] [facility] [place] [address] *Visit is being conducted virtually *I have communicated my name and active licensure. The patient's identity and physical location were verified at the time of this visit. Either the patient or their legal inventory representative has been informed of the risks and benefits of -- and alternatives to -- treatment through a remote evaluation and consents to proceed with the evaluation remotely. HISTORY OF PRESENT ILLNESS; Ms. Rocha is a 54 year old female presenting for follow up regarding DM Type 2. She was initially diagnosed with diabetes in October 2019; gestational DM at age 36. She does have a family history of diabetes mellitus in her Mother and grandfather. LV 03/15/24 A1C 5.1 on 09/10/24 History of diabetes, hypertension, SHAWN, non-ischemic cardiomyopathy, Liver disease, obesity, sjogrens, OA, rosacea Notes she is eating more foods she would not have before. Son just graduated. Watching her grandkids more. Weight 177lb/BMI 28.11. down from 180.2 lb /BMI 28.62 Cardiology wanted her to use SGLT2 but she opted not to. She did not want to take more pills and was worried about yeast infection. She is under the care of hematology for polycythemia and elevated ferritin. Reports liver disease (ALT 416 and AST 310) felt to be due to diabetes and inflammation from this increased her ferritin. She had a biopsy of her liver on 02/21/20 and was under the care of GI but states levels improved and she did not have to return. Also under the care of cardiology and rheumatology. Her current diabetes regimen is : Mounjaro 7.5 mg weekly Previous DM medications: Ozempic--abdominal pain * unable to use metformin due to liver disease. Regarding symptoms of hyperglycemia, she is not experiencing any symptoms such as polyuria, polydipsia, nocturia or rapid weight loss or blurry vision. She has polydipsia and blurry vision prior to dx. Exercise: uCllen Lundberg is checking her blood glucose sporadically She did not bring a logbook today for review: 7 day average 96 to 101 14 day: 86-105 30 day 86-119 90 day: 69 to 140 Hypoglycemia frequency: denies Hypoglycemia awareness: Yes Overall, the patient has no acute complaints at this time. PAST MEDICAL HISTORY Diagnosis Date Abdominal pain, epigastric ABN GLUCOSE-ANTEPARTUM 02/22/2006 Benign neoplasm of stomach Chronic systolic congestive heart failure (HCC) 11/01/2018 Diabetes (HCC) 10/2019 A1C 11.8 Dysmetabolic syndrome X Esophageal reflux Lichen sclerosus et atrophicus Menorrhagia SHAWN (obstructive sleep apnea) 07/18/2012 Unspecified essential hypertension PAST SURGICAL HISTORY Procedure Laterality Date COLONOSCOPY FLX DX W/COLLJ SPEC WHEN PFRMD 2001 Colonoscopy COLONOSCOPY FLX DX W/COLLJ SPEC WHEN PFRMD 07/08/2013 Colonoscopy - 10 yr interval DILATION & CURETTAGE DX&/THER NONOBSTETRIC Dilation & curettage EGD REMOVAL TUMOR POLYP/OTHER LESION SNARE TECH 09/11/2007 ESOPHAGOGASTRODUODENOSCOPY TRANSORAL DIAGNOSTIC 06/22/2009 w/ 48 hr probe ESOPHAGOGASTRODUODENOSCOPY TRANSORAL DIAGNOSTIC 07/08/2013 EGD GASTROESOPHAG REFLX TEST W/TELEMTRY PH ELTRD 06/22/2009 LAPAROSCOPY SURG CHOLECYSTECTOMY 07/26/2002 Cholecystectomy, lap NOVASURE 05/13/2011 OTHER 03/27/2019 RIGHT ANKLE TENDON REPAIR TONSILLECTOMY PRIMARY/SECONDARY <AGE 12 Tonsillectomy FAMILY HISTORY Problem Relation Age of Onset Hypertension Mother Cancer Mother SKIN CANCER Diabetes Mother Hypertension Father Hypertension Sister Hypertension Maternal Grandmother Colon Cancer Maternal Grandfather Hypertension Paternal Grandmother Diabetes Paternal Grandfather Heart Paternal Grandfather Hypertension Paternal Grandfather Social History Tobacco Use Smoking status: Never Smokeless tobacco: Never Vaping Use Vaping status: Never Used Substance Use Topics Alcohol use: Not Currently Comment: rare Drug use: No Current Outpatient Medications Medication Sig Dispense Refill tirzepatide (MOUNJARO) 7.5 mg/0.5 mL pen injector INJECT 7.5 MG SUBCUTANEOUSLY ONCE A WEEK 6 mL 3 metoprolol succinate ER (TOPROL XL) 50 mg 24 hr tablet Take 50 mg by mouth once daily. clobetasol (TEMOVATE) 0.05 % ointment APPLY 1 APPLICATION TO AFFECTED AREA TWO TIMES A WEEK. TO AFFECTED AREA. 45 g 2 ZINC ORAL Take 1 tablet by mouth once daily. famotidine (PEPCID ORAL) Take 1 tablet by mouth once daily. magnesium oxide 200 mg magnesium tab Take 1 tablet by mouth once daily. lisinopril (ZESTRIL, PRINIVIL) 40 mg tablet Take 1 tablet by mouth once daily. 90 tablet 1 No current facility-administered medications for this visit. Allergies As of Date: 12/05/2024 Allergen Noted Reaction DILTIAZEM 01/06/2014 Other: See Comments MOTRIN [IBUPROFEN] 04/25/2011 GI Upset PISTACHIO NUT 07/16/2019 Hives HYDROCODONE 04/04/2019 Itching Fully Assessed 12/05/2024 REVIEW OF SYSTEMS: Answers submitted by the patient for this visit: Core Review of Systems (Submitted on 12/03/2024) Fever : No Night sweats: No Recent unintentional weight change: No Nasal Congestion: Yes Hearing Loss: No Vision Disturbance: No A cough: No Difficulty Breathing?: No Chest pain: Yes Irregular heartbeat: No Leg Swelling: No Nausea: Yes Diarrhea: No Black tarry stools: No Difficulty Urinating?: No Awaken at Night More Than Once to Urinate?: No Joint pain or stiffness: Yes Muscle aches: Yes Leg or Foot Discomfort at Night?: Yes A rash: No Dizziness: No Headaches: Yes Memory Loss: No Seizures: No PHYSICAL EXAM: 12/05/24 1613 Weight: 80.3 kg (177 lb) Body mass index is 28.11 kg/m . Physical Exam Constitutional: Appearance: Normal appearance. Neurological: Mental Status: She is alert and oriented to person, place, and time. Psychiatric: Mood and Affect: Mood normal. Behavior: Behavior normal. DATA: Creatinine Date Value Ref Range Status 09/10/2024 0.85 0.58 - 0.96 mg/dL Final Hemoglobin A1C (%) Date Value 09/10/2024 5.1 03/17/2021 7.1 Hemoglobin A1C (POCT) (%) Date Value 08/11/2022 5.6 ) No components found for: URINEALBUMIN Cholesterol, Total (mg/dL) Date Value 09/10/2024 171 08/14/2020 179 HDL Cholesterol (mg/dL) Date Value 09/10/2024 36 08/14/2020 35 LDL Cholesterol, Calculated (mg/dL) Date Value 09/10/2024 101 08/14/2020 123 Triglyceride (mg/dL) Date Value 09/10/2024 172 08/14/2020 103 IMPRESSION: Ms. Rocha is a 54 year old female here for evaluation of DM Type 2 complicated by hypertension, obesity RECOMMENDATIONS: (E11.9) Type 2 diabetes mellitus without complication, without long-term current use of insulin (HCC) (primary encounter diagnosis) Comment: Glycemic control is improving. Plan: tirzepatide (MOUNJARO) 10 mg/0.5 mL pen injector, COMPREHENSIVE METABOLIC PANEL, HEMOGLOBIN A1C, LIPID PANEL, FASTING Increase Mounjaro to 10 mg weekly Follow up in 6 months with labs BARREL POLISHER INSIDE (I10) Essential hypertension Comment/Plan: Managed per cardiology (E66.3, Z68.28) Overweight with body mass index (BMI) of 28 to 28.9 in adult Comment: Body mass index is 28.11 kg/m . Plan: Encouraged increase dietary and exercise efforts as able This Team Access Model visit is a virtual encounter. It required patient- provider interaction for the medical decision making as documented above. Medical Decision Making: Level: 4 - Moderate James Yanes, MSN, FINISHING MANAGER, DRAWER IN DOBBY LOOM-C, [facility] Endocrinology [facility] Medical Office [facility]/[address] [place], [place] [address] Fax: documented in this encounterKindred [facility]-29-2025 NoteHNO ID: [id number] Author: JAMES YANES APRN.RAIL SIGNAL DESIGNER Service: ? Author Type: Nurse Practitioner Type: Progress Notes Filed: 12/05/2024 16:32 Note Text: Reason for Consultation: DM Type 2 Referring Physician: Tomasa Khan, DO [address] [place] [address] *Visit is being conducted virtually *I have communicated my name and active licensure. The patient's identity and physical location were verified at the time of this visit. Either the patient or their legal inventory representative has been informed of the risks and benefits of -- and alternatives to -- treatment through a remote evaluation and consents to proceed with the evaluation remotely. HISTORY OF PRESENT ILLNESS; Ms. Rocha is a 54 year old female presenting for follow up regarding DM Type 2. She was initially diagnosed with diabetes in October 2019; gestational DM at age 36. She does have a family history of diabetes mellitus in her Mother and grandfather. LV 03/15/24 A1C 5.1 on 09/10/24 History of diabetes, hypertension, SHAWN, non-ischemic cardiomyopathy, Liver disease, obesity, sjogrens, OA, rosacea Notes she is eating more foods she would not have before. Son just graduated. Watching her grandkids more. Weight 177lb/BMI 28.11. down from 180.2 lb /BMI 28.62 Cardiology wanted her to use SGLT2 but she opted not to. She did not want to take more pills and was worried about yeast infection. She is under the care of hematology for polycythemia and elevated ferritin. Reports liver disease (ALT 416 and AST 310) felt to be due to diabetes and inflammation from this increased her ferritin. She had a biopsy of her liver on 02/21/20 and was under the care of GI but states levels improved and she did not have to return. Also under the care of cardiology and rheumatology. Her current diabetes regimen is : Mounjaro 7.5 mg weekly Previous DM medications: Ozempic--abdominal pain * unable to use metformin due to liver disease. Regarding symptoms of hyperglycemia, she is not experiencing any symptoms such as polyuria, polydipsia, nocturia or rapid weight loss or blurry vision. She has polydipsia and blurry vision prior to dx. Exercise: Cullen Lundberg is checking her blood glucose sporadically She did not bring a logbook today for review: 7 day average 96 to 101 14 day: 86-105 30 day 86-119 90 day: 69 to 140 Hypoglycemia frequency: denies Hypoglycemia awareness: Yes Overall, the patient has no acute complaints at this time. PAST MEDICAL HISTORY Diagnosis Date Abdominal pain, epigastric ABN GLUCOSE-ANTEPARTUM 02/22/2006 Benign neoplasm of stomach Chronic systolic congestive heart failure (HCC) 11/01/2018 Diabetes (HCC) 10/2019 A1C 11.8 Dysmetabolic syndrome X Esophageal reflux Lichen sclerosus et atrophicus Menorrhagia SHAWN (obstructive sleep apnea) 07/18/2012 Unspecified essential hypertension PAST SURGICAL HISTORY Procedure Laterality Date COLONOSCOPY FLX DX W/COLLJ SPEC WHEN PFRMD 2001 Colonoscopy COLONOSCOPY FLX DX W/COLLJ SPEC WHEN PFRMD 07/08/2013 Colonoscopy - 10 yr interval DILATION AND CURETTAGE DXAND/THER NONOBSTETRIC Dilation AND curettage EGD REMOVAL TUMOR POLYP/OTHER LESION SNARE TECH 09/11/2007 ESOPHAGOGASTRODUODENOSCOPY TRANSORAL DIAGNOSTIC 06/22/2009 w/ 48 hr probe ESOPHAGOGASTRODUODENOSCOPY TRANSORAL DIAGNOSTIC 07/08/2013 EGD GASTROESOPHAG REFLX TEST W/TELEMTRY PH ELTRD 06/22/2009 LAPAROSCOPY SURG CHOLECYSTECTOMY 07/26/2002 Cholecystectomy, lap NOVASURE 05/13/2011 OTHER 03/27/2019 RIGHT ANKLE TENDON REPAIR TONSILLECTOMY PRIMARY/SECONDARY Tonsillectomy FAMILY HISTORY Problem Relation Age of Onset Hypertension Mother Cancer Mother SKIN CANCER Diabetes Mother Hypertension Father Hypertension Sister Hypertension Maternal Grandmother Colon Cancer Maternal Grandfather Hypertension Paternal Grandmother Diabetes Paternal Grandfather Heart Paternal Grandfather Hypertension Paternal Grandfather Social History Tobacco Use Smoking status: Never Smokeless tobacco: Never Vaping Use Vaping status: Never Used Substance Use Topics Alcohol use: Not Currently Comment: rare Drug use: No Current Outpatient Medications Medication Sig Dispense Refill tirzepatide (MOUNJARO) 7.5 mg/0.5 mL pen injector INJECT 7.5 MG SUBCUTANEOUSLY ONCE A WEEK 6 mL 3 metoprolol succinate ER (TOPROL XL) 50 mg 24 hr tablet Take 50 mg by mouth once daily. clobetasol (TEMOVATE) 0.05 % ointment APPLY 1 APPLICATION TO AFFECTED AREA TWO TIMES A WEEK. TO AFFECTED AREA. 45 g 2 ZINC ORAL Take 1 tablet by mouth once daily. famotidine (PEPCID ORAL) Take 1 tablet by mouth once daily. magnesium oxide 200 mg magnesium tab Take 1 tablet by mouth once daily. lisinopril (ZESTRIL, PRINIVIL) 40 mg tablet Take 1 tablet by mouth once daily. 90 tablet 1 No current facility-administered medications for this visit. Allergies As of Date: 12/05/2024 Allergen Noted Re (more content not included)...[facility] 05-31-2024 Telephone encounter Note* Telephone Encounter - Vidhi Toledo MA - 05/31/2024 8:38 AM EST Prescription Refill Information The patient has been identified by name and date of : Yes Caregiver verified no other encounters exist for this prescription request: Yes Caregiver confirmed with patient/requestor that no other refills are due, in the near future, with this provider at this time: Yes The last office visit in the department: 03/15/2024 Does the patient have a future office visit with this provider/department: No Requested Prescriptions Pending Prescriptions Disp Refills MOUNJARO 7.5 mg/0.5 mL pen injector [Pharmacy Med Name: Mounjaro 7.5 MG/0.5ML Subcutaneous SolutionPen-injector] 24 mL 0 Sig: INJECT 7.5 MG SUBCUTANEOUSLY ONCE A WEEK Vidhi Toledo MA May 31, 2024 8:38 AM [facility]11-22-[facility] Miscellaneous Notes* Telephone Encounter - Vidhi Toledo MA - 05/31/2024 8:38 AM EST Prescription Refill Information The patient has been identified by name and date of : Yes Caregiver verified no other encounters exist for this prescription request: Yes Caregiver confirmed with patient/requestor that no other refills are due, in the near future, with this provider at this time: Yes The last office visit in the department: 03/15/2024 Does the patient have a future office visit with this provider/department: No Requested Prescriptions Pending Prescriptions Disp Refills MOUNJARO 7.5 mg/0.5 mL pen injector [Pharmacy Med Name: Mounjaro 7.5 MG/0.5ML Subcutaneous SolutionPen-injector] 24 mL 0 Sig: INJECT 7.5 MG SUBCUTANEOUSLY ONCE A WEEK Vidhi Toledo MA May 31, 2024 8:38 AM documented in this encounterKindred [facility]09-06-2024 History of Present illness Narrative* James Yanes APRN.RAIL SIGNAL DESIGNER - 03/15/2024 7:30 AM EDT Reason for Consultation: DM Type 2 Referring Physician: Tomasa Khan DO [address] [facility] [place] [address] *Visit is being conducted virtually *I have communicated my name and active licensure. The patient's identity and physical location were verified at the time of this visit. Either the patient or their legal inventory representative has been informed of the risks and benefits of -- and alternatives to -- treatment through a remote evaluation and consents to proceed with the evaluation remotely. HISTORY OF PRESENT ILLNESS; Ms. Rocha is a 54 year old female presenting for follow up regarding DM Type 2. She was initially diagnosed with diabetes in October 2019; gestational DM at age 36. She does have a family history of diabetes mellitus in her Mother and grandfather . LV 09/11/23 A1C 5.5 on 03/14/24 History of diabetes, hypertension, SHAWN, non-ischemic cardiomyopathy, Liver disease, obesity, sjogrens, OA, rosacea Weight 180.2 lb /BMI 28.62 She was off Mounjaro x 2 wks since recent breast surgery then took it and nausea is worse. She had abdominal pain but improved. Cardiology wanted her to use SGLT2 but she opted not to. She did not want to take more pills and was worried about yeast infection. Her current diabetes regimen is : Mounjaro 7.5 mg weekly Previous DM medications: Ozempic--abdominal pain * unable to use metformin due to liver disease. She is under the care of hematology for polycythemia and elevated ferritin. Reports liver disease (ALT 416 and AST 310) felt to be due to diabetes and inflammation from this increased her ferritin. She had a biopsy of her liver on 02/21/20 and was under the care of GI but states levels improved and she did not have to return. Recent Calcium elevated and serum creatinine as well as urine microalbuminuria are elevated. She was trying to wean off pepcid by taking 10-12 Tums per day Also under the care of cardiology and rheumatology. Regarding symptoms of hyperglycemia, she is not experiencing any symptoms such as polyuria, polydipsia, nocturia or rapid weight loss or blurry vision. She has polydipsia and blurry vision prior to dx. Exercise: Cullen Lundberg is checking her blood glucose sporadically She did not bring a logbook today for review: 102 this AM Hypoglycemia frequency: denies Hypoglycemia awareness: Yes Overall, the patient has no acute complaints at this time. PAST MEDICAL HISTORY No date: Abdominal pain, epigastric 02/22/2006: ABN GLUCOSE-ANTEPARTUM No date: Benign neoplasm of stomach 11/01/2018: Chronic systolic congestive heart failure (HCC) 10/2019: Diabetes (HCC) Comment: A1C 11.8 No date: Dysmetabolic syndrome X No date: Esophageal reflux No date: Lichen sclerosus et atrophicus No date: Menorrhagia 07/18/2012: SHAWN (obstructive sleep apnea) No date: Unspecified essential hypertension PAST SURGICAL HISTORY 2001: COLONOSCOPY FLX DX W/COLLJ SPEC WHEN PFRMD Comment: Colonoscopy 07/08/2013: COLONOSCOPY FLX DX W/COLLJ SPEC WHEN PFRMD Comment: Colonoscopy - 10 yr interval No date: DILATION & CURETTAGE DX&/THER NONOBSTETRIC Comment: Dilation & curettage 09/11/2007: EGD REMOVAL TUMOR POLYP/OTHER LESION SNARE TECH 06/22/2009: ESOPHAGOGASTRODUODENOSCOPY TRANSORAL DIAGNOSTIC Comment: w/ 48 hr probe 07/08/2013: ESOPHAGOGASTRODUODENOSCOPY TRANSORAL DIAGNOSTIC Comment: EGD 06/22/2009: GASTROESOPHAG REFLX TEST W/TELEMTRY PH ELTRD 07/26/2002: LAPAROSCOPY SURG CHOLECYSTECTOMY Comment: Cholecystectomy, lap 05/13/2011: NOVASURE 03/27/2019: OTHER Comment: RIGHT ANKLE TENDON REPAIR No date: TONSILLECTOMY PRIMARY/SECONDARY <AGE 12 Comment: Tonsillectomy FAMILY HISTORY Problem Relation Age of Onset Hypertension Mother Cancer Mother SKIN CANCER Diabetes Mother Hypertension Father Hypertension Sister Hypertension Maternal Grandmother Colon Cancer Maternal Grandfather Hypertension Paternal Grandmother Diabetes Paternal Grandfather Heart Paternal Grandfather Hypertension Paternal Grandfather Social History Tobacco Use Smoking status: Never Smokeless tobacco: Never Vaping Use Vaping status: Never Used Substance Use Topics Alcohol use: Not Currently Comment: rare Drug use: No Current Outpatient Medications Medication Sig Dispense Refill hydrOXYchloroQUINE (PLAQUENIL) 200 mg tablet Take 1 tablet by mouth two times a day. 180 tablet 3 tirzepatide (MOUNJARO) 7.5 mg/0.5 mL pen injector Inject 7.5 mg subcutaneously one time a week. 2 mL 11 metoprolol succinate ER (TOPROL XL) 50 mg 24 hr tablet Take 50 mg by mouth once daily. clobetasol (TEMOVATE) 0.05 % ointment APPLY 1 APPLICATION TO AFFECTED AREA TWO TIMES A WEEK. TO AFFECTED AREA. 45 g 2 ZINC ORAL Take 1 tablet by mouth once daily. famotidine (PEPCID ORAL) Take 1 tablet by mouth once daily. magnesium oxide 200 mg magnesium tab Take 1 tablet by mouth once daily. lisinopril (ZESTRIL, PRINIVIL) 40 mg tablet Take 1 tablet by mouth once daily. 90 tablet 1 No current facility-administered medications for this visit. Allergies As of Date: 03/15/2024 Allergen Noted Reaction DILTIAZEM 01/06/2014 Other: See Comments MOTRIN [IBUPROFEN] 04/25/2011 GI Upset PISTACHIO NUT 07/16/2019 Hives HYDROCODONE 04/04/2019 Itching Fully Assessed 03/15/2024 REVIEW OF SYSTEMS: Answers submitted by the patient for this visit: Core Review of Systems (Submitted on 03/14/2024) Fever : No Night sweats: Yes Recent unintentional weight change: No Nasal Congestion: Yes Hearing Loss: No Vision Disturbance: No A cough: No Difficulty Breathing?: No Chest pain: No Irregular heartbeat: No Leg Swelling: No Nausea: Yes Black tarry stools: No Difficulty Urinating?: No Awaken at Night More Than Once to Urinate?: No Joint pain or stiffness: No Muscle aches: No Leg or Foot Discomfort at Night?: No A rash: No Dizziness: Yes Headaches: Yes Memory Loss: No Seizures: No PHYSICAL EXAM: Body mass index is 28.62 kg/m . Physical Exam Constitutional: Appearance: Normal appearance. Neurological: Mental Status: She is alert and oriented to person, place, and time. Psychiatric: Mood and Affect: Mood normal. Behavior: Behavior normal. DATA: Creatinine Date Value Ref Range Status 03/14/2024 1.62 (H) 0.58 - 0.96 mg/dL Final Hemoglobin A1C (%) Date Value 03/14/2024 5.5 03/17/2021 7.1 Hemoglobin A1C (POCT) (%) Date Value 08/11/2022 5.6 ) No components found for: URINEALBUMIN Cholesterol, Total (mg/dL) Date Value 03/14/2024 156 08/14/2020 179 HDL Cholesterol (mg/dL) Date Value 03/14/2024 37 08/14/2020 35 LDL Cholesterol (mg/dL) Date Value 03/14/2024 97 08/14/2020 123 Triglyceride (mg/dL) Date Value 03/14/2024 111 08/14/2020 103 IMPRESSION: Ms. Rocha is a 54 year old female here for evaluation of DM Type 2 complicated by hypertension, obesity RECOMMENDATIONS: (E11.9) Type 2 diabetes mellitus without complication, without long-term current use of insulin (HCC) (primary encounter diagnosis) Comment: Glycemic control is at goal. Plan: COMPREHENSIVE METABOLIC PANEL, COMPREHENSIVE METABOLIC PANEL, HEMOGLOBIN A1C, ALBUMIN/CREATININE RATIO, URINE, LIPID PANEL BASIC Continue mounjaro Follow up in 6 months with labs BARREL POLISHER INSIDE (I10) Essential hypertension Comment/Plan: Managed per cardiology (E83.52) Hypercalcemia Comment: likely due to hydration and consumption of 10-12 TUMS per day. Plan: COMPREHENSIVE METABOLIC PANEL Stop Tums Repeat labs test on Monday ensuring good hydration. (E66.3, Z68.28) Overweight with body mass index (BMI) of 28 to 28.9 in adult Comment: Body mass index is 28.62 kg/m . Plan: Encouraged increase dietary and exercise efforts as able This Team Access Model visit is a virtual encounter. It required patient- provider interaction for the medical decision making as documented above. Medical Decision Making: Level: 4 - Moderate James Yanes, MSN, FINISHING MANAGER, DRAWER IN DOBBY LOOM-C, [facility] Endocrinology [facility] Office [facility]/[address] [place], [place] [address] Fax: documented in this encounterKindred [facility]09-06-2024 NoteHNO ID: [id number] Author: JAMES YANES APRN.RAIL SIGNAL DESIGNER Service: ? Author Type: Nurse Practitioner Type: Progress Notes Filed: 03/15/2024 07:54 Note Text: Reason for Consultation: DM Type 2 Referring Physician: Tomasa Khan DO [address] [place] [place] [facility] [address] *Visit is being conducted virtually *I have communicated my name and active licensure. The patient's identity and physical location were verified at the time of this visit. Either the patient or their legal inventory representative has been informed of the risks and benefits of -- and alternatives to -- treatment through a remote evaluation and consents to proceed with the evaluation remotely. HISTORY OF PRESENT ILLNESS; Ms. Rocha is a 54 year old female presenting for follow up regarding DM Type 2. She was initially diagnosed with diabetes in October 2019; gestational DM at age 36. She does have a family history of diabetes mellitus in her Mother and grandfather . LV 09/11/23 A1C 5.5 on 03/14/24 History of diabetes, hypertension, SHAWN, non-ischemic cardiomyopathy, Liver disease, obesity, sjogrens, OA, rosacea Weight 180.2 lb /BMI 28.62 She was off Mounjaro x 2 wks since recent breast surgery then took it and nausea is worse. She had abdominal pain but improved. Cardiology wanted her to use SGLT2 but she opted not to. She did not want to take more pills and was worried about yeast infection. Her current diabetes regimen is : Mounjaro 7.5 mg weekly Previous DM medications: Ozempic--abdominal pain * unable to use metformin due to liver disease. She is under the care of hematology for polycythemia and elevated ferritin. Reports liver disease (ALT 416 and AST 310) felt to be due to diabetes and inflammation from this increased her ferritin. She had a biopsy of her liver on 02/21/20 and was under the care of GI but states levels improved and she did not have to return. Recent Calcium elevated and serum creatinine as well as urine microalbuminuria are elevated. She was trying to wean off pepcid by taking 10-12 Tums per day Also under the care of cardiology and rheumatology. Regarding symptoms of hyperglycemia, she is not experiencing any symptoms such as polyuria, polydipsia, nocturia or rapid weight loss or blurry vision. She has polydipsia and blurry vision prior to dx. Exercise: Cullen Lundberg is checking her blood glucose sporadically She did not bring a logbook today for review: 102 this AM Hypoglycemia frequency: denies Hypoglycemia awareness: Yes Overall, the patient has no acute complaints at this time. PAST MEDICAL HISTORY No date: Abdominal pain, epigastric 02/22/2006: ABN GLUCOSE-ANTEPARTUM No date: Benign neoplasm of stomach 11/01/2018: Chronic systolic congestive heart failure (HCC) 10/2019: Diabetes (HCC) Comment: A1C 11.8 No date: Dysmetabolic syndrome X No date: Esophageal reflux No date: Lichen sclerosus et atrophicus No date: Menorrhagia 07/18/2012: SHAWN (obstructive sleep apnea) No date: Unspecified essential hypertension PAST SURGICAL HISTORY 2001: COLONOSCOPY FLX DX W/COLLJ SPEC WHEN PFRMD Comment: Colonoscopy 07/08/2013: COLONOSCOPY FLX DX W/COLLJ SPEC WHEN PFRMD Comment: Colonoscopy - 10 yr interval No date: DILATION AND CURETTAGE DXAND/THER NONOBSTETRIC Comment: Dilation AND curettage 09/11/2007: EGD REMOVAL TUMOR POLYP/OTHER LESION SNARE TECH 06/22/2009: ESOPHAGOGASTRODUODENOSCOPY TRANSORAL DIAGNOSTIC Comment: w/ 48 hr probe 07/08/2013: ESOPHAGOGASTRODUODENOSCOPY TRANSORAL DIAGNOSTIC Comment: EGD 06/22/2009: GASTROESOPHAG REFLX TEST W/TELEMTRY PH ELTRD 07/26/2002: LAPAROSCOPY SURG CHOLECYSTECTOMY Comment: Cholecystectomy, lap 05/13/2011: NOVASURE 03/27/2019: OTHER Comment: RIGHT ANKLE TENDON REPAIR No date: TONSILLECTOMY PRIMARY/SECONDARY Comment: Tonsillectomy FAMILY HISTORY Problem Relation Age of Onset Hypertension Mother Cancer Mother SKIN CANCER Diabetes Mother Hypertension Father Hypertension Sister Hypertension Maternal Grandmother Colon Cancer Maternal Grandfather Hypertension Paternal Grandmother Diabetes Paternal Grandfather Heart Paternal Grandfather Hypertension Paternal Grandfather Social History Tobacco Use Smoking status: Never Smokeless tobacco: Never Vaping Use Vaping status: Never Used Substance Use Topics Alcohol use: Not Currently Comment: rare Drug use: No Current Outpatient Medications Medication Sig Dispense Refill hydrOXYchloroQUINE (PLAQUENIL) 200 mg tablet Take 1 tablet by mouth two times a day. 180 tablet 3 tirzepatide (MOUNJARO) 7.5 mg/0.5 mL pen injector Inject 7.5 mg subcutaneously one time a week. 2 mL 11 metoprolol succinate ER (TOPROL XL) 50 mg 24 hr tablet Take 50 mg by mouth once daily. clobetasol (TEMOVATE) 0.05 % ointment APPLY 1 APPLICATION TO AFFECTED AREA TWO TIMES A WEEK. TO AFFECTED AREA. 45 g 2 ZINC ORAL Take 1 tablet by mouth once daily. famotidine (PEPCID (more content not included)...[facility] 02-23-2024 Telephone encounter Note* Telephone Encounter - Vidhi Toledo MA - 02/23/2024 3:50 PM EDT Documents faxed back to [phone] Confirmation fax received. Transmission successful. [facility]08-16-2024 Miscellaneous Notes* Telephone Encounter - Vidhi Toledo MA - 02/23/2024 3:50 PM EDT Documents faxed back to [phone] Confirmation fax received. Transmission successful. * Telephone Encounter - James Yanes APRN.CNP - 02/23/2024 2:35 PM EDT Please fax letter back to [facility]. Thank you * Telephone Encounter - Vidhi Toledo MA - 02/23/2024 10:07 AM EDT Received a letter and office notes from Dahlia Ahmadi (Nurse Practitioner) asking for your input. Documents placed on your inbox for review. documented in this encounter[facility] Telephone encounter Note * Telephone Encounter - James Yanes APRN.CNP - 02/23/2024 2:35 PM EDT Please fax letter back to [facility]YCE Ahmadi. Thank you [facility]-16-2024 Telephone encounter Note* Telephone Encounter - Vidhi Toledo MA - 02/23/2024 10:07 AM EDT Received a letter and office notes from Dahlia Ahmadi (Nurse Practitioner) asking for your input. Documents placed on your inbox for review. [facility]05-30-2024 Telephone encounter Note* Telephone Encounter - James Yanes APRN.CNP - 12/07/2023 4:12 PM EDT Noted. Thank you [facility]-30-2024 Miscellaneous Notes* Telephone Encounter - James Yanes APRN.CNP - 12/07/2023 4:12 PM EDT Noted. Thank you * Telephone Encounter - Annelise Renteria MA - 12/07/2023 2:56 PM EDT Abattoir Manager approval for Mounjaro 7.5 mg with appeal letter. Effective 12/07/23 until 12/06/26. Patient notified. Closed * Telephone Encounter - Annelise Renteria MA - 12/07/2023 10:53 AM EDT Appeal letter faxed to [facility] Prescription claim appeals at [phone], transmission ok KEEP OPEN * Telephone Encounter - James Yanes APRN.CNP - 12/07/2023 9:25 AM EDT Please send appeal letter. Thank you * Telephone Encounter - Shelly Greene RN - 12/06/2023 8:57 AM EDT Received a denial as patient's A1C is 5.7 and the A1C has been below 6.5 since 2020. * Telephone Encounter - Shelly Greene RN - 12/01/2023 2:02 PM EDT Received notification from [facility] that patient was DENIED for the Mounjaro/ Reason: Your plan only covers this drug when A) your A1C is sent to us, and your test results are in a certain range (A1C greater than or equal to 6.5%), B) your 2-hr plasma glucose during oral glucose tolerance test is sent to us, and your results are in a certain range (2-hr PG greater than or equal to 200mg/dL), C0, your random plasma glucose is sent to us, and your test results are in a certain range(random plasma glucose greater than or equal to 200mg/dL with sxms of hyperglycemia (e.g., polyuria, polydispsia, polyphagia) or hyperglycemic range crisis), or D) your fasting plasama glucose is sent to us, and your results are in a certain range (FPG greater than or equal or equal to 126mg/dL). We denied your request because: A) we did not receive your results, or B) Your results were not in the approval range. We reviewed the information we had. Your request has been denied. Your doctor can send us any new or missing information we had. Sent patient's A1C from 03/17/21 before taking GLP-1 and what the A1C is now while being on the GLP-1along with chart notes to [facility]. Will await approval/denial * Telephone Encounter - Shelly Greene RN - 11/30/2023 11:11 AM EDT TAMIKA ROCHA (Marx: [id number]) PA Rx #: [id number] Need Help? Call us at Status sent icon Sent to Plan today Drug Mounjaro 7.5MG/0.5ML pen-injectors [facility] cloud logo Form [employer] PA Form (2016 [employer]) Original Claim Info 75 Faxed last office notes and last 3 A1C's to [facility]. Transmission Ok x2 Will await approval/denial documented in this encounterKind[facility] Telephone encounter Note * Telephone Encounter - Alma Harris MA - 12/07/2023 3:35 PM EDT Refill sent to provider with updated pharmacy. [facility]-30-2024 Miscellaneous Notes* Telephone Encounter - Alma Harris MA - 12/07/2023 3:35 PM EDT Refill sent to provider with updated pharmacy. * Telephone Encounter - Tamika Greene - 12/07/2023 3:22 PM EDT Patient is calling back and does want 90 day supply with refills for plaquenil to go to [facility] mail order . * Telephone Encounter - Alma Harris MA - 12/07/2023 3:17 PM EDT Fax received for refill of Plaquenil to be sent to new pharmacy-[facility]. [facility] for pt to confirm this is where script needs to go. 1 yr supply was sent to a local pharmacy [facility] 2023. msg sent. documented in this encounterKind[facility]05-30-2024 Telephone encounter Note * Telephone Encounter - Tamika Greene - 12/07/2023 3:22 PM EDT Patient is calling back and does want 90 day supply with refills for plaquenil to go to [facility] mail order . [facility]-30-2024 Telephone encounter Note* Telephone Encounter - Alma Harris MA - 12/07/2023 3:17 PM EDT Fax received for refill of Plaquenil to be sent to new pharmacy-[facility]. M for pt to confirm this is where script needs to go. 1 yr supply was sent to a local pharmacy [place] 2023. msg sent. [facility]-30[facility]24 Telephone encounter Note* Telephone Encounter - Annelise Renteria MA - 12/07/2023 2:56 PM EDT Abattoir Manager approval for Mounjaro 7.5 mg with appeal letter. Effective 12/07/23 until 12/06/26. Patient notified. Closed [facility]-30-2024 Telephone encounter Note* Telephone Encounter - Annelise Renteria MA - 12/07/2023 10:53 AM EDT Appeal letter faxed to [facility] Prescription claim appeals at [phone], transmission ok KEEP OPEN [facility]-30-2024 Telephone encounter Note* Telephone Encounter - James Yanes APRN.CNP - 12/07/2023 9:25 AM EDT Please send appeal letter. Thank you [facility]05-29-2024 Telephone encounter Note* Telephone Encounter - Shelly Greene RN - 12/06/2023 8:57 AM EDT Received a denial as patient's A1C is 5.7 and the A1C has been below 6.5 since 2020. [facility]05-24-2024 Telephone encounter Note* Telephone Encounter - Shelly Greene RN - 12/01/2023 2:02 PM EDT Received notification from [facility] that patient was DENIED for the Mounjaro/ Reason: Your plan only covers this drug when A) your A1C is sent to us, and your test results are in a certain range (A1C greater than or equal to 6.5%), B) your 2-hr plasma glucose during oral glucose tolerance test is sent to us, and your results are in a certain range (2-hr PG greater than or equal to 200mg/dL), C0, your random plasma glucose is sent to us, and your test results are in a certain range(random plasma glucose greater than or equal to 200mg/dL with sxms of hyperglycemia (e.g., polyuria, polydispsia, polyphagia) or hyperglycemic range crisis), or D) your fasting plasama glucose is sent to us, and your results are in a certain range (FPG greater than or equal or equal to 126mg/dL). We denied your request because: A) we did not receive your results, or B) Your results were not in the approval range. We reviewed the information we had. Your request has been denied. Your doctor can send us any new or missing information we had. Sent patient's A1C from 03/17/21 before taking GLP-1 and what the A1C is now while being on the GLP-1along with chart notes to denae. Will await approval/denial [facility] Telephone encounter Note* Telephone Encounter - Shelly Greene RN - 11/30/2023 11:11 AM EDT TAMIKA ROCHA (Marx: [id number]) PA Rx #: [id number] Need Help? Call us at Status sent icon Sent to Plan today Drug Mounjaro 7.5MG/0.5ML pen-injectors [employer] cloud logo Form [employer] Electronic PA Form (2017 [facility]) Original Claim Info 75 Faxed last office notes and last 3 A1C's to [facility]. Transmission Ok x2 Will await approval/denial [facility]04-02-2024 History of Present illness Narrative* Tessa Matamoros, KAROLINE.RAIL SIGNAL DESIGNER - 10/10/2023 8:50 AM EDT Subjective Hives Associated symptoms include a rash. Pertinent negatives include no chills, fever or myalgias. Tamika Rocha is a 53 year old female who presents with hives since yesterday. She states this is from her autoimmune disease-Sjogren's syndrome- and will occasionally get a flare of symptoms including rash. She has had some recent pain in her hands and feet as well. She denies any exposure to known allergens. She has not had a fever. Review of Systems Constitutional: Negative for chills and fever. Respiratory: Negative. Cardiovascular: Negative. Musculoskeletal: Positive for joint pain. Negative for myalgias. Skin: Positive for itching and rash. BP 122/82 Pulse 67 Temp 36.2 C (97.1 F) (Tympanic) Resp 18 Wt 86.9 kg (191 lb 9.3 oz) LMP1 SpO2 97% BMI 30.43 kg/m PAST MEDICAL HISTORY Diagnosis Date Abdominal pain, epigastric ABN GLUCOSE-ANTEPARTUM 02/22/2006 Benign neoplasm of stomach Chronic systolic congestive heart failure (HCC) 11/01/2018 Diabetes (HCC) 10/2019 A1C 11.8 Dysmetabolic syndrome X Esophageal reflux Lichen sclerosus et atrophicus Menorrhagia SHAWN (obstructive sleep apnea) 07/18/2012 Unspecified essential hypertension PAST SURGICAL HISTORY Procedure Laterality Date COLONOSCOPY FLX DX W/COLLJ SPEC WHEN PFRMD 2001 Colonoscopy COLONOSCOPY FLX DX W/COLLJ SPEC WHEN PFRMD 07/08/2013 Colonoscopy - 10 yr interval DILATION & CURETTAGE DX&/THER NONOBSTETRIC Dilation & curettage EGD REMOVAL TUMOR POLYP/OTHER LESION SNARE TECH 09/11/2007 ESOPHAGOGASTRODUODENOSCOPY TRANSORAL DIAGNOSTIC 06/22/2009 w/ 48 hr probe ESOPHAGOGASTRODUODENOSCOPY TRANSORAL DIAGNOSTIC 07/08/2013 EGD GASTROESOPHAG REFLX TEST W/TELEMTRY PH ELTRD 06/22/2009 LAPAROSCOPY SURG CHOLECYSTECTOMY 07/26/2002 Cholecystectomy, lap NOVASURE 05/13/2011 OTHER 03/27/2019 RIGHT ANKLE TENDON REPAIR TONSILLECTOMY PRIMARY/SECONDARY <AGE 13 Tonsillectomy ALLERGIES Diltiazem, Motrin [Ibuprofen], Pistachio Nut, and Hydrocodone MEDICATIONS tirzepatide (MOUNJARO) 7.5 mg/0.5 mL pen injector Inject 7.5 mg subcutaneously one time a week. hydrOXYchloroQUINE (PLAQUENIL) 200 mg tablet Take 1 tablet by mouth two times a day. metoprolol succinate ER (TOPROL XL) 50 mg 24 hr tablet Take 50 mg by mouth once daily. clobetasol (TEMOVATE) 0.05 % ointment APPLY 1 APPLICATION TO AFFECTED AREA TWO TIMES A WEEK. TO AFFECTED AREA. ZINC ORAL Take 1 tablet by mouth once daily. famotidine (PEPCID ORAL) Take 1 tablet by mouth once daily. Lactobacillus acidophilus (PROBIOTIC ORAL) Take 1 tablet by mouth once daily. magnesium oxide 200 mg magnesium tab Take 1 tablet by mouth once daily. lisinopril (ZESTRIL, PRINIVIL) 40 mg tablet Take 1 tablet by mouth once daily. methylPREDNISolone (MEDROL, NYASIA,) 4 mg Dose-Pack Follow dosing instructions, take with food. FAMILY HISTORY Problem Relation Age of Onset Hypertension Mother Cancer Mother SKIN CANCER Diabetes Mother Hypertension Father Hypertension Sister Hypertension Maternal Grandmother Colon Cancer Maternal Grandfather Hypertension Paternal Grandmother Diabetes Paternal Grandfather Heart Paternal Grandfather Hypertension Paternal Grandfather Social History Tobacco Use Smoking status: Never Smokeless tobacco: Never Vaping Use Vaping Use: Never used Substance Use Topics Alcohol use: Not Currently Comment: rare Drug use: No Objective Physical Exam Vitals and nursing note reviewed. Constitutional: Appearance: Normal appearance. Cardiovascular: Rate and Rhythm: Normal rate and regular rhythm. Heart sounds: Normal heart sounds. Pulmonary: Effort: Pulmonary effort is normal. No respiratory distress. Breath sounds: Normal breath sounds. No wheezing or rales. Skin: General: Skin is warm and dry. Findings: Erythema and rash present. Neurological: Mental Status: She is alert. ASSESSMENT/PLAN: 1. Rash - ICD9: 782.1, ICD10: R21 - METHYLPREDNISOLONE 4 MG TABLETS IN A DOSE PACK - Follow-up with your PCP in 3-5 days if symptoms have not improved or sooner if symptoms worsen - Discussed red flags and need for immediate medical evaluation if any occur. - Discussed supportive care treatment with fluids, rest and analgesia. - Discussed expected course of illness Tessa Matamoros APRN.CNP documented in this encounterKind[facility]04-[facility]24 Instructions* Patient Instructions* Tessa Matamoros APRN.CNP - 10/10/2023 8:50 AM EDT ASSESSMENT/PLAN: 1. Rash - ICD9: 782.1, ICD10: R21 - METHYLPREDNISOLONE 4 MG TABLETS IN A DOSE PACK - Follow-up with your PCP in 3-5 days if symptoms have not improved or sooner if symptoms worsen - Discussed red flags and need for immediate medical evaluation if any occur. - Discussed supportive care treatment with fluids, rest and analgesia. - Discussed expected course of illness Tessa Matamoros APRN.CNP documented in this encounterKind[facility]03-[facility]24 History of Present illness Narrative* James Yanes APRN.CNP - 09/11/2023 2:45 PM EST Reason for Consultation: DM Type 2 Referring Physician: Tomasa Khan DO [address] [facility] [address] [facility] [id number] *Visit is being conducted virtually *I have communicated my name and active licensure. The patient's identity and physical location were verified at the time of this visit. Either the patient or their legal inventory representative has been informed of the risks and benefits of -- and alternatives to -- treatment through a remote evaluation and consents to proceed with the evaluation remotely. HISTORY OF PRESENT ILLNESS; Ms. Rocha is a 53 year old female presenting for follow up regarding DM Type 2. She was initially diagnosed with diabetes in October 2019; gestational DM at age 36. She does have a family history of diabetes mellitus in her Mother and grandfather . LV 04/17/23 A1C 5.7 on 07/06/23 History of diabetes, hypertension, SHAWN, non-ischemic cardiomyopathy, Liver disease, obesity, sjogrens, OA, rosacea Weight 187lb /BMI 29.70 Her current diabetes regimen is : Mounjaro 5 mg weekly Previous DM medications: Ozempic--abdominal pain * unable to use metformin due to liver disease. She is under the care of hematology for polycythemia and elevated ferritin. Reports liver disease (ALT 416 and AST 310) felt to be due to diabetes and inflammation from this increased her ferritin. She had a biopsy of her liver on 02/21/20 and was under the care of GI but states levels improved and she did not have to return. Also under the care of cardiology and rheumatology. Regarding symptoms of hyperglycemia, she is not experiencing any symptoms such as polyuria, polydipsia, nocturia or rapid weight loss or blurry vision. She has polydipsia and blurry vision prior to dx. Exercise: Cullen Lundberg is checking her blood glucose 0-3 times daily. None in the last week She did not bring a logbook today for review: Hypoglycemia frequency: denies Hypoglycemia awareness: Yes Overall, the patient has no acute complaints at this time. PAST MEDICAL HISTORY Diagnosis Date Abdominal pain, epigastric ABN GLUCOSE-ANTEPARTUM 02/22/2006 Benign neoplasm of stomach Chronic systolic congestive heart failure (HCC) 11/01/2018 Diabetes (HCC) 10/2019 A1C 11.8 Dysmetabolic syndrome X Esophageal reflux Lichen sclerosus et atrophicus Menorrhagia SHAWN (obstructive sleep apnea) 07/18/2012 Unspecified essential hypertension PAST SURGICAL HISTORY Procedure Laterality Date COLONOSCOPY FLX DX W/COLLJ SPEC WHEN PFRMD 2001 Colonoscopy COLONOSCOPY FLX DX W/COLLJ SPEC WHEN PFRMD 07/08/2013 Colonoscopy - 10 yr interval DILATION & CURETTAGE DX&/THER NONOBSTETRIC Dilation & curettage EGD REMOVAL TUMOR POLYP/OTHER LESION SNARE TECH 09/11/2007 ESOPHAGOGASTRODUODENOSCOPY TRANSORAL DIAGNOSTIC 06/22/2009 w/ 48 hr probe ESOPHAGOGASTRODUODENOSCOPY TRANSORAL DIAGNOSTIC 07/08/2013 EGD GASTROESOPHAG REFLX TEST W/TELEMTRY PH ELTRD 06/22/2009 LAPAROSCOPY SURG CHOLECYSTECTOMY 07/26/2002 Cholecystectomy, lap NOVASURE 05/13/2011 OTHER 03/27/2019 RIGHT ANKLE TENDON REPAIR TONSILLECTOMY PRIMARY/SECONDARY <AGE 13 Tonsillectomy FAMILY HISTORY Problem Relation Age of Onset Hypertension Mother Cancer Mother SKIN CANCER Diabetes Mother Hypertension Father Hypertension Sister Hypertension Maternal Grandmother Colon Cancer Maternal Grandfather Hypertension Paternal Grandmother Diabetes Paternal Grandfather Heart Paternal Grandfather Hypertension Paternal Grandfather Social History Tobacco Use Smoking status: Never Smokeless tobacco: Never Vaping Use Vaping Use: Never used Substance Use Topics Alcohol use: Not Currently Comment: rare Drug use: No Current Outpatient Medications Medication Sig Dispense Refill tirzepatide (MOUNJARO) 7.5 mg/0.5 mL pen injector Inject 7.5 mg subcutaneously one time a week. 2 mL 5 hydrOXYchloroQUINE (PLAQUENIL) 200 mg tablet Take 1 tablet by mouth two times a day. 180 tablet 3 metoprolol succinate ER (TOPROL XL) 50 mg 24 hr tablet Take 50 mg by mouth once daily. clobetasol (TEMOVATE) 0.05 % ointment APPLY 1 APPLICATION TO AFFECTED AREA TWO TIMES A WEEK. TO AFFECTED AREA. 45 g 2 ZINC ORAL Take 1 tablet by mouth once daily. famotidine (PEPCID ORAL) Take 1 tablet by mouth once daily. Lactobacillus acidophilus (PROBIOTIC ORAL) Take 1 tablet by mouth once daily. magnesium oxide 200 mg magnesium tab Take 1 tablet by mouth once daily. lisinopril (ZESTRIL, PRINIVIL) 40 mg tablet Take 1 tablet by mouth once daily. 90 tablet 1 No current facility-administered medications for this visit. Allergies As of Date: 09/11/2023 Allergen Noted Reaction DILTIAZEM 01/06/2014 Other: See Comments MOTRIN [IBUPROFEN] 04/25/2011 GI Upset PISTACHIO NUT 07/16/2019 Hives HYDROCODONE 04/04/2019 Itching Fully Assessed 04/17/2023 REVIEW OF SYSTEMS: Answers submitted by the patient for this visit: Core Review of Systems (Submitted on 09/11/2023) Fever : No Night sweats: No Recent unintentional weight change: No Nasal Congestion: Yes Hearing Loss: No Vision Disturbance: No A cough: No Difficulty Breathing?: No Chest pain: No Irregular heartbeat: No Leg Swelling: No Nausea: Yes Diarrhea: No Black tarry stools: No Difficulty Urinating?: No Awaken at Night More Than Once to Urinate?: No Joint pain or stiffness: Yes Muscle aches: Yes Leg or Foot Discomfort at Night?: No A rash: Yes Dizziness: No Headaches: No Memory Loss: No Seizures: No PHYSICAL EXAM: Body mass index is 29.7 kg/m . Physical Exam Constitutional: Appearance: Normal appearance. She is obese. Neurological: Mental Status: She is alert and oriented to person, place, and time. Psychiatric: Mood and Affect: Mood normal. Behavior: Behavior normal. DATA: Creatinine Date Value Ref Range Status 07/06/2023 0.85 0.58 - 0.96 mg/dL Final Hemoglobin A1C (%) Date Value 07/06/2023 5.7 03/17/2021 7.1 Hemoglobin A1C (POCT) (%) Date Value 08/11/2022 5.6 ) No components found for: URINEALBUMIN Cholesterol, Total (mg/dL) Date Value 07/06/2023 157 08/14/2020 179 HDL Cholesterol (mg/dL) Date Value 07/06/2023 38 08/14/2020 35 LDL Cholesterol (mg/dL) Date Value 07/06/2023 100 08/14/2020 123 Triglyceride (mg/dL) Date Value 07/06/2023 95 08/14/2020 103 IMPRESSION: Ms. Rocha is a 53 year old female here for evaluation of DM Type 2 complicated by hypertension, obesity. RECOMMENDATIONS: (E11.9) Type 2 diabetes mellitus without complication, without long-term current use of insulin (HCC) (primary encounter diagnosis) Comment: Glycemic control is improving. 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 Plan: continue dietary and exercise efforts This Team Access Model visit is a virtual encounter. It required patient- provider interaction for the medical decision making as documented above. Medical Decision Making: Level: 4 - Moderate James Yanes, MSN, FINISHING MANAGER, DRAWER IN DOBBY LOOM-C, CDE Endocrinology [facility] Medical Office [facility]/[address], [address] [place], [place] [address] Fax: documented in this encounterKind[facility]12-[facility]23 Miscellaneous Notes* Telephone Encounter - James Yanes APRN.CNP - 06/15/2023 7:33 AM EST No retinopathy noted. Thank you * Telephone Encounter - Talita Abdi MA - 06/14/2023 2:52 PM EST Received Eye Exam Report from [facility] Updated. Placed in provider's inbox for review. Route to ID for scanning. documented in this encounterKindred [facility]11-21-2023 Discharge summary Author Manjinder Cleary [facility] May 30, 2023 2:45pm Note Date/Time May 30, 2023 10:45am [facility] Medical Records Department [address] [place] [id number] Emergency Department Summary 05/30/23 MR#: [id number] Acct: [id number] Name: TAMIKA ROCHA Rep #:[id number] : 1970 53 From: Manjinder Cleary MD PCP: Dr. Tomasa Khan, DO Status:REG ER Location: ED HPI HPI - GI History of Present Illness Chief Complaint: Abd Pain Detail of Chief Complaint: Abdominal pain with nausea, vomiting and diarrhea andbitemporal headache Informant: patient Abdominal Pain/Flank Pain Onset: Yesterday Context: Sudden Onset Timing: Continuous and Waxes and wanes Quality: Cramping Location: Diffuse Current Severity: Mild Maximum Severity: Moderate Worsened by: - (Vomiting and diarrhea); Not Worsened By Car ride, Food or Movement Relieved by: Nothing; Not Relieved By Antacids, Food or Remaining Still Nausea/Vomiting/Emesis GI Symptom: Positive for Nausea and Vomiting (Approximately 8 times since onset) Diarrhea/Melena/Hematochezia GI Symptom: Positive for Diarrhea (Approximately 10 times); Negative for Melena or Hematochezia Onset: Yesterday Stool Quality: Positive for Loose and Watery Associated Symptoms Associated Symptoms: Positive for - (Decreased urine output); Negative for Dysuria, Frequency, Hematuria or Urgency Narrative Narrative: Patient is a 53-year-old woman with history of hypertension, type 2 diabetes, nonischemic cardiomyopathy, segmental and somatic disc function of the lumbar region with lower extremity exam numbness who is scheduled for injection June 16 presents because of abdominal pain with nausea, vomit diarrhea that started last evening. She has vomited 8 times and had 10 loose stools. She wason cephalexin after breast reduction surgery approximate 2 months ago. She did get an infection. She was on the antibiotic for approximate 1 week. She presents now with fever chills prior to the onset of the nausea, vomiting diarrhea. She had no ill contacts. She complained of subjective fever. She does report bitemporal head pain. She denies rhinorrhea, congestion and sore throat. She denies auditory symptoms. She denies neck pain or stiffness. She denies cardiac or respiratory symptoms. She does endorse thirst, dry mouth and orthostatic symptoms. She states her heart feels like it is pounding fast. Patient did not look at her stool because she states she had the lights out and unable to tell me what color it was if there was blood or mucus. Prior similar symptoms: Yes Recent Illness/Hospitalization: No [facility] Medical History (Updated 05/30/23 @ 14:[address] Manjinder Cleary MD) Arthritis Bilateral headaches Essential (primary) hypertension History of uterine anomaly Nonischemic cardiomyopathy Sjogren's disease Home Medications lisinopril 40 mg tablet 40 mg PO DAILY blood pressure 11/22/14 [History Last Taken 05/29/23] dillon (bulk) 5 gm MC DAILY 08/20/18 [History Last Taken 08/19/18] magnesium oxide 200 mg PO DAILY 08/20/18 [History Last Taken 05/29/23] metoprolol succinate 50 mg capsule sprinkle, ext. release 24 hr 50 mg PO DAILY 04/04/19 [History Last Taken 05/29/23] hydroxychloroquine 200 mg tablet 200 mg PO BID 04/13/22 [History Last Taken 05/29/23] dicyclomine 10 mg capsule 20 mg (2 x 10 mg) PO TIDAC #20 CAPSULES 05/30/23 [Rx Last Taken Unknown] estradiol 0.05 mg/24 hr semiweekly transdermal patch 1 patch transdermal .TWICE A WEEK 05/30/23 [History Last Taken 05/28/23] ondansetron 4 mg disintegrating tablet 4 mg PO Q8H PRN PRN Nausea #10 tabs 05/30/23 [Rx Last Taken Unknown] progesterone micronized 100 mg capsule 100 mg PO QHS 05/30/23 [History Last Taken 05/29/23] tirzepatide 2.5 mg/0.5 mL subcutaneous pen injector (Mounjaro) 2.5 mg subcut .WEEKLY 05/30/23 [History Last Taken 05/24/23] Allergy/AdvReac Type Severity Reaction Status Date / Time pistachio nut Allergy Hives Verified 05/30/23 10:27 hydrocodone AdvReac Mild Itching Verified 05/30/23 10:27 ibuprofen [From Motrin] AdvReac stomach Verified 05/30/23 10:27 pain Family History Other Arthritis Cancer Hypertension Surgical History (Updated 05/30/23 @ 10:56 by Nancie Castillo) History of left heart catheterization (08/21/18) History of tonsillectomy Hx of breast reduction, elective Social History Smoking Status: Never smoker alcohol intake: current alcohol intake frequency: a few times a month Alcohol type: wine substance use type: does not use what type of physical activity do you participate in: walking frequency: 1-2 times per week ROS ROS ED Constitutional Constitutional ED: Reports chills, fever(s), subjective and sweats; Denies weight loss ENT ENT ED: Denies ear pain or rhinorrhea Cardiovascular Cardiovascular: Reports palpitations and racing heartbeat; Denies chest pain Respiratory/Chest Respiratory/Chest: Denies cough, dyspnea or dyspnea on exertion Gastrointestinal Gastrointestinal: Reports abdominal pain, diarrhea, nausea and vomiting; Denies constipation or melena Genitourinary Genitourinary ED: Reports other Details: She reports decreased urine output. ; Denies dysuria, hematuria or urinary frequency Musculoskeletal Musculoskeletal: Denies arthralgias or myalgias Integumentary Denies rash Neurologic Neurologic: Reports headache(s) and weakness; Denies paresthesias Psychiatric Psychiatric: Denies anxiety Endocrine Endocrinology: Denies polydipsia or polyuria Hematologic/Lymphatic Hematologic/Lymphatic: Denies easy bleeding, easy bruising or lymphadenopathy EXAM Physical Exam Const Vital Signs: 05/30/23 10:27 05/30/23 11:28 Temperature 96.3 F L 100.5 F H Temperature Source Temporal Oral Pulse Rate 134 H 116 H Respiratory Rate 22 H 18 Blood Pressure 117/84 H 105/63 Blood Pressure Mean 95 77 Pulse Ox 99 97 Oxygen Delivery Method Room Air Room Air Positive well nourished, well developed and obese Constitutional Narrative: Appears ill. Vital signs remarkable for tachycardia and tachypnea. She is not febrile or hypoxic. General Appearance ED: well developed and pallor; Negative for NAD Nutritional Appearance: obese HEENT Reports TM's clear and dry mucous membranes normocephalic and atraumatic Tympanic Membrane ED: Yes TM's clear Mouth ED: Yes dry mucous membranes Mouth: dry mucous membranes Eyes PERRL and EOMs intact bilaterally General Eye ED: Negative for pale conjunctiva or scleral icterus Neck no lymphadenopathy, supple and no JVD Resp normal respiratory effort and clear to auscultation bilaterally Cardio regular rate, regular rhythm, S1 normal heart sound, S2 normal heart sound and no murmurs Rate: tachycardic GI non-distended and no masses; Negative for non-tender Inspection: Negative for abdominal distention Palpation: soft and tender other (Diffuse); Negative for guarding or rigid Back/Spine no CVA tenderness Thoracic Spine / Upper Back: Negative for thoracic spinal tenderness Lumbar Spine / Lower Back: Negative for lumbar spinal tenderness Extremity full ROM General Extremety ED: Negative for edema or tenderness General Extremity: Negative for edema Neuro CN's II-XII intact bilaterally and moves all extremities Sensorium / Orientation: alert Psych mental status grossly normal and thought process normal Skin no wounds General Skin Exam: pallor; Negative for jaundice Lesions: no lesions Rashes: no rashes MDM MDM MDM Narrative Medical decision making narrative: Frontal diagnosis would include viral gastroenteritis, pseudomembranous enterocolitis, bacterial infection. Suspect the former. Patient was treated dicyclomine for cramping pain and Zofran for nausea and vomiting. Clinically she is dehydrated. Will administer 1 L of normal saline to start with. BMP wasobtained to assess glucose since she has not checked it recently as well as anion gap and electrolytes and specifically to evaluate for hypokalemia. Also to evaluate renal function i.e. BUN and creatinine. CBC to assess white count differential and if there is significant eosinophilia need to consider parasiticinfection. History & Record Review Additional record(s) reviewed:: Prior outpatient record (To begin for COVID evaluation and chiropractors for cervical issues.), Prior ED visit and Prior labs Lab Data Attestation: I reviewed the patient's lab results. Lab results narrative: Count is normal with slight shift. There is no bandemia. H&H is slightly elevated from baseline at 16.1 and 48.4. Basic metabolic panel reveals slight elevation of creatinine from baseline of 0.8-1.07 with an estimated GFR of 57 compared to prior 95. BUN to creatinine ratio is normal. Glucose is elevated 183 with a normal CO2 anion gap. Lactate is elevated 3.3. Labs: Laboratory Results - last 24 hr 05/30/23 10:50 WBC 8.2 RBC 5.60 H Hgb 16.1 H Hct 48.4 H MCV 86.4 MCH 28.8 MCHC 33.3 RDW Std Deviation 41.1 RDW Coeff of Raudel 13.1 Plt Count 157 MPV 11.1 Immature Gran % (Auto) 0.100 Neut % (Auto) 86.2 H Lymph % (Auto) 6.[address] [place] % (Auto) 6.7 Eos % (Auto) 0.0 Baso % (Auto) 0.2 Absolute Neuts (auto) 7.1 Absolute Lymphs (auto) 0.56 L Nucleated RBC % 0 Differential Comment COMMENT Sodium 140 Potassium 3.5 Chloride 108 H Carbon Dioxide 25.0 Anion Gap 7 BUN 18 Creatinine 1.07 H Estim Creat Clear Calc 57.58 Est GFR (MDRD) Af Amer 69 Est GFR (MDRD) Non-Af 57 L BUN/Creatinine Ratio 16.8 Glucose 183 H Lactic Acid 3.3 H* Calcium 8.6 Treatment and Re-Evaluation :: Patient has improved with IV fluids. Patient is now noted to have a fever of 100.5. Reassessed at 1440. She has had no nausea, vomit or diarrhea since arrival. Plan is to discharge with prescription for Zofran and Imodium. Patient was given opportunity ask questions and none were asked. Since patient's had no diarrhea here there is presently no concern for CDF. Discharge Plan Triage Chief Complaint: Abd Pain ED Provider: Manjinder Cleary Dx/Rx/DC Orders Clinical Impression: Nausea vomiting and diarrhea, Nonischemic cardiomyopathy, Essential (primary) hypertension, Diabetes, Acute generalized abdominal pain, Moderate dehydration, Fever in adult, Sinus tachycardia seen on playground monitor Instructions: ED Fever Control (Adult), ED Vomiting and Diarrhea ... Prescriptions: New ondansetron [ondansetron] 4 mg tablet,disintegrating 4 mg PO Q8H PRN PRN (Reason: Nausea) Qty: 10 0RF dicyclomine 10 mg capsule 20 mg PO TIDAC Qty: 20 0RF No Action lisinopril 40 MG tablet 40 mg PO DAILY dillon (bulk) 5 GM powder 5 gm MC DAILY Hold Instructions: Pt is ill magnesium oxide 200 MG tablet 200 mg PO DAILY metoprolol succinate 50 MG capsule,sprinkle,ER 24hr 50 mg PO DAILY hydroxychloroquine 200 mg tablet 200 mg PO BID Patient Comments: TAKE 1 TABLET BY MOUTH TWICE A DAY Mounjaro 2.5 mg/0.5 mL pen injector 2.5 mg SUBCUT .WEEKLY Patient Comments: INJECT 2.5 MG UNDER THE SKIN ONCE A WEEK ON MONDAY ON MONDAY DOSE CHANGES TO 5 MG ONCE A WEEK estradiol 0.05 mg/24 hr patch semiweekly 1 patch transdermal .TWICE A WEEK Patient Comments: APPLY 1 PATCH TO SKIN 2 TIMES EVERY WEEK DIRECTED PT TAKES ON SUNDAYS AND MONDAY progesterone micronized 100 mg capsule 100 mg PO QHS Patient Comments: TAKE 1 CAPSULE BY MOUTH EVERYDAY AT BEDTIME Primary Care Provider: Tomasa Khan Referrals: Tomasa Khan DO [Primary Care Provider] - 1-2 Days if not improving Activity Restrictions/Additional Instructions: 1. Increase fluid intake 2. Take Imodium for diarrhea as instructed on box or viral. Disposition Disposition: Home, Self Care What to do if you have Problems For any increased pain, shortness of breath, bleeding, nausea or vomiting, chestpain, or any unexpected problems, contact your Primary Care Provider. Call [facility] ([phone]) or report to the closest Emergency Room. Call 911 if necessary. 05/30/23 1445 <Electronically signed by Manjinder Cleary MD> Cosigner Signature (if applicable): CC: Dr. Tomasa Khan, DO ~ Signed [facility] Work Phone: [phone]) 834-581011-13-2023 Miscellaneous Notes* Telephone Encounter - Shelly Greene RN - 05/22/2023 8:05 AM EST Patient started on 2.5mg on 04/17/23. Please review and advise. documented in this encounterKind[facility]11-01-2023 Miscellaneous Notes* Telephone Encounter - Chitra Paniagua - 05/10/2023 2:39 PM EDT Patient called back. She has eye exam scheduled for next month. She does them yearly in June. Iasked her to have results faxed here once completed. She states understanding. Chitra Paniagua RN * Telephone Encounter - Nancie BetancurRn), RN - 05/10/2023 2:35 PM EDT Called patient to ask about eye exam No answer left message for her to return call. Nancie documented in this encounterKind[facility]10-30-2023 History of Present illness Narrative* Matthew Morales APRN-MEG - 05/08/2023 10:20 AM EDT Subjective Patient ID: Tamika Rocha is a 53 y.o. female who presents for Follow-up (HRT) and Medication Visit. HPI VMS: yes Sleep difficulties: yes sleep is horrible Mood changes: yes-they're bad Joint pain: yes Brain fog/difficulty concentrating: yes weight gain GSM: yes are you sexually active: yes dyspareunia: yes; monogamous relationship with splitting of skin at the mons decrease in desire: yes difficulty reaching orgasm: yes Urinary Incontinence: stress I prescribed her 0.05mg estradiol patch and 100mg po progesterone Today she states she is very happy, feels normal Doesn't need vaginal estrogen VMS: none Mood changes: resolved Brain fog: improved No AE Review of Systems Objective Physical Exam Assessment/Plan Diagnoses and all orders for this visit: 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 Will continue with current dose, follow up annually [facility] Work Phone: [phone]) 891-685607-05-2023 Miscellaneous Notes* Letter - Mammography Coordinator - 01/11/2023 3:08 PM EDT January 12, 2023 PID: [id number] Tamika Rocha [address] [place] [address] Dear Ms. Rocha, We are pleased to inform you that the results of your recent breast imaging exam on 01/11/2023 are normal. Early detection of cancer is very important. We also understand recommendations regarding breast cancer screening are controversial. Please discuss with your primary care provider which strategy is best for you and whether a mammogram is right for you. Your imaging studies and report will be [facility] as part of your permanent medical record and are available for your continuing care. Thank you for allowing us to help in meeting your health care needs. Sincerely, Dr. Stewart Interpreting Radiologist [facility] (Normal over 40) documented in this encounterKindred Hospital [facility]07-05-2023 History of Present illness Narrative* Debra Heck RT(R) - 01/11/2023 12:50 PM EDT Radiology Service Progress Note PATIENT NAME: Tamika Rocha DATE OF SERVICE: January 11, 2023 TIME: 12:55 PM PATIENT IDENTITY VERIFICATION COMPLETED USING TWO (2) IDENTIFIERS: Name and Date of confirmedby patient verbally. FALL SCREENING: Has the patient had 2 falls in the last year or 1 fall with injury or currently using an Ambulatory Assistive Device (Walker, Cane, Wheelchair, Crutches, etc.)? No PATIENT GENDER DATA: Female. status: : No status: NO. PATIENT RELEVANT IMPLANT DATA REVIEWED: Not Applicable RADIOLOGY DEPARTMENT: Mammography PERIPHERAL IV DATA: Not applicable SIGNED BY: RT Cindy(R) January 11, 2023 12:55 PM documented in this encounterKindred [facility]02-02-2023 History of Present illness Narrative* James Yanes APRN.RAIL SIGNAL DESIGNER - 08/11/2022 9:45 AM EST Reason for Consultation: DM Type 2 Referring Physician: Tomasa Khan DO [address] [facility] [address] [facility] [address] HISTORY OF PRESENT ILLNESS; Ms. Rocha is a 52 year old female presenting for follow up regarding DM Type 2. She was initially diagnosed with diabetes in October 2019; gestational DM at age 36. She does have a family history of diabetes mellitus in her Mother and grandfather . LV 01/26/22 A1C today is 5.6 History in addition to diabetes: hypertension, SHAWN, non-ischemic cardiomyopathy, Liver disease, obesity, sjogrens, OA, rosacea Reports doing well overall. Has not seen increased weight loss with the increase in ozempic. Doing intermittent fasting Her current diabetes regimen is : ozempic 1 mg weekly * unable to use metformin due to liver disease. She is under the care of hematology for polycythemia and elevated ferritin. Reports liver disease (ALT 416 and AST 310) felt to be due to diabetes and inflammation from this increased her ferritin. She had a biopsy of her liver on 02/21/20 and was under the care of GI but states levels improved and she did not have to return. Also under the care of cardiology and rheumatology. Regarding symptoms of hyperglycemia, she is not experiencing any symptoms such as polyuria, polydipsia, nocturia or rapid weight loss or blurry vision. She has polydipsia and blurry vision prior to dx. Exercise: Cullen Lundberg is checking her blood glucose at least once daily. She did not bring a logbook today for review: BG ranges 80 to 170 but mostly under 134 Hypoglycemia frequency: denies Hypoglycemia awareness: Yes Overall, the patient has no acute complaints at this time. PAST MEDICAL HISTORY Diagnosis Date Abdominal pain, epigastric ABN GLUCOSE-ANTEPARTUM 02/22/2006 Benign neoplasm of stomach Chronic systolic congestive heart failure (HCC) 11/01/2018 Diabetes ([facility]) 10/2019 A1C 11.8 Dysmetabolic syndrome X Esophageal reflux Lichen sclerosus et atrophicus Menorrhagia SHAWN (obstructive sleep apnea) 07/18/2012 Unspecified essential hypertension PAST SURGICAL HISTORY Procedure Laterality Date COLONOSCOPY FLX DX W/COLLJ SPEC WHEN PFRMD 2001 Colonoscopy COLONOSCOPY FLX DX W/COLLJ SPEC WHEN PFRMD 07/08/2013 Colonoscopy - 10 yr interval DILATION & CURETTAGE DX&/THER NONOBSTETRIC Dilation & curettage EGD REMOVAL TUMOR POLYP/OTHER LESION SNARE TECH 09/11/2007 ESOPHAGOGASTRODUODENOSCOPY TRANSORAL DIAGNOSTIC 06/22/2009 w/ 48 hr probe ESOPHAGOGASTRODUODENOSCOPY TRANSORAL DIAGNOSTIC 07/08/2013 EGD GASTROESOPHAG REFLX TEST W/TELEMTRY PH ELTRD 06/22/2009 LAPAROSCOPY SURG CHOLECYSTECTOMY 07/26/2002 Cholecystectomy, lap NOVASURE 05/13/2011 OTHER 03/27/2019 RIGHT ANKLE TENDON REPAIR TONSILLECTOMY PRIMARY/SECONDARY <AGE 12 Tonsillectomy FAMILY HISTORY Problem Relation Age of Onset Hypertension Mother Cancer Mother SKIN CANCER Diabetes Mother Hypertension Father Hypertension Sister Hypertension Maternal Grandmother Colon Cancer Maternal Grandfather Hypertension Paternal Grandmother Diabetes Paternal Grandfather Heart Paternal Grandfather Hypertension Paternal Grandfather Social History Tobacco Use Smoking status: Never Smokeless tobacco: Never Vaping Use Vaping Use: Never used Substance Use Topics Alcohol use: Not Currently Comment: rare Drug use: No Current Outpatient Medications Medication Sig Dispense Refill metoprolol succinate ER (TOPROL XL) 50 mg 24 hr tablet Take 50 mg by mouth once daily. hydrOXYchloroQUINE (PLAQUENIL) 200 mg tablet TAKE 1 TABLET BY MOUTH TWICE A DAY 180 tablet 1 semaglutide (OZEMPIC) 1 mg/dose (4 mg/3 mL) pen Inject 1 mg subcutaneously one time a week. 3 mL 5 clobetasol (TEMOVATE) 0.05 % ointment APPLY 1 APPLICATION TO AFFECTED AREA TWO TIMES A WEEK. TO AFFECTED AREA. 45 g 2 ZINC ORAL Take 1 tablet by mouth once daily. famotidine (PEPCID ORAL) Take 1 tablet by mouth once daily. Lactobacillus acidophilus (PROBIOTIC ORAL) Take 1 tablet by mouth once daily. magnesium oxide 200 mg magnesium tab Take 1 tablet by mouth once daily. lisinopril (ZESTRIL, PRINIVIL) 40 mg tablet Take 1 tablet by mouth once daily. 90 tablet 1 No current facility-administered medications for this visit. Allergies As of Date: 08/11/2022 Allergen Noted Reaction DILTIAZEM 01/06/2014 Other: See Comments MOTRIN [IBUPROFEN] 04/25/2011 GI Upset PISTACHIO NUT 07/16/2019 Hives HYDROCODONE 04/04/2019 Itching Fully Assessed 08/11/2022 REVIEW OF SYSTEMS: Answers submitted by the patient for this visit: Endocrine Review of Systems (Submitted on 08/09/2022) Fatigue: Yes Night Sweats: Yes Post-Nasal Drip: Yes Chest Pain: Yes Heartburn: Yes Diarrhea: Yes Abdominal Pain: Yes Muscle Aches: Yes Joint Pain or Stiffness: Yes Headaches: Yes Urgency to Urinate?: No Increased Urination?: No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 than HPI. Past Medical History PAST MEDICAL HISTORY Diagnosis Date Abdominal pain, epigastric ABN GLUCOSE-ANTEPARTUM 02/22/2006 Benign neoplasm of stomach Chronic systolic congestive heart failure (HCC) 11/01/2018 Diabetes (HCC) 10/2019 A1C 11.8 Dysmetabolic syndrome X Esophageal reflux Lichen sclerosus et atrophicus Menorrhagia SHAWN (obstructive sleep apnea) 07/18/2012 Unspecified essential hypertension Past Surgical History PAST SURGICAL HISTORY Procedure Laterality Date COLONOSCOPY FLX DX W/COLLJ SPEC WHEN PFRMD 2001 Colonoscopy COLONOSCOPY FLX DX W/COLLJ SPEC WHEN PFRMD 07/08/2013 Colonoscopy - 10 yr interval DILATION & CURETTAGE DX&/THER NONOBSTETRIC Dilation & curettage EGD REMOVAL TUMOR POLYP/OTHER LESION SNARE TECH 09/11/2007 ESOPHAGOGASTRODUODENOSCOPY TRANSORAL DIAGNOSTIC 06/22/2009 w/ 48 hr probe ESOPHAGOGASTRODUODENOSCOPY TRANSORAL DIAGNOSTIC 07/08/2013 EGD GASTROESOPHAG REFLX TEST W/TELEMTRY PH ELTRD 06/22/2009 LAPAROSCOPY SURG CHOLECYSTECTOMY 07/26/2002 Cholecystectomy, lap NOVASURE 05/13/2011 OTHER 03/27/2019 RIGHT ANKLE TENDON REPAIR TONSILLECTOMY PRIMARY/SECONDARY <AGE 12 Tonsillectomy Family History FAMILY HISTORY Problem Relation Age of Onset Hypertension Mother Cancer Mother SKIN CANCER Diabetes Mother Hypertension Father Hypertension Sister Hypertension Maternal Grandmother Colon Cancer Maternal Grandfather Hypertension Paternal Grandmother Diabetes Paternal Grandfather Heart Paternal Grandfather Hypertension Paternal Grandfather Social History Social History Tobacco Use Smoking status: Never Smoker Smokeless tobacco: Never Used Vaping Use Vaping Use: Never used Substance Use Topics Alcohol use: Not Currently Comment: rare Drug use: No Current Medications Current Outpatient Medications Medication Sig clobetasol (TEMOVATE) 0.05 % ointment Apply 1 application to affected area two times a week. TO AFFECTED AREA. semaglutide (OZEMPIC) 0.25 mg or 0.5 mg(2 mg/1.5 mL) pnij Inject subcutaneously 0.25 mg once weeklyx 4 wks and then increase to 0.5 mg weekly metoprolol succinate ER (TOPROL XL) 25 mg 24 hr tablet Take 1 tablet by mouth once daily. ZINC ORAL Take 1 tablet by mouth once daily. famotidine (PEPCID ORAL) Take 1 tablet by mouth once daily. Lactobacillus acidophilus (PROBIOTIC ORAL) Take 1 tablet by mouth once daily. magnesium oxide 200 mg magnesium tab Take 1 tablet by mouth once daily. lisinopril (ZESTRIL, PRINIVIL) 40 mg tablet Take 1 tablet by mouth once daily. montelukast (SINGULAIR) 10 mg tablet 10 mg daily at bedtime. (Patient not taking: Reported on 11/02/2021 ) hydrOXYzine HCl (ATARAX) 25 mg tablet Take 25 mg by mouth every 6 hours as needed. (Patient not taking: Reported on 11/02/2021 ) hydrOXYchloroQUINE (PLAQUENIL) 200 mg tablet Take 1 tablet by mouth twice daily. escitalopram oxalate (LEXAPRO) 20 mg tablet TAKE 1 TABLET BY MOUTH EVERY DAY blood sugar diagnostic (ACCU-CHEK YASSINE PLUS TEST STRP) test strip twice daily. Use as instructed No current facility-administered medications for this visit. Labs CBC Latest Ref Rng & Units 06/18/2020 02/17/2020 01/16/2020 10/29/2019 WBC 3.70 - 11.00 k/uL 5.91 5.81 5.06 5.25 HEMOGLOBIN 11.5 - 15.5 g/dL 15.7(H) 16.4(H) 16.6(H) 16.0(H) HEMOGLOBIN, MARYBETH 11.5 - 15.5 g/dL - - - - HEMATOCRIT 36.0 - 46.0 % 49.0(H) 49.4(H) 49.5(H) 46.6(H) PLATELETS 150 - 400 k/uL 183 167 156 148(L) ABS NEUT (ANC) 1.45 - 7.50 k/uL 3.22 3.24 2.58 2.42 ABS NEUT, MARYBETH 1.45 - 7.50 k/uL - - - - ABS LYMP, MARYBETH 1.00 - 4.00 k/uL - - - - ABS LYMPH 1.00 - 4.00 k/uL 2.00 2.03 1.82 2.16 CMP Latest Ref Rng & Units 08/31/2021 06/29/2021 03/17/2021 03/17/2021 SODIUM 136 - 144 mmol/L 143 140 Test reordered by [facility]. 139 SODIUM, MARYBETH 132 - 148 mmol/L - - - - SODIUM, MARYBETH 132 - 148 mmol/L - - - - POTASSIUM 3.7 - 5.1 mmol/L 3.8 4.2 Test reordered by [facility]. 4.1 POTASSIUM, MARYBETH 3.5 - 5.0 mmol/L - - - - CHLORIDE 97 - 105 mmol/L 107(H) 102 Test reordered by [facility]. 105 CHLORIDE, MARYBETH 98 - 110 mmol/L - - - - CO2 22 - 30 mmol/L 25 26 Test reordered by [facility]. 20(L) CO2, MARYBETH 23.0 - 32.0 mmol/L - - - - GLUCOSE 74 - 99 mg/dL 128(H) 127(H) Test reordered by [facility]. 71(L) GLUCOSE (U), MARYBETH NEGAT mg/dL - - - - GLUCOSE, MARYBETH 65 - 100 mg/dL - - - - BUN 7 - 21 mg/dL 10 24(H) Test reordered by [facility]. 11 BUN, MARYBETH 10 - 25 mg/dL - - - - CREATININE 0.58 - 0.96 mg/dL 0.68 0.75 Test reordered by [facility]. 0.59 CREATININE, MARYBETH 0.7 - 1.4 mg/dL - - - - CALCIUM, MARYBETH 8.5 - 10.5 mg/dL - - - - CALCIUM, TOTAL 8.5 - 10.2 mg/dL 9.1 9.7 Test reordered by [facility]. 9.8 AST 13 - 35 U/L 34 16 Test reordered by [facility]. 102(H) AST, MARYBETH 7 - 40 U/L - - - - ALT 7 - 38 U/L 40(H) 30 Test reordered by [facility]. 124(H) ALT, MARYBETH 0 - 45 U/L - - - - ALKALINE PHOSPHATASE 34 - 123 U/L 73 87 Test reordered by [facility]. 68 Uric Acid Latest Ref Rng & Units 01/01/2020 05/09/2019 URIC ACID 2.5 - 6.6 mg/dL 5.9 5.1 ESR, WSR Latest Ref Rng & Units 01/01/2020 11/04/2019 05/09/2019 11/15/2014 WSR 0 - 20 mm/hr 2 2 2 6 SED RATE, MARYBETH 0 - 20 mm/hr - - - - CRP Latest Ref Rng & Units 11/04/2019 CRP <0.9 mg/dL 0.4 RF and CCP Latest Ref Rng & Units 01/01/2020 07/07/2004 RHEUMATOID FACTOR <16 IU/mL <10 4 CCP ANTIBODY, IGG <20 Units <15 - Hepatitis Screen Latest Ref Rng & Units 01/16/2020 11/04/2019 08/03/2013 11/09/2005 HEPAIGM NEGAT - - Negative - HEPATO Negative Negative - - - HEPBCIGM NEGAT - - Negative - HEPBCOTOL Negative - Negative - - HEPSABQ Negative - Negative - - HEPCABEIA Negative - Negative Negative - HBSAG NEG - - - Negative HBSAGR Negative - Negative Negative - TB Screen Latest Ref Rng & Units 02/07/2012 TBGINT - No evidence of current or previous infection with Mycobacterium tuberculosis. TBGRES NEGAT Negative Antibodies Latest Ref Rng & Units 02/17/2020 01/01/2020 04/25/2011 07/07/2004 ADDIE Negative - Positive(A) - Positive(A) ADDIE BY EIA OD Ratio - 4.7 - 5.5(A) ADDIE BY EIA, QUAL Negative - Positive(A) - - ADDIE TITER Negative - 1:160(A) - 1:160(A) ADDIE PATTERN - - Speckled - Nucleolar DNA ANTIBODY W/CONFIRMATION <30 IU/mL - 24 - - STORAGE GARAGE ATTENDANT ANTIBODY <1.0 AI - 0.4 - - SSA ANTIBODY <1.0 AI - >8.0(H) - - SSB ANTIBODY <1.0 AI - <0.2 - - MARCUS 1 ANTIBODY <1.0 AI - <0.2 - - RIBOSOMAL STORAGE GARAGE ATTENDANT <1.0 AI - <0.2 - - SM ANTIBODY <1.0 AI - <0.2 - - SCLERODERMA AB, IGG <1.0 AI - <0.2 - - CENTROMERE AB <1.0 AI - <0.2 - - CHROMATIN ANTIBODY <1.0 AI - 0.2 - - PT SEC 9.7 - 13.0 sec 10.7 - 11.0 - PT INR 0.9 - 1.3 1.0 - 1.0 - PTT 23.0 - 32.4 sec - - 29.3 - Urinalysis Latest Ref Rng & Units 01/01/2020 11/15/2014 08/03/2013 02/07/2012 PROTEIN, URINE Negative 1+(A) Negative Trace(A) Negative PROTEIN (U), MARYBETH NEGAT mg/dL - - - - RBC, URINE 0 - 3 /HPF 0-3 - 0-3 0-3 RBC, URINE, MARYBETH /hpf - - - - Imaging Last XR Hand/Finger - Impression Only XR HAND/WRIST SURVEY ARTHRITIS 1V PA BILAT Exam End: 01/01/2020 9:11 AM (Final result) Impression: IMPRESSION: No radiographic evidence of inflammatory arthropathy within the limits of this one view study. Film Loader: ALAN Transcribe Date/Time: Jan 01 2020 10:03A... Complete Results Last MRI Hand - Impression Only No resulted procedures found. Last XR Chest - Impression Only No resulted procedures found. Last XR Cervical Spine - Impression Only No resulted procedures found. Health Maintenance Current Immunizations Reviewed on 11/02/2021 No immunizations on file. Physical Exam GENERAL APPEARANCE: Well groomed. Alert and oriented x 3. In no distress. VITAL SIGNS: BP 134/95 Pulse 84 Temp (Src) 96 (Temporal) Ht 5' 7 (1.70m) Wt 203 lb 4.8 oz (92.2kg) LMP 05/04/2011 BMI 31.83 kg/(m^2). SKIN: Mild malar erythema, otherwise no thickening, nodules, discoloration. EYES: PERRL, EOMI. No inflammation seen. HENT: External examination and palpation of the ears and nose normal. Lips, teeth, and gums normal.Oropharynx and tongue normal. No lesions or exudate. NECK: No mass or asymmetry. RESPIRATORY: Normal respiratory effort. Clear to auscultation and percussion. CARDIOVASCULAR: Heart RRR without gallop, murmur, or rub. No bruits across chest or neck. EXTREMITIES: Normal and equal pulses in all 4 extremities. No edema. ABDOMEN: BS normal. No bruits, No tenderness, mass, or hepatosplenomegaly. NEUROLOGIC: Sensory exam normal. MUSCULOSKELETAL EXAMINATION: Soft tissue tender points: None Motor exam: Normal 5+/5+ muscle strength. Normal bulk and tone. Cervical spine: No visible abnormalities. Full ROM. Mild tenderness to palpation. Thoracic spine: No visible abnormalities. No tenderness to palpation. Lumbar spine: No visible abnormalities. Full ROM. Mild tenderness to palpation. Joint Exam 11/02/2021 Right Left CMC Tender Tender MCP 1 Tender Tender PIP 2 Swollen Tender Swollen Tender PIP 3 Tender Tender PIP 4 Tender Tender PIP 5 Swollen Tender Swollen Tender DIP 2 Tender Tender DIP 5 Tender Tender Cervical Spine Tender Lumbar Spine Tender Knee Tender Tender Ankle Tender Tender The following joints were examined and normal: Left Sternoclavicular, Right Sternoclavicular, Left Acromioclavicular, Right Acromioclavicular, Left Glenohumeral, Right Glenohumeral, Left Elbow, Right Elbow, Left Wrist, Right Wrist, Left MCP 2, Right MCP 2, Left MCP 3, Right MCP 3, Left MCP 4, Right MCP 4, Left MCP 5, Right MCP 5, Left IP, RightIP, Left MTP 1, Right MTP 1, Left MTP 2, Right MTP 2, Left MTP 3, Right MTP 3, Left MTP 4, Right MTP 4, Left MTP 5, Right MTP 5 Joint Exam Data (across time) Joint Exam 11/02/2021 Total Tender 12 Total Swollen 4 Impression Diagnoses: (M35.01) Sjogren's syndrome with keratoconjunctivitis sicca (HCC) (primary encounter diagnosis) (M15.9) Primary osteoarthritis involving multiple joints Plan Orders this visit: Office Visit on 11/02/21 montelukast (SINGULAIR) 10 mg tablet hydrOXYzine HCl (ATARAX) 25 mg tablet hydrOXYchloroQUINE (PLAQUENIL) 200 mg tablet I discussed with the patient in some detail that her clinical diagnosis is twofold first is she is got Sjogren's syndrome with dry dry mouth dry skin. The other component to her presentation is her osteoarthritis which is predominantly primary with a erosive osteoarthritis involving the fingers. Her global pain, brain fog, generalized fatigue and other aspects may suggest a secondary fibromyalgia. At present I believe the best treatment that can be offered going forward is to initiate a low-grade DMARD in the form of Plaquenil. There is some soft evidence Plaquenil could potentially help her Sjogren's syndrome and may have some effect on her osteoarthritis. I believe that the benefits outweigh the risks. I described to her that Plaquenil can take up to 3 months to work. I discussed the side effect profile including the need for annual eye exam. She will continue to work with pain management in regards to her spinal pain and hopefully ultimately they may be able to cross over into treat any aspect of fibromyalgia pain. Return in about 3 months (around 02/01/2022). I spent a total of 40 minutes on the date of the service which included preparing to see the patient, [id number] patient care, completing clinical documentation, obtaining and/or reviewing separately obtained history, performing a medically appropriate examination, counseling and educating the pat ient/family/caregiver, ordering medications, tests, or procedures and communicating results to the patient/family/caregiver. Medical Decision Making: Problems: Moderate: 1+ chronic illnesses with change and New problem with uncertain prognosis Data: Unique test result(s) reviewed: 3+ Risk: Moderate: Moderate risk from testing/treatment and Drug management Medical Decision Making Level: 4 - Moderate Christian Herr MD Rheumatology Date: November 02, 2021 Time: 2:00 PM [facility] Discharge instructions Patient Education 04/21/2021 19:17:27 3- Heart Cath/PCI radial (04/2018)(CUSTOM) HEART CATHETERIZATION/PCI (radial) Discharge Instructions DIET Drink plenty of fluids for the next 48 hours to help your kidneys flush the heart cath dye out of your system ACTIVITY For the next 48 hours: Do not deep bend the wrist Do not lift, push, or pull anything over 5 pounds Do not use the hand/arm to support your weight when rising from a chair or bed Do not drive For the next 7 days: Do not submerse your procedure site in water Do not swim, wash dishes, or take tub baths You may write, eat, type, and shower WOUND CARE Keep a Band-Aid on your procedure site for the next 3-4 days Change the Band-Aid daily or if it gets wet/soiled AFTER YOU GO HOME, CALL YOUR DOCTOR FOR: Any increase in bruising or tenderness from the procedure site Any redness, pus, or other signs of infection at the site A temperature above 100.5 Severe pain at the site DIAL 911 AND RETURN TO THE HOSPITAL FOR: Any bleeding from the procedure site. The site may be bruised or tender, but it should not be bleeding at any time. If your site begins to bleed, hold firm pressure on it and dial 911 to return to the hospital Any increase in swelling at the procedure site. An increase in swelling could mean the area is bleeding under the skin. Hold firm pressure to the site and dial 911 to return to the hospital Document Released: 06/26/2006 Document Revised: 06/12/2013 Document Reviewed: 06/27/2014 ExitCare Patient Information 2015 [place]. This information is not intended to replace advicegiven to you by your health care provider. Make sure you discuss any questions you have with your health care provider. Follow Up Care 04/21/2021 02:57:10 With:TOMASA KHAN DO Address: [address] [place], [place] [id number]- When:05/07/2021 08:50:00 Comments:This will be with Dr. Diaz [facility] 10-13-2021 Evaluation + Plan noteExtracted from: Title:History and Physical Author:RENY WEBSTER MD Date:04/21/21 1. Atypical chest pain 2. NSTEMI versus type II UT 3. History of hypertension, hyperlipidemia, type 2 diabetes 4. History of SHAWN on CPAP 5. DVT prophylaxis CODE STATUS Plan: Patient currently admitted to [facility] for further management. Based on her history of palpitation as well as chest tightness and feeling weak very atypical and this has been intermittent since Monday night. Her heart score is 5 giving her risk of Mace of 12 to 16.6%. She will be admitted, risk stratification with TSH, A1c, lipid panel. Echocardiogram to check for any wall motion abnormalities. Serial troponins and EKG. Aspirin statin beta-blockers and heparin by weight. Defer to morning team for stress test versus heart cath based on the echo results. Patient will be kept n.p.o. in anticipation for procedure. We will resume her most of her home antihypertensives, sliding scale insulin for her type 2 diabetes. Heparin by weight will also cover for DVT prophylaxis. Patient is full code. Addendum by JACOB SABA MD on April 21, 2021 17:17:10 EDT I have personally seen, examined, and evaluated the patient. I have reviewed the resident's documentation and agree with the resident's findings and plan as documented, unless otherwise stated. Patient's chest pain is atypical but she had elevated troponin and has multiple risk factors in the form of diabetes mellitus hypertension hyperlipidemia. We will proceed with cardiac catheterization. Discussed risk and benefits of cardiac catheterization. Explained procedural details for cardiac cath. Enquired about intolerance to antiplatelet therapy, GI bleeding, planned surgery etc. Explained potential risks including but not limited to UT, stroke, , bleeding, infection, renal failure etc. Patient expressed understanding and agreement with proceeding with [facility] 01-08-2015 History of Past illness Narrative* Problem Noted Date Resolved Date Routine gynecological examination 07/17/2014 09/03/2015 Overview: [facility]. Postcoital bleeding 02/22/2006 04/18/2006 MULTIPLE WITH LOSS 12/09/2005 04/18/2006 Supervision of other normal 11/05/2005 04/18/2006 Dysmetabolic syndrome X 04/18/20 Unspecified essential hypertension 04/18/2006 documented as of this encounter (statuses as of 11/02/2021) [facility] History of Past illness Narrative* Problem Noted Date Resolved Date Routine gynecological examination 07/17/2014 09/03/2015 Overview: [facility]. Postcoital bleeding 02/22/2006 04/18/2006 MULTIPLE WITH LOSS 12/09/2005 04/18/2006 Supervision of other normal 11/05/2005 04/18/2006 Dysmetabolic syndrome X 04/18/20 06 Unspecified essential hypertension 04/18/2006 documented as of this encounter (statuses as of 01/12/2022) [facility] of Past illness Narrative* Problem Noted Date Resolved Date Routine gynecological examination 07/17/2014 09/03/2015 Overview: [facility]. Postcoital bleeding 02/22/2006 04/18/2006 MULTIPLE WITH LOSS 12/09/2005 04/18/2006 Supervision of other normal 11/05/2005 04/18/2006 Dysmetabolic syndrome X 04/18/20 06 Unspecified essential hypertension 04/18/2006 documented as of this encounter (statuses as of 01/26/2022) [facility] of [facility] illness Narrative* Problem Noted Date Resolved Date Routine gynecological examination 07/17/2014 09/03/2015 Overview: [facility]. Postcoital bleeding 02/22/2006 04/18/2006 MULTIPLE WITH LOSS 12/09/2005 04/18/2006 Supervision of other normal 11/05/2005 04/18/2006 Dysmetabolic syndrome X 04/18/20 06 Unspecified essential hypertension 04/18/2006 documented as of this encounter (statuses as of 01/27/2022) [facility] of [facility] illness Narrative* Problem Noted Date Resolved Date Routine gynecological examination 07/17/2014 09/03/2015 Overview: [facility]. Postcoital bleeding 02/22/2006 04/18/2006 MULTIPLE WITH LOSS 12/09/2005 04/18/2006 Supervision of other normal 11/05/2005 04/18/2006 Dysmetabolic syndrome X 04/18/20 06 Unspecified essential hypertension 04/18/2006 documented as of this encounter (statuses as of 02/07/2022) [facility] of [facility] illness Narrative* Problem Noted Date Resolved Date Routine gynecological examination 07/17/2014 09/03/2015 Overview: [facility]. Postcoital bleeding 02/22/2006 04/18/2006 MULTIPLE WITH LOSS 12/09/2005 04/18/2006 Supervision of other normal 11/05/2005 04/18/2006 Dysmetabolic syndrome X 04/18/20 06 Unspecified essential hypertension 04/18/2006 documented as of this encounter (statuses as of 05/05/2022) [facility] of [facility] illness Narrative* Problem Noted Date Resolved Date Routine gynecological examination 07/17/2014 09/03/2015 Overview: [facility]. Postcoital bleeding 02/22/2006 04/18/2006 MULTIPLE WITH LOSS 12/09/2005 04/18/2006 Supervision of other normal 11/05/2005 04/18/2006 Dysmetabolic syndrome X 04/18/20 06 Unspecified essential hypertension 04/18/2006 documented as of this encounter (statuses as of 07/27/2022) [facility] of [facility] Narrative* Problem Noted Date Resolved Date Routine gynecological examination 07/17/2014 09/03/2015 Overview: [facility]. Postcoital bleeding 02/22/2006 04/18/2006 MULTIPLE WITH LOSS 12/09/2005 04/18/2006 Supervision of other normal 11/05/2005 04/18/2006 Dysmetabolic syndrome X 04/18/20 06 Unspecified essential hypertension 04/18/2006 documented as of this encounter (statuses as of 08/11/2022) [facility] of [facility] illness Narrative* Problem Noted Date Resolved Date Routine gynecological examination 07/17/2014 09/03/2015 Overview: [facility]. Postcoital bleeding 02/22/2006 04/18/2006 MULTIPLE WITH LOSS 12/09/2005 04/18/2006 Supervision of other normal 11/05/2005 04/18/2006 Dysmetabolic syndrome X 04/18/20 06 Unspecified essential hypertension 04/18/2006 documented as of this encounter (statuses as of 2023) [facility] of [facility] illness Narrative* Problem Noted Date Diagnosed Date Resolved Date Routine gynecological examination 07/17/2014 09/03/2015 Overview: [facility]. Postcoital bleeding 02/22/2006 04/18/20 06 MULTIPLE WITH LOSS 12/09/2005 04/18/2006 Supervision of other normal 11/05/2005 04/18/2006 Dysmetabolic syndrome X 04/09 Unspecified essential hypertension 04/18/2006 documented as of this encounter (statuses as of 05/11/2023) [facility] of [facility] Narrative* Problem Noted Date Diagnosed Date Resolved Date Routine gynecological examination 07/17/2014 09/03/2015 Overview: [facility]. Postcoital bleeding 02/22/2006 04/18/20 06 MULTIPLE WITH LOSS 12/09/2005 04/18/2006 Supervision of other normal 11/05/2005 04/18/2006 Dysmetabolic syndrome X 04/09 Unspecified essential hypertension 04/18/2006 documented as of this encounter (statuses as of 05/14/2023) [facility] of [facility] Narrative* Problem Noted Date Diagnosed Date Resolved Date Routine gynecological examination 07/17/2014 09/03/2015 Overview: [facility]. Postcoital bleeding 02/22/2006 04/18/20 06 MULTIPLE WITH LOSS 12/09/2005 04/18/2006 Supervision of other normal 11/05/2005 04/18/2006 Dysmetabolic syndrome X 04/09 Unspecified essential hypertension 04/18/2006 documented as of this encounter (statuses as of 05/22/2023) [facility] of [facility] Narrative* Problem Noted Date Diagnosed Date Resolved Date Routine gynecological examination 07/17/2014 09/03/2015 Overview: [facility]. Postcoital bleeding 02/22/2006 04/18/20 06 MULTIPLE WITH LOSS 12/09/2005 04/18/2006 Supervision of other normal 11/05/2005 04/18/2006 Dysmetabolic syndrome X 04/09 Unspecified essential hypertension 04/18/2006 documented as of this encounter (statuses as of 06/15/2023) [facility] of [facility] illness Narrative* Problem Noted Date Diagnosed Date Resolved Date Routine gynecological examination 07/17/2014 09/03/2015 Overview: [facility]. Postcoital bleeding 02/22/2006 04/18/20 06 MULTIPLE WITH LOSS 12/09/2005 04/18/2006 Supervision of other normal 11/05/2005 04/18/2006 Dysmetabolic syndrome X 04/09 Unspecified essential hypertension 04/18/2006 documented as of this encounter (statuses as of 09/11/2023) [facility] of [facility] Narrative* Problem Noted Date Diagnosed Date Resolved Date Routine gynecological examination 07/17/2014 09/03/2015 Overview: [facility]. Postcoital bleeding 02/22/2006 04/18/20 06 MULTIPLE WITH LOSS 12/09/2005 04/18/2006 Supervision of other normal 11/05/2005 04/18/2006 Dysmetabolic syndrome X 04/09 Unspecified essential hypertension 04/18/2006 documented as of this encounter (statuses as of 09/12/2023) [facility] of Past illness Narrative* Problem Noted Date Diagnosed Date Resolved Date Routine gynecological examination 07/17/2014 09/03/2015 Overview: [facility]. Postcoital bleeding 02/22/2006 04/18/20 06 MULTIPLE WITH LOSS 12/09/2005 04/18/2006 Supervision of other normal 11/05/2005 04/18/2006 Dysmetabolic syndrome X 04/09 Unspecified essential hypertension 04/18/2006 documented as of this encounter (statuses as of 10/10/2023) [facility] No data available for this section [facility] Evaluation note* Diagnosis Sjogren's syndrome with keratoconjunctivitis sicca (HCC)- Primary Primary osteoarthritis involving multiple joints [facility]* Diagnosis Type 2 diabetes mellitus without complication, without long-term current use of insulin (HCC)- Primary HYPERTENSION BENIGN Essential hypertension, benign Elevated LFTs Other abnormal blood chemistry [facility]* Diagnosis Sjogren's syndrome with keratoconjunctivitis sicca (HCC)- Primary Primary osteoarthritis involving multiple joints [facility] noteNo assessment information availableWUC Health Work Phone: Evaluation note* Diagnosis Sjogren's syndrome with keratoconjunctivitis sicca (HCC) Primary osteoarthritis involving multiple joints [facility]* Diagnosis Type 2 diabetes mellitus without complication, without long-term current use of insulin (HCC)- Primary Essential hypertension Unspecified essential hypertension Obesity, Class I, BMI 30-34.9 Obesity, unspecified [facility]* Diagnosis 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- Primary documented in this encounter [facility] Work Phone: Evaluation note* Diagnosis Sjogren's syndrome with keratoconjunctivitis sicca (HCC) Primary osteoarthritis involving multiple joints [facility]* Diagnosis Type 2 diabetes mellitus without complication, without long-term current use of insulin (HCC)- Primary Essential hypertension Unspecified essential hypertension Overweight with body mass index (BMI) of 29 to 29.9 in adult [facility]* Diagnosis Type 2 diabetes mellitus without complication, without long-term current use of insulin (HCC) [facility]* Diagnosis Rash- Primary Rash and other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
== END | disposition home or self-care (01) ==
LOC: CVS 08:01
PROVIDERS: PCP Family Medicine; Referring Provider Internal Medicine Cardiovascular Disease; Visit Provider Internal Medicine Cardiovascular Disease
DX: I50.22 Chronic systolic (congestive) heart failure (principal); I42.8 Other cardiomyopathies; R07.9 Chest pain, unspecified
CPT/HCPCS: 93306

== ENCOUNTER 2025-03-13 09:15 | Day surgery (SDC) | payer BC, SELFPAY ==
--- NOTE | 2025-03-11 12:45 | PAT.ANE_ITS ---
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 When Was Last Pacemaker Check QUESTION #4 FULL TEXT: You/Your Family Experience fever (hyperthermia) with Anesthesia Last Oral Intake Last Oral intake: Last Oral Intake NPO since Meds taken in AM with sips of water? Meds patient instructed to take am of surgery PONV PONV - sustainable products marketing manager: PONV - sustainable products marketing manager Female Yes 03/11/25 11:54 HX of Motion Sickness No 03/11/25 11:54 HX of N/V After Surgery Yes 03/11/25 11:54 Non-Smoker Yes 03/11/25 11:54 Duration of Surgery greater No 03/11/25 11:54 than 60 minutes Number of Risk Factors 3 03/11/25 11:54 PONV Score Moderate Risk 03/11/25 11:54 Height & Weight Height & Weight: Anesthesia: Height & Weight Height 5 ft 6 in 01/28/25 10:33 Respiratory Assessment Respiratory Assessment - sustainable products marketing manager: Respiratory Tract Infection Hx - sustainable products marketing manager Hx Respiratory Tract Infection No 03/11/25 11:54 STOP Sleep Apnea STOP Sleep Apnea - sustainable products marketing manager: STOP Sleep Apnea - sustainable products marketing manager Hx Hypertension Yes 03/11/25 11:54 Hx Sleep Apnea Yes: WEIGHT LOSS, DOES NOT 03/11/25 11:54 USE MACHINE NOT CPAP Yes 03/11/25 11:54 BIPAP No 03/11/25 11:54 Do you snore loudly (louder than talking or can be heard Do you often feel tired/ fatigued/ sleepy during daytime? Has anyone observed you stop breathing during sleep? STOP Results Positive 03/11/25 11:54 QUESTION #5 FULL TEXT : Do you snore loudly (louder than talking or can be heard through closed doors)? 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 Specify any problems Hx of Preganancy in last 3 No 03/11/25 11:54 Months Nurse Filling Out Transfusion [email or web address] 03/11/25 11:54 & Questions: Date: 03/11/25 03/11/25 11:54 Time: 11:58 03/11/25 11:54 Patient unable to answer at this time (ie. confused, unrespo /Reproduction History /Reproductive History - sustainable products marketing manager: /Reproductive Hx- sustainable products marketing manager Hx Now Gestational Age (in weeks): EDC: Hx Hx Para Hx Section SAB PFSH Medical History (Updated 03/11/25 @ 12:04 by Donald Stein) Easy bruising Back pain Sleep apnea Non-smoker Gastric reflux History of stress test History of echocardiogram Cardiology follow-up encounter IBS (irritable bowel syndrome) Anxiety Chronic systolic congestive heart failure SHAWN (obstructive sleep apnea) Abnormal LFTs Arthralgia Fatigue Sjogren's disease Diabetes Hypertension COVID-19 Segmental and somatic dysfunction of pelvic region Segmental and somatic dysfunction of cervical region Segmental and somatic dysfunction of lumbar region Segmental and somatic dysfunction of thoracic region Essential (primary) hypertension Nonischemic cardiomyopathy Chest pain History of uterine anomaly Bilateral headaches Arthritis Home Medications ?Medication ?Instructions ?Recorded ?Last Taken ?Type lisinopril 40 mg tablet 40 mg PO DAILY blood pressur e 11/22/14 05/29/23 History magnesium oxide 200 mg PO DAILY 08/20/18 History hydroxychloroquine 200 mg tablet 200 mg PO BID 2 05/29/23 History progesterone micronized 100 mg 100 mg PO QHS 05/30/23 05/29/23 History capsule tirzepatide 7.5 mg/0.5 mL 7.5 mg subcut QWEEK 12/18/23 03/02/25 History subcutaneous pen injector (Alanunelvinro) sodium,potassium,mag sulfates 17.5 See Rx Instructions PO .COMPLEX 01/22/25 Unknown Rx gram-3.13 gram-1.6 gram oral soln #354 mL (Suprep Bowel Prep Kit) estradiol 0.05 mg/24 hr semiweekly 1 patch transdermal .once weekly 01/28/25 Unknown History transdermal patch metoprolol succinate 100 mg 100 mg PO QDAY #90 tabs Unknown Rx tablet,extended release 24 hr famotidine 20 mg tablet (Pepcid) 20 mg PO QHS 03/11/25 Unknown History Allergy/AdvReac Type Severity Reaction Status Date / Time pistachio nut Allergy Hives Verified 03/11/25 11:53 hydrocodone AdvReac Mild Itching Verified 03/11/25 11:53 ibuprofen (From Motrin) AdvReac stomach Verified 03/11/25 11:53 pain Family History Mother Hypertension Cancer skin Diabetes Father Hypertension Grandmother Hypertension Grandfather Colon cancer Grandmother Hypertension CHF (congestive heart failure) Grandfather Diabetes Heart disease Hypertension Sister Hypertension Other Arthritis Surgical History (Updated 03/11/25 @ 12:04 by Donald Stein) H/O knee surgery History of cardiac catheterization Hx of bilateral cataract extraction Hx of shoulder surgery History of ankle surgery (~03/27/19) Hx laparoscopic cholecystectomy (~07/26/02) Hx of dilation and curettage Hx of breast reduction, elective History of left heart catheterization (08/21/18) History of tonsillectomy Social History housing: house Smoking Status: Never smoker alcohol intake: current alcohol intake frequency: a few times a month Alcohol type: wine substance use type: does not use caffeine: Yes (1 per day) what type of physical activity do you participate in: walking frequency: 1-2 times per week Audit: Pertinent Findings Pertinent Findings EKG Perinent findings: 12/06/2023. Sinus bradycardia 56 bpm. Left axis deviation. Minimal voltage criteria for LVH. Stress test pertinent findings: 08/21/2018. Stress test was canceled because patient was starting to complain of chest discomfort. She was sent for a cardiac cath. Echo (EF%) pertinent findings: 02/22/2025. EF of 50%. No aortic stenosis noted. Heart catheterization pertinent findings: 08/21/2018. Normal coronary arteries. Mild global left ventricular systolic dysfunction. Recommend medical therapy. Consult pertinent findings: 01/28/2025. Dr. Paulson. 1. Chest pain-atypical. Previous coronary angiography was negative for coronary artery disease. Recent CT angio showed only minimal disease. 2. Mild coronary artery disease-. Start enteric 81 mg aspirin 80 daily. Patient declines starting of statin drugs. 3. Nonischemic cardiomyopathy-repeat echocardiogram, done (see above). Continue lisinopril. Increase metoprolol. Patient declines SGLT2 inhibitors at this time. 4. Hypertension?on beta-blockers and ELO inhibitors. Additional pertinent findings: January 19, 2024. The LAD is noted to have a 35.4 score which is better than most in that group. Recommendation Anesthesia Recommendation Anesthesia recommendation: OPTIMIZED for anesthesia
[2025-03-13] VITALS (10 sets, daily range): BP systolic 85–122; BP diastolic 62–83; PULSE 47–76; RESP 16–18; TEMP 36.1–36.6; O2SAT 93–100; BMI 27.7
[2025-03-13] MEDS: Lactated Ringers 1,000 ML 15 ML IV (09:55)
[2025-03-13 09:56] LABS: Internal QC Validated? YES +Cl - CLEAR BKGD; Pregnancy, Urine Negative Negative; Record Kit Lot#,Urine Preg 0000947241
--- NOTE | 2025-03-13 09:56 | HP.PCM_ITS ---
[facility] - General General Date of Admission: 03/13/25 Date of Service: 03/13/25 Chief Complaint: abdominal pain and screening colonoscopy HPI Narrative JANET ORTIZ, is a 55 F who presents abdominal pain and screening colonoscopy. The patient is a 55-year-old female presenting with epigastric pain and overdue colonoscopy. The epigastric pain is described as a gnawing and burning sensation that varies with food intake, sometimes worsening with eating and sometimes without. The pain occasionally radiates and is associated with soreness of the stomach muscles, possibly due to clenching. The patient has a history of ulcerative colitis diagnosed 24 years ago, although she has been asymptomatic since diagnosis. Her father and daughter have symptomatic ulcerative colitis, with her daughter experiencing severe symptoms. Chronic constipation has been present since childhood, managed with magnesium oxide to maintain bowel movements, resulting in frequent watery stools. The patient takes 3 to 4 tablets of 200 mg magnesium oxide daily, adjusting the dose based on bowel movement frequency. The patient experiences heartburn, managed with famotidine or Tums, and attempts dietary modifications to prevent symptoms. She reports nausea, which has worsened since starting Mounjaro for diabetes management. The patient has a history of diabetes mellitus, managed with Mounjaro, which may contribute to delayed gastric emptying and associated symptoms. - per patient last Colon & EGD 2012 - reports she is hesitant to start any medications, does not want to commit to anything superintendent container terminal - we have discussed she is using magnesium superintendent container terminal - denies caffeine intake - rare alcohol - denies smoking - denies NSAIDS - as these make epigastric symptom much worse - dysphagia upper esophagus with pills, no dysphagia to food or liquids Attestation: Documentation on this patient encounter was supported using ambient scribe technology/ voice AI technology. The patient consented to recording for the purpose of documenting the encounter. Provider reviewed content of the generated note prior to signature. [facility] Medical History Easy bruising Back pain Sleep apnea Non-smoker Gastric reflux History of stress test History of echocardiogram Cardiology follow-up encounter IBS (irritable bowel syndrome) Anxiety Chronic systolic congestive heart failure SHAWN (obstructive sleep apnea) Abnormal LFTs Arthralgia Fatigue Sjogren's disease Diabetes Hypertension COVID-19 Segmental and somatic dysfunction of pelvic region Segmental and somatic dysfunction of cervical region Segmental and somatic dysfunction of lumbar region Segmental and somatic dysfunction of thoracic region Essential (primary) hypertension Nonischemic cardiomyopathy Chest pain History of uterine anomaly Bilateral headaches Arthritis Home Medications ?Medication ?Instructions ?Recorded ?Last Taken ?Type lisinopril 40 mg tablet 40 mg PO DAILY blood pressur e 11/22/14 05/29/23 History magnesium oxide 200 mg PO DAILY 08/20/18 History hydroxychloroquine 200 mg tablet 200 mg PO BID 2 05/29/23 History progesterone micronized 100 mg 100 mg PO QHS 05/30/23 05/29/23 History capsule tirzepatide 7.5 mg/0.5 mL 7.5 mg subcut QWEEK 12/18/23 03/02/25 History subcutaneous pen injector (Mounjaro) sodium,potassium,mag sulfates 17.5 See Rx Instructions PO .COMPLEX 01/22/25 Unknown Rx gram-3.13 gram-1.6 gram oral soln #354 mL (Suprep Bowel Prep Kit) estradiol 0.05 mg/24 hr semiweekly 1 patch transdermal .once weekly 01/28/25 Unknown History transdermal patch metoprolol succinate 100 mg 100 mg PO QDAY #90 tabs Unknown Rx tablet,extended release 24 hr famotidine 20 mg tablet (Pepcid) 20 mg PO QHS 03/11/25 03/13/25 05:30 History Allergy/AdvReac Type Severity Reaction Status Date / Time pistachio nut Allergy Hives Verified 03/13/25 09:50 hydrocodone AdvReac Mild Itching Verified 03/13/25 09:50 ibuprofen (From Motrin) AdvReac stomach Verified 03/13/25 09:50 pain Family History Mother Hypertension Cancer skin Diabetes Father Hypertension Grandmother Hypertension Grandfather Colon cancer Grandmother Hypertension CHF (congestive heart failure) Grandfather Diabetes Heart disease Hypertension Sister Hypertension Other Arthritis Surgical History H/O knee surgery History of cardiac catheterization Hx of bilateral cataract extraction Hx of shoulder surgery History of ankle surgery (~03/27/19) Hx laparoscopic cholecystectomy (~07/26/02) Hx of dilation and curettage Hx of breast reduction, elective History of left heart catheterization (08/21/18) History of tonsillectomy Social History housing: house Smoking Status: Never smoker alcohol intake: current alcohol intake frequency: a few times a month Alcohol type: wine substance use type: does not use caffeine: Yes (1 per day) what type of physical activity do you participate in: walking frequency: 1-2 times per week ROS Constitutional Constitutional: Denies fatigue, fever(s), poor appetite, weight gain or weight loss Gastrointestinal Gastrointestinal: Denies belching, bloating, change in bowel habits, change in stool character, chewing difficulty, coffee ground emesis, constipation, cramping, diarrhea, dyspepsia, dysphagia, early satiety, excessive flatus, fecal incontinence, heartburn, hematemesis, hematochezia, hemorrhoids, loose stools, melena, nausea, odynophagia, rectal bleeding, tenesmus, vomiting or weight changes Vital Signs Vital Signs Vital Signs: 03/13/25 09:51 03/13/25 09:51 Temperature 97.8 F Temperature Source Temporal Pulse Rate 73 Respiratory Rate 18 Respiratory Pattern Normal Blood Pressure 116/81 H Blood Pressure Mean 92 Blood Pressure Source Monitor Blood Pressure Position Sitting Blood Pressure Location Left Arm Pulse Ox 100 Oxygen Delivery Method Room Air Weight Weight: 171 lb 15.369 oz Body Mass Index (BMI) 27.7 Physical Exam Const alert, oriented x3, no apparent distress and healthy appearing General Appearance: cooperative GI normal to inspection, nondistended, normoactive bowel sounds, soft to palpation, non-tender and non-distended Percussion: normal to percussion Rectal Exam: deferred Results Lab / Micro Data Labs: Laboratory Results - last 24 hr 03/13/25 09:40: Urine Test Negative Assessment & Plan Assessment/Plan (1) Nausea: (2) Epigastric pain: (3) Family history of ulcerative colitis: (4) Diarrhea: PLAN: Assessment and Plan Assessment and Plan (1) Family history of ulcerative colitis: Status: Acute (2) Epigastric pain: Status: Acute Plan: The plan includes performing a colonoscopy and endoscopy to evaluate the cause of the epigastric pain and to rule out gastric or duodenal ulcers. Stool testing will be conducted to check for inflammation and H. pylori infection. A daily medication for gastric inflammation will be prescribed, to be started after stool specimen collection. (3) Nausea: Status: Acute (4) Constipation: Status: Acute Plan: The patient manages chronic constipation with magnesium oxide, resulting in frequent watery stools. Consideration of prescription motility agents was discussed to achieve more regular bowel movements. (5) Diarrhea: Status: Acute Orders: Orders Calprotectin, Stool Today R10.13 - Epigastric pain, R11.0 - Nausea, R19.7 - Diarrhea, unspecified, Z83.79 - Family history of other diseases of the digestive system H. PYLORI STOOL AG Today R10.13 - Epigastric pain, R11.0 - Nausea, R19.7 - Diarrhea, unspecified, Z83.79 - Family history of other diseases of the digestive system Medications: New peg 3350-sod sulf,[id number] 178.7-7.3-0.5 gram (Suflave) as directed for split dose bowel prep 2 mL 0RF pantoprazole take once daily 30 minutes before breakfast 40 mg PO QDAY 90 tabs 1RF Plan The patient is a 55-year-old female with a history of ulcerative colitis presenting with epigastric pain and overdue colonoscopy. The epigastric pain is characterized by a gnawing and burning sensation, with variability in relation to food intake, and is associated with nausea and heartburn. The pain occasionally radiates and is accompanied by muscle soreness. The patient has a longstanding history of chronic constipation, managed with magnesium oxide, resulting in frequent watery stools. The use of Mounjaro for diabetes management may contribute to delayed gastric emptying, exacerbating gastrointestinal symptoms. The family history of ulcerative colitis is significant, with both her father and daughter experiencing symptomatic disease. Patient Instructions: - Schedule and complete the colonoscopy and endoscopy as discussed. SUFLAVE - Collect stool specimen for testing before starting the prescribed medication. - Take the prescribed medication for gastric inflammation once daily on an empty stomach, 30 minutes before eating. PANTOPRAZOLE - Continue managing constipation with magnesium oxide or consider prescription options discussed.
--- NOTE | 2025-03-13 10:06 | PCM.PRE.AN2 ---
ASA Classification* ASA Classification ASA Classification: 2 Assessment & Plan Anesthesia* Anesthesia Assessment Anesthesia Assessment: Discussed sedation and/or anesthesia options, risks, benefits, and alternatives with patient/parents/legal guardian/POA. Questions invited. The patient/parents/legal guardian/POA seems to understand and agrees to proceed with anesthesia plan. Reviewed the physical assessment, medical history, allergy history and patient home medications list prior to surgery/procedure/anesthetic and documented any changes. Performed airway and anesthesia risk assessments. Anesthesia Type Anesthesia Type: MAC History Source History Obtained from:: Patient and Chart Anesthesia Focused Assessment* Temperature: 97.8 F Pulse Rate: 73 Blood Pressure: 116/81 Respiratory Rate: 18 Pulse Ox: 100 Oxygen Delivery Method: Room Air Airway Assessment Mouth opens: >3 cm Mallampati Score: II Teeth Condition: Chipped/Broken (Patient has chipped incisors #8 and 9.) Neck Range of motion (ROM): Limited ROM (Slight Decrease) Labs Anesthesia Preop lab: CBC WBC 6.8 K/mm3 (4.4-11.0) 12/06/23 23:12/06/23 RBC 5.32 M/mm3 (4.2-5.4) 12/06/23 23:30 12/06/23 Hgb 15.2 g/dL (12.0-15.0) H 12/06/23 23:30 12/06/23 Hct 46.8 % (37-47) 12/06/23 23:30 12/06/23 Plt Count 152 K/mm3 (150-450) 12/06/23 23:30 12/06/23 CHEMISTRY Potassium 3.3 mmol/L (3.5-5.1) L 12/06/23 23:30 12/06/23 Sodium 139 mmol/L (136-145) 12/06/23 23:30 12/06/23 Magnesium 2.1 mg/dL (1.6-2.6) 12/06/23 23:12/06/23 BUN 14 mg/dL (7-18) 12/06/23 23:30 12/06/23 Creatinine 0.89 mg/dL (0.55-1.02) 12/06/23 23:30 12/06/23 Glucose 94 mg/dL (74-106) 12/06/23 23:30 12/06/23 TSH 2.05 uIU/mL (0.358-3.74) 12/06/23 23:30 12/06/23 COAG PT 13.3 SECONDS (11.7-14.9) 08/21/18 04:48 08/21/18 Urine Test Negative Negative 03/13/25 09:40 03/13/25 Pre-Assessment Diagnosis/Proposed Procedure Planned Operative Procedure(s): COLONOSCOPY, EGD Anesthesia History Anesthesia History - finisher hand: Anesthesia History - finisher hand Hx Hospitalization No 03/11/25 11:54 Any Problems With Anesthesia Slow to wake up 03/11/25 11:54 Cholinesterase deficiency No 03/11/25 11:54 You/Your Family Experience No 03/11/25 11:54 fever (hyperthermia) with Relationship Recent Exposure to Contagious Yes 03/13/25 09:51 Disease Does patient have nerve No 03/11/25 11:54 stimulator Patient instructed to have device shut off --Does patient have Pacemaker No 03/13/25 09:51 or ICD? When Was Last Pacemaker Check QUESTION #4 FULL TEXT: You/Your Family Experience fever (hyperthermia) with Anesthesia Last Oral Intake Last Oral intake: Last Oral Intake NPO since 05:30 03/13/25 09:51 Meds taken in AM with sips of water? Meds patient instructed to famotidine 03/13/25 09:51 take am of surgery Any additional information?: Yes NPO since: 07:30 (Patient had water up to 7:30 AM.) Meds taken in AM with sips of water?: Yes PONV PONV - finisher hand: PONV - finisher hand Female Yes 03/11/25 11:54 HX of Motion Sickness No 03/11/25 11:54 HX of N/V After Surgery Yes 03/11/25 11:54 Non-Smoker Yes 03/11/25 11:54 Duration of Surgery greater No 03/11/25 11:54 than 60 minutes Number of Risk Factors 3 03/11/25 11:54 PONV Score Moderate Risk 03/11/25 11:54 Height & Weight Height & Weight: Anesthesia: Height & Weight Height 5 ft 6 in 03/13/25 09:51 Weight: 78 kg 03/13/25 09:51 Body Mass Index (BMI) 27.7 03/13/25 09:51 Respiratory Assessment Respiratory Assessment - finisher hand: Respiratory Tract Infection Hx - finisher hand Hx Respiratory Tract Infection No 03/11/25 11:54 STOP Sleep Apnea STOP Sleep Apnea - finisher hand: STOP Sleep Apnea - finisher hand Hx Hypertension Yes 03/11/25 11:54 Hx Sleep Apnea Yes: WEIGHT LOSS, DOES NOT 03/11/25 11:54 USE MACHINE NOT CPAP Yes 03/11/25 11:54 BIPAP No 03/11/25 11:54 Do you snore loudly (louder than talking or can be heard Do you often feel tired/ fatigued/ sleepy during daytime? Has anyone observed you stop breathing during sleep? STOP Results Positive 03/11/25 11:54 QUESTION #5 FULL TEXT : Do you snore loudly (louder than talking or can be heard through closed doors)? Tobacco Use History Tobacco Use History - finisher hand: Tobacco Use History - finisher hand Tobacco Use Smoking Status Never smoker 03/11/25 11:54 Hx Tobacco Use No 03/11/25 11:54 Years Smoking Packs Smoked per Day Smoking Cessation Date was within the last 15 years Hx Smoking Cessation Date Hx Smoking Cessation Counseling Hematologic Medial History Hematologic Hx - finisher hand: Hematologic Medical Hx - health and wellness coach Hx of Blood Transfusion No 03/11/25 11:54 Hx of Transfusion in last 3 No 03/11/25 11:54 Months Date of Last Transfusion (if within last 3 months) Ever experience any problems No 03/11/25 11:54 with transfusion(s)? Specify any problems Hx of Preganancy in last 3 No 03/11/25 11:54 Months Nurse Filling Out Transfusion [email or web address] 03/11/25 11:54 & Questions: Date: 03/11/25 03/11/25 11:54 Time: 11:58 03/11/25 11:54 Patient unable to answer at this time (ie. confused, unrespo /Reproduction History /Reproductive History - finisher hand: /Reproductive Hx- finisher hand Hx Now Gestational Age (in weeks): EDC: Hx Hx Para Hx Section SAB Active Medications Active Medications: Current Medications Generic Name Dose Route Start Last Admin Trade Name Freq PRN Reason Stop Dose Admin Lactated Ringer's 1,000 mls @ 15 mls/hr 03/13/25 09:30 03/13/25 09:55 IV 15 mls/hr .Q48H VIVIAN Administration PFSH Medical History Easy bruising Back pain Sleep apnea Non-smoker Gastric reflux History of stress test History of echocardiogram Cardiology follow-up encounter IBS (irritable bowel syndrome) Anxiety Chronic systolic congestive heart failure SHAWN (obstructive sleep apnea) Abnormal LFTs Arthralgia Fatigue Sjogren's disease Diabetes Hypertension COVID-19 Segmental and somatic dysfunction of pelvic region Segmental and somatic dysfunction of cervical region Segmental and somatic dysfunction of lumbar region Segmental and somatic dysfunction of thoracic region Essential (primary) hypertension Nonischemic cardiomyopathy Chest pain History of uterine anomaly Bilateral headaches Arthritis Home Medications ?Medication ?Instructions ?Recorded ?Last Taken ?Type lisinopril 40 mg tablet 40 mg PO DAILY blood pressure 11/22/14 05/29/23 History magnesium oxide 200 mg PO DAILY 08/20/18 05/29/23 History hydroxychloroquine 200 mg tablet 200 mg PO BID 04/13/22 05/29/23 History progesterone micronized 100 mg 100 mg PO QHS 05/30/23 05/29/23 History capsule tirzepatide 7.5 mg/0.5 mL 7.5 mg subcut QWEEK 12/18/23 03/02/25 History subcutaneous pen injector (Mounjaro) sodium,potassium,mag sulfates 17.5 See Rx Instructions PO .COMPLEX 01/22/25 Unknown Rx gram-3.13 gram-1.6 gram oral soln #354 mL (Suprep Bowel Prep Kit) estradiol 0.05 mg/24 hr semiweekly 1 patch transdermal .once weekly 01/28/25 Unknown History transdermal patch metoprolol succinate 100 mg 100 mg PO QDAY #90 tabs 01/28/25 Unknown Rx tablet,extended release 24 hr famotidine 20 mg tablet (Pepcid) 20 mg PO QHS 03/11/25 03/13/25 05:30 History Allergy/AdvReac Type Severity Reaction Status Date / Time pistachio nut Allergy Hives Verified 03/13/25 09:50 hydrocodone AdvReac Mild Itching Verified 03/13/25 09:50 ibuprofen (From Motrin) AdvReac stomach Verified 03/13/25 09:50 pain Family History Mother Hypertension Cancer skin Diabetes Father Hypertension Grandmother Hypertension Grandfather Colon cancer Grandmother Hypertension CHF (congestive heart failure) Grandfather Diabetes Heart disease Hypertension Sister Hypertension Other Arthritis Surgical History H/O knee surgery History of cardiac catheterization Hx of bilateral cataract extraction Hx of shoulder surgery History of ankle surgery (~03/27/19) Hx laparoscopic cholecystectomy (~07/26/02) Hx of dilation and curettage Hx of breast reduction, elective History of left heart catheterization (08/21/18) History of tonsillectomy Social History housing: house Smoking Status: Never smoker alcohol intake: current alcohol intake frequency: a few times a month Alcohol type: wine substance use type: does not use caffeine: Yes (1 per day) what type of physical activity do you participate in: walking frequency: 1-2 times per week Review of Systems (Anesthesia) ROS Narrative System reviewed and no additional complaints, except as documented.
--- NOTE | 2025-03-13 10:30 | COLBX_PTH ---
PATIENT: JANET ORTIZ LOC: EN U#:[id number] AGE/SX: 55/F ROOM: RE03/13/[address]: Dr. Raji Perkins DO : 1970 BED: DIS: 03/13/2025 SPEC #: [id number] RECD: 03/13/25 13:27 STATUS: DESTIN REMir #: [id number] JEANNETTE: 03/13/25 10:[address]: Raji Perkins DEPT: SURGICAL PATHOLOGY RECD BY: Obdulio De Anda ENTERED: 03/13/25 15:53 SP TYPE: COLON BX OTHR DR: Dr. Tomasa Khan DO Tissues: A - Esophagus, NOS B - Duodenum, NOS Procedures: Surgery Specimen Level IV HEADER OPERATION: Colonoscopy, EGD with biopsy PRE-OP DIAGNOSIS: Nausea, epigastric pain, family history of ulcerative colitis, diarrhea TISSUE SUBMITTED: A- Distal esophagus biopsy, B- Duodenum biopsy MICROSCOPIC DIAGNOSIS A. Distal esophagus, biopsy: Squamocolumnar mucosa with reactive changes. Negative for goblet cell metaplasia. B. Duodenum, biopsy: Normal villous architecture with Ozzie gland hyperplasia. Negative for increased intraepithelial lymphocytes. MICROSCOPIC DESCRIPTION Slides are reviewed. GROSS DESCRIPTION A. Received in fixative is one container labeled with the patient's name and designated Distal esophagus biopsy. The specimen consists of three irregular fragments of light yates soft tissue that measure 0.3 to 0.7 cm. The specimen is totally submitted in one cassette. B. Received in fixative is one container labeled with the patient's name and designated Duodenum biopsy. The specimen consists of two irregular fragments of light yates soft tissue, each measuring 0.5 cm. The specimen is totally submitted in one cassette. MN 03/13/2025 CPT:08963t7
--- NOTE | 2025-03-13 10:57 | OP.EGD_ITS ---
Patient Name: Tamika Rocha Procedure Date: 03/13/2025 10:16 AM Date of : 1970 Age: 55 Procedure: Upper GI endoscopy Indications: Epigastric abdominal pain, Heartburn Providers: Raji Perkins DO Referring MD: Tomasa Khan Medicines: Monitored Anesthesia Care Patient Profile: This is a 55 year old female. Refer to note in patient chart for documentation of history and physical. Patient has symptoms of chronic dyspepsia and acute heartburn. Complications: No immediate complications. Procedure: Pre-Anesthesia Assessment: - Prior to the procedure, a History and Physical was performed, and patient medications and allergies were reviewed. The patient is competent. The risks and benefits of the procedure and the sedation options and risks were discussed with the patient. All questions were answered and informed consent was obtained. Patient identification and proposed procedure were verified by the physician in the pre-procedure area. Mental Status Examination: alert and oriented. Airway Examination: normal oropharyngeal airway and neck mobility. Respiratory Examination: clear to auscultation. CV Examination: normal. Prophylactic Antibiotics: The patient does not require prophylactic antibiotics. Prior Anticoagulants: The patient has taken no anticoagulant or antiplatelet agents except for NSAID medication. ASA Grade Assessment: II - A patient with mild systemic disease. After reviewing the risks and benefits, the patient was deemed in satisfactory condition to undergo the procedure. The anesthesia plan was to use monitored anesthesia care (MAC). Immediately prior to administration of medications, the patient was re-assessed for adequacy to receive sedatives. The heart rate, respiratory rate, oxygen saturations, blood pressure, adequacy of pulmonary ventilation, and response to care were monitored throughout the procedure. The physical status of the patient was re-assessed after the procedure. After obtaining informed consent, the endoscope was passed under direct vision. Throughout the procedure, the patient's blood pressure, pulse, and oxygen saturations were monitored continuously. The Colonoscope was introduced through the mouth, and advanced to the second part of duodenum. The upper GI endoscopy was accomplished without difficulty. The patient tolerated the procedure well. Scope In: 10:28:06 AM Scope Out: 10:32:22 AM Total Procedure Duration Time 0 hours 4 minutes 16 seconds Findings: The Z-line was irregular and was found 40 cm from the incisors. Biopsies were taken with a cold forceps for histology. Verification of patient identification for the specimen was done. Estimated blood loss was minimal. A small hiatal hernia was present. No gross lesions were noted in the entire examined stomach. A few small hyperplastic polyps with no bleeding and no stigmata of recent bleeding were found in the gastric fundus. Patchy mildly erythematous mucosa without active bleeding and with no stigmata of bleeding was found in the duodenal bulb. Biopsies were taken with a cold forceps for histology. Verification of patient identification for the specimen was done. Estimated blood loss was minimal. Impression: - Z-line irregular, 40 cm from the incisors. Biopsied. - Small hiatal hernia. - No gross lesions in the entire stomach. - A few gastric polyps. - Erythematous duodenopathy. Biopsied. Recommendation: - Discharge patient to home. - Resume previous diet. - Continue present medications. - Await pathology results. Procedure Code(s): --- Professional --- 42207, Esophagogastroduodenoscopy, flexible, transoral; with biopsy, single or multiple CPT copyright 2021 [employer]. All rights reserved. The codes documented in this report are preliminary and upon ibm websphere portal developer review may be revised to meet current compliance requirements. Raji Perkins DO 03/13/2025 10:56:57 AM This report has been signed electronically. Number of Addenda: 0 Note Initiated On: 03/13/2025 10:16 AM
--- NOTE | 2025-03-13 10:57 | OP.PROVAT_ITS ---
03/13/2025 Tomasa Khan [address] [facility] [place] [address] [place] [address] Re : Upper GI endoscopy procedure for Tamika Rocha Dear Dr. Khan This procedure was performed on March. My impressions and recommendations are as follows: Impressions : - Z-line irregular, 40 cm from the incisors. Biopsied. - Small hiatal hernia. - No gross lesions in the entire stomach. - A few gastric polyps. - Erythematous duodenopathy. Biopsied. Recommendations : - Discharge patient to home. - Resume previous diet. - Continue present medications. - Await pathology results. My findings are described in the full procedure note, which is enclosed. If I can be of further assistance, please feel free to contact me at . Sincerely, Raji Perkins, 03/13/2025 10:56:57 AM This report has been signed electronically.
--- NOTE | 2025-03-13 11:00 | OP.COLON_ITS ---
Patient Name: Tamika Rocha Procedure Date: 03/13/2025 10:32 AM Date of : 1970 Age: 55 Procedure: Colonoscopy Indications: Screening for colorectal malignant neoplasm Providers: DO Arpit Scanlon MD: Tomasa Khan Medicines: Monitored Anesthesia Care Patient Profile: This is a 55 year old female. Refer to note in patient chart for documentation of history and physical. Patient has symptoms of chronic dyspepsia and acute heartburn. Last Colonoscopy: several years ago. Complications: No immediate complications. Procedure: Pre-Anesthesia Assessment: - Prior to the procedure, a History and Physical was performed, and patient medications and allergies were reviewed. The patient is competent. The risks and benefits of the procedure and the sedation options and risks were discussed with the patient. All questions were answered and informed consent was obtained. Patient identification and proposed procedure were verified by the physician in the pre-procedure area. Mental Status Examination: alert and oriented. Airway Examination: normal oropharyngeal airway and neck mobility. Respiratory Examination: clear to auscultation. CV Examination: normal. Prophylactic Antibiotics: The patient does not require prophylactic antibiotics. Prior Anticoagulants: The patient has taken no anticoagulant or antiplatelet agents except for NSAID medication. ASA Grade Assessment: II - A patient with mild systemic disease. After reviewing the risks and benefits, the patient was deemed in satisfactory condition to undergo the procedure. The anesthesia plan was to use monitored anesthesia care (MAC). Immediately prior to administration of medications, the patient was re-assessed for adequacy to receive sedatives. The heart rate, respiratory rate, oxygen saturations, blood pressure, adequacy of pulmonary ventilation, and response to care were monitored throughout the procedure. The physical status of the patient was re-assessed after the procedure. After I obtained informed consent, the scope was passed under direct vision. Throughout the procedure, the patient's blood pressure, pulse, and oxygen saturations were monitored continuously. The Colonoscope was introduced through the anus and advanced to the terminal ileum. The colonoscopy was performed without difficulty. The patient tolerated the procedure well. The quality of the bowel preparation was adequate. The terminal ileum, ileocecal valve, appendiceal orifice, and rectum were photographed. Scope In: 10:34:02 AM Scope Withdrawal Time 0 hours 7 minutes 10 seconds Scope Out: 10:46:10 AM Total Procedure Duration Time 0 hours 12 minutes 8 seconds Findings: The perianal and digital rectal examinations were normal. An area of mildly congested mucosa was found in the recto-sigmoid colon, in the sigmoid colon and in the transverse colon. The exam was otherwise without abnormality on direct and retroflexion views. Internal hemorrhoids were found during retroflexion. The hemorrhoids were small and Grade I (internal hemorrhoids that do not prolapse). Impression: - Congested mucosa in the recto-sigmoid colon, in the sigmoid colon and in the transverse colon. - The examination was otherwise normal on direct and retroflexion views. - Internal hemorrhoids. - No specimens collected. Recommendation: - Repeat colonoscopy in 10 years for screening purposes. - Continue present medications. Procedure Code(s): --- Professional --- G0121, Colorectal cancer screening; colonoscopy on individual not meeting criteria for high risk CPT copyright 2021 [employer]. All rights reserved. The codes documented in this report are preliminary and upon occupational therapist's assistant review may be revised to meet current compliance requirements. Raji Perkins DO 03/13/2025 10:59:41 AM This report has been signed electronically. Number of Addenda: 0 Note Initiated On: 03/13/2025 10:32 AM
--- NOTE | 2025-03-13 11:00 | OP.PROVAT_ITS ---
03/13/2025 Tomasa Khan [address] [place] [address] Re : Colonoscopy procedure for Tamika Rocha Dear Dr. Khan This procedure was performed on March. My impressions and recommendations are as follows: Impressions : - Congested mucosa in the recto-sigmoid colon, in the sigmoid colon and in the transverse colon. - The examination was otherwise normal on direct and retroflexion views. - Internal hemorrhoids. - No specimens collected. Recommendations : - Repeat colonoscopy in 10 years for screening purposes. - Continue present medications. My findings are described in the full procedure note, which is enclosed. If I can be of further assistance, please feel free to contact me at . Sincerely, Raji Perkins, 03/13/2025 10:59:41 AM This report has been signed electronically.
--- NOTE | 2025-03-13 11:00 | PCM.POST.ANE ---
Anesthesia: Postop Eval I Current Vital Signs Temperature: 97.6 F Pulse Rate: 76 Blood Pressure: 85/62 Respiratory Rate: 16 Pulse Ox: 94 Oxygen Delivery Method: Room Air Assessment Airway patent: Yes Spontaneous unlabored respirations: Yes Mental status: Asleep nausea: No Vomiting: No Anesthesia Complication: No Fluid Hydration Crystalloid volume administer (ml): 700 Total IV fluid infused: 700 Progress Note Anesthesia document: Postop Eval 1 completed: Yes
--- NOTE | 2025-03-13 15:19 | PCM.POSTANE2 ---
Anesthesia Postop Eval I Sum Postop Eval Completion status Anesthesia document: Postop Eval 1 completed: Yes Anesthesia Postop Eval I Summary Anesthesia Postop Eval I Summary: Anesthesia Postop Eval I: Assessment Summary Airway patent Yes 03/13/25 11:01 [email or web address] Spontaneous unlabored Yes 03/13/25 11:01 [email or web address] respirations Mental status Asleep 03/13/25 11:01 [email or web address] nausea No 03/13/25 11:01 [email or web address] Vomiting No 03/13/25 11:01 [email or web address] Anesthesia Postop Eval I: Fluid Summary Crystalloid volume administer 700 03/13/25 11:01 [email or web address] (ml) Colloids volume administered ( ml) Blood Product volume administered (ml) Total IV fluid infused 700 03/13/25 11:01 [email or web address] Anesthesia Postop Eval I: Summary Notes Anesthesia Complication No 03/13/25 11:01 [email or web address] Anesthesia Complication Comment: Post-operative progress note Anesthesia: Postop Eval II Evaluation Mental status: Awake and Calm Pain Level: 0 nausea: No Vomiting: No Complications Anesthesia Complication: No
== END 2025-03-13 11:47 | disposition home or self-care (01) ==
LOC: EN 09:16 → AC 09:18
PROVIDERS: Anesthesiology; PCP Family Medicine; Referring Provider Family Medicine; Visit Provider Internal Medicine Gastroenterology
PROC: 0DJD8ZZ Inspection of Lower Intestinal Tract, Via Natural or Artificial Opening Endoscopic (ICD-10-PCS; CPT 45378; principal; 2025-03-13 10:25)
DX: Z12.11 Encounter for screening for malignant neoplasm of colon (principal); I42.8 Other cardiomyopathies; E11.9 Type 2 diabetes mellitus without complications; K31.7 Polyp of stomach and duodenum; R10.13 Epigastric pain; K44.9 Diaphragmatic hernia without obstruction or gangrene; K64.0 First degree hemorrhoids; R13.10 Dysphagia, unspecified; I10 Essential (primary) hypertension; K21.9 Gastro-esophageal reflux disease without esophagitis; R19.7 Diarrhea, unspecified; K59.09 Other constipation; Z79.85 Long-term (current) use of injectable non-insulin antidiabetic drugs; Z79.899 Other long term (current) drug therapy; Z87.19 Personal history of other diseases of the digestive system
CPT/HCPCS: 43239; 45378; 81025; 88305; J2405